=== PATIENT | male | born 1945 | race Caucasian/White ===

== ENCOUNTER 2020-11-06 06:58 | Outpatient (CLI) | payer OTHER, MEDICARE ==
[~2020-11-06] VITALS: Ht 172.7 cm; Wt 75.0 kg
[2020-11-06] MEDS ORDERED: LISI10TA25 PO (15:04)
== END 2020-11-06 15:08 ==
LOC: PREOP 06:58
PROVIDERS: ATTEND Specialist
DX: Z01.818 Encounter for other preprocedural examination (principal)

== ENCOUNTER → 2020-11-07 | Outpatient (CLI) | payer OTHER, MEDICARE ==
[~2020-11-07] MED LIST: BROM5DRO3 OS; CEFD300C3 PO; IBUP-2473 PO; LISI10TA25 PO; OFLO5DRO3 OS; [UNRECOGNIZED DRUG - OTHER] PO
[2020-11-07 12:03] LABS: BASOPHILS # (AUTO) 0.1 10^3/uL (0.0-0.1); BASOPHILS % (AUTO) 1 % (0-10); EOSINOPHILS % (AUTO) 0 % (0-10); HEMATOCRIT 36 % (40-54); HEMOGLOBIN 12.4 g/dL (13.3-17.7); LYMPHOCYTES # (AUTO) 2.9 10^3/uL (1.0-4.0); LYMPHOCYTES % (AUTO) 22 % (12-44); MEAN CORPUSCULAR HEMOGLOBIN 29 pg (25-34); MEAN CORPUSCULAR HGB CONC 34 g/dL (32-36); MEAN CORPUSCULAR VOLUME 83 fL (80-99); MEAN PLATELET VOLUME 9.5 fL (9.0-12.2); MONOCYTES # (AUTO) 1.6 10^3/uL (0.0-1.0); MONOCYTES % (AUTO) 13 % (0-12); NEUTROPHILS # (AUTO) 8.2 10^3/uL (1.8-7.8); NEUTROPHILS % (AUTO) 64 % (42-75); PLATELET COUNT 209 10^3/uL (130-400); WHITE BLOOD COUNT 12.8 10^3/uL (4.3-11.0)
[2020-11-07 12:26] LABS: BILIRUBIN,TOTAL 1.5 MG/DL (0.1-1.0); CALCIUM 8.7 MG/DL (8.5-10.1); CREATININE SERUM 0.77 MG/DL (0.60-1.30); POTASSIUM 3.9 MMOL/L (3.6-5.0); TOTAL PROTEIN 5.9 GM/DL (6.4-8.2)
--- NOTE | 2020-11-07 12:32 | Diagnostic Imaging Report ---
EXAMINATION: Chest 2 views. HISTORY: Cough. COMPARISON: 05/12/2014 FINDINGS: The lungs are clear without edema or pneumonia. No pleural effusion or pneumothorax. Heart size is normal. IMPRESSION: 1. Clear lungs. Dictated by: Dictated on workstation # [id number]
== END ==
LOC: RAD 11:45
PROVIDERS: ATTEND Family Medicine
DX: R05 Cough (principal); R50.9 Fever, unspecified; R42 Dizziness and giddiness
CPT/HCPCS: 36415; 71046; 80053; 85025

== ENCOUNTER 2020-11-08 18:20 | Inpatient (IN) | payer OTHER, MEDICARE ==
[~2020-11-08] VITALS: Ht 175.2 cm; Wt 77.2 kg
[~2020-11-08 18:20] MED LIST changes: -BROM5DRO3 OS; -CEFD300C3 PO; -IBUP-2473 PO; -OFLO5DRO3 OS; -[UNRECOGNIZED DRUG - OTHER] PO
[2020-11-08] MEDS ORDERED: IBUPROFEN 800 MG (MOTRIN) TAB PO ONE (18:30)
[2020-11-08] MEDS ORDERED: ACETAMINOPHEN 500 MG TAB (TYLENOL) PO PRN (18:30)
[2020-11-08] MEDS ORDERED: LACTATED RINGERS 1,000 ML IV ONE ×2 (18:30→20:15)
[2020-11-08 18:41] LABS: BASOPHILS % (AUTO) 0 % (0-10); EOSINOPHILS % (AUTO) 0 % (0-10); HEMATOCRIT 33 % (40-54); LYMPHOCYTES # (AUTO) 1.8 10^3/uL (1.0-4.0); LYMPHOCYTES % (AUTO) 10 % (12-44); MEAN CORPUSCULAR HEMOGLOBIN 28 pg (25-34); MEAN CORPUSCULAR HGB CONC 36 g/dL (32-36); MEAN CORPUSCULAR VOLUME 79 fL (80-99); MEAN PLATELET VOLUME 9.9 fL (9.0-12.2); MONOCYTES # (AUTO) 2.2 10^3/uL (0.0-1.0); MONOCYTES % (AUTO) 12 % (0-12); NEUTROPHILS # (AUTO) 13.7 10^3/uL (1.8-7.8); NEUTROPHILS % (AUTO) 77 % (42-75); PLATELET COUNT 227 10^3/uL (130-400); WHITE BLOOD COUNT 17.9 10^3/uL (4.3-11.0)
--- NOTE | 2020-11-08 18:49 | ED General ---
General Chief Complaint: COVID19 Suspect/Confirmed Stated Complaint: WEAKNESS IN LEGS Source of Information: Patient (LIMITED HISTORIAN), EMS History of Present Illness Date Seen by Provider: Nov 08, 2020 Time Seen by Provider: 18:25 Initial Comments PT ARRIVES VIA EMS FROM HOME--PT LIVES ALONE C/O GENERALIZED WEAKNESS FOR THE LAST 3 DAYS--STATES HE HAS "BEEN TOO WEAK TO STAND" C/O NON-PRODUCTIVE COUGH X 1 WEEK C/O SHORTNESS OF BREATH SINCE FRIDAY PT HAD FEVER OF 102.2 PRIOR TO ARRIVAL BY EMS--PT WAS UNAWARE THAT HE HAD FEVER C/O FEELING LIGHTHEADED X 3 DAYS NO HEADACHE NO VISION CHANGES NO NECK OR BACK PAIN NO NAUSEA/VOMITING/DIARRHEA NO ABDOMINAL PAIN NO URINARY SYMPTOMS NO LOSS OF TASTE OR SMELL NO CHEST PAIN NO LEG PAIN NO PARESTHESIAS OR MOTOR DEFICITS, STATES HIS LEGS ARE JUST "WEAK" BUT IS ABLE TO MOVE THEM WENT TO SEE DR. WINN FRIDAY, FRIDAY AND AGAIN THIS MORNING FOR THIS PROBLEM HAD OUTPATIENT CXR AND LAB--RESULTS UNKNOWN BY PT OUTPATIENT CXR ON 11/07/20 WAS NORMAL LAB FROM 11/07/20: -WBC 12.8 -LFT'S ELEVATED PT WAS SUPPOSED TO HAVE HAD AN ULTRASOUND ( ? ABDOMINAL ? ) THIS AM, BUT PT ATE ( WAS SUPPOSED TO BE NPO) SO IT WAS NOT DONE. RESCHEDULED FOR 0800 IN THE MORNING REPORTEDLY, PT HAD NEGATIVE COVID-19 TEST EARLIER TODAY AT "[facility]" PT HAD COVID-19 VACCINE X 2 IN JUNE PCP: DR. WINN Allergies and Home Medications Allergies Coded Allergies: No Known Drug Allergies (Unverified , 11/06/20) Home Medications Lisinopril 10 Mg Tablet, 10 MG PO DAILY, (Reported) Patient Home Medication List Home Medication List Reviewed: Yes Review of Systems Review of Systems Constitutional: see HPI, fever, malaise, weakness EENTM: no symptoms reported Respiratory: see HPI, cough, short of breath Cardiovascular: no symptoms reported; No chest pain, No edema Gastrointestinal: no symptoms reported; No abdominal pain, No diarrhea, No loss of appetite, No nausea, No vomiting Genitourinary: no symptoms reported Musculoskeletal: no symptoms reported; No back pain, No muscle pain, No neck pain Skin: no symptoms reported Psychiatric/Neurological: Denies Headache, Denies Numbness, Denies Paresthesia, Denies Tingling; Other (GENERALIZED WEAKNESS) Hematologic/Lymphatic: No Symptoms Reported Immunological/Allergic: no symptoms reported Past Sfctwwe-Gxmieu-Pfohdn Hx Patient Social History Tobacco Use?: Yes (1 PPD) Tobacco type used: Cigarettes Smoking Status: Former Smoker Use of E-Cig and/or Vaping dev: No Substance use?: No Alcohol Use?: No Pt feels they are or have been: No Immunizations Up To Date Influenza Vaccine Up-to-Date: No; Not Current Second COVID19 Vaccination Peter: 06/28 COVID19 Vaccine Special Event Assistant: Eladia Past Medical History Surgery/Hospitalization HX: TESTICULAR SURGERY FOR "CYSTS" RIGHT THUMB REPAIR Surgeries: Yes Orthopedic, Testicular Respiratory: No Cardiac: Yes Hypertension Neurological: No Genitourinary: Yes (TESTICULAR "CYSTS" REMOVED) Gastrointestinal: No Musculoskeletal: No Endocrine: No HEENT: No Cancer: No Psychosocial: No Integumentary: No Blood Disorders: No Physical Exam Vital Signs Vital Signs - First Documented 11/08/20 18:24 Temp 38.1 Pulse 93 Resp 24 B/P (MAP) 180/77 (111) Pulse Ox 96 Capillary Refill : Height, Weight, BMI Height: '" Weight: lbs. oz. kg; BMI Method: General Appearance: No Apparent Distress, WD/WN, Other (DOES NOT APPEAR ILL OR TO BE IN ANY DISCOMFORT OR DISTRESS) HEENT: PERRL/EOMI, Normal ENT Inspection, Pharynx Normal; No Scleral Icterus (L), No Scleral Icterus (R) Neck: Full Range of Motion, Normal Inspection, Non Tender, Supple Respiratory: Normal Breath Sounds, No Accessory Muscle Use, No Respiratory Distress Cardiovascular: Regular Rate, Rhythm, No Gallop, No JVD, No Murmur, Normal Peripheral Pulses Gastrointestinal: Normal Bowel Sounds, No Organomegaly, No Pulsatile Mass, Non Tender, Soft Back: Normal Inspection, No CVA Tenderness, No Vertebral Tenderness Extremity: Normal Range of Motion, Non Tender, No Calf Tenderness, Pedal Edema (1+ BILATERALLY), Other (FEET ARE PINK AND WARM, AND ALL DISTAL PULSES +2/4 ) Neurologic/Psychiatric: Alert, Oriented x3, No Motor/Sensory Deficits, Normal 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, 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, Other (ZAVALA EQUALLY; DTR'S INTACT) Skin: Normal Color, Warm/Dry; No Rash; Other (NO WOUNDS OR EVIDENCE OF ANY SKIN INFECTION/BREAKDOWN ANYWHERE) Focused Exam Lactate Level 11/08/20 18:30: Lactic Acid Level 1.44 Lactic Acid Level Laboratory Tests Test 11/08/20 18:30 Lactic Acid Level 1.44 MMOL/L (0.50-2.00) Progress/Results/Core Measures Suspected Sepsis SIRS Temperature: Pulse: Respiratory Rate: Laboratory Tests 11/08/20 18:30: White Blood Count 17.9H Blood Pressure / Mean: 11/08/20 18:30: Lactic Acid Level 1.44 Laboratory Tests 11/08/20 18:30: Creatinine 0.66, INR Comment 1.2, Platelet Count 227, Total Bilirubin 2.7H Results/Orders Lab Results Laboratory Tests Test 11/08/20 18:30 11/08/20 20:47 Range/Units White Blood Count 17.9 H 4.3-11.0 10^3/uL Red Blood Count 4.22 L 4.30-5.52 10^6/uL Hemoglobin 12.0 L 13.3-17.7 g/dL Hematocrit 33 L 40-54 % Mean Corpuscular Volume 79 L 80-99 fL Mean Corpuscular Hemoglobin 28 25-34 pg Mean Corpuscular Hemoglobin Concent 36 32-36 g/dL Red Cell Distribution Width 13.7 10.0-14.5 % Platelet Count 227 130-400 10^3/uL Mean Platelet Volume 9.9 9.0-12.2 fL Immature Granulocyte % (Auto) 1 % Neutrophils (%) (Auto) 77 H 42-75 % Lymphocytes (%) (Auto) 10 L 12-44 % Monocytes (%) (Auto) 12 0-12 % Eosinophils (%) (Auto) 0 0-10 % Basophils (%) (Auto) 0 0-10 % Neutrophils # (Auto) 13.7 H 1.8-7.8 10^3/uL Lymphocytes # (Auto) 1.8 1.0-4.0 10^3/uL Monocytes # (Auto) 2.2 H 0.0-1.0 10^3/uL Eosinophils # (Auto) 0.0 0.0-0.3 10^3/uL Basophils # (Auto) 0.0 0.0-0.1 10^3/uL Immature Granulocyte # (Auto) 0.2 H 0.0-0.1 10^3/uL Neutrophils % (Manual) 88 % Lymphocytes % (Manual) 8 % Monocytes % (Manual) 4 % Blood Morphology Comment NORMAL Erythrocyte Sedimentation Rate 8 0-30 MM/HR Prothrombin Time 15.7 H 12.2-14.7 SEC INR Comment 1.2 0.8-1.4 Activated Partial Thromboplast Time 41 H 24-35 SEC D-Dimer 3.13 H 0.00-0.49 UG/ML Sodium Level 128 L 135-145 MMOL/L Potassium Level 4.4 3.6-5.0 MMOL/L Chloride Level 97 L 98-107 MMOL/L Carbon Dioxide Level 21 21-32 MMOL/L Anion Gap 5-14 MMOL/L Blood Urea Nitrogen 16 7-18 MG/DL Creatinine 0.66 0.60-1.30 MG/DL Estimat Glomerular Filtration Rate 117 BUN/Creatinine Ratio 24 Glucose Level 99 70-105 MG/DL Lactic Acid Level 1.44 0.50-2.00 MMOL/L Calcium Level 8.7 8.5-10.1 MG/DL Corrected Calcium 9.6 8.5-10.1 MG/DL Magnesium Level 1.8 1.6-2.4 MG/DL Total Bilirubin 2.7 H 0.1-1.0 MG/DL Direct Bilirubin 1.8 H 0.0-0.3 MG/DL Indirect Bilirubin 0.9 MG/DL Aspartate Amino Transf (AST/SGOT) 55 H 5-34 U/L Alanine Aminotransferase (ALT/SGPT) 74 H 0-55 U/L Alkaline Phosphatase 364 H 40-136 U/L Lactate Dehydrogenase 302 H 125-220 U/L Troponin I < 0.028 <0.028 NG/ML C-Reactive Protein High Sensitivity 12.54 H 0.00-0.50 MG/DL B-Type Natriuretic Peptide 404.5 H <100.0 PG/ML Total Protein 5.9 L 6.4-8.2 GM/DL Albumin 2.9 L 3.2-4.5 GM/DL Amylase Level 25 25-125 U/L Lipase 12 8-78 U/L Procalcitonin 0.85 H <0.10 NG/ML SARS-CoV-2 RNA (RT-PCR) Not Detected Not Detecte Urine Color YELLOW Urine Clarity CLEAR Urine pH 6.0 5-9 Urine Specific Burt 1.010 L 1.016-1.022 Urine Protein 1+ H NEGATIVE Urine Glucose (UA) NEGATIVE NEGATIVE Urine Ketones NEGATIVE NEGATIVE Urine Nitrite NEGATIVE NEGATIVE Urine Bilirubin 1+ H NEGATIVE Urine Urobilinogen 2.0 < = 1.0 MG/DL Urine Leukocyte Esterase NEGATIVE NEGATIVE Urine RBC (Auto) 2+ H NEGATIVE Urine RBC 2-5 H /HPF Urine WBC 0-2 /HPF Urine Crystals PRESENT H /LPF Urine Amorphous Sediment RARE JEANETTE URATES H /LPF Urine Bacteria TRACE /HPF Urine Casts NONE /LPF Urine Mucus SMALL H /LPF Urine Culture Indicated NO My Orders Orders - PROSPER HUTCHISON DO Cbc With Automated Diff (11/08/20 18:) Comprehensive Metabolic Panel (11/08/20:) Fibrin Degradation Products (11/08/20:) Procalcitonin (Pct) (11/08/20 18:) Hs C Reactive Protein (11/08/20 18:) Erythrocyte Sedimentation Rate (11/08/20 18:) LDH (11/08/20 18:) Blood Culture (11/08/20:) Ekg Tracing (11/08/20:) Liver Panel (11/08/20 18:) Chest 1 View, Ap/Pa Only (11/08/20 18:26) Covid 19 Inhouse Test (11/08/20:) Sputum Culture (11/08/20 18:26) Urinalysis (11/08/20 18:) Urine Culture (11/08/20 18:) Protime With Inr (11/08/20:) Partial Thromboplastin Time (11/08/20:) Acetaminophen Tablet (Tylenol Tablet) (11/08/20 18:30) Ed Iv/Invasive Line Start (11/08/20 18:26) Ed Iv/Invasive Line Start (11/08/20 18:26) Vital Signs Adult Sepsis Patie Q15M (11/08/20 18:) O2 (11/08/20 18:26) Remove Rings In Anticipation O (11/08/20 18:26) Lactic Acid Analyzer (11/08/20 18:) Ed Iv/Invasive Line Start (11/08/20 18:26) Isolation Central Supply Req (11/08/20 18:26) Ed Iv/Invasive Line Start (11/08/20 18:26) Lactated Ringers (Lr 1000 Ml Iv Solution (11/08/20 18:30) Ibuprofen Tablet (Motrin Tablet) (11/08/20 18:30) Manual Differential (11/08/20 18:30) Amylase (11/08/20 19:38) BNP (11/08/20 19:38) Lipase (11/08/20 19:38) Magnesium (11/08/20 19:38) Troponin I (11/08/20 19:38) Ed Iv/Invasive Line Start (11/08/20 20:04) Lactated Ringers (Lr 1000 Ml Iv Solution (11/08/20 20:15) Ct Kate Chest/Noang Abd-Pelv W (11/08/20 20:04) Iohexol Injection (Omnipaque 350 Mg/Ml 1 (11/08/20 20:15) Received Contrast (Hold Metformin- Contr (11/08/20 20:15) Ns (Ivpb) (Sodium Chloride 0.9% Ivpb Bag (11/08/20 20:15) Hepatitis Panel Acute (11/08/20 21:17) Medications Given in ED Current Medications Medications Dose Ordered Sig/Asim Route Start Time Stop Time Status Last Admin Dose Admin Acetaminophen 1,000 mg ONCE PRN PO 11/08/20 18:30 11/08/20 18:38 DC 11/08/20 18:38 1,000 MG Ibuprofen 800 mg ONCE ONCE PO 11/08/20 18:30 11/08/20 18:31 DC 11/08/20 18:38 800 MG Iohexol 100 ml ONCE ONCE IV 11/08/20 20:15 11/08/20 20:16 DC 11/08/20 20:34 100 ML Lactated Ringer's 1,000 ml @ 0 mls/hr Q0M ONCE IV 11/08/20 18:30 11/08/20 18:31 DC 11/08/20 18:37 1,000 MLS/HR Lactated Ringer's 1,000 ml @ 0 mls/hr Q0M ONCE IV 11/08/20 20:15 11/08/20 20:16 DC 11/08/20 20:16 1,000 MLS/HR Sodium Chloride 100 ml ONCE ONCE IV 11/08/20 20:15 9/1/21 20:16 DC 11/08/20 20:34 80 ML Vital Signs/I&O 11/08/20 11/08/20 11/08/20 18:24 18:38 18:38 Temp 38.1 38.2 38.2 Pulse 93 Resp 24 B/P (MAP) 180/77 (111) Pulse Ox 96 Capillary Refill : Progress Note : Progress Note PLACED IN ISOLATION ROOM PPE WORN AT ALL TIMES COVID-19 TESTING PERFORMED GIVEN IV FLUIDS AND TYLENOL FOR FEVER TEMP DOWN VITALS STABLE NO DETERIORATION IN PT'S CONDITION DURING ER STAY PT HAD NO COMPLAINTS DURING ENTIRE ER STAY PT STATES HE WISHES TO BE A FULL CODE ECG Initial ECG Impression Date: Nov 08, 2020 Initial ECG Impression Time: 18:52 Initial ECG Rate: 82 Initial ECG Rhythm: Normal Sinus Diagnostic Imaging Comments CXR--PER RADIOLOGIST REPORT AT 1949 FINDINGS: The heart is unremarkable. There is pulmonary vascular congestion. Lungs appear clear. No effusions or pneumothorax. IMPRESSION: 1. Pulmonary vascular congestion. Reviewed: Reviewed by Me Departure Communication (Admissions) 2121--SPOKE WITH DR. HARRIS, HOSPITALIST, ACCEPTS PT FOR ADMIT. ORDERS NOTED. ADVISES TO CONSULT DR. JAIME, SURGEON 2126--SPOKE WITH DR. JAIME, SURGEON, AGREES WITH ULTRASOUND IN AM, NO ADDITIONAL RECOMMENDATIONS AT THIS TIME. ADVISES TO HOLD LOVENOX Impression Primary Impression: Sepsis Additional Impressions: Elevated liver enzymes CHF (congestive heart failure) Peripheral arterial disease Hyponatremia Disposition: ADMITTED INPATIENT Condition: Stable Admissions Decision to Admit Reason: Admit from ER (General) Decision to Admit/Date: Nov 08, 2020 Time/Decision to Admit Time: 21:25 Departure-Patient Inst. Referrals: MJ WINN DO (PCP/Family) Primary Care Physician PROSPER HUTCHISON DO Nov 08, 2020 18:49
[2020-11-08 19:12] LABS: ERYTHROCYTE SEDIMENTATION RATE 8 MM/HR (0-30)
[2020-11-08 19:14] LABS: LYMPHOCYTES % (MANUAL) 8 %; MONOCYTES % (MANUAL) 4 %; NEUTROPHILS % (MANUAL) 88 %; RBC MORPH NORMAL
[2020-11-08 19:17] LABS: FIBRIN DEGRADATION PRODUCTS 3.13 UG/ML (0.00-0.49); INR 1.2 (0.8-1.4); PROTHROMBIN TIME PATIENT 15.7 SEC (12.2-14.7)
--- NOTE | 2020-11-08 19:46 | Diagnostic Imaging Report ---
INDICATION: Fever, leg weakness, shortness of air and dizziness. EXAMINATION: Chest 11/08/2020 COMPARISON: 11/07/2020 FINDINGS: The heart is unremarkable. There is pulmonary vascular congestion. Lungs appear clear. No effusions or pneumothorax. IMPRESSION: 1. Pulmonary vascular congestion. Dictated by: Dictated on workstation # [id number]
[2020-11-08 19:51] LABS: CHLORIDE 97 MMOL/L (98-107); POTASSIUM 4.4 MMOL/L (3.6-5.0); SODIUM 128 MMOL/L (135-145)
[2020-11-08 19:52] LABS: CARBON DIOXIDE 21 MMOL/L (21-32); CREATININE SERUM 0.66 MG/DL (0.60-1.30); GFR ESTIMATED 117
[2020-11-08 19:53] LABS: ALANINE AMINOTRANSFERASE 74 U/L (0-55); ALBUMIN 2.9 GM/DL (3.2-4.5); ALKALINE PHOSPHATASE 364 U/L (40-136); BILIRUBIN,DIRECT 1.8 MG/DL (0.0-0.3); BILIRUBIN,INDIRECT 0.9 MG/DL; BILIRUBIN,TOTAL 2.7 MG/DL (0.1-1.0); CALCIUM 8.7 MG/DL (8.5-10.1); GLUCOSE 99 MG/DL (70-105); TOTAL PROTEIN 5.9 GM/DL (6.4-8.2)
[2020-11-08 19:56] LABS: BUN/CREATININE RATIO 24
[2020-11-08] MEDS ORDERED: HOLD METFORMIN - RECEIVED CONTRAST 20 ML VIAL IV SCH (20:15)
[2020-11-08] MEDS ORDERED: IOHEXOL 350 MG/ML 100 ML (OMNIPAQUE 350) VIAL IV ONE (20:15)
[2020-11-08] MEDS ORDERED: NS 100 ML (IVPB) BAG IV ONE (20:15)
[2020-11-08 20:26] LABS: AMYLASE 25 U/L (25-125); LIPASE 12 U/L (8-78); MAGNESIUM 1.8 MG/DL (1.6-2.4)
[2020-11-08 20:55] LABS: CLARITY,URINE CLEAR; COLOR,URINE YELLOW; GLUCOSE, URINE (UA) NEGATIVE (NEGATIVE); KETONES,URINE NEGATIVE (NEGATIVE); LEUKOCYTE ESTERASE ,URINE NEGATIVE (NEGATIVE); NITRITE,URINE NEGATIVE (NEGATIVE); PROTEIN,URINE 1+ (NEGATIVE)
--- NOTE | 2020-11-08 21:01 | Diagnostic Imaging Report ---
Exam: CTA chest, abdomen and pelvis Thin axial sections through the chest, abdomen and pelvis are obtained following intravenous contrast bolus. Multiplanar MIP images were reconstructed and reviewed. All CT scans use one or more of the following dose optimizing techniques: automated exposure control, MA and/or KvP adjustment based on patient size and exam type or iterative reconstruction. Date: November 08, 2020. Indication: 75-year-old male, fever, elevated liver function tests. Shortness of breath. Comparison: Chest radiograph November 08, 2020. CT abdomen October 24, 2014. Findings: There is no identified pulmonary nodule. There is no lung mass. There is a small right pleural effusion with mild adjacent compressive atelectasis in the right lower lobe. There is no sizable left pleural effusion. There is no pneumothorax. The central airways are patent. There is no identified pulmonary embolus. The heart is not enlarged. There is no pericardial effusion. There are atherosclerotic calcifications and coronary artery calcifications. There is no identified abnormally enlarged mediastinal, hilar, or axillary lymph node which meets CT size criteria for adenopathy. The liver is unremarkable in size and contour. There is no identified liver lesion. The main, right, and left portal veins are patent. The gallbladder is unremarkable. There is no biliary ductal dilation. The main pancreatic duct is not abnormally dilated. There is a cystic lesion in the pancreatic body on axial image 52 measuring 1.6 cm in size. This is present in 2015 and previously measured approximately 1.3 cm in size. This most likely relates to a side branch, IPMN, or serous or mucinous pancreatic neoplasm. The spleen is normal in size. The adrenal glands are unremarkable. There is a low-attenuation exophytic left renal lesion on axial image 100 which measures 2.4 cm in size with internal attenuation diagnostic for a benign cyst. There is an additional benign right renal cyst on axial image 68 which measures 4.8 cm in size. The urinary collecting systems are not distended. There is no identified renal or ureteral stone. Urinary bladder is unremarkable. The intestinal tract is not distended. There is no evidence to suggest acute appendicitis. There is no free intraperitoneal air. There is no drainable fluid collection. There is no free pelvic fluid. There is occlusion of the left common iliac artery on axial image 113 adjacent sequential images. There is also occlusion of the proximal aspect of the left external iliac artery and a left internal iliac artery. There is reconstitution of flow at the level of the left common femoral artery. There is a left retroperitoneal lymph node on axial image 70 measuring 8 mm in short axis. There are multilevel degenerative changes of the spine. There is no identified acute bony abnormality. IMPRESSION: 1. 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 There is reconstitution of blood flow at the level of the left common femoral artery. 2. Small right pleural effusion. 3. No alveolar consolidation or findings to specifically suggest COVID 19 pneumonia or other alveolar consolidative process. 4. No identified pulmonary embolus. 5. No additional identified acute abnormality in the abdomen or pelvis. Dictated by: Dictated on workstation # [id number]
[2020-11-08 21:16] LABS: BACTERIA,URINE TRACE /HPF; WBC,URINE 0-2 /HPF
[2020-11-08 21:17] LABS: AMORPHOUS SEDIMENT,UR RARE AMOR URATES /LPF
[2020-11-08 21:20] LABS: BILIRUBIN,URINE 1+ (NEGATIVE)
[2020-11-08] MEDS ORDERED: metroNIDAZOLE 500MG/100ML IVPB 100 ML IV ONE (21:45)
[2020-11-08] MEDS ORDERED: PIPERACILLIN SODIUM/TAZOBACTAM 4.5 GM in NS (IVPB) 100 ML IV ONE (21:45)
[2020-11-09] VITALS (12 sets, daily range): BP systolic 158–207; BP diastolic 69–183
[2020-11-09] MEDS ORDERED: IBUPROFEN 800 MG (MOTRIN) TAB PO PRN (01:15)
[2020-11-09] MEDS ORDERED: ONDANSETRON 4 MG/2 ML (SDV) Z0FRAN IV PRN (01:15)
[2020-11-09] MEDS: NS IV 1000 ML 1,000 ML IV SCH ×2 (01:40→08:20)
[2020-11-09] MEDS: PIPERACILLIN/TAZO 4.5 GM/NS 100 ML IV SCH ×6 (04:03→19:52)
[2020-11-09 04:55] LABS: BASOPHILS # (AUTO) 0.1 10^3/uL (0.0-0.1); BASOPHILS % (AUTO) 1 % (0-10); EOSINOPHILS % (AUTO) 0 % (0-10); HEMATOCRIT 33 % (40-54); HEMOGLOBIN 11.5 g/dL (13.3-17.7); LYMPHOCYTES # (AUTO) 1.9 10^3/uL (1.0-4.0); LYMPHOCYTES % (AUTO) 14 % (12-44); MEAN CORPUSCULAR HEMOGLOBIN 29 pg (25-34); MEAN CORPUSCULAR HGB CONC 35 g/dL (32-36); MEAN CORPUSCULAR VOLUME 81 fL (80-99); MEAN PLATELET VOLUME 9.8 fL (9.0-12.2); MONOCYTES # (AUTO) 1.6 10^3/uL (0.0-1.0); MONOCYTES % (AUTO) 12 % (0-12); NEUTROPHILS # (AUTO) 9.7 10^3/uL (1.8-7.8); NEUTROPHILS % (AUTO) 73 % (42-75); PLATELET COUNT 192 10^3/uL (130-400); WHITE BLOOD COUNT 13.3 10^3/uL (4.3-11.0)
[2020-11-09 05:25] LABS: ALBUMIN 2.5 GM/DL (3.2-4.5); BILIRUBIN,TOTAL 2.8 MG/DL (0.1-1.0); CALCIUM 8.6 MG/DL (8.5-10.1); CREATININE SERUM 0.72 MG/DL (0.60-1.30); POTASSIUM 4.2 MMOL/L (3.6-5.0); TOTAL PROTEIN 5.1 GM/DL (6.4-8.2)
--- NOTE | 2020-11-09 06:32 | Consultation - Surgery ---
MARICRUZ LUJAN MED STUDENT 11/09/20 0632: History of Present Illness History of Present Illness Patient Consulted On(nam/time) 11/09/20 06:29 Date Seen by Provider: Nov 09, 2020 Time Seen by Provider: 07:10 History of Present Illness HPI: Patient presented to the ED yesterday complaining of weakness while walking and dizziness. Patient also complains of fevers and chills and SOB for a week. Patient states he's been seeing his primary all week and had labs and CXR. Patient was sent to [facility] for an U/S d/t elevated LFTs but had eaten so they couldn't preform the U/S. Patient states he collapsed yesterday at home due to weakness from hips and below. Patient states his legs "just quit." Patient denies losing consciousness. Patient states his weakness in his legs has been progressively worse since Friday. He denies periods of improvement. Patient is on antibiotics since friday (yesterday) but doesn't know what they're for. He denies anything making it better or worse. Today, he states he feels much better and has no weakness but feels dizzy ie decreased proprioception. He's had 3 negative covid tests recently. He denies recent travel or injuries. Allergies and Home Medications Allergies Coded Allergies: No Known Drug Allergies (Unverified , 11/06/20) Home Medications Lisinopril 10 Mg Tablet, 10 MG PO DAILY, (Reported) Past Ldrtoxd-Ojzzje-Ntkxsj Hx Patient Social History Smoking Status: Current Everyday Smoker Cigarettes Per Day: 20 Type Used: Cigarettes Alcohol Use?: No Have you traveled recently?: No Surgeries History of Surgeries: Yes Surgeries: Orthopedic, Testicular Respiratory History of Respiratory Disorde: No Cardiovascular History of Cardiac Disorders: Yes Cardiac Disorders: Hypertension Neurological History of Neurological Disord: No Genitourinary History of Genitourinary Disor: Yes (TESTICULAR "CYSTS" REMOVED) Gastrointestinal History of Gastrointestinal Di: No Musculoskeletal History of Musculoskeletal Dis: No Endocrine History of Endocrine Disorders: No HEENT History of HEENT Disorders: No Cancer History of Cancer: No Psychosocial History of Psychiatric Problem: No Integumentary History of Skin or Integumenta: No Blood Transfusions History of Blood Disorders: No Family Medical History Significant Family History: Heart Disease (dad), Psychiatric Problems (alzheimer's - mom), Stroke (Dad) Review of Systems-General Constitutional: chills, dizziness, fever, weakness (LE) EENTM: hearing loss (hearing aids); No vision loss Respiratory: cough (dry), short of breath Cardiovascular: No chest pain, No palpitations Gastrointestinal: No abdominal pain, No constipation, No diarrhea Genitourinary: No dysuria, No frequency Musculoskeletal: muscle weakness Psychiatric/Neurological: Headache, Weakness (all over) Physical Exam-General Problems Physical Exam Vital Signs Vital Signs - First Documented 11/08/20 11/09/20 18:24 00:35 Temp 38.1 Pulse 93 Resp 24 B/P (MAP) 180/77 (111) Pulse Ox 96 O2 Delivery Room Air Capillary Refill : Less Than 3 Seconds General Appearance: WD/WN, no apparent distress HEENT: PERRL/EOMI Neck: supple, tender lateral Respiratory: chest non-tender, no respiratory distress Cardiovascular: regular rate, rhythm, no murmur Gastrointestinal: normal bowel sounds, non tender, soft Extremities: normal range of motion, non-tender, normal inspection, no pedal edema, no calf tenderness Neurologic/Psychiatric: script reader II-XII nml as tested, no motor/sensory deficits, alert Skin: normal color, warm/dry Data Review Labs Laboratory Tests 11/08/20 18:30: White Blood Count 17.9H, Red Blood Count 4.22L, Hemoglobin 12.0L, Hematocrit 33L , Mean Corpuscular Volume 79L, Mean Corpuscular Hemoglobin 28, Mean Corpuscular Hemoglobin Concent 36, Red Cell Distribution Width 13.7, Platelet Count 227, Mean Platelet Volume 9.9, Immature Granulocyte % (Auto) 1, Neutrophils (%) (Auto) 77H, Lymphocytes (%) (Auto) 10L, Monocytes (%) (Auto) 12, Eosinophils (%) (Auto) 0, Basophils (%) (Auto) 0, Neutrophils # (Auto) 13.7H, Lymphocytes # (Auto) 1.8, Monocytes # (Auto) 2.2H, Eosinophils # (Auto) 0.0, Basophils # (A uto) 0.0, Immature Granulocyte # (Auto) 0.2H, Neutrophils % (Manual) 88, Lymphocytes % (Manual) 8, Monocytes % (Manual) 4, Blood Morphology Comment NORMAL, Erythrocyte Sedimentation Rate 8, Prothrombin Time 15.7H, INR Comment 1.2, Activated Partial Thromboplast Time 41H, D-Dimer 3.13H, Sodium Level 128L, Potassium Level 4.4, Chloride Level 97L, Carbon Dioxide Level 21, Anion Gap , Bl ood Urea Nitrogen 16, Creatinine 0.66, Estimat Glomerular Filtration Rate 117, BUN/Creatinine Ratio 24, Glucose Level 99, Lactic Acid Level 1.44, Calcium Level 8.7, Corrected Calcium 9.6, Magnesium Level 1.8, Total Bilirubin 2.7H, Direct Bilirubin 1.8H, Indirect Bilirubin 0.9, Aspartate Amino Transf (AST/SGOT) 55H, Alanine Aminotransferase (ALT/SGPT) 74H, Alkaline Phosphatase 364H, Lactate Deh ydrogenase 302H, Troponin I < 0.028, C-Reactive Protein High Sensitivity 12.54H, B-Type Natriuretic Peptide 404.5H, Total Protein 5.9L, Albumin 2.9L, Amylase Level 25, Lipase 12, Procalcitonin 0.85H, SARS-CoV-2 RNA (RT-PCR) Not Detected 11/08/20 20:47: Urine Color YELLOW, Urine Clarity CLEAR, Urine pH 6.0, Urine Specific Kingsley 1.010L, Urine Protein 1+H, Urine Glucose (UA) NEGATIVE, Urine Ketones NEGATIVE, Urine Nitrite NEGATIVE, Urine Bilirubin 1+H, Urine Urobilinogen 2.0, Urine Leukocyte Esterase NEGATIVE, Urine RBC (Auto) 2+H, Urine RBC 2-5H, Urine WBC 0- 2, Urine Crystals PRESENTH, Urine Amorphous Sediment RARE JEANETTE URATESH, Urine Bacteria TRACE, Urine Casts NONE, Urine Mucus SMALLH, Urine Culture Indicated NO 11/09/20 04:10: Sodium Level 131L, Potassium Level 4.2, Chloride Level 101, Carbon Dioxide Level 22, Anion Gap 8, Blood Urea Nitrogen 19H, Creatinine 0.72, Estimat Glomerular Filtration Rate 106, BUN/Creatinine Ratio 26, Glucose Level 94, Calcium Level 8.6, Corrected Calcium 9.8, Total Bilirubin 2.8H, Aspartate Amino Transf (AST/SGOT) 43H, Alanine Aminotransferase (ALT/SGPT) 61H, Alkaline Phosphatase 283H, Total Protein 5.1L, Albumin 2.5L, Amylase Level 20L, Lipase 13 11/09/20 04:40: White Blood Count 13.3H, Red Blood Count 4.04L, Hemoglobin 11.5L, Hematocrit 33L , Mean Corpuscular Volume 81, Mean Corpuscular Hemoglobin 29, Mean Corpuscular Hemoglobin Concent 35, Red Cell Distribution Width 14.0, Platelet Count 192, Mean Platelet Volume 9.8, Immature Granulocyte % (Auto) 1, Neutrophils (%) (Auto) 73, Lymphocytes (%) (Auto) 14, Monocytes (%) (Auto) 12, Eosinophils (%) (Auto) 0, Basophils (%) (Auto) 1, Neutrophils # (Auto) 9.7H, Lymphocytes # (Auto) 1.9, Monocytes # (Auto) 1.6H, Eosinophils # (Auto) 0.0, Basophils # (Auto) 0.1, Immature Granulocyte # (Auto) 0.1 Radiology NAME: ROGELIO BURRELL MED REC#: [id number] PT STATUS: REG ER : 1945 PHYSICIAN: PROSPER HUTCHISON DO ADMIT DATE: 11/08/20/ER Signed Date of Exam:11/08/20 CHEST 1 VIEW, AP/PA ONLY INDICATION: Fever, leg weakness, shortness of air and dizziness. EXAMINATION: Chest 11/08/2020 COMPARISON: 11/07/2020 FINDINGS: The heart is unremarkable. There is pulmonary vascular congestion. Lungs appear clear. No effusions or pneumothorax. IMPRESSION: 1. Pulmonary vascular congestion. Dictated by: Dictated on workstation # [id number] Dict: 11/08/201935 Trans: 11/08/201950 [facility] [id number] Interpreted by: CLEMENCIA PATRICK MD Electronically signed by: CLEMENCIA PATRICK MD 11/08/201950 NAME: ROGELIO BURRELL [facility] REC#: [id number] PT STATUS: REG ER : 1945 PHYSICIAN: PROSPER HUTCHISON DO ADMIT DATE: 11/08/20/ER Signed Date of Exam:11/08/20 CT JOHN CHEST/NOANG ABD-PELV W Exam: CTA chest, abdomen and pelvis Thin axial sections through the chest, abdomen and pelvis are obtained following intravenous contrast bolus. Multiplanar MIP images were reconstructed and reviewed. All CT scans use one or more of the following dose optimizing techniques: automated exposure control, MA and/or KvP adjustment based on patient size and exam type or iterative reconstruction. Date: November 08, 2020. Indication: 75-year-old male, fever, elevated liver function tests. Shortness of breath. Comparison: Chest radiograph November 08, 2020. CT abdomen October 24, 2014. Findings: There is no identified pulmonary nodule. There is no lung mass. There is a small right pleural effusion with mild adjacent compressive atelectasis in the right lower lobe. There is no sizable left pleural effusion. There is no pneumothorax. The central airways are patent. There is no identified pulmonary embolus. The heart is not enlarged. There is no pericardial effusion. There are atherosclerotic calcifications and coronary artery calcifications. There is no identified abnormally enlarged mediastinal, hilar, or axillary lymph node which meets CT size criteria for adenopathy. The liver is unremarkable in size and contour. There is no identified liver lesion. The main, right, and left portal veins are patent. The gallbladder is unremarkable. There is no biliary ductal dilation. The main pancreatic duct is not abnormally dilated. There is a cystic lesion in the pancreatic body on axial image 52 measuring 1.6 cm in size. This is present in 2015 and previously measured approximately 1.3 cm in size. This most likely relates to a side branch, IPMN, or serous or mucinous pancreatic neoplasm. The spleen is normal in size. The adrenal glands are unremarkable. There is a low-attenuation exophytic left renal lesion on axial image 100 which measures 2.4 cm in size with internal attenuation diagnostic for a benign cyst. There is an additional benign right renal cyst on axial image 68 which measures 4.8 cm in size. The urinary collecting systems are not distended. There is no identified renal or ureteral stone. Urinary bladder is unremarkable. The intestinal tract is not distended. There is no evidence to suggest acute appendicitis. There is no free intraperitoneal air. There is no drainable fluid collection. There is no free pelvic fluid. There is occlusion of the left common iliac artery on axial image 113 adjacent sequential images. There is also occlusion of the proximal aspect of the left external iliac artery and a left internal iliac artery. There is reconstitution of flow at the level of the left common femoral artery. There is a left retroperitoneal lymph node on axial image 70 measuring 8 mm in short axis. There are multilevel degenerative changes of the spine. There is no identified acute bony abnormality. IMPRESSION: 1. 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 There is reconstitution of blood flow at the level of the left common femoral artery. 2. Small right pleural effusion. 3. No alveolar consolidation or findings to specifically suggest COVID 19 pneumonia or other alveolar consolidative process. 4. No identified pulmonary embolus. 5. No additional identified acute abnormality in the abdomen or pelvis. Dictated by: Dictated on workstation # [id number] Dict: 11/08/202035 Trans: 11/08/202233 [facility] [id number] Interpreted by: ORALIA ANGLIN MD Electronically signed by: ORALIA ANGLIN MD 11/08/202233 Assessment/Plan Assessment/Plan Assessment/Plan Elevated LFTs fever, leukocytosis w/ L shift CHF Peripheral artery disease Hyponatremia Mild anemia Plan is to do 8AM abdominal US today that was rescheduled from yesterday because pt was not NPO. Hep panel pending. Total bili 2.8, direct 1.8, AST 43, ALT 283 mildly improving. BNP 404. WBC improving 17.9 to 13.3 today. Hgb 11.5. Na improving from 128 to 131 today. CITLALY JAIME DO 11/09/20 1052: History of Present Illness History of Present Illness Time Seen by Provider: 10:14 History of Present Illness Surgery asked to consult regarding weakness and possible GB problems. Pt states he has been having weakness in his legs and yesterday couldn't even stand; called 911. Pt denies abdominal pain. In the ER he had elevated WBC, elevated LFT's and a fever of 102. He denies any liver problems and has not really had cholecystitis symptoms. Today he states he feels much better than yesterday, "stronger". Allergies and Home Medications Allergies Coded Allergies: No Known Drug Allergies (Unverified , 11/06/20) Home Medications Lisinopril 10 Mg Tablet, 10 MG PO DAILY, (Reported) Patient Home Medication List Home Medication List Reviewed: Yes Past Ehtwitq-Vxrrpj-Hygzqo Hx Patient Social History Smoking Status: Current Everyday Smoker Type Used: Cigarettes Alcohol Use?: No Surgeries History of Surgeries: Yes Surgeries: Orthopedic, Testicular Respiratory History of Respiratory Disorde: No Cardiovascular History of Cardiac Disorders: Yes Cardiac Disorders: Hypertension Neurological History of Neurological Disord: No Genitourinary History of Genitourinary Disor: Yes (testicular cysts, renal cysts) Gastrointestinal History of Gastrointestinal Di: Yes Gastrointestinal Disorders: Pancreatitis (pancreatic cyst) Musculoskeletal History of Musculoskeletal Dis: No Endocrine History of Endocrine Disorders: No HEENT History of HEENT Disorders: No Loss of Vision: Denies Hearing Impairment: Hard of Hearing, Hearing Aide Right, Hearing Aide Left Cancer History of Cancer: No Psychosocial History of Psychiatric Problem: No Family Medical History Significant Family History: Heart Disease (dad), Psychiatric Problems (alzheimer's - mom), Stroke (Dad) Review of Systems-General Constitutional: chills, dizziness, fever, weakness (LE) EENTM: hearing loss (hearing aids); No vision loss Respiratory: cough (dry), short of breath Cardiovascular: No chest pain, No palpitations; other (PAD) Gastrointestinal: No abdominal pain, No constipation, No diarrhea Genitourinary: No dysuria, No frequency Musculoskeletal: No joint pain; muscle weakness Skin: No change in color, No change in hair/nails Psychiatric/Neurological: Denies Anxiety, Denies Depressed; Headache; Denies Seizure; Weakness (all over) Physical Exam-General Problems Physical Exam General Appearance: WD/WN, no apparent distress Eyes: Bilateral Eye PERRL, Bilateral Eye EOMI HEENT: pharynx normal; No scleral icterus (R), No scleral icterus (L) Neck: supple, tender lateral Respiratory: chest non-tender, normal breath sounds, no respiratory distress, no accessory muscle use Cardiovascular: regular rate, rhythm, no murmur Gastrointestinal: normal bowel sounds, non tender, soft, no organomegaly Extremities: non-tender, no pedal edema, no calf tenderness, normal capillary refill Neurologic/Psychiatric: script reader II-XII nml as tested, no motor/sensory deficits, alert Skin: normal color, warm/dry Lymphatic: no adenopathy (neck, axilla or groin) Assessment/Plan Assessment/Plan Assessment/Plan Elevated LFT's Meets Septic Criteria - WBC, fever PAD Hyponatremia Hypoalbuminemia Pt had US, not read by Radiologist yet; I looked and did not see any acute signs of cholecystitis. He may have sludge in GB; will wait for final radiology reading. His liver enzymes are trending down and he has no abdominal pain. I doubt he has gallbladder problems, probably more likely to be a viral problem causing increase LFTs, weakness, and most likely dehydrated. He also has probably not been eating and that is why his albumin is low. Once we get finally reading can start eating and would increase protein intake. Supervisory-Addendum Brief Verification & Attestation Participated in pt care: history, MDM, physical Personally performed: exam, history, MDM, supervision of care Care discussed with: Medical Student Procedures: n/a Verification and Attestation of Medical Student E/M Service A medical student performed and documented this service. I then reviewed and ve rified all information documented by the medical student and made modifications to such information, when appropriate. I personally performed a physical exam, medical decision making and then discussed any differences between the notes and made revisions as necessary to create one note. Citlaly Jaime , 11/09/20 , 11:00 MARICRUZ LUJAN MED STUDENT Nov 09, 2020 06:32 CITLALY JAIME DO Nov 09, 2020 10:52
[2020-11-09] MEDS ORDERED: metroNIDAZOLE 500 MG/100 ML IVPB (PRE-MIX) IV SCH (09:00)
--- NOTE | 2020-11-09 10:52 | Diagnostic Imaging Report ---
INDICATION: PROCEDURE: Ultrasound abdomen complete. TECHNIQUE: Multiple real-time grayscale images were obtained of the abdomen in various projections. INDICATION: Elevated liver function studies. Correlation with abdominal pelvic CT 10/24/2014. Liver parenchyma sonographically appeared unremarkable. There is no abnormal distention of the intra or extrahepatic bile ducts. The gallbladder was normal with no intraluminal sludge, stone or wall thickening. No perihepatic or para cholecystic fluid. The pancreas grossly unremarkable where visualized. Portions of its head and tail are obscured. The aorta and IVC unremarkable. The right kidney is unobstructed measuring 10.6 cm has an upper pole cystic lesion measuring 5 cm. This does have some puckering of its wall with a few thin nonvascularized septations. It previously measured 4.[address] where it showed no appreciable complexity at that modality. No vascularized or soft tissue renal lesion is found. The left kidney unobstructed and normal at 11.5 cm. There is no ascites. Portal vein is patent and showed a normal hepatopetal directional flow. The nonfocal spleen is within normal limits. 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 While risk of malignancy is felt low follow-up ultrasound or renal protocol CT in 6 months time is recommended. Abdominal CT otherwise unremarkable and showed no acute appearing abnormality. Dictated by: Dictated on workstation # [id number]
[2020-11-09] MEDS ORDERED: OFLO5DRO3 OS (11:29)
[2020-11-09] MEDS ORDERED: BROM5DRO3 OS (11:29)
[2020-11-09] MEDS ORDERED: CEFD300C3 PO (11:29)
[2020-11-09] MEDS ORDERED: IBUP-2473 PO (11:29)
[2020-11-09] MEDS ORDERED: lisINopril 40 MG (PRINIVIL) TABLET PO ONE (11:30)
[2020-11-09] MEDS ORDERED: [UNRECOGNIZED DRUG - OTHER] PO (13:03)
[2020-11-09] MEDS: hydrALAZINE (APESOLINE) 20 MG/ML VIAL IV PRN (19:52)
[2020-11-09] MEDS ORDERED: RT-ALBUTEROL SULF 2.5 MG/3 ML PRE-MIX VIAL ONE (20:13)
[2020-11-09] MEDS: RT-ALBUTEROL/IPRATROPIUM 3 ML (DUONEB) VIAL INH SCH (20:17)
[2020-11-09] MEDS ORDERED: FUROSEMIDE 40 MG/4 ML INJ (LASIX) IVP ONE (21:00)
[2020-11-09] MEDS ORDERED: cloNIDine 0.1 MG (CATAPRES) TAB PO PRN (21:00)
[2020-11-09] MEDS: RT-ALBUTEROL/IPRATROPIUM 3 ML (DUONEB) VIAL INH PRN (21:27)
[2020-11-09] MEDS: OFLOXACIN 0.3% OPHTH SOLN 5 ML OS SCH (21:36)
[2020-11-09 22:08] LABS: HEPATITIS C ANTIBODY C Non-Reactive (Non-Reactive)
--- NOTE | 2020-11-09 23:19 | Tele-ICU Progress Note ---
Progress Note 75M with HTN, presents with 3 days general weakness, too weak to stand. Nonproductive cough x1 wk, SOB since Friday. Was febrile to 102.2, was unaware of current or prior fevers. Had been evaluated as outpatient with work up including chest xray, labs, negative covid. Was scheduled for ABD US but held because he wasn't NPO. Was started on antibiotics the day prior to admission for unclear reasons. Found to have occlusion of the left common iliac and left internal and external iliacs with reconstitution at the level of the left common femoral. Surgery following. Tonight transferred to ICU for increased work of breathing, also febrile to 38.6. Otherwise hemodynamically stable. Given lasix prior to transfer. - sepsis: broad spectrum abx ongoing, cultures pending. Source unclear. - transaminitis: mild, ALT>AST. Likely related to acute infection, cholecystitis work up negative. Down trending. Monitor without specific intervention. OK to use tylenol if needed for fever, but will make 2nd line with max 2g/day. Use ibuprofen for 1st line. - increased work of breathing: likely due to fever. Noted to have pulm vascular congestion on initial imaging. Lasix given just prior to my evaluation. Will monitor. - vascular: occlusions appear chronic by description. Will defer to surgery. Focused Exam Lactate Level 11/08/20 18:30: Lactic Acid Level 1.44 Height, Weight, BMI Height: '" Weight: lbs. oz. kg; 25.31 BMI Method: SHAMEKA MOORE MD Nov 09, 2020 23:19
[2020-11-09] MEDS: IBUPROFEN 600 MG (MOTRIN) TAB PO PRN (23:33)
[2020-11-10] VITALS (23 sets, daily range): BP systolic 135–219; BP diastolic 48–93
[2020-11-10] MEDS: PIPERACILLIN/TAZO 4.5 GM/NS 100 ML IV SCH ×6 (05:31→20:45)
[2020-11-10 06:04] LABS: BASOPHILS % (AUTO) 0 % (0-10); EOSINOPHILS % (AUTO) 0 % (0-10); HEMATOCRIT 33 % (40-54); HEMOGLOBIN 11.6 g/dL (13.3-17.7); LYMPHOCYTES % (AUTO) 19 % (12-44); MEAN CORPUSCULAR HEMOGLOBIN 28 pg (25-34); MEAN CORPUSCULAR HGB CONC 35 g/dL (32-36); MEAN CORPUSCULAR VOLUME 80 fL (80-99); MEAN PLATELET VOLUME 10.4 fL (9.0-12.2); MONOCYTES # (AUTO) 1.3 10^3/uL (0.0-1.0); MONOCYTES % (AUTO) 13 % (0-12); NEUTROPHILS # (AUTO) 7.1 10^3/uL (1.8-7.8); NEUTROPHILS % (AUTO) 68 % (42-75); PLATELET COUNT 211 10^3/uL (130-400); WHITE BLOOD COUNT 10.5 10^3/uL (4.3-11.0)
[2020-11-10 06:17] LABS: ALBUMIN 2.5 GM/DL (3.2-4.5)
[2020-11-10 06:18] LABS: POTASSIUM 3.8 MMOL/L (3.6-5.0)
[2020-11-10 06:19] LABS: CALCIUM 8.5 MG/DL (8.5-10.1)
[2020-11-10 06:20] LABS: TOTAL PROTEIN 5.3 GM/DL (6.4-8.2)
[2020-11-10 06:22] LABS: BILIRUBIN,TOTAL 2.3 MG/DL (0.1-1.0)
[2020-11-10 06:23] LABS: PHOSPHORUS 5.1 MG/DL (2.3-4.7)
[2020-11-10 06:24] LABS: CREATININE SERUM 0.81 MG/DL (0.60-1.30)
[2020-11-10 06:26] LABS: MAGNESIUM 1.8 MG/DL (1.6-2.4)
--- NOTE | 2020-11-10 07:00 | History & Physical-Hospitalist ---
History of Present Illness HPI/Chief Complaint Stu Ramirez is a 75 year old male with PMH HTN, tobacco abuse, who presented with weakness. He reports that he has been having issues with dizziness as well. He denies syncope. He had a fall yesterday. He has also had shortness of breath. He denies cough. He denies fevers and chills. He denies weight loss. He denies dysuria. He denies headaches. He denies chest pain and palpitations. He denies abdominal pain, nausea, vomiting, and diarrhea. He has had lower back pain. He denies sciatica. He does get pain in his bilateral legs when he walks. Source: patient, family Exam Limitations: no limitations Date Seen 11/09/20 Time Seen by a Provider: 10:00 Attending Physician Eusebia Diego DO PCP Rishabh Johns DO Referring Physician Date of Admission Nov 08, 2020 at 21:25 Home Medications & Allergies Home Medications Reviewed patient Home Medication Reconciliation performed by pharmacy medication reconciliations b[employer] service technician and/or nursing. Patients Allergies have been reviewed. Allergies Allergies Coded Allergies No Known Drug Allergies (Unverified11/06/20) Past Mnbtqii-Rvyhld-Ogmwpf Hx Patient Social History Tobacco Use?: Yes Tobacco type used: Cigarettes Smoking Status: Current Everyday Smoker Use of E-Cig and/or Vaping dev: No Substance use?: No Alcohol Use?: No Pt feels they are or have been: No Immunizations Up To Date First/Initial COVID19 Vaccinat: 06/28 Second COVID19 Vaccination Peter: 06/28 Tetanus Booster (TDap): Less Than 5 Years Current Status Advance Directives: No Communicates: Verbally Primary Language: Bangladeshi Preferred Spoken Language: Bangladeshi Is interpretation needed?: No Implanted or Applied Medical D: None Past Medical History Surgeries: Orthopedic, Testicular Hypertension Pancreatitis (pancreatic cyst) Loss of Vision: Denies Hearing Impairment: Hard of Hearing, Hearing Aide Right, Hearing Aide Left Blood Disorders: No Family Medical History Heart Disease (dad), Psychiatric Problems (alzheimer's - mom), Stroke (Dad) Review of Systems Constitutional: weakness EENTM: no symptoms reported Respiratory: short of breath Cardiovascular: no symptoms reported Gastrointestinal: no symptoms reported Genitourinary: no symptoms reported Musculoskeletal: back pain Skin: no symptoms reported Psychiatric/Neurological: No Symptoms Reported Physical Exam Physical Exam Vital Signs Vital Signs - First Documented 11/08/20 11/09/20 11/09/20 11/09/20 18:24 00:35 21:02 21:50 Temp 38.1 Pulse 93 Resp 24 B/P (MAP) 180/77 (111) Pulse Ox 96 O2 Delivery Room Air O2 Flow Rate 2.00 FiO2 21 Capillary Refill : Less Than 3 Seconds Height, Weight, BMI Height: '" Weight: lbs. oz. kg; 25.31 BMI Method: General Appearance: No Apparent Distress, WD/WN HEENT: PERRL/EOMI, Pharynx Normal Neck: Normal Inspection, Supple Respiratory: Lungs Clear, Normal Breath Sounds, No Respiratory Distress Cardiovascular: Regular Rate, Rhythm, No Edema, No Murmur Gastrointestinal: Normal Bowel Sounds, Non Tender, Soft Extremity: Normal Inspection, Non Tender, No Pedal Edema Neurologic/Psychiatric: Alert, Oriented x3, Normal Mood/Affect, Motor Weakness Skin: Normal Color, Warm/Dry Lymphatic: No Adenopathy Results Results/Procedures Labs Laboratory Tests 11/08/20 18:30 11/09/20 04:10 11/09/20 04:40 11/10/20 05:15 Patient resulted labs reviewed. Imaging: Reviewed Imaging Report Assessment/Plan Admission Diagnosis Sepsis Admission Status: Inpatient Order (span 2 midnights) Reason for Inpatient Admission: IV antibiotics Assessment and Plan Sepsis SIRS+ with fever, leukocytosis, tachycardia, and tachypnea CXR without infiltrate UA without evidence of UTI Blood cultures pending CT Chest/Abdomen/Pelvis without infectious source, no PE, showed occlusion of left iliac artery Started on Zosyn, continue Elevated LFTs No evidence of biliary pathology on CT Trending down, monitor Hepatitis panel pending PAD CT showed occlusion of left iliac artery Arterial ultrasound ordered Weakness Debility PT/OT Monitor HTN Increase Lisinopril Hydralazine as needed Tobacco abuse Nicotine patch DVT prophylaxis: Lovenox Diagnosis/Problems Diagnosis/Problems (1) Sepsis Status: Acute (2) Elevated liver enzymes Status: Acute (3) Peripheral arterial disease Status: Acute BING LOPEZ MD Nov 10, 2020 07:00
[2020-11-10] MEDS: RT-ALBUTEROL/IPRATROPIUM 3 ML (DUONEB) VIAL INH SCH ×2 (08:32→15:51)
--- NOTE | 2020-11-10 08:44 | Diagnostic Imaging Report ---
INDICATION: Dyspnea Frontal chest obtained at 8:33 a.m. and compared with 11/08/2020. Heart is borderline in size. There is no change in perihilar infiltrates. There is no pneumothorax or pleural fluid. IMPRESSION: Stable perihilar infiltrates with no new abnormality in the chest. Dictated by: Dictated on workstation # [id number]
[2020-11-10] MEDS ORDERED: lisINopril 10 MG (PRINIVIL) TABLET PO SCH (09:00)
[2020-11-10] MEDS ORDERED: BROMFENAC SODIUM OS SCH (09:00)
--- NOTE | 2020-11-10 09:01 | Progress Note - Surgery ---
MARICRUZ LUJAN MED STUDENT 11/10/20 0901: Subjective Date Seen by a Provider: Nov 10, 2020 Time Seen by a Provider: 09:00 Subjective/Events-last exam Hospital Course: Patient came to ED with SOB, weakness, fever and elevated LFTs. Transferred to ICU for SOB. Today: Patient is resting comfortably in bed with his daughter at bedside. Patient stated he was ambulating yesterday without issues. He became SOB around 10PM and was transferred to the ICU with oxygen. He was taken off fluids and started on laxis with 25mL off. Patient has some SOB but denies any other symptoms. He denied abdominal pain or weakness in his extremities. He's having good urine output in his catheter. He had 3 soft BM yesterday. He denies ambulating today and is on a sodium diet. Review of Systems HEENT: No Head Aches, No Visual Changes, No Ear Pain Pulmonary: Dyspnea; No Cough Cardiovascular: No: Chest Pain, Palpitations Gastrointestinal: No: Nausea, Vomiting, Abdominal Pain, Diarrhea, Constipation Genitourinary: No Dysuria, No Frequency Musculoskeletal: neck pain Neurological: No: Weakness, Numbness Focused Exam Lactate Level 11/08/20 18:30: Lactic Acid Level 1.44 Objective Exam Vital Signs Date Time Temp Pulse Resp B/P (MAP) Pulse Ox O2 Delivery O2 Flow Rate FiO2 11/10/20 08:32 98 Nasal Cannula 2.00 11/10/20 08:00 59 20 174/69 (104) 99 Nasal Cannula 2.00 11/10/20 07:00 64 19 176/66 (102) 97 Nasal Cannula 2.00 11/10/20 07:00 57 11/10/20 06:00 57 19 180/65 (103) 98 Nasal Cannula 2.00 11/10/20 05:00 59 19 159/69 (99) 97 Nasal Cannula 2.00 11/10/20 04:00 61 19 163/61 (95) 99 Nasal Cannula 2.00 11/10/20 03:00 69 19 153/68 (96) 98 Nasal Cannula 2.00 11/10/20 02:00 70 19 161/70 (100) 97 Nasal Cannula 2.00 11/10/20 01:30 36.8 11/10/20 01:00 66 22 135/53 (80) 98 Nasal Cannula 2.00 11/10/20 01:00 66 11/10/20 00:00 78 33 166/65 (98) 96 Nasal Cannula 2.00 11/09/20 23:33 38.6 11/09/20 23:30 103 28 158/85 (109) 94 Nasal Cannula 2.00 11/09/20 23:15 103 26 173/71 (105) 95 Nasal Cannula 2.00 11/09/20 23:00 105 33 170/69 (102) 95 Nasal Cannula 2.00 11/09/20 22:45 105 24 170/71 (104) 96 Nasal Cannula 2.00 11/09/20 22:41 38.6 109 30 207/183 (191) 96 Nasal Cannula 2.00 11/09/20 21:50 39.0 94 30 185/71 (109) 97 Nasal Cannula 2.00 11/09/20 21:27 95 Room Air 11/09/20 21:02 37.8 72 95 21 11/09/20 19:55 Room Air 11/09/20 19:38 37.8 75 22 191/79 (116) 95 Room Air 11/09/20 19:00 72 11/09/20 16:18 37.2 73 20 191/79 (116) 97 Room Air 11/09/20 12:32 74 11/09/20 11:43 36.6 74 20 189/74 (112) 100 Room Air I & O 11/10/20 06:59 Intake Total 2837 ml Output Total 3200 ml Balance -363 ml Capillary Refill : Less Than 3 Seconds General Appearance: No Apparent Distress, WD/WN HEENT: PERRL/EOMI Neck: Supple, Tender Lateral Respiratory: Lungs Clear, Normal Breath Sounds, No Respiratory Distress Cardiovascular: Regular Rate, Rhythm, No Edema, No Murmur Gastrointestinal: normal bowel sounds, non tender, soft, no organomegaly Extremity: Normal Inspection, Non Tender, No Pedal Edema Neurologic/Psychiatric: Alert, Oriented x3, Normal Mood/Affect Skin: Normal Color, Warm/Dry Lymphatic: Other (tender cervical and submandibular lymph nodes) Results Lab Laboratory Tests 11/10/20 05:15: White Blood Count 10.5, Red Blood Count 4.16L, Hemoglobin 11.6L, Hematocrit 33L, Mean Corpuscular Volume 80, Mean Corpuscular Hemoglobin 28, Mean Corpuscular Hemoglobin Concent 35, Red Cell Distribution Width 13.8, Platelet Count 211, Mean Platelet Volume 10.4, Immature Granulocyte % (Auto) 1, Neutrophils (%) (Auto) 68, Lymphocytes (%) (Auto) 19, Monocytes (%) (Auto) 13H, Eosinophils (%) (Auto) 0, Basophils (%) (Auto) 0, Neutrophils # (Auto) 7.1, Lymphocytes # (Auto) 2.0, Monocytes # (Auto) 1.3H, Eosinophils # (Auto) 0.0, Basophils # (Auto) 0.0, Immature Granulocyte # (Auto) 0.1, Sodium Level 133L, Potassium Level 3.8, Chloride Level 97L, Carbon Dioxide Level 24, Anion Gap 12, Blood Urea Nitrogen 18, Creatinine 0.81, Estimat Glomerular Filtration Rate 93, BUN/Creatinine Ratio 22, Glucose Level 96, Calcium Level 8.5, Corrected Calcium 9.7, Phosphorus Level 5.1H, Magnesium Level 1.8, Total Bilirubin 2.3H, Aspartate Amino Transf (AST/SGOT) 41H, Alanine Aminotransferase (ALT/SGPT) 53, Alkaline Phosphatase 279H, Total Protein 5.3L, Albumin 2.5L, Procalcitonin 0.81H Microbiology 11/08/20 Blood Culture - Preliminary, Resulted No growth 11/08/20 Urine Culture - Final, Complete NO GROWTH Assessment/Plan Assessment/Plan Assessment/Plan Elevated LFT's Meets Septic Criteria - elevated WBC, fever, tachypnea, bradycardia, low temper ature debility/weakness L iliac artery occlusion mild anemia Hyponatremia Hypoalbuminemia hx of HTN and smoking There is no plan for surgery at this time. Plan is to monitor patient in ICU for SOB and sepsis. Give O2 as needed. Pt is negative for COVID. Blood and urine cultures yield no growth. Patient unsure why he was given 2 antibiotics on friday; obtain consent and call Dr. Johns to ask. WBC and LFTs trending down; pt continues to deny abdominal pain. Hgb stable. Hep panel negative. Abdominal U/S showed cysts on kidney with no biliary pathology. CT chest showed small pleural effusion on R. CXR showed perihilar infiltrates. CTA abdomen and pelvis on 11/08 showed L common iliac artery occlusion. Images negative for PNA or PE. Continue abx for sepsis with unknown source. Cardiology ordered U/S on extremities which were nonconcerning and can be addressed as outpatient. HTN and smoking monitored by Dr. Wei. PT/OT for weakness/debility in extremities. Patient on sodium diet. LUKE JAIME DO 11/10/20 1230: Subjective Time Seen by a Provider: 12:05 Subjective/Events-last exam Pt seen and examined, he denies any abdominal pain and states he is doing much better than last night. Nurse states pt had 325ml of urine between 6-10am, and appx 2.5L last night after Lasix. Review of Systems HEENT: No Head Aches, No Visual Changes Pulmonary: No Dyspnea (had some last night), No Cough Cardiovascular: No: Chest Pain, Palpitations Gastrointestinal: No: Nausea, Vomiting, Abdominal Pain, Diarrhea, Constipation Objective Exam General Appearance: No Apparent Distress, WD/WN Respiratory: Lungs Clear, Normal Breath Sounds, No Accessory Muscle Use, No Respiratory Distress Cardiovascular: Regular Rate, Rhythm, No Murmur Gastrointestinal: non tender, soft, no organomegaly Neurologic/Psychiatric: Alert, Oriented x3 Skin: Normal Color, Warm/Dry Assessment/Plan Assessment/Plan Assessment/Plan Elevated LFT's Meets Septic Criteria - elevated WBC, fever, tachypnea, bradycardia, low temperature debility/weakness L iliac artery occlusion mild anemia Hyponatremia Hypoalbuminemia hx of HTN and smoking There is no plan for surgery at this time. Will sign off and allow medicine to finish care. Can reconsult if needed. Supervisory-Addendum Brief Verification & Attestation Participated in pt care: history, MDM, physical Personally performed: exam, history, MDM, supervision of care Care discussed with: Medical Student Procedures: n/a Verification and Attestation of Medical Student E/M Service A medical student performed and documented this service. I then reviewed and verified all information documented by the medical student and made modifications to such information, when appropriate. I personally performed a physical exam, medical decision making and then discussed any differences between the notes and made revisions as necessary to create one note. Luke Jaime , 11/10/20 , 12:30 MARICRUZ LUJAN MED STUDENT Nov 10, 2020 09:01 LUKE JAIME DO Nov 10, 2020 12:30
[2020-11-10] MEDS: lisINopril 40 MG (PRINIVIL) TABLET PO SCH (09:02)
[2020-11-10] MEDS: ENOXAPARIN 40 MG/0.4 ML (LOVENOX) SYR SC SCH (09:02)
[2020-11-10] MEDS: NICOTINE 14 MG (NICODERM) PATCH TD SCH ×2 (09:02→09:13)
[2020-11-10] MEDS: NICOTINE PATCH REMOVAL TP SCH (09:05)
--- NOTE | 2020-11-10 14:49 | Progress Note - Hospitalist ---
Subjective HPI/CC On Admission Date Seen by Provider: Nov 10, 2020 Time Seen by Provider: 09:10 Stu Ramirez is a 75 year old male with PMH HTN, tobacco abuse, who presented with weakness. He reports that he has been having issues with dizziness as well. He denies syncope. He had a fall yesterday. He has also had shortness of breath. He denies cough. He denies fevers and chills. He denies weight loss. He denies dysuria. He denies headaches. He denies chest pain and palpitations. He denies abdominal pain, nausea, vomiting, and diarrhea. He has had lower back pain. He denies sciatica. He does get pain in his bilateral legs when he walks. Subjective/Events-last exam He is feeling better today. He was short of breath overnight. He denies shortness of breath at this time. He denies cough. He denies fevers. He has no other complaints or concerns. Focused Exam Lactate Level 11/08/20 18:30: Lactic Acid Level 1.44 Objective Exam Vital Signs Vital Signs Date Time Temp Pulse Resp B/P (MAP) Pulse Ox O2 Delivery O2 Flow Rate FiO2 11/10/20 14:00 71 171/68 (102) 97 Room Air 11/10/20 13:00 28 11/10/20 09:09 35.2 11/10/20 09:00 2.00 11/09/20 21:02 21 Capillary Refill : Less Than 3 Seconds General Appearance: No Apparent Distress, WD/WN Respiratory: Lungs Clear, Normal Breath Sounds, No Respiratory Distress Cardiovascular: Regular Rate, Rhythm, No Edema, No Murmur Gastrointestinal: Normal Bowel Sounds, Non Tender, Soft Extremity: Normal Inspection, Non Tender, No Pedal Edema Neurologic/Psychiatric: Alert, Oriented x3, Normal Mood/Affect Skin: Normal Color, Warm/Dry Results/Procedures Lab Laboratory Tests 11/10/20 05:15 Patient resulted labs reviewed. Imaging: Reviewed Imaging Report Assessment/Plan Assessment and Plan Assess & Plan/Chief Complaint Sepsis Repeat CXR without infiltrate UA without evidence of UTI Blood cultures with no growth CT Chest/Abdomen/Pelvis without infectious source, no PE, showed occlusion of left iliac artery Continue Zosyn Check tick panel Acute repsiratory failure with hypoxia Fluids stopped Responded well to Lasix overnight Continue Lasix Echo ordered Elevated LFTs No evidence of biliary pathology on CT Trending down, monitor Hepatitis panel negative Abdominal ultrasound unrevealing PAD CT showed occlusion of left iliac artery Arterial ultrasound pending Cardiology consulted, appreciate assistance Weakness Debility PT/OT Monitor HTN Continue Lisinopril Hydralazine as needed Tobacco abuse Nicotine patch DVT prophylaxis: Lovenox Diagnosis/Problems Diagnosis/Problems (1) Sepsis Status: Acute (2) Elevated liver enzymes Status: Acute (3) Peripheral arterial disease Status: Acute BING LOPEZ MD Nov 10, 2020 14:49
[2020-11-10] MEDS ORDERED: FUROSEMIDE 40 MG/4 ML INJ (LASIX) IVP ONE (15:00)
--- NOTE | 2020-11-10 16:44 | Consultation-Cardiology ---
HPI-Cardiology Cardiology Consultation: Date of Consultation 11/10/20 Time Seen by a Provider: 09:15 Date of Admission Attending Physician Eusebia Diego DO Admitting Physician Rishabh Johns DO Consulting Physician GYPSY CORONA MD, MA, FACP, FACC, FSCAI, CCDS Physician requesting consult: Dr Wei HPI: Chief Complaint: Reason for Cardiology consult: PAD HPI 75 yo man admitted to Dr Wei on 11/08/20 with gen weakness that has been more marked in both legs for several days prior to admission. Has had fever in the hospital. Was more short of breath last night and was transferred to ICU for observation. IVFs were stopped and was treated with furosemide. Symptoms of shortness of breath have resolved. Note pain in the L buttock and the back of the L thigh upon walking relatively short distances, resolved within 5 minutes of rest, present for at least 6 months. No discoloration or ulceration of the lower limbs. Chronic, slowly progressive, exertional shortness of breath. Denies palp or cp or syncope or swelling Review of Systems-Cardiology Review of Systems Constitutional: malaise; No weight loss, No weight gain Eyes: No vision change Ears/Nose/Throat: No ear discharge, No nasal drainage, No recent hearing loss Respiratory: As described under HPI Cardiovascular: As described under HPI Gastrointestinal: No diarrhea, No nausea, No vomiting Genitourinary: No dysuria, No hematuria, No urine frequency changes Musculoskeletal: As describe under HPI Skin: No rash, No ulcerations Psychiatric/Neurological: No seizure, No focal weakness, No syncope Hematologic: No bleeding abnormalities [id number] Hx Patient Social History Smoking Status: Current Everyday Smoker Cigaretts per day: 20 Have you traveled recently?: No Alcohol Use?: No Pt feels they are or have been: No Tobacco type used: Cigarettes Past Medical History PMH As described under Assessment. Family Medical History Family Medical History: Reports h/o heart disease in his father at age greater than 70 Allergies and Home Medications Allergies Coded Allergies: No Known Drug Allergies (Unverified , 11/06/20) Patient Home Medication List Home Medication List Reviewed: Yes Bromfenac Sodium (Bromsite) 5 Ml Drops, 1 DROP OS DAILY, (Reported) Entered as Reported by: DELORES HAQUE on 11/09/20 1129 Last Action: Converted Cefdinir (Cefdinir) 300 Mg Capsule, 300 MG PO BID, (Reported) Entered as Reported by: DELORES HAQUE on 11/09/201128 Last Action: Held Ibuprofen (Ibuprofen) 200 Mg Tablet, 600 MG PO Q8H PRN for PAIN-MILD (1-4), (Reported) Entered as Reported by: DELORES HAQUE on 11/09/201128 Last Action: Held Lisinopril (Lisinopril) 10 Mg Tablet, 10 MG PO DAILY, (Reported) Entered as Reported by: LYLA FIGUEROA on 11/06/20 1504 Last Action: Continued Ofloxacin (Ofloxacin) 5 Ml Drops, 1 DROPS OS QID, (Reported) Entered as Reported by: DELORES HAQUE on 11/09/201128 Last Action: Continued [Betamax] , 1 EA PO BID, (Reported) Entered as Reported by: DELORES HAQUE on 11/09/20 1303 Last Action: Held Physical Exam-Cardiology Physical Exam Vital Signs/I&O 11/10/20 11/10/20 11/10/20 11/10/20 05:00 06:00 07:00 07:00 Pulse 59 57 57 64 Resp 19 19 19 B/P (MAP) 159/69 (99) 180/65 (103) 176/66 (102) Pulse Ox 97 98 97 O2 Delivery Nasal Cannula Nasal Cannula Nasal Cannula O2 Flow Rate 2.00 2.00 2.00 11/10/20 11/10/20 11/10/20 11/10/20 08:00 08:00 08:32 09:00 Pulse 59 62 Resp 20 34 B/P (MAP) 174/69 (104) 167/65 (99) Pulse Ox 99 98 97 O2 Delivery Nasal Cannula Room Air Nasal Cannula Nasal Cannula O2 Flow Rate 2.00 2.00 2.00 11/10/20 11/10/20 11/10/20 11/10/20 09:09 09:27 10:00 11:00 Temp 35.2 Pulse 61 70 Resp 27 31 B/P (MAP) 148/69 (95) 164/70 (101) Pulse Ox 96 96 O2 Delivery Room Air Room Air Room Air 11/10/20 11/10/20 11/10/20 11/10/20 12:00 12:37 13:00 14:00 Pulse 64 69 68 71 Resp 21 28 B/P (MAP) 163/65 (97) 162/62 (95) 171/68 (102) Pulse Ox 96 97 97 O2 Delivery Room Air Room Air Room Air 11/10/20 11/10/20 11/10/20 15:00 15:53 16:00 Pulse 70 66 Resp 23 B/P (MAP) 179/87 (117) Pulse Ox 96 96 98 O2 Delivery Room Air Room Air Room Air 11/10/20 00:00 Intake Total 1267 ml Output Total 800 ml Balance 467 ml Capillary Refill : Less Than 3 Seconds Constitutional: AAO x 3, well-developed, well-nourished HEENT: EOMI, hearing is well preserved; No xanthelasmas are seen Neck: carotid pulses are 2 + bilaterally, with good upstrokes Respiratory: No accessory muscle use; other (fair air entry, prolonged exp, somewhat diminished breath sounds at both bases) Cardiovascular: regular rate-rhythm, S1 and S2, systolic murmur (soft TRICE at card base) Gastrointestinal: No tender; soft; No guarding, No rebound; audible bowel sounds Extremities: No clubbing, No cyanosis, No significant edema Neurologic/Psychiatric: oriented x 3, other (moves all limbs equally) Skin: warm/dry; No cyanosis, No rash on exposed areas, No ulcerations on exposed areas Data Review Labs Laboratory Tests 11/10/20 05:15: White Blood Count 10.5, Red Blood Count 4.16L, Hemoglobin 11.6L, Hematocrit 33L, Mean Corpuscular Volume 80, Mean Corpuscular Hemoglobin 28, Mean Corpuscular Hemoglobin Concent 35, Red Cell Distribution Width 13.8, Platelet Count 211, Mean Platelet Volume 10.4, Immature Granulocyte % (Auto) 1, Neutrophils (%) (Auto) 68, Lymphocytes (%) (Auto) 19, Monocytes (%) (Auto) 13H, Eosinophils (%) (Auto) 0, Basophils (%) (Auto) 0, Neutrophils # (Auto) 7.1, Lymphocytes # (Auto) 2.0, Monocytes # (Auto) 1.3H, Eosinophils # (Auto) 0.0, Basophils # (Auto) 0.0, Immature Granulocyte # (Auto) 0.1, Sodium Level 133L, Potassium Level 3.8, Chloride Level 97L, Carbon Dioxide Level 24, Anion Gap 12, Blood Urea Nitrogen 18, Creatinine 0.81, Estimat Glomerular Filtration Rate 93, BUN/Creatinine Ratio 22, Glucose Level 96, Calcium Level 8.5, Corrected Calcium 9.7, Phosphorus Level 5.1H, Magnesium Level 1.8, Total Bilirubin 2.3H, Aspartate Amino Transf (AST/SGOT) 41H, Alanine Aminotransferase (ALT/SGPT) 53, Alkaline Phosphatase 279H, Total Protein 5.3L, Albumin 2.5L, Procalcitonin 0.81H Microbiology 11/08/20 Blood Culture - Preliminary, Resulted No growth 11/08/20 Urine Culture - Final, Complete NO GROWTH Laboratory Tests 11/08/20 18:30 11/09/20 04:10 11/09/20 04:40 11/10/20 05:15 A/P-Cardiology Assessment/Admission Diagnosis Sepsis of undetermined etiology, managed by the Hospitalist river PAD consisting or ostial occlusion of L common iliac and reconstitution of the arterial supply at the level of L common femoral (on CT angio of 11/09/20) Chronic smoker of cigarettes Hypertension Episode of volume overload / diastolic CHF on 11/09/20 - Echo on 11/10/20: LVEF 50-55%, small R pleural eff No evidence of acute coronary syndrome Discussion and Recomendations * Treat with aspirin and beta-humphrey * Advised to quit smoking immediately and completely * He has a 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 This appears to be a chronic lesion and the best treatment appears to be aorto- femoral bypass surgery for which he can be referred on an outpatient basis * I discussed his case with GYPSY Story MD FACP [facility] Nov 10, 2020 16:44
[2020-11-10] MEDS: OFLOXACIN 0.3% OPHTH SOLN 5 ML OS SCH ×4 (16:57→21:39)
[2020-11-10] MEDS ORDERED: meTOproloL SUCCINATE 50 MG (TOPROL XL) TAB PO SCH (17:00)
[2020-11-10] MEDS ORDERED: ASPIRIN 81 MG CHEW (CHILDREN'S ASA) PO ONE (17:00)
[2020-11-10] MEDS ORDERED: FUROSEMIDE 40 MG/4 ML INJ (LASIX) ONE (18:15)
[2020-11-10] MEDS: hydrALAZINE (APESOLINE) 20 MG/ML VIAL IV PRN (18:19)
[2020-11-10] MEDS ORDERED: ASPIRIN 81 MG CHEW (CHILDREN'S ASA) ONE (18:28)
[2020-11-10] MEDS: IBUPROFEN 600 MG (MOTRIN) TAB PO PRN (18:29)
[2020-11-11] VITALS (12 sets, daily range): BP systolic 169–191; BP diastolic 65–79
[2020-11-11] MEDS: IBUPROFEN 600 MG (MOTRIN) TAB PO PRN ×2 (00:38→08:58)
[2020-11-11] MEDS: hydrALAZINE (APESOLINE) 20 MG/ML VIAL IV PRN ×2 (02:08→20:55)
[2020-11-11] MEDS: PIPERACILLIN/TAZO 4.5 GM/NS 100 ML IV SCH ×6 (04:43→19:56)
[2020-11-11] MEDS: ACETAMINOPHEN 500 MG TAB (TYLENOL) PO PRN (04:50)
[2020-11-11 05:45] LABS: BASOPHILS % (AUTO) 0 % (0-10); EOSINOPHILS % (AUTO) 0 % (0-10); HEMATOCRIT 36 % (40-54); HEMOGLOBIN 12.7 g/dL (13.3-17.7); LYMPHOCYTES # (AUTO) 1.7 10^3/uL (1.0-4.0); LYMPHOCYTES % (AUTO) 14 % (12-44); MEAN CORPUSCULAR HEMOGLOBIN 28 pg (25-34); MEAN CORPUSCULAR HGB CONC 35 g/dL (32-36); MEAN CORPUSCULAR VOLUME 79 fL (80-99); MEAN PLATELET VOLUME 10.2 fL (9.0-12.2); MONOCYTES # (AUTO) 1.4 10^3/uL (0.0-1.0); MONOCYTES % (AUTO) 12 % (0-12); NEUTROPHILS # (AUTO) 8.6 10^3/uL (1.8-7.8); NEUTROPHILS % (AUTO) 73 % (42-75); PLATELET COUNT 252 10^3/uL (130-400); WHITE BLOOD COUNT 11.8 10^3/uL (4.3-11.0)
[2020-11-11] MEDS: fentaNYL INJ 100 MCG/2 ML AMP IV PRN ×7 (05:45→23:30)
[2020-11-11 06:08] LABS: ALBUMIN 2.7 GM/DL (3.2-4.5); POTASSIUM 3.6 MMOL/L (3.6-5.0)
[2020-11-11 06:09] LABS: CALCIUM 8.6 MG/DL (8.5-10.1)
[2020-11-11 06:10] LABS: TOTAL PROTEIN 5.9 GM/DL (6.4-8.2)
[2020-11-11 06:12] LABS: BILIRUBIN,TOTAL 2.2 MG/DL (0.1-1.0)
[2020-11-11 06:13] LABS: PHOSPHORUS 3.5 MG/DL (2.3-4.7)
[2020-11-11 06:14] LABS: CREATININE SERUM 0.72 MG/DL (0.60-1.30)
[2020-11-11 06:16] LABS: MAGNESIUM 1.9 MG/DL (1.6-2.4)
[2020-11-11] MEDS ORDERED: DOXYCYCLINE 100 MG (VIBRAMYCIN) TABLET PO ONE (08:30)
[2020-11-11] MEDS: ASPIRIN 81 MG CHEW (CHILDREN'S ASA) PO SCH (08:47)
[2020-11-11] MEDS: lisINopril 40 MG (PRINIVIL) TABLET PO SCH (08:47)
[2020-11-11] MEDS: NICOTINE PATCH REMOVAL TP SCH (08:48)
[2020-11-11] MEDS: NICOTINE 14 MG (NICODERM) PATCH TD SCH ×2 (08:48→23:28)
[2020-11-11] MEDS: ENOXAPARIN 40 MG/0.4 ML (LOVENOX) SYR SC SCH (08:48)
[2020-11-11] MEDS: OFLOXACIN 0.3% OPHTH SOLN 5 ML OS SCH ×4 (08:50→20:58)
[2020-11-11] MEDS ORDERED: meTOproloL SUCCINATE 50 MG (TOPROL XL) TAB PO SCH (09:00)
[2020-11-11] MEDS ORDERED: meTOproloL SUCCINATE 50 MG (TOPROL XL) TAB PO ONE (13:00)
--- NOTE | 2020-11-11 13:10 | Progress Note - Hospitalist ---
Subjective HPI/CC On Admission Date Seen by Provider: Nov 11, 2020 Time Seen by Provider: 11:10 Stu Ramirez is a 75 year old male with PMH HTN, tobacco abuse, who presented with weakness. He reports that he has been having issues with dizziness as well. He denies syncope. He had a fall yesterday. He has also had shortness of breath. He denies cough. He denies fevers and chills. He denies weight loss. He denies dysuria. He denies headaches. He denies chest pain and palpitations. He denies abdominal pain, nausea, vomiting, and diarrhea. He has had lower back pain. He denies sciatica. He does get pain in his bilateral legs when he walks. Subjective/Events-last exam He had some back pain earlier. He has not had any fevers. He has not been up out of bed yet. Focused Exam Lactate Level 11/08/20 18:30: Lactic Acid Level 1.44 Objective Exam Vital Signs Vital Signs Date Time Temp Pulse Resp B/P (MAP) Pulse Ox O2 Delivery O2 Flow Rate FiO2 11/11/20 12:43 35.7 76 22 184/74 (110) 99 Room Air 11/10/20 09:00 2.00 11/09/20 21:02 21 Capillary Refill : Less Than 3 Seconds General Appearance: No Apparent Distress, WD/WN Respiratory: Lungs Clear, Normal Breath Sounds, No Respiratory Distress Cardiovascular: Regular Rate, Rhythm, No Edema, No Murmur Gastrointestinal: Normal Bowel Sounds, Non Tender, Soft Back: Normal Inspection, No CVA Tenderness Extremity: Normal Inspection, Non Tender, No Pedal Edema Neurologic/Psychiatric: Alert, Oriented x3, No Motor/Sensory Deficits, Normal Mood/Affect Skin: Normal Color, Warm/Dry Results/Procedures Lab Laboratory Tests 11/11/20 04:58 Patient resulted labs reviewed. Imaging: Reviewed Imaging Report Assessment/Plan Assessment and Plan Assess & Plan/Chief Complaint Sepsis Possible tick bite Repeat CXR without infiltrate UA without evidence of UTI Blood cultures with no growth CT Chest/Abdomen/Pelvis without infectious source, no PE, showed occlusion of left iliac artery Tick panel pending Continue Doxycycline and Zosyn Elevated LFTs No evidence of biliary pathology on CT Hepatitis panel negative Abdominal ultrasound unrevealing PAD CT showed occlusion of left iliac artery Arterial ultrasound performed, no report yet Cardiology consulted, appreciate assistance Weakness Debility PT/OT Monitor HTN Continue Lisinopril Hydralazine as needed Tobacco abuse Nicotine patch DVT prophylaxis: Lovenox Acute repsiratory failure with hypoxia, resolved Diagnosis/Problems Diagnosis/Problems (1) Sepsis Status: Acute (2) Elevated liver enzymes Status: Acute (3) Peripheral arterial disease Status: Acute BING LOPEZ MD Nov 11, 2020 13:10
--- NOTE | 2020-11-11 14:00 | Progress Note - Cardiology ---
Cardiology SOAP Progress Note Subjective: Gen malaise and weakness Breathing has returned to normal No cp or palp or syncope Objective: I&O/Vital Signs 11/11/20 11/11/20 11/11/20 11/11/20 02:00 03:00 04:00 05:00 Pulse 64 67 70 74 Resp 15 22 20 20 B/P (MAP) 176/68 (104) 177/65 (102) 180/69 (106) 189/74 (112) Pulse Ox 97 97 95 95 O2 Delivery Room Air Room Air Room Air Room Air 11/11/20 11/11/20 11/11/20 11/11/20 06:00 08:00 08:01 12:43 Temp 35.6 35.7 Pulse 75 75 76 Resp 20 20 22 B/P (MAP) 184/77 (112) 190/69 (109) 184/74 (110) Pulse Ox 94 75 99 O2 Delivery Room Air Room Air Room Air Room Air 11/11/20 00:00 Intake Total 440 ml Output Total 2200 ml Balance -1760 ml Constitutional: AAO x 3, well-developed, well-nourished Respiratory: No accessory muscle use; other (fair air entry, prolonged exp, somewhat diminished breath sounds at both bases) Cardiovascular: regular rate-rhythm, S1 and S2, systolic murmur (soft TRICE at card base) Gastrointestional: No tender; soft; No guarding, No rebound; audible bowel sounds Extremities: No clubbing, No cyanosis, No significant edema Neurologic/Psychiatric: oriented x 3, other (moves all limbs equally) Skin: warm/dry; No cyanosis, No rash on exposed areas, No ulcerations on exposed areas Results/Procedures: Labs Laboratory Tests 11/11/20 04:58: White Blood Count 11.8H, Red Blood Count 4.58, Hemoglobin 12.7L, Hematocrit 36L, Mean Corpuscular Volume 79L, Mean Corpuscular Hemoglobin 28, Mean Corpuscular Hemoglobin Concent 35, Red Cell Distribution Width 13.6, Platelet Count 252, Mean Platelet Volume 10.2, Immature Granulocyte % (Auto) 1, Neutrophils (%) (Auto) 73, Lymphocytes (%) (Auto) 14, Monocytes (%) (Auto) 12, Eosinophils (%) (Auto) 0, Basophils (%) (Auto) 0, Neutrophils # (Auto) 8.6H, Lymphocytes # (Auto) 1.7, Monocytes # (Auto) 1.4H, Eosinophils # (Auto) 0.0, Basophils # (Auto) 0.0, Immature Granulocyte # (Auto) 0.1, Sodium Level 133L, Potassium Level 3.6, Chloride Level 97L, Carbon Dioxide Level 24, Anion Gap 12, Blood Urea Nitrogen 18, Creatinine 0.72, Estimat Glomerular Filtration Rate 106, BU N/Creatinine Ratio 25, Glucose Level 107H, Calcium Level 8.6, Corrected Calcium 9.6, Phosphorus Level 3.5, Magnesium Level 1.9, Total Bilirubin 2.2H, Aspartate Amino Transf (AST/SGOT) 58H, Alanine Aminotransferase (ALT/SGPT) 60H, Alkaline Phosphatase 274H, Total Protein 5.9L, Albumin 2.7L Microbiology 11/09/20 MRSA Screen - Final, Complete MRSA not isolated 11/08/20 Blood Culture - Preliminary, Resulted No growth 11/08/20 Urine Culture - Final, Complete NO GROWTH Laboratory Tests 11/10/20 05:15 11/11/20 04:58 A/P: Assessment: Sepsis of undetermined etiology, managed by the [facility] PAD consisting or ostial occlusion of L common iliac and reconstitution of the arterial supply at the level of L common femoral (on CT angio of 11/09/20) Chronic smoker of cigarettes Hypertension, uncontrolled Episode of volume overload / diastolic CHF on 11/09/20 - Echo on 11/10/20: LVEF 50-55%, small R pleural eff No evidence of acute coronary syndrome Plan: * Increase bb and add amlodipine for better bp control * Advised to quit smoking immediately and completely * He has a long occlusion of the L iliac arterial system that appears to recon stitute via collaterals at the level of the L common femoral. This appears to be a chronic lesion and the best treatment appears to be aorto-femoral bypass surgery for which he can be referred on an outpatient basis * Monitor labs GYPSY CORONA MD [facility] Nov 11, 2020 14:00
[2020-11-11] MEDS ORDERED: amLODIPine 5 MG (NORVASC) TAB ONE (14:24)
[2020-11-11] MEDS ORDERED: amLODIPine 5 MG (NORVASC) TAB PO ONE (14:30)
[2020-11-11] MEDS ORDERED: FLEET ENEMA ADULT 1 EA BTL PR ONE (17:00)
[2020-11-11] MEDS: DOXYCYCLINE 100 MG (VIBRAMYCIN) TABLET PO SCH (17:23)
[2020-11-11] MEDS: SIMETHICONE 80 MG (MYLICON) CHEW PO PRN (21:10)
[2020-11-12] VITALS (7 sets, daily range): BP systolic 168–204; BP diastolic 67–80
[2020-11-12] MEDS: SIMETHICONE 80 MG (MYLICON) CHEW PO PRN (01:17)
[2020-11-12] MEDS: fentaNYL INJ 100 MCG/2 ML AMP IV PRN ×5 (03:01→23:02)
[2020-11-12] MEDS: hydrALAZINE (APESOLINE) 20 MG/ML VIAL IV PRN (03:23)
[2020-11-12] MEDS: RT-ALBUTEROL/IPRATROPIUM 3 ML (DUONEB) VIAL INH PRN (04:38)
[2020-11-12] MEDS: PIPERACILLIN/TAZO 4.5 GM/NS 100 ML IV SCH ×6 (04:57→20:21)
[2020-11-12 06:21] LABS: BASOPHILS # (AUTO) 0.1 10^3/uL (0.0-0.1); BASOPHILS % (AUTO) 0 % (0-10); EOSINOPHILS % (AUTO) 0 % (0-10); HEMATOCRIT 38 % (40-54); LYMPHOCYTES # (AUTO) 1.5 10^3/uL (1.0-4.0); LYMPHOCYTES % (AUTO) 12 % (12-44); MEAN CORPUSCULAR HEMOGLOBIN 28 pg (25-34); MEAN CORPUSCULAR HGB CONC 35 g/dL (32-36); MEAN CORPUSCULAR VOLUME 81 fL (80-99); MEAN PLATELET VOLUME 9.6 fL (9.0-12.2); MONOCYTES % (AUTO) 8 % (0-12); NEUTROPHILS # (AUTO) 9.7 10^3/uL (1.8-7.8); NEUTROPHILS % (AUTO) 79 % (42-75); PLATELET COUNT 269 10^3/uL (130-400); WHITE BLOOD COUNT 12.4 10^3/uL (4.3-11.0)
[2020-11-12] MEDS: DOXYCYCLINE 100 MG (VIBRAMYCIN) TABLET PO SCH ×2 (06:27→16:57)
[2020-11-12] MEDS: ENOXAPARIN 40 MG/0.4 ML (LOVENOX) SYR SC SCH (06:30)
[2020-11-12 06:32] LABS: ALBUMIN 2.9 GM/DL (3.2-4.5); POTASSIUM 4.3 MMOL/L (3.6-5.0)
[2020-11-12 06:33] LABS: CALCIUM 8.6 MG/DL (8.5-10.1)
[2020-11-12 06:35] LABS: TOTAL PROTEIN 6.3 GM/DL (6.4-8.2)
[2020-11-12 06:37] LABS: BILIRUBIN,TOTAL 2.2 MG/DL (0.1-1.0)
[2020-11-12 06:38] LABS: CREATININE SERUM 0.65 MG/DL (0.60-1.30); PHOSPHORUS 2.8 MG/DL (2.3-4.7)
[2020-11-12 06:42] LABS: MAGNESIUM 1.8 MG/DL (1.6-2.4)
[2020-11-12] MEDS: ASPIRIN 81 MG CHEW (CHILDREN'S ASA) PO SCH (08:27)
[2020-11-12] MEDS: meTOprolol SUCCINATE 100 MG (TOPROL XL) TAB PO SCH (08:27)
[2020-11-12] MEDS: lisINopril 40 MG (PRINIVIL) TABLET PO SCH (08:27)
[2020-11-12] MEDS: OFLOXACIN 0.3% OPHTH SOLN 5 ML OS SCH ×4 (08:28→20:22)
[2020-11-12] MEDS: amLODIPine 10 MG (NORVASC) TAB PO SCH (08:28)
[2020-11-12] MEDS: NICOTINE PATCH REMOVAL TP SCH (08:28)
[2020-11-12] MEDS: NICOTINE 14 MG (NICODERM) PATCH TD SCH (08:29)
[2020-11-12] MEDS ORDERED: amLODIPine 5 MG (NORVASC) TAB PO SCH ×2 (09:00)
[2020-11-12] MEDS: RT-ALBUTEROL/IPRATROPIUM 3 ML (DUONEB) VIAL INH SCH ×3 (09:09→21:23)
--- NOTE | 2020-11-12 13:39 | Diagnostic Imaging Report ---
PROCEDURE: CT cervical spine without contrast. TECHNIQUE: Multiple contiguous axial images were obtained through the cervical spine without the use of intravenous contrast. Sagittal and coronal reformations were then performed. Auto Exposure Controls were utilized during the CT exam to meet ALARA standards for radiation dose reduction. Date: November 12, 2020. Indication: 75-year-old male, numbness, neck pain. Comparison: None. Findings: There is ankylosis across the C5-C6 disc space and bilateral C5-C6 facet articulations. There is lack of normal AP length of the C5 and C6 vertebral bodies. This is compatible with a congenital or long-standing fusion. There is no identified facet joint subluxation or dislocation. There are facet degenerative changes of the cervical spine. There is grade 1 anterolisthesis of C3 on C4 measuring 2 mm. There is moderate disc height loss at C3-C4. There are severe disc height loss at C4-C5. There is moderate to severe disc height loss at C6-C7 and advanced disc height loss at C7-T1. There are multilevel endplate degenerative changes. There is arthritis at the C1-C2 articulation. There is no identified acute fracture of the cervical spine. The visualized portions of the lung apices are clear. Impression: 1. No identified acute fracture of the cervical spine. 2. Multilevel disc and facet degenerative changes of the cervical spine. CT is limited for assessment of disc pathology as well as additional nonbony causes of foraminal and spinal stenosis. 3. 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 Dictated by: Dictated on workstation # [id number]
--- NOTE | 2020-11-12 15:16 | Progress Note - Cardiology ---
Cardiology SOAP Progress Note Subjective: Shortness of breath better Malaise persistent No cp or palp or syncope No leg discomfort at rest Objective: I&O/Vital Signs 11/12/20 11/12/20 11/12/20 11/12/20 03:18 04:38 08:00 08:00 Temp 36.8 36.1 Pulse 73 76 Resp 20 20 B/P (MAP) 185/69 (107) 184/80 (114) Pulse Ox 97 95 95 O2 Delivery Room Air Room Air Room Air Room Air 11/12/20 11/12/20 09:09 12:00 Temp 35.8 Pulse 68 Resp 18 B/P (MAP) 168/67 (100) Pulse Ox 95 97 O2 Delivery Room Air Room Air 11/12/20 00:00 Intake Total 1937 ml Output Total 1850 ml Balance 87 ml Constitutional: AAO x 3, well-developed, well-nourished Respiratory: No accessory muscle use; other (fair air entry, prolonged exp, somewhat diminished breath sounds at both bases) Cardiovascular: regular rate-rhythm, S1 and S2, systolic murmur (soft TRICE at card base) Gastrointestional: No tender; soft; No guarding, No rebound; audible bowel sounds Extremities: No clubbing, No cyanosis, No significant edema Neurologic/Psychiatric: oriented x 3, other (moves all limbs equally) Skin: warm/dry; No cyanosis, No rash on exposed areas, No ulcerations on exposed areas Results/Procedures: Labs Laboratory Tests 11/12/20 05:24: White Blood Count 12.4H, Red Blood Count 4.66, Hemoglobin 13.0L, Hematocrit 38L, Mean Corpuscular Volume 81, Mean Corpuscular Hemoglobin 28, Mean Corpuscular Hemoglobin Concent 35, Red Cell Distribution Width 14.0, Platelet Count 269, Mean Platelet Volume 9.6, Immature Granulocyte % (Auto) 1, Neutrophils (%) (Auto) 79H, Lymphocytes (%) (Auto) 12, Monocytes (%) (Auto) 8, Eosinophils (%) (Auto) 0, Basophils (%) (Auto) 0, Neutrophils # (Auto) 9.7H, Lymphocytes # (Auto) 1.5, Monocytes # (Auto) 1.0, Eosinophils # (Auto) 0.0, Basophils # (Auto) 0.1, Immature Granulocyte # (Auto) 0.1, Sodium Level 127L, Potassium Level 4.3, Chloride Level 94L, Carbon Dioxide Level 21, Anion Gap 12, Blood Urea Nitrogen 16, Creatinine 0.65, Estimat Glomerular Filtration Rate 119, BUN/Creatinine Ratio 25, Glucose Level 134H, Calcium Level 8.6, Corrected Calcium 9.5, Phosphorus Level 2.8, Magnesium Level 1.8, Total Bilirubin 2.2H, Aspartate Amino Transf (AST/SGOT) 53H, Alanine Aminotransferase (ALT/SGPT) 64H, Alkaline Phosphatase 278H, Total Protein 6.3L, Albumin 2.9L Microbiology 11/09/20 MRSA Screen - Final, Complete MRSA not isolated 11/08/20 Blood Culture - Preliminary, Resulted No growth 11/08/20 Urine Culture - Final, Complete NO GROWTH Laboratory Tests 11/11/20 04:58 11/12/20 05:24 A/P: Assessment: Sepsis of undetermined etiology, managed by the [facility] Hyponatremia of undetermined etiology, managed by the [facility] PAD consisting of ostial occlusion of L common iliac and reconstitution of the arterial supply at the level of L common femoral (on CT angio of 11/09/20) Chronic smoker of cigarettes Hypertension, uncontrolled Episode of volume overload / diastolic CHF on 11/09/20 - Echo on 11/10/20: LVEF 50-55%, small R pleural eff No evidence of acute coronary syndrome Plan: * We have increased bb and added amlodipine for better bp control * Advised to quit smoking immediately and completely * He has a 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 This appears to be a chronic lesion and the best treatment appears to be aorto- femoral bypass surgery for which he can be referred on an outpatient basis * Monitor labs GYPSY CORONA MD [facility] Nov 12, 2020 15:16
--- NOTE | 2020-11-12 17:14 | Diagnostic Imaging Report ---
PROCEDURE: CT thoracic and lumbar spine without contrast. TECHNIQUE: Multiple contiguous axial images were obtained through the thoracic and lumbar spine without the use of intravenous contrast. Sagittal and coronal reformations were then performed. All CT scans use one or more of the following dose optimizing techniques: automated exposure control, MA and/or KvP adjustment based on patient size and exam type or iterative reconstruction. DATE: November 12, 2020. INDICATION: 75-year-old male, numbness, back pain, foot pain. COMPARISON: Lumbar spine radiographs done July 30, 2014. CT chest November 08, 2020. FINDINGS: There are multilevel mild to moderate disc degenerative changes of the thoracic spine. There are posterior disc osteophyte complexes. CT is limited for assessment of disc pathology as well as additional non-bony causes of pathology in the spinal canal. The alignment of the thoracic spine is unremarkable. There is a benign L1 vertebral body hemangioma. There is no identified and acute fracture of the thoracic spine. There is a small right pleural effusion. The alignment of the lumbar spine is unremarkable. There is moderate to severe disc height loss at L5-S1. There are additional disc degenerative changes of the lumbar spine. There are facet degenerative changes at L2-L3, L3-L4, L4-L5 and L5-S1. CT is limited for assessment of disc pathology as well as additional nonbony causes of pathology in the spinal canal. There is no identified acute fracture of the lumbar spine. IMPRESSION: 1. No identified acute fracture of the thoracic or lumbar spine. 2. Multilevel degenerative changes of the thoracic and lumbar spine. CT is limited for assessment of disc pathology as well as for evaluation of nonbony causes of foraminal and spinal stenosis. This would be more optimally evaluated on MRI. 3. Small right pleural effusion. Dictated by: Dictated on workstation # [id number]
--- NOTE | 2020-11-12 19:01 | Progress Note - Hospitalist ---
Subjective HPI/CC On Admission Date Seen by Provider: Nov 12, 2020 Time Seen by Provider: 10:40 Stu Ramirez is a 75 year old male with PMH HTN, tobacco abuse, who presented with weakness. He reports that he has been having issues with dizziness as well. He denies syncope. He had a fall yesterday. He has also had shortness of breath. He denies cough. He denies fevers and chills. He denies weight loss. He denies dysuria. He denies headaches. He denies chest pain and palpitations. He denies abdominal pain, nausea, vomiting, and diarrhea. He has had lower back pain. He denies sciatica. He does get pain in his bilateral legs when he walks. Subjective/Events-last exam He says he is not feeling very well today. He reports bilateral sciatica and toe pain. He reports numbness and tingling in his fingers. He is not having fevers. He had some abdominal discomfort last night. He says he didn't feel like his food was moving through. He has been able to eat and drink this morning without issue. Objective Exam Vital Signs Vital Signs Date Time Temp Pulse Resp B/P (MAP) Pulse Ox O2 Delivery O2 Flow Rate FiO2 11/12/20 15:47 36.8 74 96 21 11/12/20 15:44 Room Air 11/12/20 15:38 18 179/68 (105) 11/10/20 09:00 2.00 Capillary Refill : Less Than 3 Seconds General Appearance: No Apparent Distress, Chronically ill Respiratory: Lungs Clear, Normal Breath Sounds, No Respiratory Distress Cardiovascular: Regular Rate, Rhythm, No Edema, No Murmur Gastrointestinal: Normal Bowel Sounds, Non Tender Back: Normal Inspection, No CVA Tenderness, No Vertebral Tenderness Extremity: Normal Inspection, Non Tender, No Pedal Edema Neurologic/Psychiatric: Alert, Oriented x3, Normal Mood/Affect, Sensory Deficit Skin: Normal Color, Warm/Dry Results/Procedures Lab Laboratory Tests 11/12/20 05:24 Patient resulted labs reviewed. Imaging: Reviewed Imaging Report Assessment/Plan Assessment and Plan Assess & Plan/Chief Complaint Sepsis Possible tick bite Repeat CXR without infiltrate UA without evidence of UTI Blood cultures with no growth CT Chest/Abdomen/Pelvis without infectious source, no PE, showed occlusion of left iliac artery Tick panel pending Continue Doxycycline and Zosyn Back pain Sciatica Neuropathy Obtain CT spine Elevated LFTs No evidence of biliary pathology on CT Hepatitis panel negative Abdominal ultrasound unrevealing PAD CT showed occlusion of left iliac artery Arterial ultrasound performed, no report yet Cardiology consulted, appreciate assistance Needs outpatient vascular surgery evaluation for possible bypass surgery Weakness Debility PT/OT Monitor HTN Continue Lisinopril Increase Amlodipine Hydralazine as needed Tobacco abuse Nicotine patch DVT prophylaxis: Lovenox Acute repsiratory failure with hypoxia, resolved Diagnosis/Problems Diagnosis/Problems (1) Sepsis Status: Acute (2) Elevated liver enzymes Status: Acute (3) Peripheral arterial disease Status: Acute BING LOPEZ MD Nov 12, 2020 19:01
[2020-11-13] MEDS: hydrALAZINE (APESOLINE) 20 MG/ML VIAL IV PRN ×2 (00:08→11:42)
[2020-11-13] MEDS: IBUPROFEN 600 MG (MOTRIN) TAB PO PRN ×3 (00:56→20:38)
[2020-11-13] MEDS: fentaNYL INJ 100 MCG/2 ML AMP IV PRN ×3 (00:58→23:38)
[2020-11-13] MEDS: RT-ALBUTEROL/IPRATROPIUM 3 ML (DUONEB) VIAL INH SCH ×4 (02:40→20:10)
[2020-11-13] MEDS: PIPERACILLIN/TAZO 4.5 GM/NS 100 ML IV SCH ×2 (03:58)
[2020-11-13 04:26] VITALS: BP 176/73
[2020-11-13 04:52] LABS: BASOPHILS % (AUTO) 0 % (0-10); EOSINOPHILS % (AUTO) 0 % (0-10); HEMATOCRIT 34 % (40-54); HEMOGLOBIN 12.2 g/dL (13.3-17.7); LYMPHOCYTES # (AUTO) 1.8 10^3/uL (1.0-4.0); LYMPHOCYTES % (AUTO) 14 % (12-44); MEAN CORPUSCULAR HEMOGLOBIN 28 pg (25-34); MEAN CORPUSCULAR HGB CONC 36 g/dL (32-36); MEAN CORPUSCULAR VOLUME 79 fL (80-99); MEAN PLATELET VOLUME 9.4 fL (9.0-12.2); MONOCYTES # (AUTO) 1.2 10^3/uL (0.0-1.0); MONOCYTES % (AUTO) 10 % (0-12); NEUTROPHILS # (AUTO) 9.7 10^3/uL (1.8-7.8); NEUTROPHILS % (AUTO) 76 % (42-75); PLATELET COUNT 273 10^3/uL (130-400); WHITE BLOOD COUNT 12.9 10^3/uL (4.3-11.0)
[2020-11-13 05:04] LABS: ALBUMIN 2.8 GM/DL (3.2-4.5); POTASSIUM 4.5 MMOL/L (3.6-5.0)
[2020-11-13 05:05] LABS: CALCIUM 8.5 MG/DL (8.5-10.1)
[2020-11-13 05:06] LABS: TOTAL PROTEIN 6.2 GM/DL (6.4-8.2)
[2020-11-13 05:08] LABS: BILIRUBIN,TOTAL 2.4 MG/DL (0.1-1.0)
[2020-11-13 05:10] LABS: CREATININE SERUM 0.64 MG/DL (0.60-1.30); PHOSPHORUS 2.9 MG/DL (2.3-4.7)
[2020-11-13 05:13] LABS: MAGNESIUM 1.8 MG/DL (1.6-2.4)
[2020-11-13] MEDS: DOXYCYCLINE 100 MG (VIBRAMYCIN) TABLET PO SCH ×2 (06:36→17:52)
[2020-11-13] MEDS: OFLOXACIN 0.3% OPHTH SOLN 5 ML OS SCH (07:58)
[2020-11-13 08:16] VITALS: BP 188/70
[2020-11-13] MEDS: NICOTINE 14 MG (NICODERM) PATCH TD SCH (09:18)
[2020-11-13] MEDS: amLODIPine 10 MG (NORVASC) TAB PO SCH (09:18)
[2020-11-13] MEDS: ENOXAPARIN 40 MG/0.4 ML (LOVENOX) SYR SC SCH (09:18)
[2020-11-13] MEDS: meTOprolol SUCCINATE 100 MG (TOPROL XL) TAB PO SCH (09:18)
[2020-11-13] MEDS: ASPIRIN 81 MG CHEW (CHILDREN'S ASA) PO SCH (09:18)
[2020-11-13] MEDS: NICOTINE PATCH REMOVAL TP SCH (09:18)
[2020-11-13] MEDS: lisINopril 40 MG (PRINIVIL) TABLET PO SCH (09:18)
[2020-11-13] MEDS ORDERED: NS IV 1000 ML 1,000 ML ONE (10:50)
[2020-11-13] MEDS: NS IV 1000 ML 1,000 ML IV SCH ×2 (10:53→20:06)
--- NOTE | 2020-11-13 11:25 | Progress Note - Hospitalist ---
Subjective HPI/CC On Admission Date Seen by Provider: Nov 13, 2020 Time Seen by Provider: 11:21 Stu Ramirez is a 75 year old male with PMH HTN, tobacco abuse, who presented with weakness. He reports that he has been having issues with dizziness as well. He denies syncope. He had a fall yesterday. He has also had shortness of breath. He denies cough. He denies fevers and chills. He denies weight loss. He denies dysuria. He denies headaches. He denies chest pain and palpitations. He denies abdominal pain, nausea, vomiting, and diarrhea. He has had lower back pain. He denies sciatica. He does get pain in his bilateral legs when he walks. Subjective/Events-last exam He reports feeling better today but is very weak. Apparently he has family who work on inpatient rehab and he has already talked to them about this. He would like to entertain going there if he is not able to regain his strength. He does ask me about all of his imaging and labs that have been done over the weekend. I reviewed all of these with him. He is still concerned about why he has neck pain. He reports this been going on for years but has not really followed up with his primary care doctor about this. I recommended seeing Dr. Johns for this since there are no acute findings on imaging. Objective Exam Vital Signs Vital Signs Date Time Temp Pulse Resp B/P (MAP) Pulse Ox O2 Delivery O2 Flow Rate FiO2 11/13/20 08:16 36.9 76 24 188/70 (109) 98 Room Air 11/12/20 15:47 21 11/10/20 09:00 2.00 Capillary Refill : Less Than 3 Seconds General Appearance: No Apparent Distress, Chronically ill, Thin Respiratory: Lungs Clear, No Respiratory Distress Cardiovascular: Regular Rate, Rhythm, No Murmur Neurologic/Psychiatric: Alert, Oriented x3 Results/Procedures Lab Laboratory Tests 11/13/20 04:45 Patient resulted labs reviewed. Imaging: Reviewed Imaging Report Assessment/Plan Assessment and Plan Assess & Plan/Chief Complaint Sepsis Possible tick bite Repeat CXR without infiltrate UA without evidence of UTI Blood cultures with no growth CT Chest/Abdomen/Pelvis without infectious source, no PE, showed occlusion of left iliac artery Tick panel pending (tularemia negative and lyme negative) Continue Doxycycline, will DC Zosyn Hyponatremia Appears to be chronic as he came in with Na of 127 Down to 121 reports a lot of water intake Fluid restriction Will start NS as well Check BMP this afternoon Back pain Sciatica Neuropathy CT with degenerative changes but no acute findings Recommended outpatient follow up PT/OT IRF eval Elevated LFTs No evidence of biliary pathology on CT Hepatitis panel negative Abdominal ultrasound unrevealing PAD CT showed occlusion of left iliac artery Arterial ultrasound performed, no report yet Cardiology consulted, appreciate assistance Needs outpatient vascular surgery evaluation for possible bypass surgery Weakness Debility PT/OT Monitor HTN Continue Lisinopril Increase Amlodipine Hydralazine as needed Tobacco abuse Nicotine patch DVT prophylaxis: Lovenox Acute repsiratory failure with hypoxia, resolved DOLLY HERRERA MD Nov 13, 2020 11:25
[2020-11-13 11:34] VITALS: BP 198/84
--- NOTE | 2020-11-13 11:39 | Occupational Therapy Eval ---
OT Evaluation-General/PLF Medical Diagnosis Admission Date Nov 08, 2020 at 21:25 Medical Diagnosis: sepsis, elevated liver enzymes, CHF Onset Date: Nov 08, 2020 Therapy Diagnosis Therapy Diagnosis: decreased ADL status, weakness Precautions Precautions/Isolations: Standard Precautions Referral Physician: Carmelo Referral Reason: Evaluation/Treatment Medical History Additional Medical History HTN, tobacco abuse, weakness, pancreatitis Current History D due to SOB and fall Social History Current Living Status: Alone ADL-Prior Level of Function SCALE: Activities may be completed with or without assistive devices. 3-Sjnycrcakz-dbsztgk completes the activity by him/herself with no assistance from a helper. 5-Set-up or Clean-up Assistance-helper sets up or cleans up; patient completes activity. [place] assists only prior to or following the activity. 4-Supervision or Touching Assistance-helper provides verbal cues and/or touching/steadying and/or contact guard assistance as patient completes activity. Assistance may be provided throughout the activity or intermittently. 3-Partial/Moderate Assistance-helper does LESS THAN HALF the effort. [place] lifts, holds or supports trunk or limbs, but provides less than half the effort. 2-Substantial/Maximal Assistance-helper does MORE THAN HALF the effort. [place] lifts or holds trunk or limbs and provides more than half the effort. 8-Yolvyudxv-rpxdjg does ALL the effort. Patient does none of the effort to complete the activity. Or, the assistance of 2 or more helpers is required for the patient to complete the activity. If activity was not attempted, code reason: 7-Patient Refused. 9-Not Applicable-not attempted and the patient did not perform the activity before the current illness, exacerbation or injury. 10-Not Attempted due to Environmental Limitations-(lack of equipment, weather restraints, etc.). 88-Not Attempted due to Medical Conditions or Safety Concerns. ADL PLOF Comments Pt indicates IND with ADLs and functional mobility at PLOF, no AD/AE Self Care: Independent Functional Cognition: Independent OT Current Status Subjective Pt up to toilet upon OT arrival, agreeable to OT tx. Aide present. Mental Status/Objective Patient Orientation: Person, Place, Situation Attachments: IV Current Hand Dominance: Right Upper Extremity ROM WFL Upper Extremity Sensation WFL Upper Extremity Strength grossly 3+/5 BUEs ADL-Treatment Upper Body Dressing (QC): 5 Toileting Hygiene (QC): 1 Other Treatments Pt on toilet, nursing staff indicate assist x2 from bed to bathroom. Assist x2 required for toilet hygiene and clothing management, max A sit to stand. Pt completed SPT to transport w/c, then SPT from w/c to bed, max A. Pt transferred supine with min A. Pt able to scoot up towards HOB with min A. Post tx, pt l aying in bed, call light in reach and all needs met. 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 2=Patient will verbalize/demonstrate understanding of assistive devices/modifications for ADL. 3=Patient will improve strength/tolerance for activity to enable patient to perform ADL's. OT Education/Plan Problem List/Assessment Assessment: Decreased Activ Tolerance, Decreased UE Strength, Dependent Transfers, Impaired Bed Mobility, Impaired Funct Balance, Impaired I ADL's, Impaired Self-Care Skills Discharge Recommendations Plan/Recommendations: Continue POC Treatment Plan/Plan of Care Patient would benefit from OT for education, treatment and training to promote independence in ADL's, mobility, safety and/or upper extremity function for ADL's. Plan of Care: ADL Retraining, Functional Mobility, UE Funct Exercise/Act Treatment Duration: Nov 24, 2020 Frequency: 5 times per week Estimated Hrs Per Day: .25 hour per day Time/GCodes Start Time: 11:17 Stop Time: 11:32 Total Time Billed (hr/min): 15 Billed Treatment Time 1, HUYEN SCHMIDT OT Nov 13, 2020 11:39
--- NOTE | 2020-11-13 12:42 | Physical Therapy Evaluation ---
PT Evaluation-General Medical Diagnosis Admission Date Nov 08, 2020 at 21:25 Medical Diagnosis: sepsis, elevated liver enzymes, CHF Onset Date: Nov 08, 2020 Therapy Diagnosis Therapy Diagnosis: decreased mobility, weakness Precautions Precautions/Isolations: Standard Precautions Weight Bear Status Right Lower Extremity: Right Full Weight Bearing Left Lower Extremity: Left Full Weight Bearing Referral Physician: Carmelo Reason for Referral: Evaluation/Treatment Medical History Pertinent Medical History: HTN Additional Medical History testicular surgery Current History Pt. reports gradual onset of weakness, fall at home. Social History Home: Single Level Current Living Status: Alone PT Steps Into Home: 3 Prior Prior Level of Function SCALE: Activities may be completed with or without assistive devices. 5-Yrnrphnzjh-mjnzrde completes the activity by him/herself with no assistance from a helper. 5-Set-up or Clean-up Assistance-helper sets up or cleans up; patient completes activity. [place] assists only prior to or following the activity. 4-Supervision or Touching Assistance-helper provides verbal cues and/or touching/steadying and/or contact guard assistance as patient completes a ctivity. Assistance may be provided throughout the activity or intermittently. 3-Partial/Moderate Assistance-helper does LESS THAN HALF the effort. [place] lifts, holds or supports trunk or limbs, but provides less than half the effort. 2-Substantial/Maximal Assistance-helper does MORE THAN HALF the effort. [place] lifts or holds trunk or limbs and provides more than half the effort. 7-Xuravefph-hducqn does ALL the effort. Patient does none of the effort to complete the activity. Or, the assistance of 2 or more helpers is required for the patient to complete the activity. If activity was not attempted, code reason: 7-Patient Refused. 9-Not Applicable-not attempted and the patient did not perform the activity before the current illness, exacerbation or injury. 10-Not Attempted due to Environmental Limitations-(lack of equipment, weather restraints, etc.). 88-Not Attempted due to Medical Conditions or Safety Concerns. Bed Mobility: 6 Transfers (B,C,W/C): 6 Gait: 6 Stairs: 6 Indoor Mobility (Ambulation): Independent Stairs: Independent Prior Devices Use: None PT Evaluation-Current Subjective Pt. in bed with family present, agrees to therapy. States his legs just "give out", doesn't think he can walk. He has no c/o pain at present time, reports numbness in (B) big toe. Pt/Family Goals home Objective Patient Orientation: Person, Place, Time, Situation Attachments: IV ROM/Strength ROM Upper Extremities See OT ROM Lower Extremities WNL (B) LE all planes Strength Upper Extremities See OT Strength Lower Extremities 4/5 (B) hips, 3+/5 quads (B), 4-/5 L HS, 4+/5 R HS, grossly 5/5 (B) ankle Integumentary/Posture Integumentary grossly intact Bowel Incontinence: No Bladder Incontinence: No Neuromuscular (Tone, Coordination, Reflexes) unremarkable Sensory Vision: Wears Glasses Hearing: Impaired Hand Dominance: Right Sensation Right Upper Extremit: Intact Sensation Left Upper Extremity: Intact Sensation Right Lower Extremit: Impaired Sensation Left Lower Extremity: Impaired Transfers Lying to Sitting/Side of Bed(Q: 6 Sit to Stand (QC): 3 Chair/Jnd-si-Lsfik Xfer(QC): 3 Gait Does the Patient Walk?: Yes Mode of Locomotion: Walk Anticipated Mode of Locomotion: Walk Distance: 4 ft Gait Assistive Device: FWW Comments/Gait Description significant UE assist on walker during transfer bed to chair Balance Sitting Static: Good Sitting Dynamic: Good Standing Static: Fair Standing Dynamic: Fair Assessment/Needs Pt. is a 75 y.o. active male with recent onset of weakness and who presents with decreased LE strength, decreased gait and transfer ability. Most weakness noted (B) quads and he has poor control lowering to bed or chair. Pt. would benefit from skilled PT to improve strength and safe mobility for return home (I). Pt. may be a good candidate for ARU. Rehab Potential: Good PT Halfway Goals Wafer Fabricator Goals PT Halfway Goals Time Frame: Nov 23, 2020 Sit to Stand (QC): 6 Chair/Ifj-aw-Vowes Xfer(QC): 6 Toilet Transfer (QC): 6 Does the Patient Walk: Yes Walk 50ft with 2 Turns (QC): 4 PT Plan Problem List Problem List: Activity Tolerance, Functional Strength, Safety, Balance, Gait, Transfer, Bed Mobility, ROM Treatment/Plan Treatment Plan: Continue Plan of Care Treatment Plan: Bed Mobility, Education, Functional Activity Samantha, Functional Strength, Gait, Safety, Therapeutic Exercise, Transfers Treatment Duration: Nov 23, 2020 Frequency: 6 times per week Estimated Hrs Per Day: .25 hour per day Patient and/or Family Agrees t: Yes Time/GCodes Time In: 1215 Time Out: 1233 Total Billed Treatment Time: 18 Total Billed Treatment 1, [facility] 18' BLANCA MCINTYRE PT Nov 13, 2020 12:42
--- NOTE | 2020-11-13 13:38 | Progress Note - Cardiology ---
Cardiology SOAP Progress Note Subjective: Gen malaise and weakness present No shortness of breath at rest No cp or palp or syncope No n/v/d Objective: I&O/Vital Signs 11/13/20 11/13/20 11/13/20 11/13/20 02:40 04:26 07:32 08:16 Temp 36.3 36.9 Pulse 79 76 Resp 20 24 B/P (MAP) 176/73 (107) 188/70 (109) Pulse Ox 95 96 98 98 O2 Delivery Room Air Room Air Room Air Room Air 11/13/20 11:34 Temp 36.1 Pulse 78 Resp 22 B/P (MAP) 198/84 (122) Pulse Ox 98 O2 Delivery Room Air 11/13/20 00:00 Intake Total 1990 ml Output Total 1025 ml Balance 965 ml Constitutional: AAO x 3, well-developed, well-nourished Respiratory: No accessory muscle use; other (fair air entry, prolonged exp, somewhat diminished breath sounds at both bases) Cardiovascular: regular rate-rhythm, S1 and S2, systolic murmur (soft TRICE at card base) Gastrointestional: No tender; soft; No guarding, No rebound; audible bowel sounds Extremities: No clubbing, No cyanosis, No significant edema Neurologic/Psychiatric: oriented x 3, other (moves all limbs equally) Skin: warm/dry; No cyanosis, No rash on exposed areas, No ulcerations on exposed areas Results/Procedures: Labs Laboratory Tests 11/13/20 04:45: White Blood Count 12.9H, Red Blood Count 4.33, Hemoglobin 12.2L, Hematocrit 34L, Mean Corpuscular Volume 79L, Mean Corpuscular Hemoglobin 28, Mean Corpuscular Hemoglobin Concent 36, Red Cell Distribution Width 13.4, Platelet Count 273, Mean Platelet Volume 9.4, Immature Granulocyte % (Auto) 1, Neutrophils (%) (Auto) 76H, Lymphocytes (%) (Auto) 14, Monocytes (%) (Auto) 10, Eosinophils (%) (Auto) 0, Basophils (%) (Auto) 0, Neutrophils # (Auto) 9.7H, Lymphocytes # (Auto) 1.8, Monocytes # (Auto) 1.2H, Eosinophils # (Auto) 0.0, Basophils # (Auto) 0.0, Immature Granulocyte # (Auto) 0.1, Sodium Level 121*L, Potassium Level 4.5, Chloride Level 91L, Carbon Dioxide Level 21, Anion Gap 9, Blood Urea Nitrogen 14, Creatinine 0.64, Estimat Glomerular Filtration Rate 122, BUN/Creatinine Ratio 22, Glucose Level 136H, Calcium Level 8.5, Corrected Calcium 9.5, Phosphorus Level 2.9, Magnesium Level 1.8, Total Bilirubin 2.4H, Aspartate Amino Transf (AST/SGOT) 53H, Alanine Aminotransferase (ALT/SGPT) 59H, Alkaline Phosphatase 234H, Total Protein 6.2L, Albumin 2.8L Microbiology 11/09/20 MRSA Screen - Final, Complete MRSA not isolated 11/08/20 Blood Culture - Preliminary, Resulted No growth 11/08/20 Urine Culture - Final, Complete NO GROWTH Laboratory Tests 11/12/20 05:24 11/13/20 04:45 A/P: Assessment: Worsening hyponatremia of undetermined etiology, managed by the Hospitalist river Sepsis of undetermined etiology, managed by the Hospitalist charlie PAD consisting of ostial occlusion of L common iliac and reconstitution of the arterial supply at the level of L common femoral (on CT angio of 11/09/20) Chronic smoker of cigarettes Hypertension, uncontrolled Episode of volume overload / diastolic CHF on 11/09/20 - Echo on 11/10/20: LVEF 50-55%, small R pleural eff No evidence of acute coronary syndrome Plan: * Hyponatremia continues to worsen: being managed by the [facility] sv[facility] * BP remains uncontrolled. We have increased bb and added amlodipine for better bp control. Add doxazosin to the regimen * Advised to quit smoking immediately and completely * He has a 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 This appears to be a chronic lesion and the best treatment appears to be aorto- femoral bypass surgery for which he can be referred on an outpatient basis GYPSY CORONA MD [facility] Nov 13, 2020 13:38
[2020-11-13 15:46] VITALS: BP 177/75
[2020-11-13 16:24] LABS: POTASSIUM 4.5 MMOL/L (3.6-5.0)
[2020-11-13 16:25] LABS: CALCIUM 8.5 MG/DL (8.5-10.1)
[2020-11-13 16:30] LABS: CREATININE SERUM 0.64 MG/DL (0.60-1.30)
[2020-11-13 19:38] VITALS: BP 172/77
[2020-11-13] MEDS ORDERED: doxAzosin 4 MG (CARDURA) TAB PO SCH (21:00)
[2020-11-13] MEDS ORDERED: MELATONIN 3 MG TABLET ONE (22:01)
[2020-11-13] MEDS: MELATONIN 3 MG TABLET PO PRN (22:02)
[2020-11-14] VITALS (7 sets, daily range): BP systolic 152–173; BP diastolic 62–85
[2020-11-14] MEDS: IBUPROFEN 600 MG (MOTRIN) TAB PO PRN ×2 (02:34→15:37)
[2020-11-14] MEDS: RT-ALBUTEROL/IPRATROPIUM 3 ML (DUONEB) VIAL INH SCH ×4 (02:38→20:14)
[2020-11-14] MEDS: NS IV 1000 ML 1,000 ML IV SCH ×3 (03:41→18:07)
[2020-11-14 05:42] LABS: BASOPHILS % (AUTO) 0 % (0-10); EOSINOPHILS % (AUTO) 0 % (0-10); HEMATOCRIT 32 % (40-54); HEMOGLOBIN 11.3 g/dL (13.3-17.7); LYMPHOCYTES # (AUTO) 1.1 10^3/uL (1.0-4.0); LYMPHOCYTES % (AUTO) 12 % (12-44); MEAN CORPUSCULAR HEMOGLOBIN 28 pg (25-34); MEAN CORPUSCULAR HGB CONC 36 g/dL (32-36); MEAN CORPUSCULAR VOLUME 79 fL (80-99); MEAN PLATELET VOLUME 9.2 fL (9.0-12.2); MONOCYTES # (AUTO) 0.9 10^3/uL (0.0-1.0); MONOCYTES % (AUTO) 10 % (0-12); NEUTROPHILS # (AUTO) 7.1 10^3/uL (1.8-7.8); NEUTROPHILS % (AUTO) 76 % (42-75); PLATELET COUNT 275 10^3/uL (130-400); WHITE BLOOD COUNT 9.3 10^3/uL (4.3-11.0)
[2020-11-14 05:55] LABS: ALBUMIN 2.8 GM/DL (3.2-4.5); POTASSIUM 4.4 MMOL/L (3.6-5.0)
[2020-11-14 05:56] LABS: CALCIUM 8.4 MG/DL (8.5-10.1)
[2020-11-14 05:57] LABS: TOTAL PROTEIN 6.1 GM/DL (6.4-8.2)
[2020-11-14 05:59] LABS: BILIRUBIN,TOTAL 2.2 MG/DL (0.1-1.0)
[2020-11-14 06:01] LABS: CREATININE SERUM 0.65 MG/DL (0.60-1.30); PHOSPHORUS 3.1 MG/DL (2.3-4.7)
[2020-11-14 06:04] LABS: MAGNESIUM 1.8 MG/DL (1.6-2.4)
[2020-11-14] MEDS: ENOXAPARIN 40 MG/0.4 ML (LOVENOX) SYR SC SCH (06:35)
[2020-11-14] MEDS: DOXYCYCLINE 100 MG (VIBRAMYCIN) TABLET PO SCH ×2 (06:35→15:36)
[2020-11-14] MEDS: NICOTINE 14 MG (NICODERM) PATCH TD SCH (08:45)
[2020-11-14] MEDS: amLODIPine 10 MG (NORVASC) TAB PO SCH (08:45)
[2020-11-14] MEDS: ASPIRIN 81 MG CHEW (CHILDREN'S ASA) PO SCH (08:45)
[2020-11-14] MEDS: lisINopril 40 MG (PRINIVIL) TABLET PO SCH (08:45)
[2020-11-14] MEDS: meTOprolol SUCCINATE 100 MG (TOPROL XL) TAB PO SCH (08:45)
[2020-11-14] MEDS: NICOTINE PATCH REMOVAL TP SCH (08:46)
--- NOTE | 2020-11-14 09:25 | Occupational Ther Daily Note ---
OT Current Status-Daily Note Subjective Pt in bed, agreeable to OT tx with focus on UE exercises. He declines OOB activities and ADLs. Mental Status/Objective Patient Orientation: Person, Place, Situation Attachments: IV ADL-Treatment Therapy Code Descriptions/Definitions Functional [place] Measure: 0=Not Assessed/NA 4=Minimal Assistance 1=Total Assistance 5=Supervision or Setup 2=Maximal Assistance 6=Modified [place] 3=Moderate Assistance 7=Complete IndependenceSCALE: Activities may be completed with or without assistive devices. 6-Wwzxkfjhok-gjirgli completes the activity by him/herself with no assistance from a helper. 5-Set-up or Clean-up Assistance-helper sets up or cleans up; patient completes activity. [place] assists only prior to or following the activity. 4-Supervision or Touching Assistance-helper provides verbal cues and/or touching/steadying and/or contact guard assistance as patient completes activity. Assistance may be provided throughout the activity or intermittently. 3-Partial/Moderate Assistance-helper does LESS THAN HALF the effort. [place] lifts, holds or supports trunk or limbs, but provides less than half the effort. 2-Substantial/Maximal Assistance-helper does MORE THAN HALF the effort. [place] lifts or holds trunk or limbs and provides more than half the effort. 5-Wsigyviqf-ryhtiu does ALL the effort. Patient does none of the effort to complete the activity. Or, the assistance of 2 or more helpers is required for the patient to complete the activity. If activity was not attempted, code reason: 7-Patient Refused. 9-Not Applicable-not attempted and the patient did not perform the activity before the current illness, exacerbation or injury. 10-Not Attempted due to Environmental Limitations-(lack of equipment, weather restraints, etc.). 88-Not Attempted due to Medical Conditions or Safety Concerns. Other Treatment Pt laying in bed, declines OOB activities and getting up to chair as he has just returned back to bed after eating breakfast. OT encouraged pt to participate in ADL tx, he declined. Pt indicates he is waiting on PT to arrive today. OT educated pt on purpose and benefit of OT in order to increase UE strength and ADL function, he then agreed to UE exercises. OT provided pt with moderate resistance theraband with printed HEP. Pt completed x5 reps BUE shoulder flexion (LUE with band, RUE without). After x5 reps shoulder flexion, quality of movements decreased significantly. OT informed pt to complete exercises as able with band, and switch to AROM when needed in order to maintain quality of move ment. Pt then completed x10 reps each of the following BUE with moderate resistance band: horizontal abduction, external rotation, elbow flexion and elbow extension. Post tx, pt laying in bed, call light in reach and all needs met. Education OT Patient Education: Correct positioning, Energy conservation, Exercise program, Home exercise program, Modified ADL techniques, Progress toward Goal/Update tx plan, Purpose of tx/functional activities, Rehab process Teaching Recipient: Patient Teaching Methods: Demonstration, Handout, Discussion Response to Teaching: Verbalize Understanding, Return Demonstration OT Intermediate Goals Mannequin Mounter Goals Time Frame: Nov 24, 2020 Eating (QC): 6 Oral Hygiene (QC): 6 Toileting Hygiene (QC): 4 Shower/Bathe Self (QC): 4 Upper Body Dressing (QC): 6 Lower Body Dressing (QC): 4 On/Off Footwear (QC): 4 Additional Goals: 1-Demonstrate ADL Tasks, 2-Verbalize Understanding, 3- ImproveStrength/Samantha 1=Demonstrate adherence to instructed precautions during ADL tasks. 2=Patient will verbalize/demonstrate understanding of assistive devices/modifications for ADL. 3=Patient will improve strength/tolerance for activity to enable patient to perform ADL's. OT Education/Plan Problem List/Assessment Assessment: Decreased Activ Tolerance, Decreased UE Strength, Impaired I ADL's, Impaired Self-Care Skills, Restricted Funct UE ROM Discharge Recommendations Plan/Recommendations: Continue POC Treatment Plan/Plan of Care Patient would benefit from OT for education, treatment and training to promote independence in ADL's, mobility, safety and/or upper extremity function for ADL's. Plan of Care: ADL Retraining, Functional Mobility, UE Funct Exercise/Act Treatment Duration: Nov 24, 2020 Frequency: 5 times per week Estimated Hrs Per Day: .25 hour per day Rehab Potential: Good Time/GCodes Start Time: 08:54 Stop Time: 09:06 Total Time Billed (hr/min): 12 Billed Treatment Time 1, EX HUYEN MONSIVAIS OT Nov 14, 2020 09:25
--- NOTE | 2020-11-14 09:28 | Progress Note - Hospitalist ---
Subjective HPI/CC On Admission Date Seen by Provider: Nov 14, 2020 Time Seen by Provider: 09:30 Stu Ramirez is a 75 year old male with PMH HTN, tobacco abuse, who presented with weakness. He reports that he has been having issues with dizziness as well. He denies syncope. He had a fall yesterday. He has also had shortness of breath. He denies cough. He denies fevers and chills. He denies weight loss. He denies dysuria. He denies headaches. He denies chest pain and palpitations. He denies abdominal pain, nausea, vomiting, and diarrhea. He has had lower back pain. He denies sciatica. He does get pain in his bilateral legs when he walks. Subjective/Events-last exam pt reports doing ok. Still weak. Has arm bands in room and already used them. Objective Exam Vital Signs Vital Signs Date Time Temp Pulse Resp B/P (MAP) Pulse Ox O2 Delivery O2 Flow Rate FiO2 11/14/20 08:00 36.7 77 22 153/71 (98) 98 Room Air 11/12/20 15:47 21 11/10/20 09:00 2.00 Capillary Refill : Less Than 3 Seconds General Appearance: No Apparent Distress, WD/WN Respiratory: Lungs Clear, No Respiratory Distress Cardiovascular: Regular Rate, Rhythm, No Murmur Neurologic/Psychiatric: Alert, Oriented x3 Results/Procedures Lab Laboratory Tests 11/13/20 15:59 11/14/20 05:35 Patient resulted labs reviewed. Imaging: Reviewed Imaging Report Assessment/Plan Assessment and Plan Assess & Plan/Chief Complaint Sepsis Possible tick bite Repeat CXR without infiltrate UA without evidence of UTI Blood cultures with no growth CT Chest/Abdomen/Pelvis without infectious source, no PE, showed occlusion of left iliac artery Tick panel pending (tularemia negative and lyme negative) Continue Doxycycline Hyponatremia Appears to be chronic as he came in with Na of 127 Up to 120 today reports a lot of water intake (over 3L on Friday) Fluid restriction Continue NS as well Check BMP this afternoon again Back pain Sciatica Neuropathy CT with degenerative changes but no acute findings Recommended outpatient follow up PT/OT IRF eval Discussed with with and they will review chart Elevated LFTs No evidence of biliary pathology on CT Hepatitis panel negative Abdominal ultrasound unrevealing PAD CT showed occlusion of left iliac artery Arterial ultrasound performed, no report yet Cardiology consulted, appreciate assistance Needs outpatient vascular surgery evaluation for possible bypass surgery Weakness Debility PT/OT Monitor HTN Continue Lisinopril and Amlodipine Hydralazine as needed Tobacco abuse Nicotine patch DVT prophylaxis: Lovenox Acute repsiratory failure with hypoxia, resolved DOLLY HERRERA MD Nov 14, 2020 09:28
--- NOTE | 2020-11-14 10:33 | Progress Note - Cardiology ---
Cardiology SOAP Progress Note Subjective: Gen weakness present, including both legs No cp or palp or syncope or leg pain or discoloration No n/v/d Objective: I&O/Vital Signs 11/14/20 11/14/20 11/14/20 11/14/20 00:26 02:39 03:40 07:42 Temp 36.6 36.2 Pulse 77 80 Resp 19 18 B/P (MAP) 173/85 (114) 160/65 (96) Pulse Ox 93 94 93 95 O2 Delivery Room Air Room Air Room Air Room Air 11/14/20 11/14/20 08:00 08:00 Temp 36.7 Pulse 77 Resp 22 B/P (MAP) 153/71 (98) Pulse Ox 98 O2 Delivery Room Air Room Air 11/14/20 00:00 Intake Total 1955 ml Output Total 1025 ml Balance 930 ml Constitutional: AAO x 3, well-developed, well-nourished Respiratory: No accessory muscle use; other (fair air entry, prolonged exp, somewhat diminished breath sounds at both bases) Cardiovascular: regular rate-rhythm, S1 and S2, systolic murmur (soft TRICE at card base) Gastrointestional: No tender; soft; No guarding, No rebound; audible bowel sounds Extremities: No clubbing, No cyanosis, No significant edema Neurologic/Psychiatric: oriented x 3, other (moves all limbs equally) Skin: warm/dry; No cyanosis, No rash on exposed areas, No ulcerations on exposed areas Results/Procedures: Labs Laboratory Tests 11/13/20 15:59: Sodium Level 119*L, Potassium Level 4.5, Chloride Level 89L, Carbon Dioxide Level 23, Anion Gap 7, Blood Urea Nitrogen 18, Creatinine 0.64, Estimat Glomerular Filtration Rate 122, BUN/Creatinine Ratio 28, Glucose Level 117H, Calcium Level 8.5 11/14/20 05:35: Sodium Level 120*L, Potassium Level 4.4, Chloride Level 90L, Carbon Dioxide Level 20L, Anion Gap 10, Blood Urea Nitrogen 16, Creatinine 0.65, Estimat Glomerular Filtration Rate 119, BUN/Creatinine Ratio 25, Glucose Level 125H, Calcium Level 8.4L, White Blood Count 9.3, Red Blood Count 3.99L, Hemoglobin 11.3L, Hematocrit 32L, Mean Corpuscular Volume 79L, Mean Corpuscular Hemoglobin 28, Mean Corpuscular Hemoglobin Concent 36, Red Cell Distribution Width 13.3, Platelet Count 275, Mean Platelet Volume 9.2, Immature Granulocyte % (Auto) 2, Neutrophils (%) (Auto) 76H, Lymphocytes (%) (Auto) 12, Monocytes (%) (Auto) 10, Eosinophils (%) (Auto) 0, Basophils (%) (Auto) 0, Neutrophils # (Auto) 7.1, Lymphocytes # (Auto) 1.1, Monocytes # (Auto) 0.9, Eosinophils # (Auto) 0.0, Basophils # (Auto) 0.0, Immature Granulocyte # (Auto) 0.2H, Corrected Calcium 9.4, Phosphorus Level 3.1, Magnesium Level 1.8, Total Bilirubin 2.2H, Aspartate Amino Transf (AST/SGOT) 92H, Alanine Aminotransferase (ALT/SGPT) 92H, Alkaline Phosphatase 231H, Total Protein 6.1L, Albumin 2.8L Microbiology 11/09/20 MRSA Screen - Final, Complete MRSA not isolated 11/08/20 Blood Culture - Preliminary, Resulted No growth 11/08/20 Urine Culture - Final, Complete NO GROWTH Laboratory Tests 11/13/20 04:45 11/13/20 15:59 11/14/20 05:35 A/P: Assessment: Hyponatremia of undetermined etiology, managed by the Hospitalist river Sepsis of undetermined etiology, managed by the Hospitalist river PAD consisting of ostial occlusion of L common iliac and reconstitution of the a rterial supply at the level of L common femoral (on CT angio of 11/09/20) Chronic smoker of cigarettes Hypertension, uncontrolled Episode of volume overload / diastolic CHF on 11/09/20 - Echo on 11/10/20: LVEF 50-55%, small R pleural eff No evidence of acute coronary syndrome Plan: * BP better * PT recommended for gen weakness and bilateral leg weakness * Advised to quit smoking immediately and completely * He has a long occlusion of the L iliac arterial system that appears to re constitute via collaterals at the level of the L common femoral. This appears to be a chronic lesion and the best treatment appears to be aorto-femoral bypass surgery for which he can be referred on an outpatient basis * Med svce managing persistent hyponatremia GYPSY CORONA MD [facility] Nov 14, 2020 10:33
--- NOTE | 2020-11-14 12:05 | Physical Therapy Daily Note ---
PT Daily Note-Current Subjective Pt in bed w/ daughter in room and agrees to tx. Pt states he is "too weak to walk". Pt states his knees buckle, and is worried they will during transfers/amb. Mental Status Patient Orientation: Person, Situation Transfers SCALE: Activities may be completed with or without assistive devices. 5-Ggbotzujtp-cacnigo completes the activity by him/herself with no assistance from a helper. 5-Set-up or Clean-up Assistance-helper sets up or cleans up; patient completes activity. [place] assists only prior to or following the activity. 4-Supervision or Touching Assistance-helper provides verbal cues and/or touching/steadying and/or contact guard assistance as patient completes activity. Assistance may be provided throughout the activity or intermittently. 3-Partial/Moderate Assistance-helper does LESS THAN HALF the effort. [place] lifts, holds or supports trunk or limbs, but provides less than half the effort. 2-Substantial/Maximal Assistance-helper does MORE THAN HALF the effort. [place] lifts or holds trunk or limbs and provides more than half the effort. 3-Muhaaehvl-neosyj does ALL the effort. Patient does none of the effort to complete the activity. Or, the assistance of 2 or more helpers is required for the patient to complete the activity. If activity was not attempted, code reason: 7-Patient Refused. 9-Not Applicable-not attempted and the patient did not perform the activity before the current illness, exacerbation or injury. 10-Not Attempted due to Environmental Limitations-(lack of equipment, weather restraints, etc.). 88-Not Attempted due to Medical Conditions or Safety Concerns. Lying to Sitting/Side of Bed(Q: 5 Sit to Stand (QC): 3 Chair/Hhg-qt-Nzmav Xfer(QC): 3 Pt able to sit EOB SBA. Sit to stand and transfer requiring ModA for stabilization and safety. Weight Bearing Right Lower Extremity: Right Full Weight Bearing Left Lower Extremity: Left Full Weight Bearing Gait Training Does the Patient Walk?: Yes Distance: 5' Gait Assistive Device: FWW Pt amb from bed to recliner w/ ModA, pt had shakiness in LE and required VC for sequencing for turning. Exercises Supine Ex: Ankle pumps, Quad Set, Heel Slides, Short Arc Quads, Hip abd/add Supine Reps: 10 Seated Therapy Exercises: Long arc quads Seated Reps: 10 Treatments Pt performs bed mobility followed by transfer to recliner. Pt given HEP handout and instructed on ex. Pt performs seated/supine ex in recliner. Pt left with all needs met, call light in hand. Assessment Current Status: Fair Progress Pt limited by weakness and fatigue. Pt self limiting out of fear. PT Weaving Professor Goals Weaving Professor Goals PT Detention Goals Time Frame: Nov 23, 2020 Sit to Stand (QC): 6 Chair/Qja-fe-Jvelq Xfer(QC): 6 Toilet Transfer (QC): 6 Does the Patient Walk: Yes Walk 50ft with 2 Turns (QC): 4 PT Plan Problem List Problem List: Activity Tolerance, Functional Strength, Safety Treatment/Plan Treatment Plan: Continue Plan of Care Treatment Plan: Bed Mobility, Education, Functional Activity Samantha, Functional Strength, Gait, Safety, Therapeutic Exercise, Transfers Treatment Duration: Nov 23, 2020 Frequency: 6 times per week Estimated Hrs Per Day: .25 hour per day Patient and/or Family Agrees t: Yes Time/GCodes Time In: 1120 Time Out: 1136 Total Billed Treatment Time: 16 Total Billed Treatment 1, EX CARTERELYSSA BULL DRIVER Nov 14, 2020 12:05
[2020-11-14] MEDS: ACETAMINOPHEN 500 MG TAB (TYLENOL) PO PRN (19:51)
[2020-11-14] MEDS: MELATONIN 3 MG TABLET PO PRN (19:52)
[2020-11-14] MEDS ORDERED: doxAzosin 2 MG (CARDURA) TAB PO SCH (21:00)
[2020-11-15] MEDS: IBUPROFEN 600 MG (MOTRIN) TAB PO PRN (00:32)
[2020-11-15] MEDS: RT-ALBUTEROL/IPRATROPIUM 3 ML (DUONEB) VIAL INH SCH ×2 (02:00→08:59)
[2020-11-15] MEDS: NS IV 1000 ML 1,000 ML IV SCH ×2 (02:31→08:38)
[2020-11-15] MEDS: fentaNYL INJ 100 MCG/2 ML AMP IV PRN (02:33)
[2020-11-15 04:00] VITALS: BP 163/68
[2020-11-15 04:46] LABS: BASOPHILS % (AUTO) 0 % (0-10); EOSINOPHILS % (AUTO) 0 % (0-10); HEMATOCRIT 30 % (40-54); HEMOGLOBIN 10.2 g/dL (13.3-17.7); LYMPHOCYTES # (AUTO) 1.1 10^3/uL (1.0-4.0); LYMPHOCYTES % (AUTO) 13 % (12-44); MEAN CORPUSCULAR HEMOGLOBIN 28 pg (25-34); MEAN CORPUSCULAR HGB CONC 34 g/dL (32-36); MEAN CORPUSCULAR VOLUME 81 fL (80-99); MEAN PLATELET VOLUME 9.2 fL (9.0-12.2); MONOCYTES % (AUTO) 12 % (0-12); NEUTROPHILS # (AUTO) 6.3 10^3/uL (1.8-7.8); NEUTROPHILS % (AUTO) 74 % (42-75); PLATELET COUNT 266 10^3/uL (130-400); WHITE BLOOD COUNT 8.5 10^3/uL (4.3-11.0)
[2020-11-15 05:00] LABS: ALBUMIN 2.7 GM/DL (3.2-4.5)
[2020-11-15 05:01] LABS: POTASSIUM 4.4 MMOL/L (3.6-5.0)
[2020-11-15 05:02] LABS: CALCIUM 8.1 MG/DL (8.5-10.1)
[2020-11-15 05:03] LABS: TOTAL PROTEIN 5.6 GM/DL (6.4-8.2)
[2020-11-15 05:05] LABS: BILIRUBIN,TOTAL 2.1 MG/DL (0.1-1.0)
[2020-11-15 05:07] LABS: CREATININE SERUM 0.57 MG/DL (0.60-1.30)
[2020-11-15 05:10] LABS: MAGNESIUM 1.8 MG/DL (1.6-2.4)
[2020-11-15] MEDS: ENOXAPARIN 40 MG/0.4 ML (LOVENOX) SYR SC SCH (06:11)
[2020-11-15] MEDS: DOXYCYCLINE 100 MG (VIBRAMYCIN) TABLET PO SCH (06:11)
[2020-11-15 08:00] VITALS: BP 168/67
--- NOTE | 2020-11-15 08:34 | Progress Note - Cardiology ---
Cardiology SOAP Progress Note Objective: I&O/Vital Signs 11/14/20 11/14/20 11/15/20 11/15/20 20:30 23:38 02:01 04:00 Temp 36.7 36.5 Pulse 77 70 Resp 20 20 B/P (MAP) 164/70 (101) 163/68 (99) Pulse Ox 97 92 93 O2 Delivery Room Air Room Air Room Air Room Air 11/14/20 23:59 Intake Total 1150 ml Output Total 600 ml Balance 550 ml Constitutional: AAO x 3, well-developed, well-nourished Respiratory: No accessory muscle use; other (fair air entry, prolonged exp, somewhat diminished breath sounds at both bases) Cardiovascular: regular rate-rhythm, S1 and S2, systolic murmur (soft TRICE at card base) Gastrointestional: No tender; soft; No guarding, No rebound; audible bowel sounds Extremities: No clubbing, No cyanosis, No significant edema Neurologic/Psychiatric: oriented x 3, other (moves all limbs equally) Skin: warm/dry; No cyanosis, No rash on exposed areas, No ulcerations on exposed areas Results/Procedures: Labs Laboratory Tests 11/15/20 04:35: White Blood Count 8.5, Red Blood Count 3.70L, Hemoglobin 10.2L, Hematocrit 30L, Mean Corpuscular Volume 81, Mean Corpuscular Hemoglobin 28, Mean Corpuscular Hemoglobin Concent 34, Red Cell Distribution Width 13.8, Platelet Count 266, Mean Platelet Volume 9.2, Immature Granulocyte % (Auto) 1, Neutrophils (%) (Auto) 74, Lymphocytes (%) (Auto) 13, Monocytes (%) (Auto) 12, Eosinophils (%) (Auto) 0, Basophils (%) (Auto) 0, Neutrophils # (Auto) 6.3, Lymphocytes # (Auto) 1.1, Monocytes # (Auto) 1.0, Eosinophils # (Auto) 0.0, Basophils # (Auto) 0.0, Immature Granulocyte # (Auto) 0.1, Sodium Level 118*L, Potassium Level 4.4, Chloride Level 93L, Carbon Dioxide Level 19L, Anion Gap 6, Blood Urea Nitrogen 16, Creatinine 0.57L, Estimat Glomerular Filtration Rate 139, BUN/Creatinine Ratio 28, Glucose Level 108H, Calcium Level 8.1L, Corrected Calcium 9.1, Phosphorus Level 3.0, Magnesium Level 1.8, Total Bilirubin 2.1H, Aspartate Amino Transf (AST/SGOT) 126H, Alanine Aminotransferase (ALT/SGPT) 127H, Alkaline Phosphatase 215H, Total Protein 5.6L, Albumin 2.7L Microbiology 11/09/20 MRSA Screen - Final, Complete MRSA not isolated 11/08/20 Blood Culture - Final, Complete No growth 11/08/20 Urine Culture - Final, Complete NO GROWTH Laboratory Tests 11/13/20 15:59 11/14/20 05:35 11/15/20 04:35 A/P: Assessment: Hyponatremia of undetermined etiology, managed by the [facility] Sepsis of undetermined etiology, managed by the [facility] PAD consisting of ostial occlusion of L common iliac and reconstitution of the arterial supply at the level of L common femoral (on CT angio of 11/09/20) Chronic smoker of cigarettes Hypertension, uncontrolled Episode of volume overload / diastolic CHF on 11/09/20 - Echo on 11/10/20: LVEF 50-55%, small R pleural eff No evidence of acute coronary syndrome Plan: * BP better, but not ideal - adjust antihypertensive regimen * Elevated liver enzymes of undetermined etiology - possible hepato-biliary congestion * PT recommended for gen weakness and bilateral leg weakness * Advised to quit smoking immediately and completely * He has a 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 This appears to be a chronic lesion and the best treatment appears to be aorto- femoral bypass surgery for which he can be referred on an outpatient basis * Med svce managing persistent hyponatremia OLIVER MORAES Nov 15, 2020 08:34
[2020-11-15] MEDS: meTOprolol SUCCINATE 100 MG (TOPROL XL) TAB PO SCH (08:36)
[2020-11-15] MEDS: lisINopril 40 MG (PRINIVIL) TABLET PO SCH (08:36)
[2020-11-15] MEDS: NICOTINE 14 MG (NICODERM) PATCH TD SCH (08:36)
[2020-11-15] MEDS: amLODIPine 10 MG (NORVASC) TAB PO SCH (08:36)
[2020-11-15] MEDS: ASPIRIN 81 MG CHEW (CHILDREN'S ASA) PO SCH (08:36)
[2020-11-15] MEDS: NICOTINE PATCH REMOVAL TP SCH (08:37)
--- NOTE | 2020-11-15 08:48 | Discharge Summary ---
Diagnosis/Chief Complaint Date of Admission Nov 08, 2020 at 21:25 Date of Discharge Discharge Date: Nov 14, 2020 Admission Diagnosis Sepsis Primary Care Rishabh Johns DO Discharge Diagnosis (1) Sepsis Status: Acute (2) Elevated liver enzymes Status: Acute (3) Peripheral arterial disease Status: Acute Discharge Summary Discharge Physical Exam Allergies: Coded Allergies: No Known Drug Allergies (Unverified , 11/06/20) Vitals & I&Os Vital Signs Date Time Temp Pulse Resp B/P (MAP) Pulse Ox O2 Delivery O2 Flow Rate FiO2 11/15/20 08:00 35.9 80 20 168/67 (100) 97 Room Air 11/12/20 15:47 21 11/10/20 09:00 2.00 Hospital Course Labs (last 24 hrs) Laboratory Tests 11/15/20 04:35: White Blood Count 8.5, Red Blood Count 3.70L, Hemoglobin 10.2L, Hematocrit 30L, Mean Corpuscular Volume 81, Mean Corpuscular Hemoglobin 28, Mean Corpuscular Hemoglobin Concent 34, Red Cell Distribution Width 13.8, Platelet Count 266, Mean Platelet Volume 9.2, Immature Granulocyte % (Auto) 1, Neutrophils (%) (Auto) 74, Lymphocytes (%) (Auto) 13, Monocytes (%) (Auto) 12, Eosinophils (%) (Auto) 0, Basophils (%) (Auto) 0, Neutrophils # (Auto) 6.3, Lymphocytes # (Auto) 1.1, Monocytes # (Auto) 1.0, Eosinophils # (Auto) 0.0, Basophils # (Auto) 0.0, Immature Granulocyte # (Auto) 0.1, Sodium Level 118*L, Potassium Level 4.4, Chloride Level 93L, Carbon Dioxide Level 19L, Anion Gap 6, Blood Urea Nitrogen 16, Creatinine 0.57L, Estimat Glomerular Filtration Rate 139, BUN/Creatinine Ratio 28, Glucose Level 108H, Calcium Level 8.1L, Corrected Calcium 9.1, Phosphorus Level 3.0, Magnesium Level 1.8, Total Bilirubin 2.1H, Aspartate Amino Transf (AST/SGOT) 126H, Alanine Aminotransferase (ALT/SGPT) 127H, Alkaline Phosphatase 215H, Total Protein 5.6L, Albumin 2.7L Microbiology 11/09/20 MRSA Screen - Final, Complete MRSA not isolated 11/08/20 Blood Culture - Final, Complete No growth 11/08/20 Urine Culture - Final, Complete NO GROWTH Patient resulted labs reviewed. Pending Labs Laboratory Tests 11/15/20 04:35: White Blood Count 8.5, Red Blood Count 3.70, Hemoglobin 10.2, Hematocrit 30, Mean Corpuscular Volume 81, Mean Corpuscular Hemoglobin 28, Mean Corpuscular Hemoglobin Concent 34, Red Cell Distribution Width 13.8, Platelet Count 266, Mean Platelet Volume 9.2, Immature Granulocyte % (Auto) 1, Neutrophils (%) (Auto) 74, Lymphocytes (%) (Auto) 13, Monocytes (%) (Auto) 12, Eosinophils (%) (Auto) 0, Basophils (%) (Auto) 0, Neutrophils # (Auto) 6.3, Lymphocytes # (Auto) 1.1, Monocytes # (Auto) 1.0, Eosinophils # (Auto) 0.0, Basophils # (Auto) 0.0, Immature Granulocyte # (Auto) 0.1, Sodium Level 118, Potassium Level 4.4, Chloride Level 93, Carbon Dioxide Level 19, Anion Gap 6, Blood Urea Nitrogen 16, Creatinine 0.57, Estimat Glomerular Filtration Rate 139, BUN/Creatinine Ratio 28, Glucose Level 108, Calcium Level 8.1, Corrected Calcium 9.1, Phosphorus Level 3.0, Magnesium Level 1.8, Total Bilirubin 2.1, Aspartate Amino Transf (AST/SGOT) 126, Alanine Aminotransferase (ALT/SGPT) 127, Alkaline Phosphatase 215, Total Protein 5.6, Albumin 2.7 Imaging: Reviewed Imaging Report Discharge Home Medications: Active Scripts Active Reported [Betamax] 1 Ea PO BID Bromsite (Bromfenac Sodium) 5 Ml Drops 1 Drop OS DAILY FOR PLANNED LEFT CATARACT SURGERY SCHEDULED 11-10-2020 TAKE 3 DAYS PRIOR TO AND 30 DAYS AFTER SURGERY Ofloxacin 5 Ml Drops 1 Drops OS QID FOR PLANNED LEFT CATARACT SURGERY SCHEDULED 11-10-2020 TAKE 3 DAYS PRIOR TO AND 7 DAYS AFTER SURGERY Ibuprofen 200 Mg Tablet 600 Mg PO Q8H PRN Lisinopril 10 Mg Tablet 10 Mg PO DAILY Instructions to patient/family Please see electronic discharge instructions given to patient. DOLLY HERRERA MD Nov 15, 2020 08:48
--- NOTE | 2020-11-15 14:25 | Diagnostic Imaging Report ---
PROCEDURE: US Bilateral lower extremity arterial. TECHNIQUE: Multiple real-time grayscale images are obtained through both lower extremity arterial systems with color Doppler imaging and color Doppler spectral analysis. INDICATION: Bilateral lower extremity weakness. Legs giving out. COMPARISON: None. FINDINGS: Monophasic waveforms are seen in the left common femoral, profunda femoris, superficial femoral, popliteal, anterior tibial, posterior tibial, and dorsalis pedis arteries. There is scattered atherosclerotic plaque in the left lower extremity arterial system without visual high-grade stenosis. The flow velocities are within normal limits. Normal triphasic waveforms are seen in the right common femoral, profunda femoris, superficial femoral, and popliteal arteries. Biphasic waveforms are seen in the anterior tibial, posterior tibial, and dorsalis pedis arteries. There is atherosclerotic plaque in the right lower extremity arterial system. Elevated flow velocities are seen in the profunda femoris artery measuring 249 cm/s and in the mid aspect of the superficial femoral artery measuring 287 cm/s. Visually these areas of narrowing correspond to 50-69% stenosis. IMPRESSION: 1. Monophasic waveforms throughout the left lower extremity arterial system without visualized focal stenosis or elevated flow velocities. Findings suggest a more proximal stenosis in the left iliac arteries. 2. Triphasic and biphasic waveforms in the right lower extremity arterial system. There is focal stenosis in the right profunda femoris and mid aspect of the right superficial femoral artery of approximately 50-69%. 3. Moderate burden of atherosclerotic plaque in the bilateral lower extremity arterial systems. Dictated by: Dictated on workstation # [id number]
--- NOTE | 2020-11-15 17:42 | Progress Note - Cardiology ---
Cardiology SOAP Progress Note Subjective: Marked gen weakness, including both arms and both legs No cp or palp or syncope Poor stamina. Gets winded and tired out with mild activity Objective: I&O/Vital Signs 11/15/20 11/15/20 11/15/20 08:00 08:00 08:59 Temp 35.9 Pulse 80 Resp 20 B/P (MAP) 168/67 (100) Pulse Ox 97 92 O2 Delivery Room Air Room Air Room Air 11/15/20 00:00 Intake Total 1150 ml Output Total 600 ml Balance 550 ml Constitutional: AAO x 3, well-developed, well-nourished Respiratory: No accessory muscle use; other (fair air entry, prolonged exp, somewhat diminished breath sounds at both bases) Cardiovascular: regular rate-rhythm, S1 and S2, systolic murmur (soft TRICE at card base) Gastrointestional: No tender; soft; No guarding, No rebound; audible bowel sounds Extremities: No clubbing, No cyanosis, No significant edema Neurologic/Psychiatric: oriented x 3, other (moves all limbs equally) Skin: warm/dry; No cyanosis, No rash on exposed areas, No ulcerations on exposed areas Results/Procedures: Labs Laboratory Tests 11/15/20 04:35: White Blood Count 8.5, Red Blood Count 3.70L, Hemoglobin 10.2L, Hematocrit 30L, Mean Corpuscular Volume 81, Mean Corpuscular Hemoglobin 28, Mean Corpuscular Hemoglobin Concent 34, Red Cell Distribution Width 13.8, Platelet Count 266, Mean Platelet Volume 9.2, Immature Granulocyte % (Auto) 1, Neutrophils (%) (Auto) 74, Lymphocytes (%) (Auto) 13, Monocytes (%) (Auto) 12, Eosinophils (%) (Auto) 0, Basophils (%) (Auto) 0, Neutrophils # (Auto) 6.3, Lymphocytes # (Auto) 1.1, Monocytes # (Auto) 1.0, Eosinophils # (Auto) 0.0, Basophils # (Auto) 0.0, Immature Granulocyte # (Auto) 0.1, Sodium Level 118*L, Potassium Level 4.4, Chloride Level 93L, Carbon Dioxide Level 19L, Anion Gap 6, Blood Urea Nitrogen 16, Creatinine 0.57L, Estimat Glomerular Filtration Rate 139, BUN/Creatinine Ratio 28, Glucose Level 108H, Calcium Level 8.1L, Corrected Calcium 9.1, Phosphorus Level 3.0, Magnesium Level 1.8, Total Bilirubin 2.1H, Aspartate Amino Transf (AST/SGOT) 126H, Alanine Aminotransferase (ALT/SGPT) 127H, Alkaline Phosphatase 215H, Total Protein 5.6L, Albumin 2.7L Microbiology 11/09/20 MRSA Screen - Final, Complete MRSA not isolated 11/08/20 Blood Culture - Final, Complete No growth 11/08/20 Urine Culture - Final, Complete NO GROWTH Laboratory Tests 11/14/20 05:35 11/15/20 04:35 A/P: Assessment: Hyponatremia of undetermined etiology, managed by the [facility] Sepsis of undetermined etiology, managed by the [facility] PAD consisting of ostial occlusion of L common iliac and reconstitution of the arterial supply at the level of L common femoral (on CT angio of 11/09/20) Chronic smoker of cigarettes Hypertension, uncontrolled Episode of volume overload / diastolic CHF on 11/09/20 - Echo on 11/10/20: LVEF 50-55%, small R pleural eff No evidence of acute coronary syndrome Plan: * BP better, but not ideal - adjust antihypertensive regimen * Elevated liver enzymes of undetermined etiology - possible hepato-biliary lay estion * PT recommended for gen weakness and bilateral leg weakness * Advised to quit smoking immediately and completely * He has a 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 This appears to be a chronic lesion and the best treatment appears to be aorto- femoral bypass surgery for which he can be referred on an outpatient basis * [facility] managing persistent hyponatremia GYPSY CORONA MD FACP [facility] Nov 15, 2020 17:42
[2020-11-15] MEDS ORDERED: meTOprolol SUCCINATE 100 MG (TOPROL XL) TAB PO SCH (21:00)
== END 2020-11-15 11:55 | DRG 871 ==
LOC: EDUNIT# 18:20 → ER 18:23 → 4TH 21:25 → ICU 11-09 22:32 → 4TH 11-11 06:39
PROVIDERS: ADMIT Internal Medicine; ATTEND Family Medicine
DX: A41.9 Sepsis, unspecified organism (principal); J96.01 Acute respiratory failure with hypoxia; E87.1 Hypo-osmolality and hyponatremia; I50.30 Unspecified diastolic (congestive) heart failure; I74.5 Embolism and thrombosis of iliac artery; I11.0 Hypertensive heart disease with heart failure; R74.8 Abnormal levels of other serum enzymes; D64.9 Anemia, unspecified; F17.210 Nicotine dependence, cigarettes, uncomplicated; E88.09 Other disorders of plasma-protein metabolism, not elsewhere classified; Z97.4 Presence of external hearing-aid; Z20.822 Contact with and (suspected) exposure to COVID-19; M54.30 Sciatica, unspecified side; G62.9 Polyneuropathy, unspecified
CPT/HCPCS: 36415; 71045; 71275; 72125; 72128; 72131; 74177; 76700; 80048; 80053; 80074; 80076; 81000; 82150; 83605; 83615; 83690; 83735; 83880; 84100; 84145; 84484; 85007; 85025; 85027; 85379; 85610; 85652; 85730; 86141; 86618; 86666; 86668; 86757; 87040; 87081; 87088; 87636; 93005; 93306; 93925; 94640; 94664; 94760; 96365; 96366; 96375

== ENCOUNTER 2020-11-15 10:15 | Inpatient (IN) | payer OTHER, MEDICARE ==
[~2020-11-15] VITALS: Ht 175.2 cm; Wt 77.2 kg
[~2020-11-15 10:15] MED LIST changes: +ALPRAZolam 0.25 MG (XANAX) TAB PO PRN; +BISACODYL 10 MG SUPP (DULCOLAX) PR PRN; +BROM5DRO3 OS; +CALCIUM CARBONATE 500 MG (TUMS) TAB.CHEW PO PRN; +CEFD300C3 PO; +DOCUSATE SODIUM 100 MG (COLACE) CAP PO PRN; +ENOXAPARIN 40 MG/0.4 ML (LOVENOX) SYR SC SCH; +FLEET ENEMA ADULT 1 EA BTL PR PRN; +IBUP-2473 PO; +LOPERAMIDE 2 MG (IMODIUM) TABLET PO PRN; +MELATONIN 3 MG TABLET PO PRN; +OFLO5DRO3 OS; +ONDANSETRON 4 MG (ZOFRAN) ORAL DISSOLVE TAB PO PRN; +[UNRECOGNIZED DRUG - OTHER] PO; +diphenhydrAMINE 25 MG TAB (BENADRYL) PO PRN; +guaiFENesin/CODEINE (ROBITUSSIN AC) 10ML UDC PO PRN
--- NOTE | 2020-11-15 11:51 | PM&R Post Admission Assessment ---
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 Tick-born illness evaluation ensued, Pt was placed on Doxycycline, aggressive IV fluid was initiated, hyponatremia was managed with fluid restriction and currently he is having a lot of proximal muscle weakness. We will evaluate further cause of hyponatremia and muscle weakness and will initiate aggressive therapy in order to return to independent living. 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 His ED visit occurred due to progressive muscle weakness only effecting the thighs and knees three weeks ago. He denied numbness or burning sensation in the LE prior to his fall and reports vertigo that has been on going for three weeks. After his fall he has had consta nt numbness in both his feet and hands and denies burning sensations. His fever and symptoms of sepsis have been resolved, but his muscle weakness has continued to decline and he has become bedridden for 10 days. Yesterday he had noticed that his fine motor skills have been declining as he could no longer write properly and states that his muscle weakness has been getting worse with no improvements in his symptoms. Muscle weakness is most notable in the hips and shoulders with reduced PROM of shoulders. Nothing he does seems to make the symptoms better or worse. After two treatments of PT he does not notice any improvement in his muscle and is fatigued after each session. His labs show anemia with the most recent hemoglobin of 10.22. Alkaline phosphatase is elevated at 215 and his liver enzymes are trending upward despite a normal Ultrasound. Also, he has had no improvements in his hyponatremia despite fluid restriction. His BNP is elevated at 262.4 and his CK and TSH levels are normal. ROS: positive for SOB, vertigo, and no bowel movements for three days. Negative for CP, fever, voiding. PSH: Testicular cyts removed many years ago (unknown exact year), Removal of shrapnel from his right leg was removed at the same of his right hand surgery due to trauma that occurred 15 to 20 years ago. PMH: HTN, enlarged prostate, arthritis of neck, occlusion of Left Iliac A. Allergies: NKDA, pollen, and food allergy of pineapple FH: Mom has a heart murmur, father has HTN and type 2 DM, no biological children. Older brother has neck cancer, younger brother has unknown history of multiple cancers. SH: He denies any travel recently. Drinks 25 to 30 ounces of water a day and 8 to 10 cups of coffee a day, once a week he drinks ice tea and rarely drinks diet soda. Started smoking at the age of 19 with 1 to 1.5 packs per day, stopped smoking for 15 years in between but has continued to smoke to his day. Denies drinking alcohol and drug use. 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 His diet is poor that consists of eating cereal with toast both in the morning and after coming back from work early in the morning, skips dinner because of his job hours and lunch consists of mashed potatoes and other unspecified side dishes. He walks 3 to 4 miles a day because of his job. Objective: General: bedbound, no acute distress, able to hold prolonged conversation up to 45minutes. Heart: Murmur Lungs: decreased lung sounds Upper extremity (UE): relfexes intact +2 b/l. Pulses +2 b/l, sensation intact, no edema. Strength is 5/5 of hands b/l and 3/5 of shoulder b/l with reduced PROM. Lower extremity (LE): reflex intact +2 b/l, pulses +2 b/l, sensation intact, no edema. Strength is 5/5 of feet b/l and 3/5 of hips b/l. Neuro: CN 2-12 intact except for difficultly with hearing, cerebellar function intact with finger to nose testing. Negative babinski reflex on left foot, difficulty doing babinski reflex on right foot. Pain sensations are intact LE and UE. Proximal muscle weakness and fine motor skills in decline including writing and needing help opening syrup packets and cutting food. A and P: Hyponatremia Proximal Muscle Weakness HTN PAD Elevated Liver enzymes Anemia Constipation Smoking SOB Fluid restriction to 1000ml a day and stopped saline. Transferred to rehab today. Repeat UA ordered, BNP ordered, check vitamin B12 and A1C. Discontinue te lemetry, smoking cessation recommended and nicotine patch ordered. 3 hours of rehab per day for at least 5 days out of the next 7 days. KIAN DAHL Nov 15, 2020 12:07 Past Cthreob-Ggwzez-Veumws Hx Past Med/Social Hx: Reviewed Nursing Past Med/Soc Hx, Reviewed and Corrections made Patient Social History Marrital Status: single Employed/Student: employed Alcohol Use: Denies Use Smoking Status: Current Everyday Smoker Type Used: Cigarettes Past Medical History Surgeries: Orthopedic, Testicular Cardiac: Hypertension, Peripheral Vascular (Noted on CT scan this admit) Gastrointestinal: Pancreatitis Loss of Vision: Denies Hearing Impairment: Hard of Hearing, Hearing Aide Right, Hearing Aide Left History of Blood Disorders: No Family History Heart Disease, Psychiatric Problems, Stroke PM&R Allergy/Meds/Data Review Allergies Coded Allergies: No Known Drug Allergies (Unverified , 11/06/20) Home Medications Scheduled Bromfenac Sodium (Bromsite), 1 DROP OS DAILY, (Reported) Lisinopril (Lisinopril), 10 MG PO DAILY, (Reported) Ofloxacin (Ofloxacin), 1 DROPS OS QID, (Reported) [Betamax], 1 EA PO BID, (Reported) Scheduled PRN Ibuprofen (Ibuprofen), 600 MG PO Q8H PRN for PAIN-MILD (1-4), (Reported) Discontinued Medications Cefdinir (Cefdinir), 300 MG PO BID, (Reported) Current Medications Current Medications Reviewed Review of Systems Constitutional: see HPI, malaise, weakness EENTM: no symptoms reported Respiratory: dyspnea on exertion Cardiovascular: no symptoms reported Gastrointestinal: no symptoms reported Genitourinary: no symptoms reported Musculoskeletal: no symptoms reported Skin: no symptoms reported Psychiatric/Neurological: Weakness All Other Systems Reviewed Negative Unless Noted: Yes Physical Exam Physical Exam Vital Signs Capillary Refill : Height, Weight, BMI Height: '" Weight: lbs. oz. kg; 25.15 BMI Method: General Appearance: No Apparent Distress, WD/WN, Chronically ill, Thin Eyes: Bilateral Eye Normal Inspection, Bilateral Eye PERRL HEENT: PERRL/EOMI, Normal ENT Inspection, Pharynx Normal Neck: Full Range of Motion, Normal Inspection, Non Tender, Supple, Carotid Bruit Respiratory: Chest Non Tender, Lungs Clear, Normal Breath Sounds, No Accessory Muscle Use, No Respiratory Distress Cardiovascular: Regular Rate, Rhythm, No Edema, No Gallop, No JVD, No Murmur, Normal Peripheral Pulses Gastrointestinal: Normal Bowel Sounds, No Organomegaly, No Pulsatile Mass, Non Tender, Soft Back: Normal Inspection, No CVA Tenderness, No Vertebral Tenderness Extremity: Normal Capillary Refill, Normal Inspection, Normal Range of Motion, Non Tender, No Calf Tenderness, No Pedal Edema Neurologic/Psychiatric: Alert, Oriented x3, Normal Mood/Affect, 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 Norm as Tested, Abnormal Gait, Motor Weakness (Generalized weakness 3/5) Skin: Normal Color, Warm/Dry Lymphatic: No Adenopathy PM&R Medical Assessment & Plan REHAB/MEDICAL ASSESSMENT AND PLAN: REHAB IMPAIRMENT GROUP: Debility due to hyponatremia and proximal muscle weakness ETIOLOGIC DIAGNOSIS: Debility due to hyponatremia and proximal muscle weakness The comorbidities that impact the patients function and/or functional outcome by: Severe hyponatremia of unknown source, current smoker, low reserve, peripheral vascular disease REHAB PLAN: The patient is being admitted to our comprehensive inpatient rehabilitation facility and can tolerate the intensity of service consisting of at least: 180 minutes of therapy a day, 5 out of 7 days a week Rehab treatment will consist of: PT and OT will focus on regaining muscle strength with the use of assistive devices and increasing stamina and help regain independent ADLs The patient/family has a good understanding of our discharge process and will benefit from an interdisciplinary inpatient rehabilitation program. The patient has potential to make improvement and is in need of at least two of the following multidisciplinary therapies including but not limited to physical, occupational, speech, and prosthetics and orthotics. Additionally the patient will need services from respiratory, nutritional services, wound care, psychology, etc. (Customize this to each patient). Given the patients complex condition and risk of further medical complications, rehabilitation services cannot be safely or effectively provided at a lower level of care such as a senior living facility. BARRIERS TO DISCHARGE: Severe weakness from hyponatremia ESTIMATED LOS: 14 days DISPOSITION: Home RELEVANT CHANGES SINCE PREADMISSION SCREENING: I have compared the patients medical and functional status at the time of the preadmission screening and there are: No changes PROGNOSIS: Good REHABILITATION GOALS: 1. PT and OT will focus on regaining muscle strength with the use of assistive devices and increasing stamina and help regain independent ADLs All the above goals were reviewed with the patient and he/she is in agreement. By signing this document, I acknowledge that I have personally performed a full physical examination on this patient within 24 hours of admission to this inpatient rehabilitation facility and have determined the patient to be able to tolerate the above course of treatment at an intensive level for a reasonable period of time. I will be completing a detailed individualized Plan of Care for this patient by day #4 of the patients stay based upon the Preadmission Screen, the Post-Admission Evaluation, and the therapy evaluations. Admission Dx/Comorbidities: (1) Debility ICD Codes: R53.81 - Other malaise (2) Proximal muscle weakness ICD Codes: M62.81 - Muscle weakness (generalized) (3) Smoker ICD Codes: F17.200 - Nicotine dependence, unspecified, uncomplicated (4) Elevated liver enzymes Status: Acute ICD Codes: R74.8 - Abnormal levels of other serum enzymes (5) CHF (congestive heart failure) Status: Acute ICD Codes: I50.9 - Heart failure, unspecified (6) Peripheral arterial disease Status: Acute ICD Codes: I73.9 - Peripheral vascular disease, unspecified (7) Hyponatremia Status: Acute ICD Codes: E87.1 - Hypo-osmolality and hyponatremia Assessment/Plan Assessment and Plan Assess & Plan/Chief Complaint Assessment: Debility with severe proximal muscle weakness Severe hyponatremia of uncertain source Elevated liver enzymes Smoker Peripheral vascular disease asymptomatic Status post sepsis Anemia Plan: Inpatient rehab protocol Monitor sodium Fluid restriction Hep-Lock IV fluid DC telemetry NEFTALI HARRIS DO Nov 15, 2020 11:51
[2020-11-15] MEDS ORDERED: SIMETHICONE 80 MG (MYLICON) CHEW PO PRN (12:00)
[2020-11-15] MEDS ORDERED: ACETAMINOPHEN 500 MG TAB (TYLENOL) PO PRN (12:00)
[2020-11-15] MEDS ORDERED: MELATONIN 3 MG TABLET PO PRN (12:00)
[2020-11-15] MEDS ORDERED: IBUPROFEN 600 MG (MOTRIN) TAB PO PRN (12:00)
[2020-11-15] MEDS ORDERED: ONDANSETRON 4 MG/2 ML (SDV) Z0FRAN IV PRN (12:00)
--- NOTE | 2020-11-15 12:01 | Occupational Therapy Eval ---
OT Evaluation-General/PLF Medical Diagnosis Admission Date Nov 15, 2020 at 10:15 Medical Diagnosis: sepsis, elevated liver enzymes, CHF Onset Date: Nov 08, 2020 Therapy Diagnosis Therapy Diagnosis: Impaired ADLs, IADls, balance, coordinaiton, endurance, UE strength Precautions Precautions/Isolations: Fall Prevention, Standard Precautions, Pressure Ulcer Referral Physician: Brandie Church Reason: Evaluation/Treatment Medical History Pertinent Medical History: HTN Additional Medical History CHF Reviewed History: Yes Social History Home: Single Level Current Living Status: Alone Entry Into Home: Stairs With Railing Steps Into Home: 3 Pt presents to ED following progressive weakness, LE's > UE's. He reports indep with ADLs and IADLs prior to admission. 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 Pt was not using any AD and was still driving. He reports laundry being located in basement in which he has to go down a flight of stairs. ADL-Prior Level of Function SCALE: Activities may be completed with or without assistive devices. 8-Jhxjissucx-uihxtvm completes the activity by him/herself with no assistance from a helper. 5-Set-up or Clean-up Assistance-helper sets up or cleans up; patient completes activity. [place] assists only prior to or following the activity. 4-Supervision or Touching Assistance-helper provides verbal cues and/or touching/steadying and/or contact guard assistance as patient completes activity. Assistance may be provided throughout the activity or intermittently. 3-Partial/Moderate Assistance-helper does LESS THAN HALF the effort. [place] lifts, holds or supports trunk or limbs, but provides less than half the effort. 2-Substantial/Maximal Assistance-helper does MORE THAN HALF the effort. [place] lifts or holds trunk or limbs and provides more than half the effort. 7-Nzekqmxmb-dkfecl does ALL the effort. Patient does none of the effort to complete the activity. Or, the assistance of 2 or more helpers is required for the patient to complete the activity. If activity was not attempted, code reason: 7-Patient Refused. 9-Not Applicable-not attempted and the patient did not perform the activity before the current illness, exacerbation or injury. 10-Not Attempted due to Environmental Limitations-(lack of equipment, weather restraints, etc.). 88-Not Attempted due to Medical Conditions or Safety Concerns. Self Care: Independent Functional Cognition: Independent DME/Equipment: Tub/Shower Pt stood 100% of shower at baseline Drive Self: Yes OT Current Status Subjective "I am very weak." Appearance Pt sitting in chair, all needs within reach at end of session. Mental Status/Objective Patient Orientation: Person, Place, Situation Attachments: IV Current Glasses/Contacts: Yes Hearing Aids: Yes (Bilateral ) Dentures/Partials: No Hand Dominance: Right Upper Extremity ROM Pt able to complete full ROM in all planes with extra time. Poor coordination noted, R worse than L. Upper Extremity Coordination Impaired, R>L. Upper Extremity Sensation Pt reports numbness/tingling in Gregory hands/feet. Upper Extremity Strength 3/5 throughout. ADL-Treatment Eating (QC): 4 Oral Hygiene (QC): 3 Shower/Bathe Self (QC): 1 Upper Body Dressing (QC): 88 Lower Body Dressing (QC): 1 On/Off Footwear (QC): 1 Toileting Hygiene (QC): 1 Sponge bath performed secondary to IV infusing. Due to unpredictable knee buckling, poor standing tolerance, and needing BUE support to maintain balance, task performed in sitting. If assessed at [facility], pt would require Max A for balance. In sitting, pt able to wash upper body, afia area and down to ankles without assist. Min cues for initiation/sequencing. Assist x2 to wash buttocks in standing. Pt with dressings on buttocks, unable to state if he has pressure wounds/sores. Assist needed to thread BLE's into brief/pants due to LE weakness, poor hip flexibility, and incoordination. Attempt at figure 4 position, yet assist needed to maintain. Cues to use UE to lift leg as OT threaded foot into clothing. Assist x2 to maintain balance as pt alternated one hand on walker while other pulled clothing over hips. Pt only able to sustain single UE support for brief moments before returning hand to walker. UB clothing not donned at this time due to IV infusing. New gown donned with set up. Pt sat to brush teeth, impaired coordination noted. At this time, pt would require balance assist if performed in standing. Other Treatments Pt participated in standing activity in parallel bars with both physical and occ upational therapy. PT focusing on static/dynamic standing balance, LE strength and posture. Max A to maintain standing balance. Unpredictable Bilateral knee buckling, thus increasing fall risk. PT blocking knees in standing. OT focused on functional reach, coordination, posture and reducing UE support needed during functional tasks. Pt hitting different colored lloyd bags with designated UE. Several losses of balances, requiring assist from PT to maintain balance. Cues for upright posture and knee extension throughout task. Pt only able to sustain balance with single UE support for ~3-8 seconds before returning hand to parallel bar. Sitting rest breaks needed between standing bouts secondary to fatigue and overall weakness. Pt propelled w/c to/from therapy gym with Min A, mostly around doorways/corners. Cues for attention to IV line and RUE awareness around obstacles. Several cues for brake management pre/post transfers. Education OT Patient Education: Correct positioning, Disease process, Energy conservation, Modified ADL techniques, Progress toward Goal/Update tx plan, Purpose of tx/functional activities, Reviewed precautions, Rehab process, Safety issues, Transfer techniques, W/C management Teaching Recipient: Patient Teaching Methods: Demonstration, Discussion Response to Teaching: Verbalize Understanding, Return Demonstration, Reinforcement Needed OT Short Term Goals Short Term Goals Time Frame: Nov 24, 2020 Eatin Oral hygiene: 4 Toileting hygiene: 3 Shower/bathe self: 3 Upper body dressin Lower body dressin Putting on/taking off footwear: 3 OT Assisted Goals Assisted Goals Eating (QC): 6 Oral Hygiene (QC): 6 Toileting Hygiene (QC): 4 Shower/Bathe Self (QC): 4 Upper Body Dressing (QC): 6 Lower Body Dressing (QC): 4 On/Off Footwear (QC): 5 Pt will complete simple homemaking task with SBA 1=Demonstrate adherence to instructed precautions during ADL tasks. 2=Patient will verbalize/demonstrate understanding of assistive devices/modifications for ADL. 3=Patient will improve strength/tolerance for activity to enable patient to perform ADL's. OT Education/Plan Problem List/Assessment Assessment: Decreased Activ Tolerance, Decreased Safety Aware, Decreased UE Strength, Dependent Transfers, Impaired Bed Mobility, Impaired Cognition, Impaired Coordination, Impaired Funct Balance, Impaired I ADL's, Impaired Self- Care Skills, Restricted Funct UE ROM Discharge Recommendations Plan/Recommendations: Continue POC Therapy Discharge Recommendati: 24 Hour Supervision, Post Acute OT Treatment Plan/Plan of Care Treatment,Training & Education: Yes Patient would benefit from OT for education, treatment and training to promote independence in ADL's, mobility, safety and/or upper extremity function for ADL's. Plan of Care: ADL Retraining, Functional Mobility, Group Exercise/Act as Ind, UE Funct Exercise/Act, UE Neuromus Re-Ed/Coord, W/C Management Training Treatment Duration: Dec 01, 2020 Frequency: At least 5 of 7 days/Wk (IRF) Estimated Hrs Per Day: 1.5 hours per day Agreement: Yes Rehab Potential: Fair Time/GCodes Start Time: 10:25 Stop Time: 11:55 Total Time Billed (hr/min): 90 Billed Treatment Time PT eval, [id number], OT eval [id number], Co-treat [id number] 1, EVH (10 min), ADLx3 (45), FA x2 (35) Eleni Perez OT Nov 15, 2020 12:01
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
--- NOTE | 2020-11-15 12:37 | Physical Therapy Evaluation ---
PT Evaluation-General Medical Diagnosis Admission Date Nov 15, 2020 at 10:15 Medical Diagnosis: sepsis, elevated liver enzymes, CHF Onset Date: Nov 08, 2020 Therapy Diagnosis Therapy Diagnosis: impaired mobility, strength, endurance, balance Precautions Precautions/Isolations: Fall Prevention, Standard Precautions, Pressure Ulcer Referral Physician: Eusebia Diego DO Reason for Referral: Evaluation/Treatment Medical History Pertinent Medical History: HTN Current History patient reports falling at home and progressive weakness Reviewed History: Yes Social History Home: Single Level Current Living Status: Alone Entry Into Home: Stairs With Railing PT Steps Into Home: 3 Prior Prior Level of Function SCALE: Activities may be completed with or without assistive devices. 7-Slignfbtvj-oxkyylp completes the activity by him/herself with no assistance from a helper. 5-Set-up or Clean-up Assistance-helper sets up or cleans up; patient completes activity. [place] assists only prior to or following the activity. 4-Supervision or Touching Assistance-helper provides verbal cues and/or touching/steadying and/or contact guard assistance as patient completes activity. Assistance may be provided throughout the activity or intermittently. 3-Partial/Moderate Assistance-helper does LESS THAN HALF the effort. [place] lifts, holds or supports trunk or limbs, but provides less than half the effort. 2-Substantial/Maximal Assistance-helper does MORE THAN HALF the effort. [place] l ifts or holds trunk or limbs and provides more than half the effort. 3-Aoyizwopv-cjykis does ALL the effort. Patient does none of the effort to complete the activity. Or, the assistance of 2 or more helpers is required for the patient to complete the activity. If activity was not attempted, code reason: 7-Patient Refused. 9-Not Applicable-not attempted and the patient did not perform the activity before the current illness, exacerbation or injury. 10-Not Attempted due to Environmental Limitations-(lack of equipment, weather restraints, etc.). 88-Not Attempted due to Medical Conditions or Safety Concerns. Bed Mobility: 6 Transfers (B,C,W/C): 6 Gait: 6 Stairs: 6 Indoor Mobility (Ambulation): Independent Stairs: Independent PT Evaluation-Current Subjective Patient in bed pre tx, agrees to PT, has no complaints of pain. Will be co- treating with OT for part of tx due to poor patient mobility, strength, endurance, coordinate UE and LE with activity, safety and reduce risk of falls. Pt/Family Goals "to get stronger" Objective Patient Orientation: Person, Place, Situation ROM/Strength ROM Lower Extremities WNL Strength Lower Extremities LLE (hip flexion 3/5, knee flexion 4/5, knee extension 4-/5, dorsiflexion 4/5), RLE (hip flexion 3/5, knee flexion 3/5, knee extension 4-/5, dorsiflexion 4/5) Neuromuscular (Tone, Coordination, Reflexes) Patient has impaired BLE coordination based on quality of ambulation and [place] slide Sensory Vision: Wears Glasses Hearing: Impaired Hand Dominance: Right Sensation Right Lower Extremit: Impaired Sensation Left Lower Extremity: Impaired Sensation Lower Extremities Patient has decreased light touch sensation in both feet. Transfers Roll Left & Right (QC): 6 Sit to Lying (QC): 3 Lying to Sitting/Side of Bed(Q: 3 Sit to Stand (QC): 2 Chair/Hmz-yy-Fmhot Xfer(QC): 2 Toilet Transfer (QC): 2 Car Transfer (QC): 2 Patient performs bed mobility with independence, supine <-> sit mod assist, sit <-> stand and transfers max assist, car transfer max assist. Patient not only needs assist to stand but assist with balance during sit to stand and transfers, his knees can buckle without warning and he needs his knee blocked when sitting or he will just go straight down instead of back into a chair. Gait Does the Patient Walk?: Yes Mode of Locomotion: Both Anticipated Mode of Locomotion: Both Walk 10 feet (QC): 88 Walk 50 ft with 2 Turns(QC): 88 Walk 150 ft (QC): 88 Walking 10ft/uneven surface-QC: 88 Distance: 6' Gait Assistive Device: FWW Comments/Gait Description Patient can ambulate 6' with a rolling walker with assist of 2 and WC follow. Patient has uncoordinated steps and knee buckling. Wheelchair Training Does the Pt Use a Wheelchair?: Yes Distance: 150', 120'x2 Wheel 50 ft with 2 turns (QC): 3 Wheel 150 ft (QC): 3 Type of Wheelchair: Manual Patient propels WC with both arms, needs assist in tight spaces Stairs 1 Step (curb) (QC): 88 4 Steps (QC): 88 12 Steps (QC): 88 Balance Sitting Static: Fair Sitting Dynamic: Poor Standing Static: Poor Standing Dynamic: Poor Picking up an Object (QC): 88 Treatment Dressing, bathing, ADL's, standing activity in parallel bars with reaching Assessment/Needs Patient in recliner post tx with nurse call, phone, tray, all needs met. Patient has impaired mobility, strength, endurance, balance. He is a high fall risk due to BLE weakness and poor balance, and knee buckling. Rehab Potential: Guarded PT Short Term Goals Short Term Goals Time Frame: Nov 22, 2020 Roll Left & Right: 6 Sit to lyin Lying to sitting on side of be: 3 Sit to stand: 3 Chair/vsa-jq-jkcem transfer: 3 Walk 10 feet: 3 PT [employer] Permit Agent Goals Shelter Goals PT [employer] Permit Agent Goals Time Frame: Dec 06, 2020 Roll Left & Right (QC): 6 Sit to Lying (QC): 6 Lying-Sitting on Side/Bed(QC): 6 Sit to Stand (QC): 4 Chair/Ukf-dg-Thtps Xfer(QC): 4 Toilet Transfer (QC): 4 Car Transfer (QC): 4 Does the Patient Walk: Yes Walk 10 feet (QC): 4 Walk 50ft with 2 Turns (QC): 4 Walk 150 ft (QC): 88 Walking 10ft on Uneven Surface: 4 1 Step (curb) (QC): 3 4 Steps (QC): 3 12 Steps (QC): 88 Picking up an Object (QC): 4 Wheel 50 feet with 2 turns (QC: 6 Wheel 150 feet: 6 PT Plan Problem List Problem List: Activity Tolerance, Functional Strength, Safety, Balance, Gait, Transfer, Bed Mobility, ROM Treatment/Plan Treatment Plan: Continue Plan of Care Treatment Plan: Bed Mobility, Education, Functional Activity Samantha, Functional Strength, Group Therapy, Gait, Safety, Therapeutic Exercise, Transfers Treatment Duration: Dec 06, 2020 Frequency: At least 5 of 7 days/Wk (IRF) Estimated Hrs Per Day: 1.5 hours per day Patient and/or Family Agrees t: Yes Safety Risks/Education Patient Education: Gait Training, Transfer Techniques, Correct Positioning, W/C Management, Safety Issues Teaching Recipient: Patient Teaching Methods: Demonstration, Discussion Response to Teaching: Reinforcement Needed Discharge Recommendations Plan Patient will perform bed mobility and transfer training, balance and endurance training, functional strengthening, stair training, gait training, and education, to improve functional mobility and independence at home. Therapy Discharge Recommendati: 24 Hour Supervision Time/GCodes Time In: 1015 Time Out: 1155 Total Billed Treatment Time: 90 Total Billed Treatment 1 visit EVM 10' FA 80' PT performed bed mobility and transfers, ambulation, WC mobility, standing and positioning and safety during parallel bars exercise and dressing and bathing, OT performed dressing, bathing, ADL's, assisted with transfers, UE positioning and safety during activity. PT eval from [id number], OT eval from [id number], co-treat from [id number] JIM MARTIN PT Nov 15, 2020 12:36
[2020-11-15] MEDS: DOCUSATE SODIUM 100 MG (COLACE) CAP PO SCH ×2 (13:00→20:23)
[2020-11-15] MEDS: SENNA W/DOCUSATE (SENOKOT S) TABLET PO SCH ×2 (13:01→20:23)
[2020-11-15] MEDS: polyethylene glycoL POWDER 17 GM (MIRALAX) PACK PO SCH ×2 (13:01→20:37)
[2020-11-15 13:02] VITALS: BP 147/63
[2020-11-15] MEDS: ENOXAPARIN 40 MG/0.4 ML (LOVENOX) SYR SC SCH (13:29)
[2020-11-15] MEDS ORDERED: RT-ALBUTEROL/IPRATROPIUM 3 ML (DUONEB) VIAL INH SCH (15:00)
[2020-11-15 15:33] VITALS: BP 147/63
[2020-11-15] MEDS: DOXYCYCLINE 100 MG (VIBRAMYCIN) TABLET PO SCH (17:47)
[2020-11-15] MEDS: doxAzosin 2 MG (CARDURA) TAB PO SCH (20:23)
[2020-11-15] MEDS: meTOprolol SUCCINATE 100 MG (TOPROL XL) TAB PO SCH (20:23)
[2020-11-15] MEDS: LACTULOSE SYRUP 10GM/15ML (ENULOSE) 30ML UDC PO PRN (20:24)
[2020-11-15 20:37] VITALS: BP 160/67
[2020-11-15] MEDS ORDERED: cloNIDine 0.1 MG (CATAPRES) TAB PO PRN (21:15)
[2020-11-15] MEDS: fentaNYL INJ 100 MCG/2 ML AMP IV PRN (22:57)
[2020-11-16 00:46] LABS: BILIRUBIN,URINE NEGATIVE (NEGATIVE); CLARITY,URINE CLEAR; COLOR,URINE YELLOW; GLUCOSE, URINE (UA) NEGATIVE (NEGATIVE); KETONES,URINE NEGATIVE (NEGATIVE); LEUKOCYTE ESTERASE ,URINE NEGATIVE (NEGATIVE); NITRITE,URINE NEGATIVE (NEGATIVE); PROTEIN,URINE NEGATIVE (NEGATIVE)
[2020-11-16 00:58] LABS: BACTERIA,URINE NEGATIVE /HPF; RBC,URINE 0-2 /HPF; WBC,URINE 0-2 /HPF
[2020-11-16] MEDS: fentaNYL INJ 100 MCG/2 ML AMP IV PRN ×2 (01:11→02:59)
[2020-11-16 05:43] LABS: BASOPHILS % (AUTO) 0 % (0-10); EOSINOPHILS % (AUTO) 0 % (0-10); HEMATOCRIT 31 % (40-54); HEMOGLOBIN 10.9 g/dL (13.3-17.7); LYMPHOCYTES # (AUTO) 1.4 10^3/uL (1.0-4.0); LYMPHOCYTES % (AUTO) 14 % (12-44); MEAN CORPUSCULAR HEMOGLOBIN 29 pg (25-34); MEAN CORPUSCULAR HGB CONC 35 g/dL (32-36); MEAN CORPUSCULAR VOLUME 81 fL (80-99); MEAN PLATELET VOLUME 9.5 fL (9.0-12.2); MONOCYTES # (AUTO) 1.2 10^3/uL (0.0-1.0); MONOCYTES % (AUTO) 12 % (0-12); NEUTROPHILS # (AUTO) 7.4 10^3/uL (1.8-7.8); NEUTROPHILS % (AUTO) 73 % (42-75); PLATELET COUNT 281 10^3/uL (130-400); WHITE BLOOD COUNT 10.1 10^3/uL (4.3-11.0)
[2020-11-16 05:51] LABS: ALBUMIN 2.9 GM/DL (3.2-4.5); POTASSIUM 4.4 MMOL/L (3.6-5.0)
[2020-11-16 05:53] LABS: CALCIUM 8.5 MG/DL (8.5-10.1)
[2020-11-16 05:56] LABS: BILIRUBIN,TOTAL 1.9 MG/DL (0.1-1.0)
[2020-11-16 05:57] LABS: CREATININE SERUM 0.59 MG/DL (0.60-1.30)
[2020-11-16] MEDS: DOXYCYCLINE 100 MG (VIBRAMYCIN) TABLET PO SCH ×2 (06:57→17:55)
[2020-11-16 07:47] VITALS: BP 164/72
[2020-11-16] MEDS: meTOprolol SUCCINATE 100 MG (TOPROL XL) TAB PO SCH ×2 (08:46→20:13)
[2020-11-16] MEDS ORDERED: lisINopril 40 MG (PRINIVIL) TABLET PO SCH (09:00)
[2020-11-16] MEDS: DOCUSATE SODIUM 100 MG (COLACE) CAP PO SCH ×2 (09:00→20:13)
[2020-11-16] MEDS ORDERED: PATCH REMOVAL TP SCH (09:00)
[2020-11-16] MEDS ORDERED: NICOTINE 14 MG (NICODERM) PATCH TD SCH (09:00)
[2020-11-16] MEDS ORDERED: amLODIPine 10 MG (NORVASC) TAB PO SCH (09:00)
[2020-11-16] MEDS: polyethylene glycoL POWDER 17 GM (MIRALAX) PACK PO SCH ×2 (09:00→20:14)
[2020-11-16] MEDS: SENNA W/DOCUSATE (SENOKOT S) TABLET PO SCH ×2 (09:00→20:13)
[2020-11-16] MEDS ORDERED: ASPIRIN 81 MG CHEW (CHILDREN'S ASA) PO SCH (09:00)
--- NOTE | 2020-11-16 10:01 | Progress Note - Cardiology ---
Cardiology SOAP Progress Note Subjective: Marked gen weakness No cp or palp or syncope No n/v/d. Diminished appetite Objective: I&O/Vital Signs 11/16/20 07:47 Temp 36.2 Pulse 65 Resp 16 B/P (MAP) 164/72 (102) Pulse Ox 96 O2 Delivery Room Air Constitutional: AAO x 3, well-developed Respiratory: No accessory muscle use; other (fair to good air entry, diminished at the bases) Cardiovascular: regular rate-rhythm, S1 and S2, systolic murmur (soft TRICE at the card basee) Gastrointestional: No tender; soft; No guarding, No rebound; audible bowel sounds Extremities: No clubbing, No cyanosis, No significant edema Neurologic/Psychiatric: oriented x 3, other (moves all limbs equally) Skin: No rash on exposed areas, No ulcerations on exposed areas Results/Procedures: Labs Laboratory Tests 11/16/20 00:40: Urine Color YELLOW, Urine Clarity CLEAR, Urine pH 6.0, Urine Specific [place] 1.015L, Urine Protein NEGATIVE, Urine Glucose (UA) NEGATIVE, Urine Ketones NEGATIVE, Urine Nitrite NEGATIVE, Urine Bilirubin NEGATIVE, Urine Urobilinogen 4.0, Urine Leukocyte Esterase NEGATIVE, Urine RBC (Auto) 1+H, Urine RBC 0-2, Urine WBC 0-2, Urine Squamous Epithelial Cells 10-25H, Urine Crystals NONE, Urine Bacteria NEGATIVE, Urine Casts NONE, Urine Mucus NEGATIVE, Urine Culture Indicated NO 11/16/20 05:25: White Blood Count 10.1, Red Blood Count 3.83L, Hemoglobin 10.9L, Hematocrit 31L, Mean Corpuscular Volume 81, Mean Corpuscular Hemoglobin 29, Mean Corpuscular Hemoglobin Concent 35, Red Cell Distribution Width 13.8, Platelet Count 281, Mean Platelet Volume 9.5, Immature Granulocyte % (Auto) 1, Neutrophils (%) (Auto) 73, Lymphocytes (%) (Auto) 14, Monocytes (%) (Auto) 12, Eosinophils (%) (Auto) 0, Basophils (%) (Auto) 0, Neutrophils # (Auto) 7.4, Lymphocytes # (Auto) 1.4, Monocytes # (Auto) 1.2H, Eosinophils # (Auto) 0.0, Basophils # (Auto) 0.0, Immature Granulocyte # (Auto) 0.1, Sodium Level 120*L, Potassium Level 4.4, Chloride Level 92L, Carbon Dioxide Level 21, Anion Gap 7, Blood Urea Nitrogen 17, Creatinine 0.59L, Estimat Glomerular Filtration Rate 134, BUN/Creatinine Ratio 29, Glucose Level 98, Calcium Level 8.5, Corrected Calcium 9.4, Total Bilirubin 1.9H, Aspartate Amino Transf (AST/SGOT) 143H, Alanine Aminotransferase (ALT/SGPT) 193H, Alkaline Phosphatase 249H, Total Protein 6.0L, Albumin 2.9L Laboratory Tests 11/16/20 05:25 A/P: Assessment: Profound generalized weakness of undetermined etiology Hyponatremia of undetermined etiology, managed by the [facility] Elevated liver enzymes of undetermined etiology, managed by the [facility] Sepsis of undetermined etiology at time of admission in early Nov 2020, managed by the [facility] PAD consisting of ostial occlusion of L common iliac and reconstitution of the arterial supply at the level of L common femoral (on CT angio of 11/09/20) Chronic smoker of cigarettes Hypertension, not well controlled Episode of volume overload / diastolic CHF on 11/09/20 - Echo on 11/10/20: LVEF 50-55%, small R pleural eff Plan: * Complex management * We advise further w/o for recent wgt loss, profound weakness that is generalized, elevated liver enzymes, and hyponatremia of undetermined etiology ([facility] managing) * BP better, but not ideal - recently adjusted antihypertensive regimen, monitor * Elevated liver enzymes of undetermined etiology - possible hepato-biliary congestion * PT recommended for gen weakness and bilateral leg weakness * Advised to quit smoking immediately and completely * He has a 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 This appears to be a chronic lesion and the best treatment appears to be aorto- femoral bypass surgery for which he can be referred on an outpatient basis * [facility] managing persistent hyponatremia GYPSY CORONA MD FAC [facility] Nov 16, 2020 10:01
--- NOTE | 2020-11-16 10:43 | Physical Therapy Daily Note ---
PT Daily Note-Current Subjective Patient in bed pre tx, agrees to PT reluctantly, is very tired. Will be co- treating with OT due to poor patient mobility, strength, endurance, knee buckling with activity, coordinate UE and LE during activity, safety and reduce risk of falls. Appearance Patient in bed post tx with nurse call, phone, tray, all needs met. Mental Status Patient Orientation: Person, Place, Situation Transfers SCALE: Activities may be completed with or without assistive devices. 7-Uqfuhftxhn-tulrwwq completes the activity by him/herself with no assistance from a helper. 5-Set-up or Clean-up Assistance-helper sets up or cleans up; patient completes activity. [place] assists only prior to or following the activity. 4-Supervision or Touching Assistance-helper provides verbal cues and/or touching/steadying and/or contact guard assistance as patient completes activity. Assistance may be provided throughout the activity or intermittently. 3-Partial/Moderate Assistance-helper does LESS THAN HALF the effort. [place] lifts, holds or supports trunk or limbs, but provides less than half the effort. 2-Substantial/Maximal Assistance-helper does MORE THAN HALF the effort. [place] lifts or holds trunk or limbs and provides more than half the effort. 0-Wiwmiywzb-vkfgnh does ALL the effort. Patient does none of the effort to complete the activity. Or, the assistance of 2 or more helpers is required for the patient to complete the activity. If activity was not attempted, code reason: 7-Patient Refused. 9-Not Applicable-not attempted and the patient did not perform the activity before the current illness, exacerbation or injury. 10-Not Attempted due to Environmental Limitations-(lack of equipment, weather restraints, etc.). 88-Not Attempted due to Medical Conditions or Safety Concerns. Roll Left & Right (QC): 6 Sit to Lying (QC): 4 Lying to Sitting/Side of Bed(Q: 3 Sit to Stand (QC): 3 Chair/Fur-tl-Ilbrg Xfer(QC): 3 Patient needs min assist for supine to sit but SBA for sit to supine, mod assist for sit to stand and cues for hand placement and positioning, min assist for transfers. Patient needs cues for safety and foot placement during transfers, he can have knee buckling easily. Gait Training Does the Patient Walk?: Yes Distance: 10'x3 Walk 10 feet (QC): 3 Gait Assistive Device: FWW WC follow, min assist to help guide walker and for assist with balance. Patient has to make a conscious effort to lock knees to keep them from buckling. Wheelchair Training Does the Pt Use a Wheelchair?: Yes Wheel 50 ft with 2 turns (QC): 4 Wheel 150 ft (QC): 4 Type of Wheelchair: Manual 300', SBA, several rest breaks Exercises attempted quadruped but patient was not strong enough to come up on his hands, he was able to perform a pre-pushup activity while supine and then performed sitting limits of stability and trunk strengthening. Treatments PT performed bed mobility and transfers, ambulation, WC mobility, trunk strengthening, positioning and safefty with ADL's after getting back to the room, OT performed ADL's assisted with transfers and ambulation, UE positioning and safety during activity. Assessment Current Status: Fair Progress Patient was very tired, needed many rest breaks to recover from fatigue PT Short Term Goals Short Term Goals Time Frame: Nov 22, 2020 Roll Left & Right: 6 Sit to lyin Lying to sitting on side of be: 3 Sit to stand: 3 Chair/gng-wb-scjss transfer: 3 Walk 10 feet: 3 PT Mcc Goals Strainer Cleaner Goals PT Mcc Goals Time Frame: Dec 06, 2020 Roll Left & Right (QC): 6 Sit to Lying (QC): 6 Lying-Sitting on Side/Bed(QC): 6 Sit to Stand (QC): 4 Chair/Xjs-ku-Gqaay Xfer(QC): 4 Toilet Transfer (QC): 4 Car Transfer (QC): 4 Does the Patient Walk: Yes Walk 10 feet (QC): 4 Walk 50ft with 2 Turns (QC): 4 Walk 150 ft (QC): 88 Walking 10ft on Uneven Surface: 4 1 Step (curb) (QC): 3 4 Steps (QC): 3 12 Steps (QC): 88 Picking up an Object (QC): 4 Wheel 50 feet with 2 turns (QC: 6 Wheel 150 feet: 6 PT Plan Problem List Problem List: Activity Tolerance, Functional Strength, Safety, Balance, Gait, Transfer, Bed Mobility, ROM Treatment/Plan Treatment Plan: Continue Plan of Care Treatment Plan: Bed Mobility, Education, Functional Activity Samantha, Functional Strength, Group Therapy, Gait, Safety, Therapeutic Exercise, Transfers Treatment Duration: Dec 06, 2020 Frequency: At least 5 of 7 days/Wk (IRF) Estimated Hrs Per Day: 1.5 hours per day Patient and/or Family Agrees t: Yes Safety Risks/Education Patient Education: Gait Training, Transfer Techniques, Correct Positioning, W/C Management, Safety Issues Teaching Recipient: Patient Teaching Methods: Demonstration, Discussion Response to Teaching: Reinforcement Needed Time/GCodes Time In: 929 Time Out: 1045 Total Billed Treatment Time: 75 Total Billed Treatment 1 visit EX 30' FA 45' JIM MARTIN PT Nov 16, 2020 10:43
[2020-11-16] MEDS: SODIUM CHLORIDE 1 GM TABLET PO SCH ×2 (10:48→20:13)
--- NOTE | 2020-11-16 10:54 | Occupational Ther Daily Note ---
OT Current Status-Daily Note Subjective Pt reports poor sleep and increased weakness/fatigue. Appearance Pt returned to supine, all needs within reach at end of session. Mental Status/Objective Patient Orientation: Person, Place, Situation Attachments: IV ADL-Treatment Pt brushed teeth at w/c level. Difficulty noted with coordination/dexterity and shoulder strength. Cues to stabilize elbow on sink to compensate for limited shoulder ROM/strength. Min A under elbow needed when reaching to turn water on/o ff secondary for BUE weakness. He was able to bring toothbrush to mouth, but with uncoordinated movements. He sat to wash face, needed HOHA to squeeze excess water out of washcloth secondary to weakness/poor tobacco feeder catcher strength. Pt reports similar difficulty with feeding including reaching/grasping and bringing silverware to mouth. Education on compensatory strategies provided. OT to di scuss with staff on proper set up/positioning and decreasing weighted items such as water jug due to limited UE strength. Therapy Code Descriptions/Definitions Functional [place] Measure: 0=Not Assessed/NA 4=Minimal Assistance 1=Total Assistance 5=Supervision or Setup 2=Maximal Assistance 6=Modified [place] 3=Moderate Assistance 7=Complete IndependenceSCALE: Activities may be completed with or without assistive devices. 2-Lnosgadjng-nukgwle completes the activity by him/herself with no assistance from a helper. 5-Set-up or Clean-up Assistance-helper sets up or cleans up; patient completes activity. [place] assists only prior to or following the activity. 4-Supervision or Touching Assistance-helper provides verbal cues and/or touching/steadying and/or contact guard assistance as patient completes activity. Assistance may be provided throughout the activity or intermittently. 3-Partial/Moderate Assistance-helper does LESS THAN HALF the effort. [place] lifts, holds or supports trunk or limbs, but provides less than half the effort. 2-Substantial/Maximal Assistance-helper does MORE THAN HALF the effort. [place] lifts or holds trunk or limbs and provides more than half the effort. 0-Avhnuiqyn-bwnrjg does ALL the effort. Patient does none of the effort to complete the activity. Or, the assistance of 2 or more helpers is required for the patient to complete the activity. If activity was not attempted, code reason: 7-Patient Refused. 9-Not Applicable-not attempted and the patient did not perform the activity before the current illness, exacerbation or injury. 10-Not Attempted due to Environmental Limitations-(lack of equipment, weather restraints, etc.). 88-Not Attempted due to Medical Conditions or Safety Concerns. Toilet Transfer (QC): 1 Other Treatment Co-treat with physical therapy due to poor endurance, high fall risk, unpredictable knee instability/buckling, and fatigue. OT focused on ADLs, posture, UE strength/ROM, core strength, energy conservation, compensatory strategies and coordination. PT focused on balance, core strength, ambulation/gait, LE strengthening, and w/c mobility. Pt propelled w/c through unit. Education/cues on using long strokes during propulsion in effort to reduce energy expenditure and improve efficiency of propulsion. Pt continues to need cues for brake management and slow eccentric control with all stand>sit transfers. Attempt at quadraped/tall kneeling, yet pt unable to achieve position. Activity modified to prone with goal to strengthen low back, core and shoulder strength. Pt only able to tolerate 5 reps of prone push ups, intermittent assist to maintain correct position of UE's. Seated core exercises performed seated EOM. 1x10. See PT note regarding ambulation and assist level. Several rest breaks needed throughout due to fatigue and poor activity tolerance. Education OT Patient Education: Correct positioning, Energy conservation, Modified ADL techniques, Progress toward Goal/Update tx plan, Purpose of tx/functional activities, Reviewed precautions, Rehab process, Safety issues, Transfer techniques, W/C management Teaching Recipient: Patient Teaching Methods: Demonstration, Discussion Response to Teaching: Verbalize Understanding, Reinforcement Needed OT Short Term Goals Short Term Goals Time Frame: Nov 24, 2020 Eatin Oral hygiene: 4 Toileting hygiene: 3 Shower/bathe self: 3 Upper body dressin Lower body dressin Putting on/taking off footwear: 3 OT Bolt Labeler Goals Bolt Labeler Goals Eating (QC): 6 Oral Hygiene (QC): 6 Toileting Hygiene (QC): 4 Shower/Bathe Self (QC): 4 Upper Body Dressing (QC): 6 Lower Body Dressing (QC): 4 On/Off Footwear (QC): 5 Pt will complete simple homemaking task with SBA 1=Demonstrate adherence to instructed precautions during ADL tasks. 2=Patient will verbalize/demonstrate understanding of assistive devices/modifications for ADL. 3=Patient will improve strength/tolerance for activity to enable patient to perform ADL's. OT Education/Plan Problem List/Assessment Assessment: Decreased Activ Tolerance, Decreased Safety Aware, Decreased UE Strength, Impaired Bed Mobility, Impaired Cognition, Impaired Coordination, Impaired Funct Balance, Impaired I ADL's, Impaired Self-Care Skills, Restricted Funct UE ROM Pt with worsening UE AROM and strength noted this date. Only able to perform 1/4 active Shoulder flex. Discharge Recommendations Plan/Recommendations: Continue POC Therapy Discharge Recommendati: Post Acute OT Treatment Plan/Plan of Care Treatment,Training & Education: Yes Patient would benefit from OT for education, treatment and training to promote independence in ADL's, mobility, safety and/or upper extremity function for ADL's. Plan of Care: ADL Retraining, Functional Mobility, Group Exercise/Act as Ind, UE Funct Exercise/Act, UE Neuromus Re-Ed/Coord, W/C Management Training Treatment Duration: Dec 01, 2020 Frequency: At least 5 of 7 days/Wk (IRF) Estimated Hrs Per Day: 1.5 hours per day Agreement: Yes Rehab Potential: Fair Time/GCodes Start Time: 09:30 Stop Time: 10:45 Total Time Billed (hr/min): 75 Billed Treatment Time 1, ADL, FA x4 Eleni Perez OT Nov 16, 2020 10:54
[2020-11-16] MEDS: ENOXAPARIN 40 MG/0.4 ML (LOVENOX) SYR SC SCH (12:00)
--- NOTE | 2020-11-16 12:46 | Individualized Plan of Care ---
Individualized Plan of Care Rehab Nursing IPOC Order Admission Date Nov 15, 2020 at 10:15 Current Orders Orders Admission Order(Inpt,Obs,Sdc) (11/15/20 06:38) Vital Signs: Per Unit Policy ( 00 (11/15/20 06:38) Kristopher Paris (11/15/20 06:38) Sequential Compression Device .admit (11/15/20 06:38) Sponge Maker-Inpt Rehab Con (11/15/20 06:38) Rehab Nursing Orders-Ipoc (11/15/20 06:38) Physical Therapy Rehab Orders (11/15/20 06:38) Occupational Therapy Rehab Ord (11/15/20 06:38) Speech Therapy Rehab Orders (11/15/20 06:38) Cbc With Automated Diff (11/16/20 06:00) Comprehensive Metabolic Panel (11/16/20 06:00) Precautions (Aru) (11/15/20 06:38) Rehab-Intensity Of Therapy (11/15/20 06:38) Initiate Admission Nursing Pro .admission (11/15/20 06:38) Alprazolam Tablet (Xanax Tablet) (11/15/20 06:45) Calcium Carbonate Chew Tablet (Antacid C (11/15/20 06:45) Diphenhydramine Tablet (Benadryl Tablet) (11/15/20 06:45) Docusate Sodium Capsule (Colace Capsule) (11/15/20 09:00) Docusate Sodium Capsule (Colace Capsule) (11/15/20 06:45) Bisacodyl Suppository (Dulcolax Supposit (11/15/20 06:45) Lactulose Oral Solution (Enulose Oral So (11/15/20 06:45) Na Phos/Na Biphos Enema (Fleet Enema Julio (11/15/20 06:45) Guaifenesin/Codeine Syrup (Robitussin Ac (11/15/20 06:45) Loperamide Tablet (Imodium Tablet) (11/15/20 06:45) Polyethylene Glycol Powder Pkt (Miralax (11/15/20 09:00) Ondansetron Oral Dissolve Tab (Zofran (11/15/20 06:45) Senna S Tablet (Senokot S Tablet) (11/15/20 09:00) Initiate Admission Nursing Pro .admission (11/15/20 06:38) Admission Arrival Bed Request (11/15/20 10:41) Creatine Kinase (11/15/20 11:47) Urinalysis (11/16/20 00:40) Fluid Restriction (11/15/20 11:47) BNP (11/15/20 11:47) Thyroid Stimulating Hormone (11/15/20 11:47) Code/Resuscitation (11/15/20 11:56) Incentive Spirometry (Nursing) Q2H (11/15/20 11:56) Acetaminophen Tablet (Tylenol Tablet) (11/15/20 12:00) Albuterol/Ipra Inhalation Soln (Duoneb I (11/15/20 15:00) Aspirin Chewable Tablet (Baby Aspirin Ch (11/16/20 09:00) Doxycycline Hyclate Tablet (Vibramycin T (11/15/20 17:00) Enoxaparin Injection (Lovenox Injection) (11/15/20 12:00) Ibuprofen Tablet (Motrin Tablet) (11/15/20 12:00) Melatonin Tablet (Melatonin Tablet) (11/15/20 12:00) Nicotine Patch (Nicoderm Patch) (11/16/20 09:00) Ondansetron Injection (Zofran Injectio (11/15/20 12:00) Patch Removal (Patch Removal) (11/16/20 09:00) Simethicone Tablet (Mylicon Chewable Tab (11/15/20 12:00) Amlodipine Tablet (Norvasc Tablet) (11/16/20 09:00) Doxazosin Tablet (Cardura Tablet) (11/15/20 21:00) Fentanyl Inj (Sublimaze Injection) (11/15/20 12:00) Lisinopril Tablet (Zestril Tablet) (11/16/20 09:00) Metoprolol Succinate (Xl) Tab (Toprol Xl (11/15/20 21:00) Incentive Spirometry Initial (11/15/20 11:56) Svn Small Volume Nebulizer (11/15/20 11:56) Incentive Spirometry (Nursing) Q2H (11/15/20 11:56) Hemoglobin A1c (11/15/20 11:56) Vitamin B 12 (11/15/20 11:56) Iv Convert To Heplock (Order) (11/15/20 11:56) Patient Visit (11/15/20 ) Pt Eval Moderate Complexity (11/15/20 ) Functional Activities, Ea 15 (11/15/20 ) Mat Initiate Protocol (11/15/20 15:33) General/Regular (11/15/20 Dinner) Clonidine Tablet (Catapres Tablet) (11/15/20 21:15) Oxycodone Immediate Rel Tablet (Oxyir Ta (11/16/20 10:30) Sodium Chloride Tablet (Sodium Chloride (11/16/20 10:30) Patient Visit (11/16/20 ) Gait Training, Ea 15 Min (11/16/20 ) Functional Activities, Ea 15 (11/16/20 ) Patient Visit (11/16/20 ) Cognitive Test Per Hour (11/16/20 ) Sodium Urine Random (11/16/20 21:14) Osmolality Urine (11/16/20 21:14) Albuterol/Ipra Inhalation Soln (Duoneb I (11/16/20 23:15) Arterial Blood Gas (11/17/20 03:22) Arterial Blood Draw (11/17/20 03:22) Rehab Nursing Orders: Ongoing Assess. of Cognitive Status, Ongoing Assess. of Function Status, Bladder Management, Bladder Scan, Bladder Training, Bowel Management, Bowel Training, Disease Management & Educaiton, DVT Prophylaxis, Fall Prevention, Fluid/Electrolyte/Nutrition Mgmt, Infection Prevention, Medication Management & Education, Management of Risks & Complications, Nutrition Management, Pain Management, Patient/Family Support, Safety Management Intensity of Therapy to be met Patient to be seen: Min.3h per day/5 of 7d PT IPOC Problem List: Activity Tolerance, Functional Strength, Safety, Balance, Gait, Transfer, Bed Mobility, ROM Treatment Plan: Continue Plan of Care Bed Mobility, Education, Functional Activity Samantha, Functional Strength, Group Therapy, Gait, Safety, Therapeutic Exercise, Transfers Treatment Duration: Dec 06, 2020 Frequency: At least 5 of 7 days/Wk (IRF) Estimated Hrs Per Day: 1.5 hours per day OT IPOC Problems: Decreased Activ Tolerance, Decreased Safety Aware, Decreased UE Strength, Impaired Bed Mobility, Impaired Cognition, Impaired Coordination, Impaired Funct Balance, Impaired I ADL's, Impaired Self-Care Skills, Restricted Funct UE ROM OT Treatment, Training and Edu: Yes OT Problems Pt with worsening UE AROM and strength noted this date. Only able to perform 1/4 active Shoulder flex. Plan of Care: ADL Retraining, Functional Mobility, Group Exercise/Act as Ind, UE Funct Exercise/Act, UE Neuromus Re-Ed/Coord, W/C Management Training Treatment Duration: Dec 01, 2020 Frequency: At least 5 of 7 days/Wk (IRF) Estimated Hrs Per Day: 1.[address] IPOC Speech Therapy Treatment Plan: Discontinue ST Treatment Duration: Nov 16, 2020 Frequency: Modified Program (IRF) Estimated Hrs Per Day: Other Sponge Maker/Case Mgmt Sponge Maker/Case Managemen: Discharge Planning Dietitian/Final Finisher Dietitian/Final Finisher to monitor nutritional status and make changes and/or recommendations as needed and work with speech pathology on dietary upgrades as the occur. Physician IPOC Medical Issues being managed closely and that require the 24 hour availability of a physician: Recent critical illness with severe hyponatremia with severe proximal weakness places patient at risk for decompensation Medical Issues: Bowel/Bladder Function, DVT Prophylaxis, Falls Precautions, Fluid/Electrolyte/Nutrition Balance, Infection Protection, Pain Management Brief Synthesis of Preadmission Screen, Post-Admission Evaluation, and Therapy Evaluations: PT and OT will focus on regaining function with ambulatory skills with the use of assistive devices and regain independent ADLs. Medical Prognosis: Guarded Anticipated Length of Stay: 7 days NEFTALI HARRIS DO Nov 16, 2020 12:46
--- NOTE | 2020-11-16 12:46 | PM&R Progress Note ---
Subjective HPI/CC On Admission Date Seen by Provider: Nov 16, 2020 Time Seen by Provider: 12:30 Subjective/Events-last exam 11/16/2020: Sodium level remains low at 120 We will initiate sodium chloride tabs Fluid restriction maintained Patient appears to have some sort of neoplastic process I suspect Review of Systems General: Fatigue, Malaise Objective Exam Vital Signs Vital Signs Date Time Temp Pulse Resp B/P (MAP) Pulse Ox O2 Delivery O2 Flow Rate FiO2 11/17/20 03:08 94 Nasal Cannula 5.00 11/16/20 19:37 36.8 61 20 154/63 (93) 11/15/20 15:33 21 Capillary Refill : General Appearance: No Apparent Distress, WD/WN, Chronically ill, Thin HEENT: PERRL/EOMI, Normal ENT Inspection, Pharynx Normal Neck: Full Range of Motion, Normal Inspection, Non Tender, Supple, Carotid Bruit Respiratory: Chest Non Tender, Lungs Clear, Normal Breath Sounds, No Accessory Muscle Use, No Respiratory Distress Cardiovascular: Regular Rate, Rhythm, No Edema, No Gallop, No JVD, No Murmur, Normal Peripheral Pulses Gastrointestinal: Normal Bowel Sounds, No Organomegaly, No Pulsatile Mass, Non Tender, Soft Back: Normal Inspection, No CVA Tenderness, No Vertebral Tenderness Extremity: Normal Capillary Refill, Normal Inspection, Normal Range of Motion, Non Tender, No Calf Tenderness, No Pedal Edema Neurologic/Psychiatric: Alert, Oriented x3, Normal Mood/Affect, lease operator II-XII Norm as Tested, Abnormal Gait, Motor Weakness (Generalized weakness 3/5) Skin: Normal Color, Warm/Dry Lymphatic: No Adenopathy Results/Procedures Lab Laboratory Tests 11/16/20 05:25 Patient resulted labs reviewed. FIM Transfers Therapy Code Descriptions/Definitions Functional [place] Measure: 0=Not Assessed/NA 4=Minimal Assistance 1=Total Assistance 5=Supervision or Setup 2=Maximal Assistance 6=Modified [place] 3=Moderate Assistance 7=Complete IndependenceSCALE: Activities may be completed with or without assistive devices. 5-Eouznceuar-mtfvgyp completes the activity by him/herself with no assistance from a helper. 5-Set-up or Clean-up Assistance-helper sets up or cleans up; patient completes activity. [place] assists only prior to or following the activity. 4-Supervision or Touching Assistance-helper provides verbal cues and/or touching/steadying and/or contact guard assistance as patient completes activity. Assistance may be provided throughout the activity or intermittently. 3-Partial/Moderate Assistance-helper does LESS THAN HALF the effort. [place] lifts, holds or supports trunk or limbs, but provides less than half the effort. 2-Substantial/Maximal Assistance-helper does MORE THAN HALF the effort. [place] lifts or holds trunk or limbs and provides more than half the effort. 0-Khtavhhbo-ftxxjz does ALL the effort. Patient does none of the effort to complete the activity. Or, the assistance of 2 or more helpers is required for the patient to complete the activity. If activity was not attempted, code reason: 7-Patient Refused. 9-Not Applicable-not attempted and the patient did not perform the activity before the current illness, exacerbation or injury. 10-Not Attempted due to Environmental Limitations-(lack of equipment, weather restraints, etc.). 88-Not Attempted due to Medical Conditions or Safety Concerns. Roll Left to Right (QC): 6 Sit to Lying (QC): 4 Sit to Stand (QC): 3 Chair/Iai-fe-Qanla Xfer(QC): 3 Car Transfer (QC): 2 Gait Training Does the Patient Walk?: Yes Distance: 10'x3 Walk 10 feet (QC): 3 Walk 50 ft with 2 Turns(QC): 88 Walk 150 ft (QC): 88 Walking 10ft/uneven surface-QC: 88 Gait Assistive Device: FWW Wheelchair Training Does the Pt Use a Wheelchair?: Yes Distance: 150', 120'x2 Wheel 50 ft with 2 turns (QC): 4 Wheel 150 ft (QC): 4 Type of Wheelchair: Manual Stair Training 1 Step (curb) (QC): 88 4 Steps (QC): 88 12 Steps (QC): 88 Balance Picking up an Object (QC): 88 ADL-Treatment Eating (QC): 4 Oral Hygiene (QC): 3 Shower/Bathe Self (QC): 1 Upper Body Dressing (QC): 88 Lower Body Dressing (QC): 1 On/Off Footwear (QC): 1 Toileting Hygiene (QC): 1 Toilet Transfer (QC): 1 Assessment/Plan Assessment and Plan Assess & Plan/Chief Complaint Assessment: Debility with severe proximal muscle weakness Severe hyponatremia of uncertain source Elevated liver enzymes Smoker Peripheral vascular disease asymptomatic Status post sepsis Anemia Plan: Inpatient rehab protocol Monitor sodium Fluid restriction Hep-Lock IV fluid DC telemetry 11/16/2020: Add sodium chloride tablets Fluid restriction Monitor closely I suspect neoplastic process (1) Debility (2) Proximal muscle weakness (3) Smoker (4) Elevated liver enzymes Status: Acute (5) CHF (congestive heart failure) Status: Acute (6) Peripheral arterial disease Status: Acute (7) Hyponatremia Status: Acute NEFTALI HARRIS DO Nov 16, 2020 12:46
--- NOTE | 2020-11-16 13:05 | ST Cognitive Linguistic Eval ---
Speech Evaluation-General Medical Diagnosis sepsis, elevated liver enzymes, CHF Onset Date: Nov 08, 2020 Medical History Pertinent Medical History: HTN Reviewed History: Yes Social History Current Living Status: Alone Speech PLF-Current Status Subjective The pt was sleeping upon NURSE STAFF arrival. Agreeable and cooperative for speech ther apy evaluation. Language Eval: Auditory Comprehends Simple Yes/No Ques: Functional Indent/Objects Multiple Bell: Functional Ident/Pics in Multiple Bell: Functional Follows 1-Step Commands: Functional Follows Complex Directions: Functional Follows General Conversations: Functional Language Eval: Verbal Language Completes Spontaneous Greeting: Functional Produces Auto, Serial Info: Functional Imitates Simple Words/Phrases: Functional Word Finding: Functional Requests Basic Needs: Functional Objective Formal/Standardized Tests [facility] ([facility] Status) Exam was completed. Pt reports no changes with thinking or memory since hospitalization. Results Pt scored 27/30 indicating within normal limits for cognitive functioning. No speech therapy warranted at this time. Speech Patient Assess Expression of Ideas/Wants: Expression (4) Understanding Verbal Content: Understands (4) Brief Interview-Mental Status: Yes (*Continue to Repetition of) Repetition of Three Words: Three (3) Temporal Orientation: Year: Correct (3) Temporal Orientation: Month: Accurate within 5 days(2) Temporal Orientation: Day: Correct (1) Recall : Wear to say "Sock": Yes, no cue required (2) Recall : Color: Yes, no cue required (2) Recall : Bed: Yes,after cueing (1) Memory/Recall Ability: Current season, That he or she is in a hsp/hsp unit Speech Short Term Goals Short Term Goals Short Term Goals 1. no speech therapy goals at this time Speech-Plan Treatment Plan Speech Therapy Treatment Plan: Discontinue ST Frequency: Modified Program (IRF) Estimated Hrs Per Day: Other Rehab Potential: Fair Time Speech Therapy Time In: 10:45 Speech Therapy Time Out: 11:15 Billed Treatment Time 1, COGN TEST 30 MINS NOE PAGAN Nov 16, 2020 13:05
[2020-11-16 19:37] VITALS: BP 154/63
[2020-11-16] MEDS: doxAzosin 2 MG (CARDURA) TAB PO SCH (20:12)
[2020-11-16] MEDS: LACTULOSE SYRUP 10GM/15ML (ENULOSE) 30ML UDC PO PRN (20:12)
[2020-11-16] MEDS ORDERED: RT-ALBUTEROL/IPRATROPIUM 3 ML (DUONEB) VIAL ONE (23:15)
[2020-11-17 03:35] LABS: ABG BASE EXCESS 0.7 MMOL/L (-2.5-2.5); ABG OXYGEN SATURATION 81 % (94-100); ABG PCO2 38 MMHG (35-45); ABG PH 7.43 (7.37-7.43); ABG PO2 44 MMHG (79-93); ABG TCO2 25.8 MMOL/L (21.0-31.0); ALLENS TEST YES-POS
[2020-11-17 03:36] LABS: INSPIRED O2 5L; PATIENT TEMP 36.6; VENTILATOR NO
--- NOTE | 2020-11-17 03:59 | Discharge Summary ---
Diagnosis/Chief Complaint Date of Admission Nov 15, 2020 at 10:15 Date of Discharge Nov 17, 2020 at 03:29 Discharge Diagnosis Assessment: AMS Hypoxemia requiring ICU transfer at 0320 11/17/20 Debility with severe proximal muscle weakness Severe hyponatremia of uncertain source Elevated liver enzymes Smoker Peripheral vascular disease asymptomatic Status post sepsis Anemia Discharge Summary Discharge Physical Examination Allergies: Coded Allergies: No Known Drug Allergies (Unverified , 11/06/20) Vitals & I&Os Vital Signs Date Time Temp Pulse Resp B/P (MAP) Pulse Ox O2 Delivery O2 Flow Rate FiO2 11/17/20 03:08 94 Nasal Cannula 5.00 11/16/20 19:37 36.8 61 20 154/63 (93) 11/15/20 15:33 21 General Appearance: Alert, Cooperative Respiratory: Other Psych/Mental Status: Other (Confused) Hospital Course Was the Problem List Reviewed?: Yes Hospital course: Patient a brief hospital course he was admitted to inpatient rehab but rapidly declined with increased confusion hypoxia and shortness of b reath he was transferred to the ICU at 0320 hrs. Labs (last 24 hrs) Laboratory Tests 11/15/20 04:35: Mean Blood Glucose 120, Hemoglobin A1c 5.8H, Total Creatine Kinase 161, B-Type Natriuretic Peptide 262.4H, Vitamin B12 Level 510, Thyroid Stimulating Hormone (TSH) 1.44 11/16/20 00:40: Urine Color YELLOW, Urine Clarity CLEAR, Urine pH 6.0, Urine Specific [place] 1.015L, Urine Protein NEGATIVE, Urine Glucose (UA) NEGATIVE, Urine Ketones NEGATIVE, Urine Nitrite NEGATIVE, Urine Bilirubin NEGATIVE, Urine Urobilinogen 4.0, Urine Leukocyte Esterase NEGATIVE, Urine RBC (Auto) 1+H, Urine RBC 0-2, Urine WBC 0-2, Urine Squamous Epithelial Cells 10-25H, Urine Crystals NONE, Urine Bacteria NEGATIVE, Urine Casts NONE, Urine Mucus NEGATIVE, Urine Culture I ndicated NO 11/16/20 05:25: White Blood Count 10.1, Red Blood Count 3.83L, Hemoglobin 10.9L, Hematocrit 31L, Mean Corpuscular Volume 81, Mean Corpuscular Hemoglobin 29, Mean Corpuscular Hemoglobin Concent 35, Red Cell Distribution Width 13.8, Platelet Count 281, Mean Platelet Volume 9.5, Immature Granulocyte % (Auto) 1, Neutrophils (%) (Auto) 73, Lymphocytes (%) (Auto) 14, Monocytes (%) (Auto) 12, Eosinophils (%) (Auto) 0, Basophils (%) (Auto) 0, Neutrophils # (Auto) 7.4, Lymphocytes # (Auto) 1.4, Monocytes # (Auto) 1.2H, Eosinophils # (Auto) 0.0, Basophils # (Auto) 0.0, Immature Granulocyte # (Auto) 0.1, Sodium Level 120*L, Potassium Level 4.4, Chloride Level 92L, Carbon Dioxide Level 21, Anion Gap 7, Blood Urea Nitrogen 17, Creatinine 0.59L, Estimat Glomerular Filtration Rate 134, BUN/Creatinine Ratio 29, Glucose Level 98, Calcium Level 8.5, Corrected Calcium 9.4, Total Bilirubin 1.9H, Aspartate Amino Transf (AST/SGOT) 143H, Alanine Aminotransferase (ALT/SGPT) 193H, Alkaline Phosphatase 249H, Total Protein 6.0L, Albumin 2.9L 11/17/20 03:30: Blood Gas Puncture Site LT RADIAL, Blood Gas Patient Temperature 36.6, Arterial Blood pH 7.43, Arterial Blood Partial Pressure CO2 38, Arterial Blood Partial Pressure O2 44L, Arterial Blood HCO3 25, Arterial Blood Total CO2 25.8, Arterial Blood Oxygen Saturation 81L, Arterial Blood Base Excess 0.7, Brannon Test YES-POS, Blood Gas Ventilator Setting NO, Blood Gas Inspired Oxygen 5L Pending Labs Laboratory Tests 11/15/20 04:35: Mean Blood Glucose 120, Hemoglobin A1c 5.8, Total Creatine Kinase 161, B-Type Natriuretic Peptide 262.4, Vitamin B12 Level 510, Thyroid Stimulating Hormone (TSH) 1.44 11/16/20 00:40: Urine Color YELLOW, Urine Clarity CLEAR, Urine pH 6.0, Urine Specific [place] 1.015, Urine Protein NEGATIVE, Urine Glucose (UA) NEGATIVE, Urine Ketones NEGATIVE, Urine Nitrite NEGATIVE, Urine Bilirubin NEGATIVE, Urine Urobilinogen 4.0, Urine Leukocyte Esterase NEGATIVE, Urine RBC (Auto) 1+, Urine RBC 0-2, Urine WBC 0-2, Urine Squamous Epithelial Cells 10-25, Urine Crystals NONE, Urine Bacteria NEGATIVE, Urine Casts NONE, Urine Mucus NEGATIVE, Urine Culture Indicated NO 11/16/20 05:25: White Blood Count 10.1, Red Blood Count 3.83, Hemoglobin 10.9, Hematocrit 31, Mean Corpuscular Volume 81, Mean Corpuscular Hemoglobin 29, Mean Corpuscular Hemoglobin Concent 35, Red Cell Distribution Width 13.8, Platelet Count 281, Mean Platelet Volume 9.5, Immature Granulocyte % (Auto) 1, Neutrophils (%) (Auto) 73, Lymphocytes (%) (Auto) 14, Monocytes (%) (Auto) 12, Eosinophils (%) (Auto) 0, Basophils (%) (Auto) 0, Neutrophils # (Auto) 7.4, Lymphocytes # (Auto) 1.4, Monocytes # (Auto) 1.2, Eosinophils # (Auto) 0.0, Basophils # (Auto) 0.0, Immature Granulocyte # (Auto) 0.1, Sodium Level 120, Potassium Level 4.4, Chl oride Level 92, Carbon Dioxide Level 21, Anion Gap 7, Blood Urea Nitrogen 17, Creatinine 0.59, Estimat Glomerular Filtration Rate 134, BUN/Creatinine Ratio 29, Glucose Level 98, Calcium Level 8.5, Corrected Calcium 9.4, Total Bilirubin 1.9, Aspartate Amino Transf (AST/SGOT) 143, Alanine Aminotransferase (ALT/SGPT) 193, Alkaline Phosphatase 249, Total Protein 6.0, Albumin 2.9 11/17/20 03:30: Blood Gas Puncture Site LT RADIAL, Blood Gas Patient Temperature 36.6, Arterial Blood pH 7.43, Arterial Blood Partial Pressure CO2 38, Arterial Blood Partial Pressure O2 44, Arterial Blood HCO3 25, Arterial Blood Total CO2 25.8, Arterial Blood Oxygen Saturation 81, Arterial Blood Base Excess 0.7, Brannon Test YES-POS, Blood Gas Ventilator Setting NO, Blood Gas Inspired Oxygen 5L Discharge Home Medications: Active Scripts Active Reported [Betamax] 1 Ea PO BID Bromsite (Bromfenac Sodium) 5 Ml Drops 1 Drop OS DAILY FOR PLANNED LEFT CATARACT SURGERY SCHEDULED 11-10-2020 TAKE 3 DAYS PRIOR TO AND 30 DAYS AFTER SURGERY Ofloxacin 5 Ml Drops 1 Drops OS QID FOR PLANNED LEFT CATARACT SURGERY SCHEDULED 11-10-2020 TAKE 3 DAYS PRIOR TO AND 7 DAYS AFTER SURGERY Ibuprofen 200 Mg Tablet 600 Mg PO Q8H PRN Lisinopril 10 Mg Tablet 10 Mg PO DAILY Instructions to patient/family Please see electronic discharge instructions given to patient. Diagnosis/Problems Diagnosis/Problems (1) Debility (2) Proximal muscle weakness (3) Smoker (4) Elevated liver enzymes Status: Acute (5) CHF (congestive heart failure) Status: Acute (6) Peripheral arterial disease Status: Acute (7) Hyponatremia Status: Acute NEFTALI HARRIS DO Nov 17, 2020 03:59
--- NOTE | 2020-11-17 15:04 | Therapy Team Discharge Summary ---
Therapy Discharge Summary Discharge Recommendations Date of Discharge Nov 17, 2020 at 03:29 Physical Therapy Patient came to rehab with sepsis, elevated liver enzymes, CHF. Upon evaluation patient performed bed mobility with independence, supine <-> sit mod assist, sit <-> stand and transfers max assist, car transfer max assist, ambulated 6' with a rolling walker with assist of 2 and WC follow, and propelled a manual WC 150' with min assist. Patient was only on rehab for two days before having medical issues and was transferred to ICU. Patient has not met any of his group home goals. Patient will be discharged from PT at this time. Occupational Therapy Decreased Activ Tolerance, Decreased Safety Aware, Decreased UE Strength, Impaired Bed Mobility, Impaired Cognition, Impaired Coordination, Impaired Funct Balance, Impaired I ADL's, Impaired Self-Care Skills, Restricted Funct UE ROM PT Box Toe Flanger [employer] Goals Box Toe Flanger [employer]s Goals PT Box Toe Flanger [employer] Goals Time Frame: Dec 06, 2020 Roll Left to Right (QC): 6 Sit to Lying (QC): 6 Lying-Sitting on Side/Bed(QC): 6 Sit to Stand (QC): 4 Chair/Lia-fd-Loilc Xfer(QC): 4 Car Transfer (QC): 4 Does the Patient Walk: Yes Walk 10 feet (QC): 4 Walk 10ft-Uneven Surface(QC): 4 Walk 50ft with 2 Turns (QC): 4 Walk 150 ft (QC): 88 Wheel 50 feet with 2 turns (QC: 6 1 Step (curb) (QC): 3 4 Steps (QC): 3 12 Steps (QC): 88 Picking up an Object (QC): 4 OT Box Toe Flanger [employer] Goals [facility] Goals Eating (QC): 6 Oral Hygiene (QC): 6 Shower/Bathe Self (QC): 4 Upper Body Dressing (QC): 6 Lower Body Dressing (QC): 4 On/Off Footwear (QC): 5 Toileting Hygiene (QC): 4 Toilet/Commode Transfer (QC): 4 Pt will complete simple homemaking task with SBA 1=Demonstrate adherence to instructed precautions during ADL tasks. 2=Patient will verbalize/demonstrate understanding of assistive devices/modifications for ADL. 3=Patient will improve strength/tolerance for activity to enable patient to perform ADL's. JIM MARTIN PT Nov 17, 2020 15:04
--- NOTE | 2020-11-20 12:46 | Therapy Team Discharge Summary ---
Therapy Discharge Summary Discharge Recommendations Date of Discharge Nov 17, 2020 at 03:29 Occupational Therapy Patient came to rehab with sepsis, elevated liver enzymes, CHF. Upon evaluation patient was dependent for bathing, LB dressing, and toileting due to needing a second person. He was SBA for eating and MIn-mod a for oral care. Patient was only on rehab for two days before having medical issues and was transferred to ICU. Patient did not met any of his car worker helper goals due to decline in function. Patient will be discharged from OT at this time. Decreased Activ Tolerance, Decreased Safety Aware, Decreased UE Strength, Impaired Bed Mobility, Impaired Cognition, Impaired Coordination, Impaired Funct Balance, Impaired I ADL's, Impaired Self-Care Skills, Restricted Funct UE ROM PT Electricians Top Helper Goals Electricians Top Helper Goals PT Mcfp Goals Time Frame: Dec 06, 2020 Roll Left to Right (QC): 6 Sit to Lying (QC): 6 Lying-Sitting on Side/Bed(QC): 6 Sit to Stand (QC): 4 Chair/Fso-mu-Rmpdd Xfer(QC): 4 Car Transfer (QC): 4 Does the Patient Walk: Yes Walk 10 feet (QC): 4 Walk 10ft-Uneven Surface(QC): 4 Walk 50ft with 2 Turns (QC): 4 Walk 150 ft (QC): 88 Wheel 50 feet with 2 turns (QC: 6 1 Step (curb) (QC): 3 4 Steps (QC): 3 12 Steps (QC): 88 Picking up an Object (QC): 4 OT Mcfp Goals Electricians Top Helper Goals Eating (QC): 6 (not met) Oral Hygiene (QC): 6 (not met) Shower/Bathe Self (QC): 4 (not met) Upper Body Dressing (QC): 6 (not met) Lower Body Dressing (QC): 4 (not met) On/Off Footwear (QC): 5 (not met) Toileting Hygiene (QC): 4 (not met) Toilet/Commode Transfer (QC): 4 (not met) Pt will complete simple homemaking task with SBA 1=Demonstrate adherence to instructed precautions during ADL tasks. 2=Patient will verbalize/demonstrate understanding of assistive devices/modifications for ADL. 3=Patient will improve strength/tolerance for activity to enable patient to perform ADL's. Eleni Perez OT Nov 20, 2020 12:46
== END 2020-11-17 03:29 | disposition short-term general hospital (02) | DRG 556 ==
PROVIDERS: ADMIT Internal Medicine; ATTEND Internal Medicine
DX: M62.81 Muscle weakness (generalized) (principal); E87.1 Hypo-osmolality and hyponatremia; I74.5 Embolism and thrombosis of iliac artery; I50.30 Unspecified diastolic (congestive) heart failure; F17.210 Nicotine dependence, cigarettes, uncomplicated; R74.8 Abnormal levels of other serum enzymes; D64.9 Anemia, unspecified; K59.00 Constipation, unspecified; R09.02 Hypoxemia; R41.0 Disorientation, unspecified
CPT/HCPCS: 36415; 80053; 81000; 82550; 82607; 82805; 83036; 83880; 84443; 85025; 94640; 94760

== ENCOUNTER 2020-11-17 03:30 | Inpatient (IN) | payer OTHER, MEDICARE ==
[~2020-11-17] VITALS: Ht 175.3 cm; Wt 85.1 kg
[~2020-11-17 03:30] MED LIST changes: -ALPRAZolam 0.25 MG (XANAX) TAB PO PRN; -BISACODYL 10 MG SUPP (DULCOLAX) PR PRN; -CALCIUM CARBONATE 500 MG (TUMS) TAB.CHEW PO PRN; -DOCUSATE SODIUM 100 MG (COLACE) CAP PO PRN; -ENOXAPARIN 40 MG/0.4 ML (LOVENOX) SYR SC SCH; -FLEET ENEMA ADULT 1 EA BTL PR PRN; -LOPERAMIDE 2 MG (IMODIUM) TABLET PO PRN; -MELATONIN 3 MG TABLET PO PRN; -ONDANSETRON 4 MG (ZOFRAN) ORAL DISSOLVE TAB PO PRN; -diphenhydrAMINE 25 MG TAB (BENADRYL) PO PRN; -guaiFENesin/CODEINE (ROBITUSSIN AC) 10ML UDC PO PRN
[2020-11-17] MEDS ORDERED: cloNIDine 0.1 MG (CATAPRES) TAB PO PRN (03:45)
[2020-11-17] MEDS ORDERED: DOCUSATE SODIUM 100 MG (COLACE) CAP PO PRN (03:45)
[2020-11-17] MEDS ORDERED: SIMETHICONE 80 MG (MYLICON) CHEW PO PRN (03:45)
[2020-11-17] MEDS ORDERED: ALPRAZolam 0.25 MG (XANAX) TAB PO PRN (03:45)
[2020-11-17] MEDS ORDERED: LACTULOSE SYRUP 10GM/15ML (ENULOSE) 30ML UDC PO PRN (03:45)
[2020-11-17] MEDS ORDERED: diphenhydrAMINE 25 MG TAB (BENADRYL) PO PRN (03:45)
[2020-11-17] MEDS ORDERED: ONDANSETRON 4 MG (ZOFRAN) ORAL DISSOLVE TAB PO PRN (03:45)
[2020-11-17] MEDS ORDERED: MELATONIN 3 MG TABLET PO PRN (03:45)
[2020-11-17] MEDS ORDERED: VANCOMYCIN INJECTION 0.1 MG in NS (IVPB) 250 ML IV SCH (03:45)
[2020-11-17] MEDS ORDERED: LOPERAMIDE 2 MG (IMODIUM) TABLET PO PRN (03:45)
[2020-11-17] MEDS ORDERED: CALCIUM CARBONATE 500 MG (TUMS) TAB.CHEW PO PRN (03:45)
[2020-11-17] MEDS ORDERED: ACETAMINOPHEN 500 MG TAB (TYLENOL) PO PRN (03:45)
[2020-11-17] MEDS ORDERED: ONDANSETRON 4 MG/2 ML (SDV) Z0FRAN IV PRN (03:45)
[2020-11-17] MEDS ORDERED: FLEET ENEMA ADULT 1 EA BTL PR PRN (03:45)
[2020-11-17] MEDS ORDERED: IBUPROFEN 600 MG (MOTRIN) TAB PO PRN (03:45)
[2020-11-17] MEDS ORDERED: NS IV 1000 ML 1,000 ML IV SCH (03:45)
[2020-11-17] MEDS ORDERED: BISACODYL 10 MG SUPP (DULCOLAX) PR PRN (03:45)
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
--- NOTE | 2020-11-17 04:10 | Tele-ICU Consult ---
History of Present Illness History of Present Illness Date Seen by Provider: Nov 17, 2020 Time Seen by Provider: 03:45 Date of Admission This virtual visit which was conducted using real time audio/video. Thank you for asking us to see this patient for respiratory insufficiency and di stress, AMS, sepsis, abnormal CXR and hyponatremia. HPC: Recent events: admitted from rehab facility PMH: CHF PAD HTN. SH: smoking history : Y FH: Non-contributory ROS: limited by patient's clinical condition. PE: Appears undistressed on camera. VSS HR 65 NSR BP 160/60 RR 19 O2 sat 94% on 5 LPM NC. HEENT: No obvious masses, adenopathy or JVD. Chest: BS diminished. CV: RRR S1 S2 No murmur or added sounds. Abd: Non-tender. Bowel sounds Y. : Unremarkable. Lina[place] N. 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 Extremities: No edema. Capillary refill < 3 seconds. Skin: unremarkable. CXR : R infilt., effusion and atelectasis. A/P: Respiratory insufficiency/distress: Cont duonebs, O2. Available chart/ vitals / labs /images reviewed. Video assessment done using teleICU camera, rest of exam as per RN. Monitor for increasing oxygenation needs and/or need for intubation. Critical Care: critically ill patient. Cont Vanco., Meropenem. Will need CT chest and probably bronchoscopy. Low Na: restrict free H2O. 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 Discussed with RN Jignesh. Asked RN to reach out to eICU if any questions or concerns later. Time spent with patient/coordination of care with other health professionals (mins): Allergies and Home Medications Allergies Coded Allergies: No Known Drug Allergies (Unverified , 11/06/20) Home Medications Bromfenac Sodium 5 Ml Drops, 1 DROP OS DAILY, (Reported) FOR PLANNED LEFT CATARACT SURGERY SCHEDULED 11-10-2020 TAKE 3 DAYS PRIOR TO AND 30 DAYS AFTER SURGERY Ibuprofen 200 Mg Tablet, 600 MG PO Q8H PRN for PAIN-MILD (1-4), (Reported) Lisinopril 10 Mg Tablet, 10 MG PO DAILY, (Reported) Ofloxacin 5 Ml Drops, 1 DROPS OS QID, (Reported) FOR PLANNED LEFT CATARACT SURGERY SCHEDULED 11-10-2020 TAKE 3 DAYS PRIOR TO AND 7 DAYS AFTER SURGERY [Betamax] , 1 EA PO BID, (Reported) Past Medical/Social/Family Hx Patient Social History Marrital Status: single Employed/Student: employed Smoking Status: Current Everyday Smoker Immunizations Up To Date First/Initial COVID19 Vaccinat: 06/28 Second COVID19 Vaccination Peter: 06/28 Tetanus Booster (TDap): Less Than 5 Years TB Skin Test: None Current Status Primary Language: Cymro Review of Systems Constitutional: see HPI EENTM: see HPI Respiratory: see HPI Cardiovascular: see HPI Genitourinary: see HPI Musculoskeletal: see HPI Skin: see HPI Psychiatric/Neurological: See HPI (see free text) All Other Systems Reviewed Negative Unless Noted: Yes Sepsis Event Evaluation Height, Weight, BMI Height: '" Weight: lbs. oz. kg; 25.15 BMI Method: Exam Exam Patient acknowledged, consented, and participated in this virtual visit which was conducted using real time audio/video Height & Weight Height: '" Weight: lbs. oz. kg; 25.15 BMI Method: General Appearance: Chronically ill Peripheral Pulses: 1+ Dorsalis Pedis (R), 1+ Left Dors-Pedis (L) (see free text) Assessment/Plan Assessment/Plan See free text Critical Care: Critically Ill Patient Time spent on discussion(mins): 0 EL SPARKS MD Nov 17, 2020 04:10
[2020-11-17 04:18] LABS: BASOPHILS % (AUTO) 0 % (0-10); EOSINOPHILS % (AUTO) 0 % (0-10); HEMATOCRIT 31 % (40-54); HEMOGLOBIN 10.7 g/dL (13.3-17.7); LYMPHOCYTES % (AUTO) 9 % (12-44); MEAN CORPUSCULAR HEMOGLOBIN 28 pg (25-34); MEAN CORPUSCULAR HGB CONC 34 g/dL (32-36); MEAN CORPUSCULAR VOLUME 83 fL (80-99); MEAN PLATELET VOLUME 9.6 fL (9.0-12.2); MONOCYTES # (AUTO) 1.1 10^3/uL (0.0-1.0); MONOCYTES % (AUTO) 9 % (0-12); NEUTROPHILS # (AUTO) 9.4 10^3/uL (1.8-7.8); NEUTROPHILS % (AUTO) 81 % (42-75); PLATELET COUNT 307 10^3/uL (130-400); WHITE BLOOD COUNT 11.6 10^3/uL (4.3-11.0)
[2020-11-17] MEDS: MEROPENEM 500 MG in WATER (STERILE) FOR INJECTION 10 ML IV SCH ×4 (04:58→22:54)
[2020-11-17 04:59] LABS: ALBUMIN 2.9 GM/DL (3.2-4.5); CHLORIDE 91 MMOL/L (98-107); POTASSIUM 4.1 MMOL/L (3.6-5.0)
[2020-11-17] MEDS ORDERED: VANCOMYCIN 1500 MG/NS 500 ML IVPB IV NR ×2 (05:00)
[2020-11-17 05:01] LABS: CALCIUM 8.5 MG/DL (8.5-10.1)
[2020-11-17 05:02] LABS: GLUCOSE 98 MG/DL (70-105); TOTAL PROTEIN 5.8 GM/DL (6.4-8.2)
[2020-11-17 05:03] LABS: CARBON DIOXIDE 21 MMOL/L (21-32)
[2020-11-17 05:04] LABS: BILIRUBIN,TOTAL 1.6 MG/DL (0.1-1.0)
[2020-11-17 05:05] LABS: ALKALINE PHOSPHATASE 208 U/L (40-136); CREATININE SERUM 0.59 MG/DL (0.60-1.30); GFR ESTIMATED 134
[2020-11-17 05:07] LABS: BUN/CREATININE RATIO 36
[2020-11-17] MEDS ORDERED: NS IV 500 ML 500 ML ONE (05:07)
[2020-11-17 05:08] LABS: ALANINE AMINOTRANSFERASE 188 U/L (0-55)
[2020-11-17 05:09] LABS: SODIUM 121 MMOL/L (135-145)
[2020-11-17 05:41] LABS: AMYLASE 29 U/L (25-125)
[2020-11-17 05:50] LABS: LIPASE 11 U/L (8-78)
[2020-11-17 05:54] LABS: PROTHROMBIN TIME PATIENT 13.5 SEC (12.2-14.7)
[2020-11-17] MEDS: NS IV 1000 ML 1,000 ML IV SCH ×3 (05:58→15:56)
[2020-11-17 06:00] LABS: BILIRUBIN,URINE NEGATIVE (NEGATIVE); CLARITY,URINE CLEAR; COLOR,URINE YELLOW; GLUCOSE, URINE (UA) NEGATIVE (NEGATIVE); KETONES,URINE NEGATIVE (NEGATIVE); LEUKOCYTE ESTERASE ,URINE NEGATIVE (NEGATIVE); NITRITE,URINE NEGATIVE (NEGATIVE); PROTEIN,URINE NEGATIVE (NEGATIVE)
[2020-11-17 06:07] LABS: BACTERIA,URINE TRACE /HPF; RBC,URINE 0-2 /HPF
[2020-11-17] MEDS: DOXYCYCLINE 100 MG (VIBRAMYCIN) TABLET PO SCH ×2 (06:46→16:01)
[2020-11-17] MEDS: guaiFENesin/CODEINE (ROBITUSSIN AC) 10ML UDC PO PRN (06:47)
--- NOTE | 2020-11-17 06:57 | Diagnostic Imaging Report ---
INDICATION: Hypoxia Portable AP view of the chest is obtained. Since 11/10/2020 there has been significant increase in airspace disease throughout the right lung most pronounced in the basilar region. Left lung remains clear. There is no evidence of pneumothorax. IMPRESSION: Atelectasis and likely developing pneumonia in the right lung. Progress PA and lateral views would be useful. Dictated by: Dictated on workstation # [id number]
[2020-11-17] MEDS: SENNA W/DOCUSATE (SENOKOT S) TABLET PO SCH ×2 (08:01→20:57)
[2020-11-17] MEDS: meTOprolol SUCCINATE 100 MG (TOPROL XL) TAB PO SCH ×2 (08:01→20:57)
[2020-11-17] MEDS: ASPIRIN 81 MG CHEW (CHILDREN'S ASA) PO SCH (08:02)
[2020-11-17] MEDS: amLODIPine 10 MG (NORVASC) TAB PO SCH (08:02)
[2020-11-17] MEDS: NICOTINE 14 MG (NICODERM) PATCH TD SCH (08:02)
[2020-11-17] MEDS: ENOXAPARIN 40 MG/0.4 ML (LOVENOX) SYR SC SCH (08:02)
[2020-11-17] MEDS: PATCH REMOVAL TP SCH (08:02)
[2020-11-17] MEDS: SODIUM CHLORIDE 1 GM TABLET PO SCH ×2 (08:02→20:57)
[2020-11-17] MEDS: polyethylene glycoL POWDER 17 GM (MIRALAX) PACK PO SCH ×2 (08:02→20:57)
[2020-11-17] MEDS: lisINopril 40 MG (PRINIVIL) TABLET PO SCH (08:02)
--- NOTE | 2020-11-17 09:03 | Tele-ICU Progress Note ---
Subjective Date Seen by a Provider: Nov 17, 2020 Time Seen by a Provider: 09:03 Subjective/Events-last exam This patient earlier transferred from rehab unit to the ICU because of hypoxia requiring increasing oxygen needs. Chest x-ray showed moderate to large right pleural effusion. Subsequently a CT of the abdomen pelvis and chest with contrast is done which is shoulder large right pleural effusion with atelectasis of the right upper lobe middle lobe and lower lobe and a questionable mucous plugging in the bronchi. Given his extensive smoking history and hyponatremia it is highly suspicious that patient probably has an underlying malignancy particularly the long even though there is a pancreatic hypodense lesion which I am not sure whether it is malignant or benign. A Gen. surgical consultation is requested for bronchoscopy by the attending physician and I have also requested a thoracentesis for diagnostic and therapeutic purposes. Currently patient resting comfortably with a high flow nasal cannula oxygen. Sepsis Event Evaluation Height, Weight, BMI Height: '" Weight: lbs. oz. kg; 24.82 BMI Method: Focused Exam Lactate Level 11/17/20 04:05: Lactic Acid Level 0.59 Exam Exam Patient acknowledged, consented, and participated in this virtual visit which was conducted using real time audio/video Vital Signs Date Time Temp Pulse Resp B/P (MAP) Pulse Ox O2 Delivery O2 Flow Rate FiO2 11/17/20 08:56 High Flow N/C 8.00 11/17/20 08:28 Nasal Cannula 5.00 11/17/20 08:00 36.7 11/17/20 07:15 64 11/17/20 06:00 65 21 142/62 94 Nasal Cannula 5.00 11/17/20 05:00 57 17 155/62 95 Nasal Cannula 5.00 11/17/20 04:45 64 18 152/63 94 Nasal Cannula 5.00 11/17/20 04:30 66 16 161/63 95 Nasal Cannula 5.00 11/17/20 04:15 61 18 154/62 95 Nasal Cannula 5.00 11/17/20 04:00 36.6 65 15 151/64 92 Nasal Cannula 5.00 11/17/20 04:00 94 Nasal Cannula 5.00 11/17/20 03:51 64 I & O 11/17/20 07:00 Intake Total 1050 ml Output Total 325 ml Balance 725 ml Height & Weight Height: '" Weight: lbs. oz. kg; 24.82 BMI Method: General Appearance: Chronically ill Peripheral Pulses: 1+ Dorsalis Pedis (R), 1+ Left Dors-Pedis (L) (see free text) Other comments PER PER ATTENDING PHYSICIAN Results Lab Laboratory Tests 11/17/20 04:05 Assessment/Plan Assessment/Plan 1. Acute hypoxic respiratory failure secondary to pleural effusion 2. Right large pleural effusion in this patient who is a heavy smoker and has a significant hyponatremia concerning for underlying pulmonary malignancy. Other malignancy is not ruled out. 3. Partial right upper lobe middle lobe and lower lobe atelectasis could be due to compression atelectasis however endobronchial lesion needs to be ruled out which could be malignancy. 4. 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 Recommendations 1. Agree with diagnostic bronchoscopy 2. Suggest right thoracentesis for diagnostic and therapeutic purposes to rule out a malignancy 3. Check urine lites and osmolality 4. Agree with fluid restriction. 5. Reviewed with RN. Critical Care: Critically Ill Patient Time spent with patient (mins): 40 VAHID FARMER MD Nov 17, 2020 09:03
[2020-11-17] MEDS ORDERED: NS 100 ML (IVPB) BAG IV ONE (09:45)
[2020-11-17] MEDS ORDERED: CATHETER FLUSH 10 ML SYR IV PRN (09:45)
[2020-11-17] MEDS ORDERED: IOHEXOL 350 MG/ML 100 ML (OMNIPAQUE 350) VIAL IV ONE (09:45)
[2020-11-17] MEDS ORDERED: HOLD METFORMIN - RECEIVED CONTRAST 20 ML VIAL IV SCH (09:45)
--- NOTE | 2020-11-17 11:30 | Diagnostic Imaging Report ---
PROCEDURE: CT chest, abdomen, and pelvis with contrast. TECHNIQUE: Multiple contiguous axial images were obtained through the chest, abdomen, and pelvis after the administration of intravenous contrast. Auto Exposure Controls were utilized during the CT exam to meet ALARA standards for radiation dose reduction. INDICATION: Pancreatic mass. Correlation is made with prior CT study performed 11/08/2020. CT CHEST: Since prior study the patient's right-sided pleural effusion has significantly increased in size. There is also apparent mucous plugging involving right upper, right middle and right lower lobe bronchi with partial collapse of the right upper lobe as well as right middle lobe and right lower lobe. There is trace left pleural effusion. No pericardial effusion is identified. Patchy groundglass infiltrate in the left upper lobe is noted. The left lung is otherwise clear. Areas of atelectasis on the right side are again noted. CT ABDOMEN AND PELVIS: The gallbladder and liver are unremarkable. No focal liver mass is detected. There is no biliary ductal dilatation. The pancreatic head is unremarkable. The circumscribed low-attenuation lesion in the pancreatic body appears stable at approximately 2 cm. No pancreatic ductal dilatation is identified. The spleen is unremarkable. No adrenal mass is detected. A right renal cyst is unchanged. There is no hydronephrosis. Aorta is moderately calcified but is non-aneurysmal. There is occlusion of the left common iliac artery. The small and large bowel loops are normal caliber. There is no obstruction. No free fluid or fluid collection is identified. There is moderate stool throughout the colon. The bony structures are nonacute. The bladder and prostate are unremarkable. IMPRESSION: 1. Increasing right-sided pleural effusion. In addition, there is development of occlusion of the right mainstem bronchus with areas of collapse involving the right upper, right middle and right lower lobes. This is likely owing to mucous plugging. There is also a small left pleural effusion. 2. No acute feature in the abdomen or pelvis is identified. The pancreatic body cystic lesion remains stable. No abdominal or pelvic lymphadenopathy is identified. Dictated by: Dictated on workstation # [id number]
--- NOTE | 2020-11-17 12:19 | Consultation - Surgery ---
MARICRUZ LUJAN MED STUDENT 11/17/20 1219: History of Present Illness History of Present Illness Patient Consulted On(nam/time) 11/17/20 12:11 Date Seen by Provider: Nov 17, 2020 Time Seen by Provider: 10:15 History of Present Illness Surgery consult for possible thoracentesis for fluid in lungs The patient presented to the ED last week for weakness in his legs and elevated LFTs. Imaging showed no liver or gallbladder pathologies and no surgery was needed at that time. Patient developed shortness of breath and was admitted to the ICU last week, recovered, then taken to rehab. Patient developed another acute episode of SOB last night and O2 sat at 85%. He was administered albuterol, placed on 8L high flow O2, and taken to ICU where he improved to 91%. He states his SOB is worse with sitting up and nothing makes it better. CXR yesterday showed possible atelectesis and pneumonia. CT taken today showed mucus plugging in R lung and worsening pleural effusion on R, small on L. He continues to complain of weakness in his extremities that has been constant. He complains of tingling/numbness in his fingertips and toes. He is on fluid restriction and liquid diet. He is urinating well in a urinal without complaints. He denies ambulation and hasn't had a BM for 5d but administered an enema on Friday. Allergies and Home Medications Allergies Coded Allergies: No Known Drug Allergies (Unverified , 11/06/20) Patient Home Medication List Bromfenac Sodium (Bromsite) 5 Ml Drops, 1 DROP OS DAILY, (Reported) Entered as Reported by: DELORES HAQUE on 11/09/20 1129 Ibuprofen (Ibuprofen) 200 Mg Tablet, 600 MG PO Q8H PRN for PAIN-MILD (1-4), (Reported) Entered as Reported by: DELORES HAQUE on 11/09/20 1129 Lisinopril (Lisinopril) 10 Mg Tablet, 10 MG PO DAILY, (Reported) Entered as Reported by: LYLA FIGUEROA on 11/06/20 1504 Ofloxacin (Ofloxacin) 5 Ml Drops, 1 DROPS OS QID, (Reported) Entered as Reported by: DELORES HAQUE on 11/09/20 1129 [Betamax] , 1 EA PO BID, (Reported) Entered as Reported by: DELORES HAQUE on 11/09/20 1303 Discontinued Medications Cefdinir (Cefdinir) 300 Mg Capsule, 300 MG PO BID, (Reported) Entered as Reported by: DELORES HAQUE on 11/09/20 1129 Past Quviczo-Kbwhuy-Dpmiua Hx Patient Social History Smoking Status: Current Everyday Smoker Type Used: Cigarettes (20 cigarettes/d) Alcohol Use?: No Have you traveled recently?: No Surgeries History of Surgeries: Yes Surgeries: Orthopedic, Testicular Respiratory History of Respiratory Disorde: No Cardiovascular History of Cardiac Disorders: Yes Cardiac Disorders: Hypertension, Peripheral Vascular Neurological History of Neurological Disord: No Genitourinary History of Genitourinary Disor: Yes Gastrointestinal History of Gastrointestinal Di: Yes Gastrointestinal Disorders: Pancreatitis Musculoskeletal History of Musculoskeletal Dis: No Endocrine History of Endocrine Disorders: No HEENT History of HEENT Disorders: No Loss of Vision: Denies Hearing Impairment: Hard of Hearing, Bilateral Hearing Aide Cancer History of Cancer: No Psychosocial History of Psychiatric Problem: No Integumentary History of Skin or Integumenta: No Blood Transfusions History of Blood Disorders: No Family Medical History Significant Family History: Heart Disease, Psychiatric Problems, Stroke Review of Systems-General Constitutional: No chills, No diaphoresis, No dizziness, No fever; malaise, weakness EENTM: hearing loss (chronic); No blurred vision, No double vision Respiratory: short of breath Cardiovascular: No chest pain Gastrointestinal: No abdominal pain; constipation Genitourinary: No decreased output, No dysuria, No frequency Musculoskeletal: back pain Skin: No lesions Psychiatric/Neurological: Denies Headache; Numbness, Paresthesia Physical Exam-General Problems Physical Exam Vital Signs Vital Signs - First Documented 11/17/20 11/17/20 03:51 04:00 Temp 36.6 Pulse 64 Resp 15 B/P (MAP) 151/64 Pulse Ox 94 O2 Delivery Nasal Cannula O2 Flow Rate 5.00 Capillary Refill : General Appearance: WD/WN, no apparent distress Eyes: Bilateral Eye PERRL, Bilateral Eye EOMI Neck: non-tender, full range of motion, supple Respiratory: chest non-tender, no respiratory distress, no accessory muscle use, decreased breath sounds, crackles Cardiovascular: regular rate, rhythm, no murmur Gastrointestinal: non tender, soft, no organomegaly, other (decreased bowel sounds) Extremities: non-tender, no pedal edema, no calf tenderness Neurologic/Psychiatric: no motor/sensory deficits, alert, normal mood/affect, oriented x 3 Skin: normal color, warm/dry Data Review Labs Laboratory Tests 11/17/20 04:05: White Blood Count 11.6H, Red Blood Count 3.77L, Hemoglobin 10.7L, Hematocrit 31L , Mean Corpuscular Volume 83, Mean Corpuscular Hemoglobin 28, Mean Corpuscular Hemoglobin Concent 34, Red Cell Distribution Width 14.1, Platelet Count 307, Mean Platelet Volume 9.6, Immature Granulocyte % (Auto) 1, Neutrophils (%) (Auto) 81H, Lymphocytes (%) (Auto) 9L, Monocytes (%) (Auto) 9, Eosinophils (%) (Auto) 0, Basophils (%) (Auto) 0, Neutrophils # (Auto) 9.4H, Lymphocytes # (Auto) 1.0, Monocytes # (Auto) 1.1H, Eosinophils # (Auto) 0.0, Basophils # (Auto ) 0.0, Immature Granulocyte # (Auto) 0.1, Prothrombin Time 13.5, INR Comment 1.0, D-Dimer 1.35H, Sodium Level 121*L, Potassium Level 4.1, Chloride Level 91L, Carbon Dioxide Level 21, Anion Gap 9, Blood Urea Nitrogen 21H, Creatinine 0.59L , Estimat Glomerular Filtration Rate 134, BUN/Creatinine Ratio 36, Glucose Level 98, Lactic Acid Level 0.59, Calcium Level 8.5, Corrected Calcium 9.4, Total Bi lirubin 1.6H, Aspartate Amino Transf (AST/SGOT) 113H, Alanine Aminotransferase (ALT/SGPT) 188H, Alkaline Phosphatase 208H, Troponin I < 0.028, B-Type Natriuretic Peptide 279.0H, Total Protein 5.8L, Albumin 2.9L, Amylase Level 29, Lipase 11, Procalcitonin 0.06 11/17/20 05:47: Urine Color YELLOW, Urine Clarity CLEAR, Urine pH 6.0, Urine Specific [place] 1 .020, Urine Protein NEGATIVE, Urine Glucose (UA) NEGATIVE, Urine Ketones NEGATIVE, Urine Nitrite NEGATIVE, Urine Bilirubin NEGATIVE, Urine Urobilinogen 4.0, Urine Leukocyte Esterase NEGATIVE, Urine RBC (Auto) TRACE-I, Urine RBC 0-2, Urine WBC 2-5, Urine Crystals NONE, Urine Bacteria TRACE, Urine Casts NONE, Urine Mucus NEGATIVE, Urine Culture Indicated NO Radiology NAME: ROGELIO BURRELL MED REC#: [id number] PT STATUS: ADM IN : 1945 PHYSICIAN: NEFTALI HARRIS DO ADMIT DATE: 11/17/20/ICU Signed Date of Exam:11/17/20 CHEST 1 VIEW, AP/PA ONLY INDICATION: Hypoxia Portable AP view of the chest is obtained. Since 11/10/2020 there has been significant increase in airspace disease throughout the right lung most pronounced in the basilar region. Left lung remains clear. There is no evidence of pneumothorax. IMPRESSION: Atelectasis and likely developing pneumonia in the right lung. Progress PA and lateral views would be useful. Dictated by: Dictated on workstation # [id number] Dict: 11/17/20 0649 Trans: 11/17/20 0732 [facility] [id number] Interpreted by: KIET RAM MD Electronically signed by: KIET RAM MD 11/17/20 0732 NAME: ROGELIO BURRELL MED REC#: [id number] PT STATUS: ADM IN : 1945 PHYSICIAN: NEFTALI HARRIS DO ADMIT DATE: 11/17/20/ICU Draft Date of Exam:11/17/20 CT CHEST/ABDOMEN/PELVIS W PROCEDURE: CT chest, abdomen, and pelvis with contrast. TECHNIQUE: Multiple contiguous axial images were obtained through the chest, abdomen, and pelvis after the administration of intravenous contrast. Auto Exposure Controls were utilized during the CT exam to meet ALARA standards for radiation dose reduction. INDICATION: Pancreatic mass. Correlation is made with prior CT study performed 11/08/2020. CT CHEST: Since prior study the patient's right-sided pleural effusion has significantly increased in size. There is also apparent mucous plugging involving right upper, right middle and right lower lobe bronchi with partial collapse of the right upper lobe as well as right middle lobe and right lower lobe. There is trace left pleural effusion. No pericardial effusion is identified. Patchy groundglass infiltrate in the left upper lobe is noted. The left lung is otherwise clear. Areas of atelectasis on the right side are again noted. CT ABDOMEN AND PELVIS: The gallbladder and liver are unremarkable. No focal liver mass is detected. There is no biliary ductal dilatation. The pancreatic head is unremarkable. The circumscribed low-attenuation lesion in the pancreatic body appears stable at approximately 2 cm. No pancreatic ductal dilatation is identified. The spleen is unremarkable. No adrenal mass is detected. A right renal cyst is unchanged. There is no hydronephrosis. Aorta is moderately calcified but is non-aneurysmal. There is occlusion of the left common iliac artery. The small and large bowel loops are normal caliber. There is no obstruction. No free fluid or fluid collection is identified. There is moderate stool throughout the colon. The bony structures are nonacute. The bladder and prostate are unremarkable. IMPRESSION: 1. Increasing right-sided pleural effusion. In addition, there is development of occlusion of the right mainstem bronchus with areas of collapse involving the right upper, right middle and right lower lobes. This is likely owing to mucous plugging. There is also a small left pleural effusion. 2. No acute feature in the abdomen or pelvis is identified. The pancreatic body cystic lesion remains stable. No abdominal or pelvic lymphadenopathy is identified. Dictated on workstation # [id number] Dict: 11/17/20 1104 Trans: 11/17/20 1130 [facility] [id number] Interpreted by: MALCOM HANNA MD Electronically signed by: Assessment/Plan Assessment/Plan Assessment/Plan pleural effusion (large R, small L) mucus plugging (R) atelectesis significant smoking history >30 pack year hx debility/weakness in extremities peripheral vascular disease elevated LFTs severe hyponatremia anemia elevated WBCs Plan is to perform bronchoscopy to evaluate mucus plugging. Preform thoracentesis for large R sided pleural effusion. Both seen on CT chest. Will monitor after. CITLALY JAIME DO 11/17/20 1432: History of Present Illness History of Present Illness Time Seen by Provider: 14:16 History of Present Illness Surgery asked to consult regarding mucous plug and pleural fluid. HPI per IM: History of present illness: This is a very complicated 75-year-old white male who is being moved from rehab urgently after only 2 days in the unit due to altered mental status and hypoxia. My suspicion is he has some sort of neoplastic process because he does have temporal wasting and just appears to be very complicated similar to a neoplastic process that has yet to be diagnosed. He is also experiencing severe hyponatremia of unknown source. He began requiring oxygen last night about 1030 and progressively and slowly declined requiring 5 L of oxygen and new confusion. He has had to be in the ICU before 1 week ago shortly after admission. Patient will have chest x-ray and nolen cultured to evaluate the source of the new confusion and hypoxia. Nebulizer treatments were ordered. He is a long-term smoker and has smoked for 56 years and the degree of hyponatremia would raise my suspicion for some sort of lung cancer but all images do not show any evidence of that but could be some other type of cancer. He remains a full code and will need assistance from eICU due to the complex nature of his acute illnesses. When I saw pt he was comfortable in his ICU bed, did complain of SOB; but better than it had been. Allergies and Home Medications Allergies Coded Allergies: No Known Drug Allergies (Unverified , 11/06/20) Patient Home Medication List Home Medication List Reviewed: Yes Bromfenac Sodium (Bromsite) 5 Ml Drops, 1 DROP OS DAILY, (Reported) Entered as Reported by: DELORES HAQUE on 11/09/20 1129 Ibuprofen (Ibuprofen) 200 Mg Tablet, 600 MG PO Q8H PRN for PAIN-MILD (1-4), (Reported) Entered as Reported by: DELORES HAQUE on 11/09/20 1129 Lisinopril (Lisinopril) 10 Mg Tablet, 10 MG PO DAILY, (Reported) Entered as Reported by: LYLA FIGUEROA on 11/06/20 1504 Ofloxacin (Ofloxacin) 5 Ml Drops, 1 DROPS OS QID, (Reported) Entered as Reported by: DELORES HAQUE on 11/09/20 1129 [Betamax] , 1 EA PO BID, (Reported) Entered as Reported by: DELORES HAQUE on 11/09/20 1303 Discontinued Medications Cefdinir (Cefdinir) 300 Mg Capsule, 300 MG PO BID, (Reported) Entered as Reported by: DELORES HAQUE on 11/09/20 1129 Past Pgqpalm-Lxngob-Febkgh Hx Patient Social History Smoking Status: Current Everyday Smoker Type Used: Cigarettes (20 cigarettes/d) Surgeries History of Surgeries: Yes Surgeries: Orthopedic Respiratory History of Respiratory Disorde: Yes Respiratory Disorders: Pneumonia Cardiovascular History of Cardiac Disorders: Yes Cardiac Disorders: Hypertension Neurological History of Neurological Disord: No Genitourinary History of Genitourinary Disor: Yes Genitourinary Disorders: Prostate Problems Gastrointestinal History of Gastrointestinal Di: Yes Gastrointestinal Disorders: Liver Disease/Jaundice Musculoskeletal History of Musculoskeletal Dis: Yes Musculoskeletal Disorders: Back Injury, Chronic Back Pain Endocrine History of Endocrine Disorders: No HEENT History of HEENT Disorders: No Hearing Impairment: Hard of Hearing, Bilateral Hearing Aide Cancer History of Cancer: No Psychosocial History of Psychiatric Problem: No Family Medical History Significant Family History: Heart Disease, Psychiatric Problems, Stroke Review of Systems-General Constitutional: No chills, No diaphoresis, No dizziness, No fever; malaise, weakness EENTM: hearing loss (chronic); No blurred vision, No double vision Respiratory: No cough; dyspnea on exertion, short of breath Cardiovascular: No chest pain, No palpitations Gastrointestinal: No abdominal pain; constipation; No nausea, No vomiting Genitourinary: No decreased output, No dysuria, No frequency Musculoskeletal: back pain, joint pain, muscle pain Skin: No change in color, No change in hair/nails, No lesions Psychiatric/Neurological: Denies Anxiety, Denies Depressed, Denies Headache; Numbness, Paresthesia Physical Exam-General Problems Physical Exam General Appearance: WD/WN, no apparent distress Eyes: Bilateral Eye PERRL, Bilateral Eye EOMI HEENT: pharynx normal; No scleral icterus (R), No scleral icterus (L) Neck: non-tender, full range of motion, supple Respiratory: chest non-tender, no respiratory distress, no accessory muscle use, decreased breath sounds (right with dullness to percussion), crackles Cardiovascular: regular rate, rhythm, no murmur Gastrointestinal: non tender, soft, no organomegaly, other (decreased bowel sounds) Extremities: non-tender, no pedal edema, no calf tenderness Neurologic/Psychiatric: no motor/sensory deficits, alert, normal mood/affect, oriented x 3 Skin: normal color, warm/dry Lymphatic: no adenopathy (neck, axilla or groin) Assessment/Plan Assessment/Plan Assessment/Plan pleural effusion (large R, small L) mucus plugging (R) atelectesis significant smoking history >30 pack year hx debility/weakness in extremities peripheral vascular disease elevated LFTs severe hyponatremia anemia elevated WBCs Plan is to perform bronchoscopy to evaluate mucus plugging. Perform thoracentesis for large R sided pleural effusion. Both seen on CT chest; which I reviewed myself and discussed his case with Dr. Harris. Will monitor after. O2 as needed. [facility]. Supervisory-Addendum Brief Verification & Attestation Participated in pt care: history, MDM, physical Personally performed: exam, history, MDM, supervision of care Care discussed with: Medical Student Procedures: n/a Verification and Attestation of Medical Student E/M Service A medical student performed and documented this service. I then reviewed and verified all information documented by the medical student and made modifications to such information, when appropriate. I personally performed a physical exam, medical decision making and then discussed any differences between the notes and made revisions as necessary to create one note. Citlaly Jaime , 11/17/20 , 14:32 MARICRUZ LUJAN MED STUDENT Nov 17, 2020 12:19 CITLALY JAIME DO Nov 17, 2020 14:32
--- NOTE | 2020-11-17 13:42 | Progress Note ---
FLOR JONES MED STUDENT 11/17/20 1342: Subjective Date Seen by a Provider: Nov 17, 2020 Time Seen by a Provider: 07:20 Subjective/Events-last exam Patient is a poor historian this am and is confused. Alert and oriented to self and place. Disoriented to time and situation. Denies fevers, chills, chest pain, vomiting, diarrhea. Complains of SOB at rest and "pain all over." O2 via NC at 5L/min. VSS per bedside monitor. Review of Systems General: No Chills, No Night Sweats; Fatigue, Malaise HEENT: No Head Aches, No Visual Changes Pulmonary: Dyspnea; No Cough, No Pleuritic Chest Pain Cardiovascular: No: Chest Pain, Palpitations, Edema Gastrointestinal: No: Nausea, Vomiting, Abdominal Pain Genitourinary: No Dysuria, No Frequency Musculoskeletal: No: neck pain, back pain Neurological: Confusion; No: Weakness, Numbness Focused Exam Lactate Level 11/17/20 04:05: Lactic Acid Level 0.59 Objective Exam Last Set of Vital Signs Vital Signs Date Time Temp Pulse Resp B/P (MAP) Pulse Ox O2 Delivery O2 Flow Rate FiO2 11/17/20 12:00 65 14 149/66 91 High Flow N/C 8.00 11/17/20 12:00 36.6 Capillary Refill : General: Alert, Cooperative, No Acute Distress, Other (Elderly appearing gentlmen appearing slighly older than stated age in no acute distress. ) HEENT: Atraumatic, PERRLA, EOMI, Other (dry mucous membranes) Neck: Supple, No LAD Lungs: Other (Breath sounds significantly diminished in all right lobes. No retractions or accessory muscle use noted. ) Heart: Regular Rate, Other (Radial pulses +2/4 bilat. Cap refill <2 seconds bilaterally. No edmea BLE. ) Abdomen: Normal Bowel Sounds, Soft, No Tenderness Extremities: No Clubbing, No Cyanosis, No Edema, Normal Pulses Skin: No Rashes, No Significant Lesion Neuro: Normal Speech, Sensation Intact, Cranial Nerves 3-12 NL, Other (Proximal muscle weakness noted of bilat hip flexors and shoulder girdle muscles. ) Psych/Mental Status: Mood NL, Other (Confused. ) Results Lab Laboratory Tests 11/17/20 04:05: White Blood Count 11.6H, Red Blood Count 3.77L, Hemoglobin 10.7L, Hematocrit 31L , Mean Corpuscular Volume 83, Mean Corpuscular Hemoglobin 28, Mean Corpuscular Hemoglobin Concent 34, Red Cell Distribution Width 14.1, Platelet Count 307, Mean Platelet Volume 9.6, Immature Granulocyte % (Auto) 1, Neutrophils (%) (Auto) 81H, Lymphocytes (%) (Auto) 9L, Monocytes (%) (Auto) 9, Eosinophils (%) (Auto) 0, Basophils (%) (Auto) 0, Neutrophils # (Auto) 9.4H, Lymphocytes # (Auto) 1.0, Monocytes # (Auto) 1.1H, Eosinophils # (Auto) 0.0, Basophils # (Auto) 0.0, Immature Granulocyte # (Auto) 0.1, Prothrombin Time 13.5, INR Comment 1.0, D-Dimer 1.35H, Sodium Level 121*L, Potassium Level 4.1, Chloride Level 91L, Carbon Dioxide Level 21, Anion Gap 9, Blood Urea Nitrogen 21H, Creatinine 0.59L, Estimat Glomerular Filtration Rate 134, BUN/Creatinine Ratio 36, Glucose Level 98, Lactic Acid Level 0.59, Calcium Level 8.5, Corrected Calcium 9.4, Total Bilirubin 1.6H, Aspartate Amino Transf (AST/SGOT) 113H, Alanine Aminotransferase (ALT/SGPT) 188H, Alkaline Phosphatase 208H, Troponin I < 0.028, B-Type Natriuretic Peptide 279.0H, Total Protein 5.8L, Albumin 2.9L, Amylase Level 29, Lipase 11, Procalcitonin 0.06 11/17/20 05:47: Urine Color YELLOW, Urine Clarity CLEAR, Urine pH 6.0, Urine Specific [place] 1.020, Urine Protein NEGATIVE, Urine Glucose (UA) NEGATIVE, Urine Ketones NEGATIVE, Urine Nitrite NEGATIVE, Urine Bilirubin NEGATIVE, Urine Urobilinogen 4.0, Urine Leukocyte Esterase NEGATIVE, Urine RBC (Auto) TRACE-I, Urine RBC 0-2, Urine WBC 2-5, Urine Crystals NONE, Urine Bacteria TRACE, Urine Casts NONE, Urine Mucus NEGATIVE, Urine Culture Indicated NO Assessment/Plan Assessment/Plan Assess & Plan/Chief Complaint Encephalopathy -uncertain etiology -continue to monitor -nolen culture Hypoxia -vanco and meropenem ordered in addition to doxy -tolerating O2 via NC, currently 5-6L -titrate to keep sat's >90% -IS Q2hr WA -cough and deep breathing encouraged Hyponatremia -possibly SIADH associated with possible malignancy given smoking history -bronch planned with possible endobronchial biopsy R main stem -Na 121 this am -continue NS at 125/hr -continue to monitor Bilateral pleural effusions R>L -CT chest/abd/pelvis demonstrated increasing pleural effusion right, left small pleural effusion -consult general surgery -plan for thoracentesis today Mucous plugging -CT chest/abd/pelvis demonstrated mucous plugging involving R main stem bronchus, with some degree of collapse of all right sided lobes -consult general surgery for management, will need bronchoscopy Transaminitis -continue to monitor Anemia -hgb 10.7 today -stable, continue to monitor Debility/Weakness -consult PT and OT Tobacco use ->30 pack year history PVD EUSEBIA HARRIS DO 11/18/20 0555: Assessment/Plan Assessment/Plan Assess & Plan/Chief Complaint Mr. Ramirez is a 75yo male with a PMH significant for tobacco use, COPD, PAD, BPH, HTN, HFpEF who is currently being managed in the ICU for acute weakness, mucus plug of right lung and hyponatremia. Problems being managed include the following: Acute hypoxic respiratory failure Hyponatremia: Malignancy vs SIIADH vs renal Pleural effusion Mucous plug of right mainstem bronchus Debility Constipation PAD 50 pack year smoking history HFpEF Plan -Thoracentesis today 11/17 -Will plan bronchoscopy for mucous plug of right bronchus -Pending results of CT -Continue supplemental oxygen -Continue vanc, meropenem, doxy -Continue bowel regimen -Continue metoprolol succinate Critical Care: Critically Ill Patient Supervisory-Addendum Brief Verification & Attestation Participated in pt care: history, MDM, physical Personally performed: exam, history, MDM, supervision of care Care discussed with: Medical Student Procedures: n/a Results interpretation: Verified all documentation Verification and Attestation of Medical Student E/M Service A medical student performed and documented this service in my presence. I reviewed and verified all information documented by the medical student and made modifications to such information, when appropriate. I personally performed the physical exam and medical decision making. Eusebia Harris, Nov 18, 2020,05:54 FLOR JONES MED STUDENT Nov 17, 2020 13:42 EUSEBIA HARRIS DO Nov 18, 2020 05:55
--- NOTE | 2020-11-17 14:17 | Progress Note - Hospitalist ---
MARIA EUGENIA PAREDES 11/17/20 1417: Subjective HPI/CC On Admission Date Seen by Provider: Nov 17, 2020 Time Seen by Provider: 10:30 CC: AMS with hypoxia Subjective/Events-last exam Pt was transferred from inpatient rehab to ICU yesterday for worsening debillity, hypoxia, and cough. Today Mr. Ramirez reports worsening weakness and shortness of breath. Since admission to ICU he has required supplementary oxygen: currently 5L NC. Continues to experience confusion. Reports subjective progressive decline. Reports "sciatica" pain consistent with PAD. Reports persistent cough. Denies fevers, chills, nausea, vomiting. Does not recall previous BM. Review of Systems General: No Chills, No Night Sweats; Fatigue, Malaise; No Appetite HEENT: Head Aches, Ear Pain Pulmonary: Dyspnea, Cough; No Pleuritic Chest Pain Cardiovascular: No: Chest Pain, Palpitations Gastrointestinal: Constipation; No: Nausea, Vomiting, Abdominal Pain, Diarrhea Genitourinary: No Dysuria, No Incontinence Focused Exam Lactate Level 11/17/20 04:05: Lactic Acid Level 0.59 Objective Exam Vital Signs Vital Signs Date Time Temp Pulse Resp B/P (MAP) Pulse Ox O2 Delivery O2 Flow Rate FiO2 11/17/20 12:00 65 14 149/66 91 High Flow N/C 8.00 11/17/20 12:00 36.6 Capillary Refill : General Appearance: Chronically ill, Cachetic, Mild Distress, Thin Respiratory: Chest Non Tender, Crackles, Decreased Breath Sounds (notably in right lung) Cardiovascular: Regular Rate, Rhythm, No Edema, No Murmur, Normal Peripheral Pulses Gastrointestinal: Normal Bowel Sounds Extremity: Non Tender, No Pedal Edema Neurologic/Psychiatric: Alert Skin: Normal Color Results/Procedures Lab Laboratory Tests 11/17/20 04:05 Patient resulted labs reviewed. Assessment/Plan Assessment and Plan Assess & Plan/Chief Complaint Mr. Ramirez is a 75yo male with a PMH significant for tobacco use, COPD, PAD, BPH, HTN, HFpEF who is currently being managed in the ICU for acute weakness, mucus plug of right lung and hyponatremia. Problems being managed include the following: Acute hypoxic respiratory failure Hyponatremia: Malignancy vs SIIADH vs renal Pleural effusion Mucous plug of right mainstem bronchus Debility Constipation PAD 50 pack year smoking history HFpEF Plan -Thoracentesis today 11/17 -Will plan bronchoscopy for mucous plug of right bronchus -Pending results of CT -Continue supplemental oxygen -Continue vanc, meropenem, doxy -Continue bowel regimen -Continue metoprolol succinate Critical Care: Critically Ill Patient NEFTALI HARRIS DO 11/18/20 0554: MARIA EUGENIA PAREDES Nov 17, 2020 14:17 NEFTALI HARRIS DO Nov 18, 2020 05:54
[2020-11-17] MEDS ORDERED: MIDAZOLAM 5 MG/5 ML (VERSED) VIAL ONE (14:21)
--- NOTE | 2020-11-17 15:18 | Anesthesia-General Post-Op ---
MAC Patient Condition Mental Status/LOC: Same as Preop Cardiovascular: Satisfactory Nausea/Vomiting: Absent Respiratory: Satisfactory Pain: Controlled Complications: Absent Post Op Complications Complications None Follow Up Care/Instructions Patient Instructions None needed. Anesthesiology Discharge Order Discharge Order Patient is doing well, no complaints, stable vital signs, no apparent adverse anesthesia problems. No complications reported per nursing. ANGELITO SANCHEZ CRNA Nov 17, 2020 15:18
[2020-11-17] MEDS ORDERED: proPOfol 200 MG/20 ML (DIPRIVAN) VIAL IV ONE (15:20)
--- NOTE | 2020-11-17 15:43 | Progress Note-Post Operative ---
Post-Operative Progess Note Surgeon (s)/Biological Chemist (s) Surgeon CITLALY JAIME DO Biological Chemist: none Pre-Operative Diagnosis right lung mucous plugging, hypoxia Post-Operative Diagnosis same Procedure & Operative Findings Date of Procedure 11/17/20 Procedure Performed/Findings Bronchoscopy with suctioning of mucous plugs and washings After appropriate sedation was achieved, the bronchoscope was introduced via the left nares and advanced to the upper larynx. Plain lidocaine 2% was used to anesthetize the laryngeal structures. After adequate anesthesia was achieved, close inspection of the laryngeal structures could be performed. Both vocal cords moved appropriately. Under direct visualization, the bronchoscope was advanced past the vocal cords and into the distal trachea. Additional 2% plain lidocaine was used in the trachea and the main stem bronchi for anesthesia. After adequate anesthesia was achieved, close inspection of the airways could be undertaken. The left tracheobronchial tree was inspected closely to the level of the subsegmental bronchi. All bronchi are patent with no endobronchial lesions and no mucosal lesions noted; there was a moderate amount of fluid seen. The right tracheobronchial tree was completely plugged and had to be suctioned out. Flushed with some saline to attempt to break up the mucous plug; able to suction up some mucous, but then had to pull the bronchoscope completely out to flush out the thick mucus. Did this about 5 times until all of the mucus plugs were removed. There was some extra fluid in the bronchi, but was able to suction most of it out and noted some mild edema of the mucosa. The bronchoscope was then introduced to the right upper lobe specifically to the posterior segment and washings were taken from that area. He had minimal coughing during the diagnostic procedure. There was minimal bleeding from his left nares. The procedure was completed and all samples were submitted for appropriate studies. He tolerated the procedure well. Anesthesia Type IV sedation by SUBWAY TRAIN OPERATOR Estimated Blood Loss Estimated blood loss (mL): scant Specimens/Packing Specimens Removed mucous plug and bronchial washing; mostly from right but some from left CITLALY JAIME DO Nov 17, 2020 15:43
--- NOTE | 2020-11-17 16:05 | Diagnostic Imaging Report ---
INDICATION: Post bronchoscopy. EXAMINATION: Chest 11/17/2020. COMPARISON: 11/17/2020 FINDINGS: There is persistent airspace opacity throughout the right mid and lower lung improved from previous imaging. The right hemidiaphragm is elevated. There is atelectasis in the left infrahilar region. The remaining left lung is clear. The heart is stable. Pulmonary vasculature is congested. No pneumothorax. IMPRESSION: 1. Diffuse infiltrates throughout the right mid and lower lung improved from previous imaging with remaining chest stable. No pneumothorax identified. Dictated by: Dictated on workstation # [id number]
[2020-11-17] MEDS: VANCOMYCIN 1 GM/NS 250 ML IVPB IV SCH ×2 (16:18)
[2020-11-17] MEDS ORDERED: LIDOCAINE PF 1% 2 ML VIAL IJ ONE (19:27)
[2020-11-17] MEDS ORDERED: LIDOCAINE JELLY 2% 6 ML SYRINGE MM ONE (19:27)
[2020-11-17] MEDS: doxAzosin 2 MG (CARDURA) TAB PO SCH (20:57)
--- NOTE | 2020-11-17 23:54 | CONSULTATION REPORT ---
DATE OF SERVICE: 11/17/2020 The patient is admitted to ICU bed 8. PHYSICAL REQUESTING CONSULTATION: Eusebia Diego DO PRIMARY PHYSICIAN: Rishabh Johns DO HISTORY: A 75-year-old male initially admitted to the hospital on 11/08/2020 with fever, shortness of breath and probable pneumonia/sepsis. He was on broad spectrum antibiotics and ICU and eventually moved to rehabilitation unit. He was noted to have elevated liver function studies and a workup for tick-borne illnesses was done and empirically treated with doxycycline. He was moved back to intensive care unit because of altered mental status and hypoxemia. Hematology/oncology consultation was requested for concurrent care. PAST MEDICAL HISTORY: Significant for hypertension for several years, BPH, peripheral arterial disease with occlusion of left iliac artery with collaterals and history of osteoarthritis. PAST SURGICAL HISTORY: Testicular cyst removed several years ago. The patient had shrapnel from his right leg removed and required a right-hand surgery due to trauma. SOCIAL HISTORY: The patient lives alone and does not have any children. He has extensive tobacco use, starting at age 19, averaging 1 to 1.5 packs per day. He quit smoking intermittently for short periods but resumed it and has been smoking at the time of admission. Denied any significant alcohol or recreational drug use. 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 He is unsure about exposure to Agent [place]. 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 He used to walk 3 to 4 miles a day because of his job, but more recently, he has not been able to walk because of lower extremity weakness and pain. FAMILY HISTORY: Significant for his father with hypertension and diabetes mellitus. His older brother had malignancy in his neck. His younger brother had multiple malignancies, but the patient does not know any details. PHYSICAL EXAMINATION: GENERAL: Showed elderly male, weak appearing, awake and answering questions fairly and in moderate distress due to shortness of breath. VITAL SIGNS: He was afebrile, pulse rate of 64, respirations 18, blood pressure 150/67 with oxygen saturation of 93% on high flow oxygen by nasal cannula at 10 liters per minute. HEENT: Normocephalic, extraocular muscles intact, conjunctivae pink, oral mucosa moist. NECK: Supple, with no JVD. No cervical, supraclavicular or axillary lymphadenopathy palpable. CHEST: Symmetrical. LUNGS: With diminished breath sounds in the right lower lung field. Left with scattered rhonchi, but no wheezes heard. CARDIOVASCULAR: Regular in rate and rhythm. No murmurs or gallops heard. ABDOMEN: Soft, nontender with no hepatosplenomegaly or other masses palpable. EXTREMITIES: Showed both lower extremities to be warm to touch. No edema noted. NEUROLOGIC: Showed no focal motor deficits. The patient is able to move all four extremities. LABORATORY DATA: CBC done today showed WBC 11.6, hemoglobin 10.7, platelet count 307,000 with neutrophil count 9.4, lymphocyte count 1.0 and monocyte count 1.1. Chemistry panel showed sodium level of 121. Rest of the electrolytes relatively normal. BUN was 21 and creatinine 0.59 with GFR 134 mL per minute. Total bilirubin was elevated at 1.6, AST 113, ALT 188 with alkaline phosphatase 208. Albumin was 2.9. CT scan of the chest, abdomen and pelvis done today showed increased right sided pleural effusion. Occlusion of right main stem bronchus with areas of collapse involving the right upper, middle and lower lobes, likely due to mucous plugging. Small left pleural effusion noted. Pancreatic body cystic lesion measuring 2 cm is relatively stable and has been noted since 2013. Right renal cyst was also unchanged. No other lymphadenopathy or abnormal masses noted. IMPRESSION/RECOMMENDATIONS: 1. 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 2. Mucous plugging of right mainstem bronchus with collapse of right upper, middle and lower lobe. The patient underwent bronchoscopy with washings and significant amount of mucous was suctioned out. 3. Large right pleural effusion. Agree with diagnostic and therapeutic thoracentesis. 4. Significant tobacco use with COPD. Continue oxygen supplementation and bronchodilators. 6. If the hyponatremia does not improve, the patient may need either a CT or MRI of the brain to rule out an intracranial pathology causing this. 7. We will follow the patient with you. Thank you for allowing me to participate in this patient's care. I will follow the patient with you and make appropriate recommendations. Job ID: [id number] DocumentID: [id number] Dictated Date: 11/17/2020 17:25:14 Geosciences Faculty Member Date: 11/17/2020 23:54:11 Dictated By: BELGICA THOMPSON MD MTDD
[2020-11-17 23:55] VITALS: BP 138/58
[2020-11-18] MEDS ORDERED: RT-ALBUTEROL/IPRATROPIUM 3 ML (DUONEB) VIAL INH PRN
--- NOTE | 2020-11-18 00:32 | Tele-ICU Progress Note ---
Subjective Date Seen by a Provider: Nov 18, 2020 Time Seen by a Provider: 00:29 Subjective/Events-last exam his patient earlier transferred from rehab unit to the ICU because of hypoxia requiring increasing oxygen needs. Chest x-ray showed moderate to large right pleural effusion. Subsequently a CT of the abdomen pelvis and chest with contrast is done which is shoulder large right pleural effusion with atelectasis of the right upper lobe middle lobe and lower lobe and a questionable mucous plugging in the bronchi. Given his extensive smoking history and hyponatremia it is highly suspicious that patient probably has an underlying malignancy particularly the lung even though there is a pancreatic hypodense lesion which I am not sure whether it is malignant or benign. Pt had a bronch and he is scheduled for thora in am. Developed sob and was transferred to icu on . Sepsis Event Evaluation Height, Weight, BMI Height: '" Weight: lbs. oz. kg; 24.82 BMI Method: Focused Exam Lactate Level 11/17/20 04:05: Lactic Acid Level 0.59 Exam Exam Patient acknowledged, consented, and participated in this virtual visit which was conducted using real time audio/video Vital Signs Date Time Temp Pulse Resp B/P (MAP) Pulse Ox O2 Delivery O2 Flow Rate FiO2 11/17/20 23:55 66 24 97 60.00 11/17/20 23:45 36.6 11/17/20 20:00 70 18 156/60 95 High Flow N/C 10.00 11/17/20 19:24 36.6 11/17/20 19:00 67 11/17/20 16:00 64 18 150/67 93 High Flow N/C 10.00 11/17/20 15:59 High Flow N/C 10.00 11/17/20 15:54 36.8 11/17/20 15:49 OxyMask 10.00 11/17/20 15:11 OxyMask 10.00 11/17/20 14:39 24 11/17/20 12:32 66 11/17/20 12:00 65 14 149/66 91 High Flow N/C 8.00 11/17/20 12:00 36.6 11/17/20 11:08 High Flow N/C 8.00 11/17/20 09:00 64 13 91 High Flow N/C 8.00 11/17/20 08:56 High Flow N/C 8.00 11/17/20 08:28 Nasal Cannula 5.00 11/17/20 08:00 36.7 11/17/20 08:00 66 12 168/67 93 Nasal Cannula 5.00 11/17/20 07:15 64 11/17/20 07:00 65 15 161/60 94 Nasal Cannula 5.00 11/17/20 06:00 65 21 142/62 94 Nasal Cannula 5.00 11/17/20 05:00 57 17 155/62 95 Nasal Cannula 5.00 11/17/20 04:45 64 18 152/63 94 Nasal Cannula 5.00 11/17/20 04:30 66 16 161/63 95 Nasal Cannula 5.00 11/17/20 04:15 61 18 154/62 95 Nasal Cannula 5.00 11/17/20 04:00 36.6 65 15 151/64 92 Nasal Cannula 5.00 11/17/20 04:00 94 Nasal Cannula 5.00 11/17/20 03:51 64 I & O 11/18/20 07:00 Intake Total 3065 ml Output Total 4300 ml Balance -1235 ml Height & Weight Height: '" Weight: lbs. oz. kg; 24.82 BMI Method: General Appearance: Chronically ill, Cachetic, Mild Distress, Thin Respiratory: Chest Non Tender, Crackles, Decreased Breath Sounds (notably in right lung) Cardiovascular: Regular Rate, Rhythm, No Edema, No Murmur, Normal Peripheral Pulses Peripheral Pulses: 1+ Dorsalis Pedis (R), 1+ Left Dors-Pedis (L) (see free text) Gastrointestinal: non tender, soft, no organomegaly, other (decreased bowel sounds) Extremity: Non Tender, No Pedal Edema Neurologic/Psychiatric: Alert Skin: Normal Color Results Lab Laboratory Tests 11/17/20 04:05 Assessment/Plan Assessment/Plan Acute hypoxemic resp failure -ro fluid overload/ increased pleural effusion -cxray/ abg - bipap 23/10 -basil labs ordered we will follow pt was visualized/ labs dg reviewed; dw bed side ZACKARY Emanuel MD Nov 18, 2020 00:32
[2020-11-18 00:56] LABS: BASOPHILS % (AUTO) 0 % (0-10); EOSINOPHILS % (AUTO) 0 % (0-10); HEMATOCRIT 30 % (40-54); HEMOGLOBIN 10.2 g/dL (13.3-17.7); LYMPHOCYTES # (AUTO) 0.5 10^3/uL (1.0-4.0); LYMPHOCYTES % (AUTO) 2 % (12-44); MEAN CORPUSCULAR HEMOGLOBIN 29 pg (25-34); MEAN CORPUSCULAR HGB CONC 35 g/dL (32-36); MEAN CORPUSCULAR VOLUME 83 fL (80-99); MEAN PLATELET VOLUME 9.4 fL (9.0-12.2); MONOCYTES # (AUTO) 0.9 10^3/uL (0.0-1.0); MONOCYTES % (AUTO) 4 % (0-12); NEUTROPHILS # (AUTO) 19.7 10^3/uL (1.8-7.8); NEUTROPHILS % (AUTO) 92 % (42-75); PLATELET COUNT 281 10^3/uL (130-400); WHITE BLOOD COUNT 21.4 10^3/uL (4.3-11.0)
[2020-11-18 01:15] LABS: ALBUMIN 2.7 GM/DL (3.2-4.5)
[2020-11-18 01:17] LABS: CALCIUM 8.2 MG/DL (8.5-10.1)
[2020-11-18 01:18] LABS: TOTAL PROTEIN 5.3 GM/DL (6.4-8.2)
[2020-11-18 01:19] LABS: ABG OXYGEN SATURATION 99 % (94-100); ABG PCO2 35 MMHG (35-45); ABG PH 7.44 (7.37-7.43); ABG PO2 141 MMHG (79-93); ABG TCO2 24.9 MMOL/L (21.0-31.0)
[2020-11-18 01:21] LABS: CREATININE SERUM 0.54 MG/DL (0.60-1.30)
[2020-11-18 01:25] LABS: ALLENS TEST YES-POS; INSPIRED O2 60% BIPAP; VENTILATOR NO
[2020-11-18 01:26] LABS: PATIENT TEMP 36.6
[2020-11-18 02:25] VITALS: BP 123/102
[2020-11-18 02:26] LABS: BAND NEUTROPHILS 11 %; HYPOCHROMASIA SLIGHT; LYMPHOCYTES % (MANUAL) 3 %; MICROCYTOSIS MODERATE; MONOCYTES % (MANUAL) 2 %; NEUTROPHILS % (MANUAL) 84 %; TARGET CELLS SLIGHT
[2020-11-18 03:31] LABS: PHOSPHORUS 3.7 MG/DL (2.3-4.7)
[2020-11-18 03:33] LABS: MAGNESIUM 1.6 MG/DL (1.6-2.4)
[2020-11-18] MEDS: VANCOMYCIN 1 GM/NS 250 ML IVPB IV SCH ×6 (05:33→23:33)
[2020-11-18] MEDS: MEROPENEM 500 MG in WATER (STERILE) FOR INJECTION 10 ML IV SCH ×4 (05:34→23:32)
--- NOTE | 2020-11-18 07:29 | Diagnostic Imaging Report ---
INDICATION: Pneumonia. Comparison made with prior examination of 11/17/2020. FINDINGS: Heart size is unchanged. There are bilateral perihilar infiltrates as well as a right base infiltrate. There is some elevation of the right hemidiaphragm. No pneumothorax. Mediastinum is unremarkable IMPRESSION: Bilateral perihilar infiltrates. A left perihilar infiltrate is increased since prior examination. There is also minimal right basilar infiltrate. This is suspect for underlying pneumonia. Recommend clinical correlation. Unchanged elevation of right hemidiaphragm. Dictated by: Dictated on workstation # [id number]
--- NOTE | 2020-11-18 08:27 | Progress Note ---
Subjective Date Seen by a Provider: Nov 18, 2020 Time Seen by a Provider: 11:30 Subjective/Events-last exam Patient less confused today Changed to ICU status again for eICU coverage due to BiPAP dependence Thoracentesis today Discontinue doxycycline Eraxis ordered due to yeast on cultures Coarseness in the lungs noted Dr. 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 from comorbidities Review of Systems General: Fatigue Pulmonary: Dyspnea Neurological: Confusion Focused Exam Lactate Level 11/17/20 04:05: Lactic Acid Level 0.59 Objective Exam Last Set of Vital Signs Vital Signs Date Time Temp Pulse Resp B/P (MAP) Pulse Ox O2 Delivery O2 Flow Rate FiO2 11/18/20 08:00 64 23 123/49 94 NIV Bilevel 35.00 11/18/20 04:00 40 11/18/20 00:15 36.6 Capillary Refill : I&O Intake and Output 11/18/20 00:00 Intake Total 4115 ml Output Total 4625 ml Balance -510 ml Intake Oral 1320 ml IV Total 2795 ml Output Urine Total 4625 ml Daily Weight Change Unsure General: Alert, Cooperative, No Acute Distress Lungs: Other (Coarse breath sounds throughout) Heart: Regular Rate Psych/Mental Status: Other (Subtle confusion with poor recall) Results Lab Laboratory Tests 11/18/20 00:45: White Blood Count 21.4H, Red Blood Count 3.58L, Hemoglobin 10.2L, Hematocrit 30L , Mean Corpuscular Volume 83, Mean Corpuscular Hemoglobin 29, Mean Corpuscular Hemoglobin Concent 35, Red Cell Distribution Width 14.0, Platelet Count 281, Mean Platelet Volume 9.4, Immature Granulocyte % (Auto) 1, Neutrophils (%) (Auto) 92H, Lymphocytes (%) (Auto) 2L, Monocytes (%) (Auto) 4, Eosinophils (%) (Auto) 0, Basophils (%) (Auto) 0, Neutrophils # (Auto) 19.7H, Lymphocytes # (Auto) 0.5L, Monocytes # (Auto) 0.9, Eosinophils # (Auto) 0.0, Basophils # (Auto) 0.0, Immature Granulocyte # (Auto) 0.2H, Neutrophils % (Manual) 84, Lymphocytes % (Manual) 3, Monocytes % (Manual) 2, Band Neutrophils 11, Hypochromasia SLIGHT, Microcytosis MODERATE, Target Cells SLIGHT, Sodium Level 125*L, Potassium Level 4.0, Chloride Level 94L, Carbon Dioxide Level 21, Anion Gap 10, Blood Urea Nitrogen 19H, Creatinine 0.54L, Estimat Glomerular Filtration Rate 148, BUN/Creatinine Ratio 35, Glucose Level 84, Calcium Level 8.2L, Corrected Calcium 9.2, Phosphorus Level 3.7, Magnesium Level 1.6, Total Bilirubin 2.0H, Aspartate Amino Transf (AST/SGOT) 99H, Alanine Aminotransferase (ALT/SGPT) 180H, Alkaline Phosphatase 165H, Total Protein 5.3L, Albumin 2.7L 11/18/20 01:09: Blood Gas Puncture Site LEFT RADIAL, Blood Gas Patient Temperature 36.6, Arterial Blood pH 7.44H, Arterial Blood Partial Pressure CO2 35, Arterial Blood Partial Pressure O2 141H, Arterial Blood HCO3 24, Arterial Blood Total CO2 24.9, Arterial Blood Oxygen Saturation 99, Arterial Blood Base Excess 0.0, Brannon Test YES-POS, Blood Gas Ventilator Setting NO, Blood Gas Inspired Oxygen 60% BIPAP Microbiology 11/17/20 Gram Stain, Resulted Pending 11/17/20 Bronchial Culture - Preliminary, Resulted YEAST 11/17/20 Fungal Culture 1, Resulted Pending Assessment/Plan Assessment/Plan Assess & Plan/Chief Complaint Mr. Ramirez is a 75yo male with a PMH significant for tobacco use, COPD, PAD, BPH, HTN, HFpEF who is currently being managed in the ICU for acute weakness, mucus plug of right lung and hyponatremia. Problems being managed include the following: Acute hypoxic respiratory failure Hyponatremia: Malignancy vs SIIADH vs renal Pleural effusion set for thoracentesis today Mucous plug of right mainstem bronchus status post bronchoscopy Friday Debility Constipation PAD 50 pack year smoking history HFpEF Plan: Thoracentesis Monitor closely BiPAP when needed Plan -Thoracentesis today 11/17 -Will plan bronchoscopy for mucous plug of right bronchus -Pending results of CT -Continue supplemental oxygen -Continue vanc, meropenem, doxy -Continue bowel regimen -Continue metoprolol succinate Critical Care: Critically Ill Patient NEFTALI HARRIS DO Nov 18, 2020 08:27
[2020-11-18] MEDS: amLODIPine 10 MG (NORVASC) TAB PO SCH (09:01)
[2020-11-18] MEDS: NICOTINE 14 MG (NICODERM) PATCH TD SCH (09:01)
[2020-11-18] MEDS: lisINopril 40 MG (PRINIVIL) TABLET PO SCH (09:01)
[2020-11-18] MEDS: meTOprolol SUCCINATE 100 MG (TOPROL XL) TAB PO SCH ×2 (09:01→20:44)
[2020-11-18] MEDS: ENOXAPARIN 40 MG/0.4 ML (LOVENOX) SYR SC SCH (09:01)
[2020-11-18] MEDS: ASPIRIN 81 MG CHEW (CHILDREN'S ASA) PO SCH (09:01)
[2020-11-18] MEDS: polyethylene glycoL POWDER 17 GM (MIRALAX) PACK PO SCH ×2 (09:02→22:25)
[2020-11-18] MEDS: SENNA W/DOCUSATE (SENOKOT S) TABLET PO SCH ×2 (09:02→22:25)
[2020-11-18] MEDS: DOXYCYCLINE 100 MG (VIBRAMYCIN) TABLET PO SCH (09:07)
[2020-11-18] MEDS: SODIUM CHLORIDE 1 GM TABLET PO SCH ×2 (09:07→21:00)
--- NOTE | 2020-11-18 10:23 | Tele-ICU Progress Note ---
Subjective Date Seen by a Provider: Nov 18, 2020 Time Seen by a Provider: 10:00 Subjective/Events-last exam This virtual visit was conducted using real time audio/video. Thank you for asking us to see this patient for respiratory insufficiency and distress. HPC: Recent events: S/P bronch w extensive mucus plugging. PE: VSS O2 sat 99% on BiPAP 40% HEENT: No obvious masses, adenopathy or JVD. Chest: Coarse sounds on auscultation. Mucus +++. CV: RRR S1 S2 No murmur or added sounds. Abd: Non-tender. Bowel sounds Y. : Unremarkable. [place] Y. 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 No obvious focal findings. Extremities: 1+ edema. Capillary refill < 3 seconds. Skin: unremarkable. Results: Decreased Alb 2.7, Hb 10.2 . Increased WCC 21.4, BUN 19. Na improved to 125. CTC w increased effusion, [place] infilt. A/P: Respiratory insufficiency/distress: Cont BiPAP. For thoracentesis later per RN. Send fluid for cytology r/o CA. Available chart/ vitals / labs /images reviewed. Video assessment done using teleICU camera, rest of exam as per RN. Monitor for increasing oxygenation needs and/or need for intubation. Critical Care: critically ill patient. Cont abx. Start Mucomyst for plugging. Discussed with CHERRIE Schmidt. Asked RN to reach out to eICU if any questions or concerns later. Time spent with patient/coordination of care with other health professionals (mins): 15 Sepsis Event Evaluation Height, Weight, BMI Height: '" Weight: lbs. oz. kg; 24.82 BMI Method: Focused Exam Lactate Level 11/17/20 04:05: Lactic Acid Level 0.59 Exam Exam Patient acknowledged, consented, and participated in this virtual visit which was conducted using real time audio/video Vital Signs Date Time Temp Pulse Resp B/P (MAP) Pulse Ox O2 Delivery O2 Flow Rate FiO2 11/18/20 08:27 36.5 11/18/20 08:00 64 23 123/49 94 NIV Bilevel 35.00 11/18/20 07:54 NIV Bilevel 35.00 11/18/20 07:36 68 21 95 40.00 11/18/20 07:33 High Flow N/C 11/18/20 07:00 63 18 98 NIV Bilevel 40.00 11/18/20 07:00 67 11/18/20 06:00 64 25 130/56 97 NIV Bilevel 40.00 11/18/20 05:00 62 19 124/56 97 NIV Bilevel 40.00 11/18/20 04:00 NIV Bilevel 40 11/18/20 04:00 65 18 125/63 97 NIV Bilevel 40.00 11/18/20 03:30 NIV Bilevel 40.00 11/18/20 03:00 63 20 126/54 98 NIV Bilevel 60.00 11/18/20 02:25 62 21 99 40.00 11/18/20 02:00 68 25 123/102 99 NIV Bilevel 60.00 11/18/20 01:00 67 22 134/62 100 NIV Bilevel 60.00 11/18/20 01:00 70 11/18/20 00:15 36.6 NIV Bilevel 60.00 11/17/20 23:55 66 24 97 60.00 11/17/20 23:55 97 NIV Bilevel 60.00 11/17/20 23:51 92 Non Rebreather 15.00 11/17/20 23:51 Non Rebreather 15.00 11/17/20 23:50 83 High Flow N/C 10.00 11/17/20 23:45 36.6 11/17/20 23:00 71 18 138/58 92 High Flow N/C 10.00 11/17/20 20:55 OxyMask 10.00 11/17/20 20:00 70 18 156/60 95 High Flow N/C 10.00 11/17/20 19:24 36.6 11/17/20 19:00 67 11/17/20 16:00 64 18 150/67 93 High Flow N/C 10.00 11/17/20 15:59 High Flow N/C 10.00 11/17/20 15:54 36.8 11/17/20 15:49 OxyMask 10.00 11/17/20 15:11 OxyMask 10.00 11/17/20 14:39 24 11/17/20 12:32 66 11/17/20 12:00 65 14 149/66 91 High Flow N/C 8.00 11/17/20 12:00 36.6 11/17/20 11:08 High Flow N/C 8.00 I & O 11/18/20 06:59 Intake Total 3215 ml Output Total 4850 ml Balance -1635 ml Height & Weight Height: '" Weight: lbs. oz. kg; 24.82 BMI Method: General Appearance: WD/WN, Anxious, Chronically ill, Thin HEENT: PERRL/EOMI, Normal ENT Inspection, Pharynx Normal Neck: Full Range of Motion, Normal Inspection, Non Tender, Supple, Carotid Bruit Respiratory: Chest Non Tender, Normal Breath Sounds, No Accessory Muscle Use, No Respiratory Distress, Decreased Breath Sounds Cardiovascular: Regular Rate, Rhythm, No Edema, No Gallop, No JVD, No Murmur, Normal Peripheral Pulses Peripheral Pulses: 1+ Dorsalis Pedis (R), 1+ Left Dors-Pedis (L) (see free text) Gastrointestinal: non tender, soft, no organomegaly, other (decreased bowel sounds) Extremity: Normal Capillary Refill, Normal Inspection, Normal Range of Motion, Non Tender, No Calf Tenderness, No Pedal Edema Neurologic/Psychiatric: Alert, No Motor/Sensory Deficits, Normal Mood/Affect, Disoriented Skin: Normal Color, Warm/Dry Lymphatic: No Adenopathy Results Lab Laboratory Tests 11/17/20 04:05 11/18/20 00:45 Assessment/Plan Assessment/Plan See free text. Critical Care: Critically Ill Patient EL SPARKS MD Nov 18, 2020 10:23
--- NOTE | 2020-11-18 10:53 | Progress Note ---
Standard Progress Note Progress Notes/Assess & Plan Date Seen by a Provider: Nov 18, 2020 Time Seen by a Provider: 10:49 Progress/Assessment & Plan 75-year-old male with worsening shortness of breath and weakness and noted to have hyponatremia. CT scans with mucous plugging of right lung with atelectasis and large right effusion, status post thoracentesis with the removal of significant amount of mucous plugs. Patient is breathing better today and has better lung sounds on the right side compared to yesterday. Scheduled for right diagnostic and therapeutic thoracentesis later today. CT scans with no evidence of malignancy. Hyponatremia and SIADH most likely due to lung pathology. Gram stain studies of right BAL showing yeast. Tickborne panel negative. May consider discontinuinging doxycycline and adding antifungal agent. Will await cytology report from thoracentesis to rule out lung malignancy. Will follow patient with you. Focused Exam Lactate Level 11/17/20 04:05: Lactic Acid Level 0.59 BELGICA THOMPSON Nov 18, 2020 10:53
[2020-11-18] MEDS: PATCH REMOVAL TP SCH (11:04)
[2020-11-18] MEDS ORDERED: ANIDULAFUNGIN INJECTION 200 MG in NS (IVPB) 250 ML IV ONE (12:30)
--- NOTE | 2020-11-18 12:37 | Progress Note - Surgery ---
MARICRUZ LUJAN MED STUDENT 11/18/20 1237: Subjective Date Seen by a Provider: Nov 18, 2020 Time Seen by a Provider: 07:10 Subjective/Events-last exam surgery consult for: SOB/hypoxia Patient is resting comfortably in bed. He was moved to a different ICU room due to a hypoxic episode overnight. His saturations dropped significantly and patient was put on a bipap. He has a history of CHF and is on a fluid restriction diet of 1,000. While in the room, the bipap was taken off for a couple of minutes and the O2 sats dropped immediately from 95% to 90%. Today, he continues to cough up phegm and become SOB. He doesn't have any complaints with BM or urination. Review of Systems General: No Chills; Fatigue HEENT: No Head Aches, No Visual Changes, No Eye Pain Pulmonary: Dyspnea, Cough Cardiovascular: No: Chest Pain, Palpitations Gastrointestinal: No: Nausea, Vomiting, Abdominal Pain, Diarrhea, Constipation Genitourinary: No Dysuria, No Frequency Neurological: No: Weakness, Numbness Focused Exam Lactate Level 11/17/20 04:05: Lactic Acid Level 0.59 Objective Exam Vital Signs Date Time Temp Pulse Resp B/P (MAP) Pulse Ox O2 Delivery O2 Flow Rate FiO2 11/18/20 12:05 36.1 11/18/20 12:00 73 15 119/48 100 NIV Bilevel 35.00 11/18/20 11:00 75 25 101/56 95 NIV Bilevel 35.00 11/18/20 10:35 High Flow N/C 10.00 11/18/20 10:00 70 17 128/58 94 NIV Bilevel 35.00 11/18/20 09:00 64 25 119/99 94 NIV Bilevel 35.00 11/18/20 08:27 36.5 11/18/20 08:00 64 23 123/49 94 NIV Bilevel 35.00 11/18/20 08:00 95 NIV Bilevel 40 11/18/20 07:54 NIV Bilevel 35.00 11/18/20 07:36 68 21 95 40.00 11/18/20 07:00 63 18 98 NIV Bilevel 40.00 11/18/20 07:00 67 11/18/20 06:00 64 25 130/56 97 NIV Bilevel 40.00 11/18/20 05:00 62 19 124/56 97 NIV Bilevel 40.00 11/18/20 04:00 NIV Bilevel 40 11/18/20 04:00 65 18 125/63 97 NIV Bilevel 40.00 11/18/20 03:30 NIV Bilevel 40.00 11/18/20 03:00 63 20 126/54 98 NIV Bilevel 60.00 11/18/20 02:25 62 21 99 40.00 11/18/20 02:00 68 25 123/102 99 NIV Bilevel 60.00 11/18/20 01:00 67 22 134/62 100 NIV Bilevel 60.00 11/18/20 01:00 70 11/18/20 00:15 36.6 NIV Bilevel 60.00 11/17/20 23:55 66 24 97 60.00 11/17/20 23:55 97 NIV Bilevel 60.00 11/17/20 23:51 92 Non Rebreather 15.00 11/17/20 23:51 Non Rebreather 15.00 11/17/20 23:50 83 High Flow N/C 10.00 11/17/20 23:45 36.6 11/17/20 23:00 71 18 138/58 92 High Flow N/C 10.00 11/17/20 20:55 OxyMask 10.00 11/17/20 20:00 70 18 156/60 95 High Flow N/C 10.00 11/17/20 19:24 36.6 11/17/20 19:00 67 11/17/20 16:00 64 18 150/67 93 High Flow N/C 10.00 11/17/20 15:59 High Flow N/C 10.00 11/17/20 15:54 36.8 11/17/20 15:49 OxyMask 10.00 11/17/20 15:11 OxyMask 10.00 11/17/20 14:39 24 11/17/20 12:32 66 I & O 11/18/20 07:00 Intake Total 3215 ml Output Total 4850 ml Balance -1635 ml Capillary Refill : General Appearance: WD/WN, Anxious, Chronically ill, Thin HEENT: PERRL/EOMI, Normal ENT Inspection, Pharynx Normal Neck: Full Range of Motion, Normal Inspection, Non Tender, Supple Respiratory: Chest Non Tender, No Accessory Muscle Use, No Respiratory Distress, Decreased Breath Sounds Cardiovascular: Regular Rate, Rhythm, No Edema, No Murmur, Normal Peripheral Pulses Peripheral Pulses: 1+ Dorsalis Pedis (R), 1+ Left Dors-Pedis (L) (see free text) Gastrointestinal: non tender, soft, no organomegaly, other (decreased bowel sounds) Extremity: Normal Capillary Refill, Normal Inspection, Normal Range of Motion, Non Tender, No Calf Tenderness, No Pedal Edema Neurologic/Psychiatric: Alert, No Motor/Sensory Deficits, Normal Mood/Affect Skin: Normal Color, Warm/Dry Lymphatic: No Adenopathy Results Lab Laboratory Tests 11/18/20 00:45: White Blood Count 21.4H, Red Blood Count 3.58L, Hemoglobin 10.2L, Hematocrit 30L , Mean Corpuscular Volume 83, Mean Corpuscular Hemoglobin 29, Mean Corpuscular Hemoglobin Concent 35, Red Cell Distribution Width 14.0, Platelet Count 281, Mean Platelet Volume 9.4, Immature Granulocyte % (Auto) 1, Neutrophils (%) (Auto) 92H, Lymphocytes (%) (Auto) 2L, Monocytes (%) (Auto) 4, Eosinophils (%) (Auto) 0, Basophils (%) (Auto) 0, Neutrophils # (Auto) 19.7H, Lymphocytes # (Auto) 0.5L, Monocytes # (Auto) 0.9, Eosinophils # (Auto) 0.0, Basophils # (Auto) 0.0, Immature Granulocyte # (Auto) 0.2H, Neutrophils % (Manual) 84, Lymphocytes % (Manual) 3, Monocytes % (Manual) 2, Band Neutrophils 11, Hypochromasia SLIGHT, Microcytosis MODERATE, Target Cells SLIGHT, Sodium Level 125*L, Potassium Level 4.0, Chloride Level 94L, Carbon Dioxide Level 21, Anion Gap 10, Blood Urea Nitrogen 19H, Creatinine 0.54L, Estimat Glomerular Filtration Rate 148, BUN/Creatinine Ratio 35, Glucose Level 84, Calcium Level 8.2L, Corrected Calcium 9.2, Phosphorus Level 3.7, Magnesium Level 1.6, Total Bilirubin 2.0H, Aspartate Amino Transf (AST/SGOT) 99H, Alanine Aminotransferase (ALT/SGPT) 180H, Alkaline Phosphatase 165H, Total Protein 5.3L, Albumin 2.7L 11/18/20 01:09: Blood Gas Puncture Site LEFT RADIAL, Blood Gas Patient Temperature 36.6, Arterial Blood pH 7.44H, Arterial Blood Partial Pressure CO2 35, Arterial Blood Partial Pressure O2 141H, Arterial Blood HCO3 24, Arterial Blood Total CO2 24.9, Arterial Blood Oxygen Saturation 99, Arterial Blood Base Excess 0.0, Brannon Test YES-POS, Blood Gas Ventilator Setting NO, Blood Gas Inspired Oxygen 60% BIPAP Microbiology 11/17/20 Gram Stain, Resulted Pending 11/17/20 Bronchial Culture - Preliminary, Resulted YEAST 11/17/20 Fungal Culture 1, Resulted Pending Assessment/Plan Assessment/Plan Assessment/Plan acute hypoxic respiratory failure pleural effusion mucus plugs hyponatremia debility hx of PAD and significant smoking hx Plan is thoracentesis today around noon. Repeat CXR order today to see how much fluid was drained. send fluid for cytology. Bronchoscopy was performed yesterday and removed many mucus plugs. Continue supplemental O2 as needed. LUKE VIEYRA DO 11/18/20 1531: Subjective Time Seen by a Provider: 10:49 Subjective/Events-last exam Pt seen and examined, he was only on vapotherm when I saw him (not BiPap). Appeared to be breathing comfortably; O2 sats at 94%. Review of Systems General: No Chills; Fatigue Pulmonary: Dyspnea, Cough Cardiovascular: No: Chest Pain, Palpitations Gastrointestinal: No: Nausea, Vomiting, Abdominal Pain Genitourinary: No Dysuria, No Frequency Objective Exam General Appearance: Anxious, Chronically ill, Thin Respiratory: Chest Non Tender, No Accessory Muscle Use, No Respiratory Distres s, Decreased Breath Sounds Cardiovascular: Regular Rate, Rhythm, No Murmur Gastrointestinal: non tender, soft, no organomegaly Assessment/Plan Assessment/Plan Assessment/Plan Chronic hypoxic respiratory failure Pleural effusion Mucus plugs s/p removal by bronchoscopy and lung looks much clearer on CXR Hyponatremia Hx of PAD and significant smoking hx Plan is thoracentesis today around noon. Repeat CXR order today to see how much fluid was drained. send fluid for cytology and culture. Continue supplemental O2 as needed. Supervisory-Addendum Brief Verification & Attestation Participated in pt care: history, MDM, physical Personally performed: exam, history, MDM, supervision of care Care discussed with: Medical Student Procedures: n/a Verification and Attestation of Medical Student E/M Service A medical student performed and documented this service. I then reviewed and verified all information documented by the medical student and made modifications to such information, when appropriate. I personally performed a physical exam, medical decision making and then discussed any differences between the notes and made revisions as necessary to create one note. Luke Vieyra , 11/18/20 , 15:31 MARICRUZ LUJAN MED STUDENT Nov 18, 2020 12:37 LUKE VIEYRA DO Nov 18, 2020 15:31
--- NOTE | 2020-11-18 13:17 | Diagnostic Imaging Report ---
INDICATION: Pleural effusion. FINDINGS: The heart size is normal. Lung bases are clear. No pleural effusion or pneumothorax. Mediastinum is unremarkable. IMPRESSION: No acute cardiopulmonary abnormality. Dictated by: Dictated on workstation # [id number]
[2020-11-18] MEDS ORDERED: TROUGH ORDER-PHARMACY XX NR ×2 (14:00→16:00)
[2020-11-18 14:50] VITALS: BP 119/48
[2020-11-18] MEDS ORDERED: NS (IVPB) 250 ML ONE (15:04)
--- NOTE | 2020-11-18 15:34 | Progress Note-Post Operative ---
Post-Operative Progess Note Surgeon (s)/Life Skills Coordinator Volunteer (s) Surgeon CITLALY JAIME DO Life Skills Coordinator Volunteer: none Pre-Operative Diagnosis Right pleural Effusion Post-Operative Diagnosis Same Procedure & Operative Findings Date of Procedure 11/18/20 Procedure Performed/Findings Right Sided Thoracentesis The patient was in his bed in the ICU. Ultrasound was used to isolate the largest pocket for placement of [id number] needle and catheter. The area was then prepped and draped and timeout was performed. Local anesthetic was infiltrated and #11 blade scalpel was used to make a small skin incision. [id number]-N-[id number] needle and catheter were then advanced until straw-colored fluid was withdrawn. The catheter was advanced and the needle was removed. A total of 500 ml of straw-colored fluid was withdrawn. Once done draining, the catheter was removed and sterile bandage was applied. The patient tolerated procedure well without any complications. I viewed the CXR performed after thoracentesis and there is good improvement of pleural effusion (??gone) and no pneumothorax. Anesthesia Type local lidocaine Estimated Blood Loss Estimated blood loss (mL): scant Specimens/Packing Specimens Removed 500ml straw colored fluid CITLALY JAIME DO Nov 18, 2020 15:34
[2020-11-18] MEDS: doxAzosin 2 MG (CARDURA) TAB PO SCH (20:44)
[2020-11-19] MEDS: MEROPENEM 500 MG in WATER (STERILE) FOR INJECTION 10 ML IV SCH ×4 (04:47→22:56)
[2020-11-19 06:24] LABS: BASOPHILS % (AUTO) 0 % (0-10); EOSINOPHILS % (AUTO) 0 % (0-10); HEMATOCRIT 29 % (40-54); HEMOGLOBIN 9.8 g/dL (13.3-17.7); LYMPHOCYTES # (AUTO) 0.9 10^3/uL (1.0-4.0); LYMPHOCYTES % (AUTO) 5 % (12-44); MEAN CORPUSCULAR HEMOGLOBIN 28 pg (25-34); MEAN CORPUSCULAR HGB CONC 34 g/dL (32-36); MEAN CORPUSCULAR VOLUME 83 fL (80-99); MEAN PLATELET VOLUME 10.3 fL (9.0-12.2); MONOCYTES # (AUTO) 1.1 10^3/uL (0.0-1.0); MONOCYTES % (AUTO) 5 % (0-12); NEUTROPHILS # (AUTO) 17.8 10^3/uL (1.8-7.8); NEUTROPHILS % (AUTO) 89 % (42-75); PLATELET COUNT 249 10^3/uL (130-400); WHITE BLOOD COUNT 20.1 10^3/uL (4.3-11.0)
[2020-11-19 07:00] LABS: ALBUMIN 2.5 GM/DL (3.2-4.5); POTASSIUM 4.2 MMOL/L (3.6-5.0)
[2020-11-19 07:02] LABS: CALCIUM 8.5 MG/DL (8.5-10.1)
[2020-11-19 07:03] LABS: TOTAL PROTEIN 5.2 GM/DL (6.4-8.2)
[2020-11-19 07:05] LABS: BILIRUBIN,TOTAL 1.8 MG/DL (0.1-1.0)
[2020-11-19 07:07] LABS: CREATININE SERUM 0.61 MG/DL (0.60-1.30)
[2020-11-19 07:10] LABS: MAGNESIUM 1.8 MG/DL (1.6-2.4)
[2020-11-19 07:22] LABS: BAND NEUTROPHILS 3 %; HYPOCHROMASIA SLIGHT; LYMPHOCYTES % (MANUAL) 6 %; MICROCYTOSIS MODERATE; MONOCYTES % (MANUAL) 4 %; NEUTROPHILS % (MANUAL) 87 %; TARGET CELLS SLIGHT; TOXIC GRANULATION/VACUOLAZATIO 1+
--- NOTE | 2020-11-19 08:03 | Progress Note ---
Subjective Date Seen by a Provider: Nov 19, 2020 Time Seen by a Provider: 11:00 Subjective/Events-last exam Patient doing much better Transferring to fourth floor On 5 L of oxygen Lungs are still very coarse Thoracentesis removed 500 cc of fluid from the right side sent for cytology IV steroids will be started Symbicort with spacer or Advair will be ordered Sodium level 123 Overall much improved Review of Systems General: Fatigue, Malaise Pulmonary: Dyspnea, Cough Neurological: Weakness Focused Exam Lactate Level 11/17/20 04:05: Lactic Acid Level 0.59 Objective Exam Last Set of Vital Signs Vital Signs Date Time Temp Pulse Resp B/P (MAP) Pulse Ox O2 Delivery O2 Flow Rate FiO2 11/19/20 07:58 35.6 11/19/20 07:00 59 16 122/50 97 High Flow N/C 10.00 11/18/20 16:18 40 Capillary Refill : I&O Intake and Output 11/18/20 23:59 Intake Total 1187 ml Output Total 1004 ml Balance 183 ml Intake Oral 1187 ml Output Urine Total 1000 ml Stool Total 4 ml General: Alert, Oriented X3, Cooperative, No Acute Distress Lungs: Other (Coarse breath sounds all mccauley) Heart: Regular Rate Psych/Mental Status: Mental Status NL Results Lab Laboratory Tests 11/18/20 16:04: Vancomycin Level Trough 10.3 11/19/20 04:45: White Blood Count 20.1H, Red Blood Count 3.48L, Hemoglobin 9.8L, Hematocrit 29L, Mean Corpuscular Volume 83, Mean Corpuscular Hemoglobin 28, Mean Corpuscular Hemoglobin Concent 34, Red Cell Distribution Width 14.5, Platelet Count 249, Mean Platelet Volume 10.3, Immature Granulocyte % (Auto) 1, Neutrophils (%) (Auto) 89H, Lymphocytes (%) (Auto) 5L, Monocytes (%) (Auto) 5, Eosinophils (%) (Auto) 0, Basophils (%) (Auto) 0, Neutrophils # (Auto) 17.8H, Lymphocytes # (Auto) 0.9L, Monocytes # (Auto) 1.1H, Eosinophils # (Auto) 0.0, Basophils # (Auto) 0.0, Immature Granulocyte # (Auto) 0.3H, Neutrophils % (Manual) 87, Lymphocytes % (Manual) 6, Monocytes % (Manual) 4, Band Neutrophils 3, Toxic Granulation 1+, Hypochromasia SLIGHT, Microcytosis MODERATE, Target Cells SLIGHT, Sodium Level 123*L, Potassium Level 4.2, Chloride Level 94L, Carbon Dioxide Level 22, Anion Gap 7, Blood Urea Nitrogen 27H, Creatinine 0.61, Estimat Glomerular Filtration Rate 129, BUN/Creatinine Ratio 44, Glucose Level 87, Calci um Level 8.5, Corrected Calcium 9.7, Phosphorus Level 3.0, Magnesium Level 1.8, Total Bilirubin 1.8H, Aspartate Amino Transf (AST/SGOT) 58H, Alanine Aminotransferase (ALT/SGPT) 133H, Alkaline Phosphatase 226H, Total Protein 5.2L, Albumin 2.5L Microbiology 11/17/20 Mycobacterial Culture - Preliminary, Resulted 11/17/20 Blood Culture - Preliminary, Resulted No growth Assessment/Plan Assessment/Plan Assess & Plan/Chief Complaint Mr. Ramirez is a 75yo male with a PMH significant for tobacco use, COPD, PAD, BPH, HTN, HFpEF who is currently being managed in the ICU for acute weakness, mucus plug of right lung and hyponatremia. Problems being managed include the following: Acute hypoxic respiratory failure Hyponatremia: Malignancy vs SIIADH vs renal Pleural effusion status post thoracentesis removing 500 cc Mucous plug of right mainstem bronchus status post bronchoscopy Friday Debility Constipation PAD 50 pack year smoking history HFpEF Plan: Thoracentesis Monitor closely BiPAP when needed 11/19/2020: Transfer to fourth floor Inhaled corticosteroid IV steroids Plan -Thoracentesis completed cytology pending -Status post bronchoscopy for mucous plug of right bronchus -Reviewed CT results -Continue supplemental oxygen -Continue vanc, meropenem, DC doxycycline -Continue bowel regimen -Continue metoprolol succinate Critical Care: Critically Ill Patient NEFTALI HARRIS DO Nov 19, 2020 08:03
[2020-11-19] MEDS: SENNA W/DOCUSATE (SENOKOT S) TABLET PO SCH ×2 (08:05→21:59)
[2020-11-19] MEDS: polyethylene glycoL POWDER 17 GM (MIRALAX) PACK PO SCH ×2 (08:05→22:02)
[2020-11-19] MEDS: amLODIPine 10 MG (NORVASC) TAB PO SCH (08:05)
[2020-11-19] MEDS: ASPIRIN 81 MG CHEW (CHILDREN'S ASA) PO SCH (08:05)
[2020-11-19] MEDS: ENOXAPARIN 40 MG/0.4 ML (LOVENOX) SYR SC SCH (08:05)
[2020-11-19] MEDS: meTOprolol SUCCINATE 100 MG (TOPROL XL) TAB PO SCH ×2 (08:05→21:59)
[2020-11-19] MEDS: lisINopril 40 MG (PRINIVIL) TABLET PO SCH (08:05)
[2020-11-19] MEDS: NICOTINE 14 MG (NICODERM) PATCH TD SCH (08:06)
[2020-11-19] MEDS: PATCH REMOVAL TP SCH (08:07)
[2020-11-19] MEDS: VANCOMYCIN 1 GM/NS 250 ML IVPB IV SCH ×4 (09:05→17:47)
--- NOTE | 2020-11-19 09:21 | Progress Note - Surgery ---
MARICRUZ LUJAN MED STUDENT 11/19/20 0921: Subjective Date Seen by a Provider: Nov 19, 2020 Time Seen by a Provider: 07:25 Subjective/Events-last exam surgery consult for: pleural effusion, mucus plugs Patient is resting comfortably in bed. He complains of numbness and tingling in his finger tips and toes and continues to cough up mucus. He states he slept well last night and his SOB has improved. He had no acute events overnight. He continues to be on supplemental oxygen. He is not ambulating and on a restrictive liquid diet. He is having BM and has an urinary catheter. Review of Systems General: No Chills, No Night Sweats, No Fatigue HEENT: No Head Aches, No Visual Changes, No Eye Pain Pulmonary: Dyspnea, Cough Cardiovascular: No: Chest Pain, Palpitations Gastrointestinal: No: Nausea, Vomiting, Abdominal Pain Genitourinary: No Dysuria, No Frequency Neurological: Weakness, Numbness Focused Exam Lactate Level 11/17/20 04:05: Lactic Acid Level 0.59 Objective Exam Vital Signs Date Time Temp Pulse Resp B/P (MAP) Pulse Ox O2 Delivery O2 Flow Rate FiO2 11/19/20 09:00 94 Nasal Cannula 6.00 11/19/20 08:13 94 High Flow N/C 6.00 11/19/20 08:00 61 16 128/54 97 High Flow N/C 10.00 11/19/20 07:58 35.6 11/19/20 07:00 59 16 122/50 97 High Flow N/C 10.00 11/19/20 07:00 61 11/19/20 06:00 61 16 131/53 97 High Flow N/C 10.00 11/19/20 05:00 60 16 116/55 98 High Flow N/C 10.00 11/19/20 04:00 98 High Flow N/C 10.00 11/19/20 04:00 60 16 116/51 98 High Flow N/C 10.00 11/19/20 04:00 36.6 11/19/20 03:00 59 17 117/53 97 High Flow N/C 10.00 11/19/20 02:00 62 17 121/48 98 High Flow N/C 10.00 11/19/20 01:00 60 20 114/48 97 High Flow N/C 10.00 11/19/20 01:00 64 11/19/20 00:00 62 22 112/50 97 High Flow N/C 10.00 11/18/20 23:59 98 High Flow N/C 10.00 11/18/20 23:00 60 19 117/49 98 High Flow N/C 10.00 11/18/20 22:00 61 19 118/49 98 High Flow N/C 10.00 11/18/20 21:00 62 17 121/53 98 High Flow N/C 10.00 11/18/20 20:00 98 High Flow N/C 10.00 11/18/20 20:00 64 18 121/48 98 High Flow N/C 10.00 11/18/20 19:20 36.4 11/18/20 19:00 63 22 94/56 95 High Flow N/C 10.00 11/18/20 19:00 80 11/18/20 18:33 95 High Flow N/C 10.00 11/18/20 18:00 68 25 127/66 95 NIV Bilevel 35.00 11/18/20 17:00 61 19 124/51 97 NIV Bilevel 35.00 11/18/20 16:18 95 NIV Bilevel 40 11/18/20 16:00 58 16 114/46 98 NIV Bilevel 35.00 11/18/20 15:45 36.1 11/18/20 15:00 57 18 114/49 98 NIV Bilevel 35.00 11/18/20 14:50 58 18 97 35.00 11/18/20 14:00 60 14 119/48 98 NIV Bilevel 35.00 11/18/20 13:00 60 16 130/53 96 NIV Bilevel 35.00 11/18/20 12:49 72 11/18/20 12:05 36.1 11/18/20 12:00 73 15 119/48 100 NIV Bilevel 35.00 11/18/20 12:00 95 NIV Bilevel 40 11/18/20 11:00 75 25 101/56 95 NIV Bilevel 35.00 11/18/20 10:35 High Flow N/C 10.00 11/18/20 10:00 70 17 128/58 94 NIV Bilevel 35.00 I & O 11/19/20 07:00 Intake Total 1037 ml Output Total 629 ml Balance 408 ml Capillary Refill : General Appearance: No Apparent Distress, Chronically ill, Thin HEENT: PERRL/EOMI Neck: Normal Inspection, Non Tender, Supple Respiratory: Chest Non Tender, No Accessory Muscle Use, No Respiratory Distress Cardiovascular: Regular Rate, Rhythm, No Murmur Peripheral Pulses: 1+ Dorsalis Pedis (R), 1+ Left Dors-Pedis (L) (see free text) Gastrointestinal: non tender, soft, no organomegaly Extremity: Normal Capillary Refill, Non Tender, No Calf Tenderness, No Pedal Edema Neurologic/Psychiatric: Alert, Oriented x3, No Motor/Sensory Deficits, Normal Mood/Affect, supervisor finish end II-XII Norm as Tested Skin: Normal Color, Warm/Dry Lymphatic: No Adenopathy Results Lab Laboratory Tests 11/18/20 16:04: Vancomycin Level Trough 10.3 11/19/20 04:45: White Blood Count 20.1H, Red Blood Count 3.48L, Hemoglobin 9.8L, Hematocrit 29L, Mean Corpuscular Volume 83, Mean Corpuscular Hemoglobin 28, Mean Corpuscular Hemoglobin Concent 34, Red Cell Distribution Width 14.5, Platelet Count 249, Mean Platelet Volume 10.3, Immature Granulocyte % (Auto) 1, Neutrophils (%) (Aut o) 89H, Lymphocytes (%) (Auto) 5L, Monocytes (%) (Auto) 5, Eosinophils (%) (Auto) 0, Basophils (%) (Auto) 0, Neutrophils # (Auto) 17.8H, Lymphocytes # (Auto) 0.9L, Monocytes # (Auto) 1.1H, Eosinophils # (Auto) 0.0, Basophils # (Auto) 0.0, Immature Granulocyte # (Auto) 0.3H, Neutrophils % (Manual) 87, Lymphocytes % (Manual) 6, Monocytes % (Manual) 4, Band Neutrophils 3, Toxic Granulation 1+, Hypochromasia SLIGHT, Microcytosis MODERATE, Target Cells SLIGHT, Sodium Level 123*L, Potassium Level 4.2, Chloride Level 94L, Carbon Dioxide Level 22, Anion Gap 7, Blood Urea Nitrogen 27H, Creatinine 0.61, Estimat Glomerular Filtration Rate 129, BUN/Creatinine Ratio 44, Glucose Level 87, Calcium Level 8.5, Corrected Calcium 9.7, Phosphorus Level 3.0, Magnesium Level 1.8, Total Bilirubin 1.8H, Aspartate Amino Transf (AST/SGOT) 58H, Alanine Aminotransferase (ALT/SGPT) 133H, Alkaline Phosphatase 226H, Total Protein 5.2L, Albumin 2.5L Microbiology 11/17/20 Mycobacterial Culture - Preliminary, Resulted 11/17/20 Blood Culture - Preliminary, Resulted No growth Assessment/Plan Assessment/Plan Assessment/Plan Chronic hypoxic respiratory failure Pleural effusion - resolved s/p thoracentesis Mucus plugs s/p removal by bronchoscopy and lung looks much clearer on CXR significant hyponatremia anemia Hx of PAD and significant smoking hx Plan is wait on cytology and culture. Thoracentesis yesterday removed 500 mL fluid. Repeat CXR today was markedly improved with no signs of pleural effusion, mucous plugs, or pneumothorax. Continue supplemental O2 as needed. Supplement Na. Advance diet as tolerated. Consult PT to help pt become ambulatory. LUKE VIEYRA DO 11/19/20 1658: Subjective Time Seen by a Provider: 14:48 Subjective/Events-last exam Pt seen and examined, no new complaints. Minimal SOB Review of Systems General: No Chills, No Night Sweats Pulmonary: Dyspnea, Cough Cardiovascular: No: Chest Pain, Palpitations Gastrointestinal: No: Nausea, Vomiting, Abdominal Pain Objective Exam General Appearance: No Apparent Distress, Chronically ill, Thin Respiratory: No Accessory Muscle Use, No Respiratory Distress, Crackles (right base), Decreased Breath Sounds (right base) Cardiovascular: Regular Rate, Rhythm, No Murmur Gastrointestinal: non tender, soft, no organomegaly Assessment/Plan Assessment/Plan Assessment/Plan Chronic hypoxic respiratory failure Pleural effusion - resolved s/p thoracentesis Mucus plugs s/p removal by bronchoscopy and lung looks much clearer on CXR significant hyponatremia anemia Hx of PAD and significant smoking hx Plan is wait on cytology and culture. Thoracentesis yesterday removed 500 mL fluid. Repeat CXR; markedly improved with no signs of pleural effusion, mucous plugs, or pneumothorax. Continue supplemental O2 as needed. Supplement Na. Advance diet as tolerated. Consult PT to help pt become ambulatory. Supervisory-Addendum Brief Verification & Attestation Participated in pt care: history, MDM, physical Personally performed: exam, history, MDM, supervision of care Care discussed with: Medical Student Procedures: n/a Verification and Attestation of Medical Student E/M Service A medical student performed and documented this service. I then reviewed and verified all information documented by the medical student and made modifications to such information, when appropriate. I personally performed a physical exam, medical decision making and then discussed any differences between the notes and made revisions as necessary to create one note. Luke Vieyra , 11/19/20 , 16:58 MARICRUZ LUJAN MED STUDENT Nov 19, 2020 09:21 LUKE VIEYRA DO Nov 19, 2020 16:58
--- NOTE | 2020-11-19 10:30 | Tele-ICU Progress Note ---
Subjective Date Seen by a Provider: Nov 19, 2020 Time Seen by a Provider: 10:00 Subjective/Events-last exam This virtual visit was conducted using real time audio/video. Thank you for asking us to see this patient for respiratory insufficiency and distress. HPC: Recent events: Thoracentesis 500 ml 11/18/20. Now on 6 lpm NC. PE: VSS. O2 sat 93-94% on 6 LPM. HEENT: No obvious masses, adenopathy or JVD. Chest: Coarse BS on auscultation. Mucus ++. CV: RRR S1 S2 No murmur or added sounds. Abd: Non-tender. Bowel sounds Y. : Unremarkable. [place] Y. 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 No obvious focal findings. Extremities: 1+ edema. Capillary refill < 3 seconds. Skin: unremarkable. Results: Elevated WCC 20.1, BUN 27 . Decreased Hb 9.8, Alb 2.5. CXR clear, no ptx. A/P: Respiratory insufficiency/distress: Wean O2 as javi. Available chart/ vitals / labs /images reviewed. Video assessment done using teleICU camera, rest of exam as per RN. Discussed with CHERRIE Crockett. Asked RN to reach out to eICU if any questions or concerns later. Time spent with patient/coordination of care with other health professionals (mins): 15 Sepsis Event Evaluation Height, Weight, BMI Height: '" Weight: lbs. oz. kg; 24.82 BMI Method: Focused Exam Lactate Level 11/17/20 04:05: Lactic Acid Level 0.59 Exam Exam Patient acknowledged, consented, and participated in this virtual visit which w as conducted using real time audio/video Vital Signs Date Time Temp Pulse Resp B/P (MAP) Pulse Ox O2 Delivery O2 Flow Rate FiO2 11/19/20 09:00 65 23 111/49 93 High Flow N/C 6.00 11/19/20 09:00 94 Nasal Cannula 6.00 11/19/20 08:13 94 High Flow N/C 6.00 11/19/20 08:00 61 16 128/54 97 High Flow N/C 10.00 11/19/20 07:58 35.6 11/19/20 07:00 59 16 122/50 97 High Flow N/C 10.00 11/19/20 07:00 61 11/19/20 06:00 61 16 131/53 97 High Flow N/C 10.00 11/19/20 05:00 60 16 116/55 98 High Flow N/C 10.00 11/19/20 04:00 98 High Flow N/C 10.00 11/19/20 04:00 60 16 116/51 98 High Flow N/C 10.00 11/19/20 04:00 36.6 11/19/20 03:00 59 17 117/53 97 High Flow N/C 10.00 11/19/20 02:00 62 17 121/48 98 High Flow N/C 10.00 11/19/20 01:00 60 20 114/48 97 High Flow N/C 10.00 11/19/20 01:00 64 11/19/20 00:00 62 22 112/50 97 High Flow N/C 10.00 11/18/20 23:59 98 High Flow N/C 10.00 11/18/20 23:00 60 19 117/49 98 High Flow N/C 10.00 11/18/20 22:00 61 19 118/49 98 High Flow N/C 10.00 11/18/20 21:00 62 17 121/53 98 High Flow N/C 10.00 11/18/20 20:00 98 High Flow N/C 10.00 11/18/20 20:00 64 18 121/48 98 High Flow N/C 10.00 11/18/20 19:20 36.4 11/18/20 19:00 63 22 94/56 95 High Flow N/C 10.00 11/18/20 19:00 80 11/18/20 18:33 95 High Flow N/C 10.00 11/18/20 18:00 68 25 127/66 95 NIV Bilevel 35.00 11/18/20 17:00 61 19 124/51 97 NIV Bilevel 35.00 11/18/20 16:18 95 NIV Bilevel 40 11/18/20 16:00 58 16 114/46 98 NIV Bilevel 35.00 11/18/20 15:45 36.1 11/18/20 15:00 57 18 114/49 98 NIV Bilevel 35.00 11/18/20 14:50 58 18 97 35.00 11/18/20 14:00 60 14 119/48 98 NIV Bilevel 35.00 11/18/20 13:00 60 16 130/53 96 NIV Bilevel 35.00 11/18/20 12:49 72 11/18/20 12:05 36.1 11/18/20 12:00 73 15 119/48 100 NIV Bilevel 35.00 11/18/20 12:00 95 NIV Bilevel 40 11/18/20 11:00 75 25 101/56 95 NIV Bilevel 35.00 11/18/20 10:35 High Flow N/C 10.00 I & O 11/19/20 07:00 Intake Total 1037 ml Output Total 629 ml Balance 408 ml Height & Weight Height: '" Weight: lbs. oz. kg; 24.82 BMI Method: General Appearance: No Apparent Distress, Chronically ill, Thin HEENT: PERRL/EOMI Neck: Normal Inspection, Non Tender, Supple Respiratory: Chest Non Tender, No Accessory Muscle Use, No Respiratory Distress Cardiovascular: Regular Rate, Rhythm, No Murmur Peripheral Pulses: 1+ Dorsalis Pedis (R), 1+ Left Dors-Pedis (L) (see free text) Gastrointestinal: non tender, soft, no organomegaly Extremity: Normal Capillary Refill, Non Tender, No Calf Tenderness, No Pedal Edema Neurologic/Psychiatric: Alert, Oriented x3, No Motor/Sensory Deficits, Normal Mood/Affect, edge bonder II-XII Norm as Tested Skin: Normal Color, Warm/Dry Lymphatic: No Adenopathy Results Lab Laboratory Tests 11/18/20 00:45 11/19/20 04:45 Assessment/Plan Assessment/Plan See free text. Critical Care: Critically Ill Patient EL SPARKS MD Nov 19, 2020 10:30
[2020-11-19] MEDS: SODIUM CHLORIDE 1 GM TABLET PO SCH ×2 (10:42→22:00)
[2020-11-19] MEDS ORDERED: methylPREDNISolone 125 MG (Solu-MEDROL) VIAL IVP ONE (12:15)
[2020-11-19] MEDS: ANIDULAFUNGIN INJECTION 100 MG in NS (IVPB) 100 ML IV SCH (12:19)
[2020-11-19] MEDS: guaiFENesin/CODEINE (ROBITUSSIN AC) 10ML UDC PO PRN (13:56)
[2020-11-19] MEDS ORDERED: TROUGH ORDER-PHARMACY XX NR (16:00)
[2020-11-19] MEDS: methylPREDNISolone 40 MG/ML (Solu-MEDROL) VIAL IV SCH (21:57)
[2020-11-19] MEDS: doxAzosin 2 MG (CARDURA) TAB PO SCH (21:58)
[2020-11-20] MEDS: VANCOMYCIN 1 GM/NS 250 ML IVPB IV SCH ×4 (00:57→09:40)
[2020-11-20] MEDS: guaiFENesin/CODEINE (ROBITUSSIN AC) 10ML UDC PO PRN ×2 (03:04→21:17)
[2020-11-20] MEDS: MEROPENEM 500 MG in WATER (STERILE) FOR INJECTION 10 ML IV SCH ×4 (04:58→22:55)
[2020-11-20 06:41] LABS: BASOPHILS % (AUTO) 0 % (0-10); EOSINOPHILS % (AUTO) 0 % (0-10); HEMATOCRIT 29 % (40-54); HEMOGLOBIN 9.9 g/dL (13.3-17.7); LYMPHOCYTES # (AUTO) 0.5 10^3/uL (1.0-4.0); LYMPHOCYTES % (AUTO) 4 % (12-44); MEAN CORPUSCULAR HEMOGLOBIN 29 pg (25-34); MEAN CORPUSCULAR HGB CONC 34 g/dL (32-36); MEAN CORPUSCULAR VOLUME 84 fL (80-99); MEAN PLATELET VOLUME 10.4 fL (9.0-12.2); MONOCYTES # (AUTO) 0.5 10^3/uL (0.0-1.0); MONOCYTES % (AUTO) 4 % (0-12); NEUTROPHILS # (AUTO) 12.2 10^3/uL (1.8-7.8); NEUTROPHILS % (AUTO) 91 % (42-75); PLATELET COUNT 276 10^3/uL (130-400); WHITE BLOOD COUNT 13.4 10^3/uL (4.3-11.0)
[2020-11-20 06:56] LABS: ALBUMIN 2.5 GM/DL (3.2-4.5); POTASSIUM 4.7 MMOL/L (3.6-5.0)
[2020-11-20 06:58] LABS: CALCIUM 8.7 MG/DL (8.5-10.1)
[2020-11-20 06:59] LABS: TOTAL PROTEIN 5.2 GM/DL (6.4-8.2)
[2020-11-20 07:01] LABS: BILIRUBIN,TOTAL 1.2 MG/DL (0.1-1.0)
[2020-11-20 07:02] LABS: CREATININE SERUM 0.66 MG/DL (0.60-1.30)
[2020-11-20] MEDS: PATCH REMOVAL TP SCH (09:40)
[2020-11-20] MEDS: methylPREDNISolone 40 MG/ML (Solu-MEDROL) VIAL IV SCH ×2 (09:40→20:12)
[2020-11-20] MEDS: meTOprolol SUCCINATE 100 MG (TOPROL XL) TAB PO SCH ×2 (09:40→20:13)
[2020-11-20] MEDS: NICOTINE 14 MG (NICODERM) PATCH TD SCH (09:40)
[2020-11-20] MEDS: polyethylene glycoL POWDER 17 GM (MIRALAX) PACK PO SCH ×2 (09:40→20:17)
[2020-11-20] MEDS: SENNA W/DOCUSATE (SENOKOT S) TABLET PO SCH ×2 (09:40→20:13)
[2020-11-20] MEDS: ASPIRIN 81 MG CHEW (CHILDREN'S ASA) PO SCH (09:40)
[2020-11-20] MEDS: lisINopril 40 MG (PRINIVIL) TABLET PO SCH (09:40)
[2020-11-20] MEDS: amLODIPine 10 MG (NORVASC) TAB PO SCH (09:40)
[2020-11-20] MEDS: ENOXAPARIN 40 MG/0.4 ML (LOVENOX) SYR SC SCH (09:41)
--- NOTE | 2020-11-20 11:02 | Physical Therapy Evaluation ---
PT Evaluation-General Medical Diagnosis Admission Date Nov 17, 2020 at 03:30 Medical Diagnosis: weakness Onset Date: Nov 17, 2020 Therapy Diagnosis Therapy Diagnosis: impaired mobility, strength, endurance Precautions Precautions/Isolations: Fall Prevention, Standard Precautions, Pressure Ulcer Referral Physician: Eusebia Diego DO Reason for Referral: Evaluation/Treatment Medical History Pertinent Medical History: HTN Social History Home: Single Level Current Living Status: Alone Entry Into Home: Stairs With Railing PT Steps Into Home: 3 Prior Prior Level of Function SCALE: Activities may be completed with or without assistive devices. 4-Mhatppzzyy-esjsxjs completes the activity by him/herself with no assistance from a helper. 5-Set-up or Clean-up Assistance-helper sets up or cleans up; patient completes activity. [place] assists only prior to or following the activity. 4-Supervision or Touching Assistance-helper provides verbal cues and/or touching/steadying and/or contact guard assistance as patient completes activity. Assistance may be provided throughout the activity or intermittently. 3-Partial/Moderate Assistance-helper does LESS THAN HALF the effort. [place] lifts, holds or supports trunk or limbs, but provides less than half the effort. 2-Substantial/Maximal Assistance-helper does MORE THAN HALF the effort. [place] lifts or holds trunk or limbs and provides more than half the effort. 9-Tjrruuvdh-nytbdo does ALL the effort. Patient does none of the effort to complete the activity. Or, the assistance of 2 or more helpers is required for the patient to complete the activity. If activity was not attempted, code reason: 7-Patient Refused. 9-Not Applicable-not attempted and the patient did not perform the activity before the current illness, exacerbation or injury. 10-Not Attempted due to Environmental Limitations-(lack of equipment, weather restraints, etc.). 88-Not Attempted due to Medical Conditions or Safety Concerns. Bed Mobility: 6 Transfers (B,C,W/C): 6 Gait: 6 Stairs: 6 Indoor Mobility (Ambulation): Independent Stairs: Independent PT Evaluation-Current Subjective Patient in recliner pre tx, agrees to PT, has no complaints of pain. Pt/Family Goals to be independent at home Objective Patient Orientation: Person, Place, Situation Attachments: Oxygen, [place] Catheter, IV ROM/Strength ROM Lower Extremities WNL Strength Lower Extremities LLE (hip flexion 3+/5, knee flexion 4-/5, knee extension 4-/5, dorsiflexion 4/5), RLE (hip flexion 3+/5, knee flexion 4-/5, knee extension 4-/5, dorsiflexion 4/5) Sensory Vision: Functional Hearing: Impaired Sensation Right Lower Extremit: Impaired Sensation Left Lower Extremity: Impaired Sensation Lower Extremities numbness in feet Transfers Sit to Stand (QC): 3 sit to stand mod assist Gait Does the Patient Walk?: Yes Mode of Locomotion: Walk Anticipated Mode of Locomotion: Walk Walk 10 feet (QC): 3 Distance: 10'x2 Gait Assistive Device: FWW Comments/Gait Description Patient was able to ambulate 10' with a rolling walker with min assist, no knee buckling, more stable than when he was on rehab, still uncoordinated steps though. His O2 remained in the mid 90's with ambulation. Balance Sitting Static: Normal Sitting Dynamic: Normal Standing Static: Fair Standing Dynamic: Poor Treatment BLE seated exercises x20 (AP, LAQ) Assessment/Needs Patient in recliner post tx with nurse call, phone, tray, all needs met. Rehab Potential: Fair PT Skilled Nursing Goals Skilled Nursing Goals PT [place] Operator Goals Time Frame: Nov 27, 2020 Roll Left & Right (QC): 6 Sit to Lying (QC): 5 Lying-Sitting on Side/Bed(QC): 5 Sit to Stand (QC): 4 Chair/Olv-fb-Pllzr Xfer(QC): 4 Walk 10 feet (QC): 4 Walk 50ft with 2 Turns (QC): 4 PT Plan Problem List Problem List: Activity Tolerance, Functional Strength, Safety, Balance, Gait, Transfer, Bed Mobility, ROM Treatment/Plan Treatment Plan: Continue Plan of Care Treatment Plan: Bed Mobility, Education, Functional Activity Samantha, Functional Strength, Gait, Safety, Therapeutic Exercise, Transfers Treatment Duration: Nov 27, 2020 Frequency: 6 times per week Estimated Hrs Per Day: .25 hour per day Patient and/or Family Agrees t: Yes Safety Risks/Education Patient Education: Gait Training, Transfer Techniques, Correct Positioning, Safety Issues Teaching Recipient: Patient Teaching Methods: Demonstration, Discussion Response to Teaching: Reinforcement Needed Discharge Recommendations Plan Patient will perform bed mobility and transfer training, balance and endurance training, functional strengthening, stair training, gait training, and educ ation, to improve functional mobility and independence at home. Therapy Discharge Recommendati: Scheduled Assistance, Home & Family, Post Acute PT Time/GCodes Time In: 1025 Time Out: 1040 Total Billed Treatment Time: 15 Total Billed Treatment 1 visit JIM PALACIO PT Nov 20, 2020 11:02
[2020-11-20] MEDS: SODIUM CHLORIDE 1 GM TABLET PO SCH ×2 (11:12→20:13)
--- NOTE | 2020-11-20 11:23 | Occupational Therapy Eval ---
OT Evaluation-General/PLF Medical Diagnosis Admission Date Nov 17, 2020 at 03:30 Medical Diagnosis: weakness Onset Date: Nov 17, 2020 Therapy Diagnosis Therapy Diagnosis: Impaired ADLs, IADLs, strength, endurance, activity tolerance, coordination Precautions Precautions/Isolations: Fall Prevention, Standard Precautions, Pressure Ulcer Referral Physician: Eusebia Diego DO Referral Reason: Evaluation/Treatment Medical History Pertinent Medical History: HTN Current History Pt presents to ED following progressive weakness, LE's > UE's. He reports indep with ADLs and IADLs prior to admission. 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 Pt was not using any AD and was still driving. He reports laundry being located in basement in which he has to go down a flight of stairs. Pt was admitted to rehab where he stayed only 2 days. He was transferred to ICU after demonstrating AMS and hypoxia. Pt is now back on the medical floor. Reviewed History: Yes Social History Home: Single Level Current Living Status: Alone Entry Into Home: Stairs With Railing Steps Into Home: 3 ADL-Prior Level of Function SCALE: Activities may be completed with or without assistive devices. 3-Rraoxsgpmi-agmxbwv completes the activity by him/herself with no assistance from a helper. 5-Set-up or Clean-up Assistance-helper sets up or cleans up; patient completes activity. [place] assists only prior to or following the activity. 4-Supervision or Touching Assistance-helper provides verbal cues and/or touching/steadying and/or contact guard assistance as patient completes activity. Assistance may be provided throughout the activity or intermittently. 3-Partial/Moderate Assistance-helper does LESS THAN HALF the effort. [place] lifts, holds or supports trunk or limbs, but provides less than half the effort. 2-Substantial/Maximal Assistance-helper does MORE THAN HALF the effort. [place] lifts or holds trunk or limbs and provides more than half the effort. 9-Dzdqzueks-vfoour does ALL the effort. Patient does none of the effort to complete the activity. Or, the assistance of 2 or more helpers is required for the patient to complete the activity. If activity was not attempted, code reason: 7-Patient Refused. 9-Not Applicable-not attempted and the patient did not perform the activity before the current illness, exacerbation or injury. 10-Not Attempted due to Environmental Limitations-(lack of equipment, weather restraints, etc.). 88-Not Attempted due to Medical Conditions or Safety Concerns. Self Care: Independent Functional Cognition: Independent DME/Equipment: Tub/Shower Pt stood for 100% of shower Drive Self: Yes OT Current Status Subjective Pt denies any pain. Reports feelings of leg cramp in LLE. No redness/swelling or temperature change noted. Appearance Pt left sitting in chair, all needs within reach at end of session. Mental Status/Objective Patient Orientation: Person, Place, Time Attachments: [place] Catheter, IV, Oxygen Current Glasses/Contacts: Yes Hearing Aids: Yes Dentures/Partials: Yes Hand Dominance: Right Upper Extremity ROM Pt able to complete full ROM in all planes with extra time. Poor coordination noted, R worse than L. Upper Extremity Strength Improved strength then when on rehab floor. shoulder flex: R-3+/5, L-4/5 Elbow-distally: 4/5 ADL-Treatment Lower Body Dressing (QC): 3 (Mod) On/Off Footwear (QC): 4 (SBA) Pt able to don/doff eber socks by flexing at hip and placing foot on edge of seat. Sit<>stand: Mod A. Pt ambulated ~8 feet with use of walker and Min A. Second person nearby secondary to history of unpredictable knee buckling. No buckling noted this date yet continues to demonstrate uncoordinated movements. Poor eccentric control when lowering to sit and tends to "plop." Cues for safe lowering. Anticipate assist needed with clothing management due to heavy reliance on walker when standing. Pt on 3.5L O2, remains within 90's throughout activity. Poor activity tolerance noted. Education OT Patient Education: Correct positioning, Energy conservation, Modified ADL techniques, Progress toward Goal/Update tx plan, Purpose of tx/functional activities, Rehab process, Safety issues, Transfer techniques Teaching Recipient: Patient Teaching Methods: Demonstration, Discussion Response to Teaching: Verbalize Understanding, Reinforcement Needed OT Cloth Mercerizer Back Tender Goals Cloth Mercerizer Back Tender Goals Oral Hygiene (QC): 4 Toileting Hygiene (QC): 4 Shower/Bathe Self (QC): 4 Upper Body Dressing (QC): 4 Lower Body Dressing (QC): 4 On/Off Footwear (QC): 5 1=Demonstrate adherence to instructed precautions during ADL tasks. 2=Patient will verbalize/demonstrate understanding of assistive devices/modifications for ADL. 3=Patient will improve strength/tolerance for activity to enable patient to perform ADL's. OT Education/Plan Problem List/Assessment Assessment: Decreased Activ Tolerance, Decreased Safety Aware, Decreased UE Strength, Impaired Coordination, Impaired Funct Balance, Impaired I ADL's, Impaired Self-Care Skills Discharge Recommendations Plan/Recommendations: Continue POC Therapy Discharge Recommendati: Post Acute OT Comment continue to assess for DME/AE Target Placement Acute Rehab Treatment Plan/Plan of Care Treatment,Training & Education: Yes Patient would benefit from OT for education, treatment and training to promote independence in ADL's, mobility, safety and/or upper extremity function for ADL's. Plan of Care: ADL Retraining, Functional Mobility, Group Exercise/Act as Ind, UE Funct Exercise/Act, UE Neuromus Re-Ed/Coord, W/C Management Training Treatment Duration: Dec 01, 2020 Frequency: 5 times per week Estimated Hrs Per Day: .25 hour per day Agreement: Yes Rehab Potential: Fair Time/GCodes Start Time: 10:25 Stop Time: 10:39 Total Time Billed (hr/min): 14 Billed Treatment Time 1, Eleni Preston OT Nov 20, 2020 11:23
--- NOTE | 2020-11-20 11:29 | Progress Note ---
KIAN DAHL 11/20/20 1129: Subjective Time Seen by a Provider: 08:30 Subjective/Events-last exam He reports no new changes in his muscles in terms of strength or symptom improvement. Continues to report numbness and tingling in the hands and feet, denies burning. He continues to have trouble with fine motor skills such as cutting his food, writing, and texting that has remained consistent. He is not walking and has a Cather in place. Reports 2 bowel movements on Friday and none since then. He has hyponatremia of 126 and does not report any cognitive impairment as of this morning. He is on nasal Canali on oxygen flow rate of 3 L/min, O2 saturation is 97 and RR is 16. He reports that his SOB has improved a lot since the thoracentesis. Is WBC is elevated at 13.4 and is anemic with a Hemoglobin 9.9. His Neutrophil count has decreased from 17.8 to 12.2, and his liver enzymes have been trending Downard to current levels of AST of 27 and ALT of 94. ROS: Denies CP, SOB, N/V, Fever, pain. Reports coughing. Objective Exam Last Set of Vital Signs Vital Signs Date Time Temp Pulse Resp B/P (MAP) Pulse Ox O2 Delivery O2 Flow Rate FiO2 11/20/20 09:00 High Flow N/C 4.00 11/20/20 07:30 36.3 61 16 144/65 97 11/18/20 16:18 40 Capillary Refill : I&O Intake and Output 11/20/20 00:00 Intake Total 710 ml Output Total 875 ml Balance -165 ml Intake Oral 700 ml IV Total 10 ml Output Urine Total 875 ml General: Alert, Cooperative, No Acute Distress Lungs: Other (no wheezing) Heart: Regular Rate Neuro: Normal Speech, Sensation Intact, Cranial Nerves 3-12 NL, Other (cerebellar function intact with finger to nose testing, UE and LE pulses +2/4, UE and LE sensations intact, proximal muscle weakness and fine motor skills deficit. ) Results Lab Laboratory Tests 11/20/20 06:07: White Blood Count 13.4H, Red Blood Count 3.44L, Hemoglobin 9.9L, Hematocrit 29L, Mean Corpuscular Volume 84, Mean Corpuscular Hemoglobin 29, Mean Corpuscular Hemoglobin Concent 34, Red Cell Distribution Width 14.9H, Platelet Count 276, Mean Platelet Volume 10.4, Immature Granulocyte % (Auto) 1, Neutrophils (%) (Auto) 91H, Lymphocytes (%) (Auto) 4L, Monocytes (%) (Auto) 4, Eosinophils (%) (Auto) 0, Basophils (%) (Auto) 0, Neutrophils # (Auto) 12.2H, Lymphocytes # (Auto) 0.5L, Monocytes # (Auto) 0.5, Eosinophils # (Auto) 0.0, Basophils # (Auto) 0.0, Immature Granulocyte # (Auto) 0.2H, Sodium Level 126L, Potassium Level 4.7, Chloride Level 97L, Carbon Dioxide Level 24, Anion Gap 5, Blood Urea Nitrogen 31H, Creatinine 0.66, Estimat Glomerular Filtration Rate 117, BUN/Creatinine Ratio 47, Glucose Level 160H, Calcium Level 8.7, Corrected Calcium 9.9, Total Bilirubin 1.2H, Aspartate Amino Transf (AST/SGOT) 27, Alanine Aminotransferase (ALT/SGPT) 89H, Alkaline Phosphatase 191H, Total Protein 5.2L, Albumin 2.5L Microbiology 11/18/20 Gram Stain - Final, Resulted 11/18/20 Body Fluid Culture - Preliminary, Resulted No growth 11/17/20 Mycobacterial Culture - Preliminary, Resulted 11/17/20 Blood Culture - Preliminary, Resulted No growth Assessment/Plan Assessment/Plan Assess & Plan/Chief Complaint Assessment Acute hypoxic respiratory failure Hyponatremia: Malignancy vs SIIADH Pleural effusion status post thoracentesis removing 500 cc Mucous plug of right mainstem bronchus status post bronchoscopy Friday Debility Constipation PAD 50 pack year smoking history HFpEF Plan -MRI of the brain with contrast to look for Posterior Pituitary tumor -Thoracentesis completed cytology pending -Status post bronchoscopy for mucous plug of right bronchus -Removal of catheter -Continue supplemental oxygen -Continue vancomycin and meropenem -Continue bowel regimen -Continue metoprolol succinate -Continue fluid restriction EUSEBIA HARRIS DO 11/21/20 0519: Subjective Date Seen by a Provider: Nov 20, 2020 Subjective/Events-last exam Patient doing much better Up in a chair Remains on oxygen Sodium level 126 MRI is indicated Review of Systems General: Fatigue, Malaise Objective Exam General: Alert, Cooperative, No Acute Distress Lungs: Normal Air Movement, Other (no wheezing) Heart: Regular Rate Neuro: Normal Speech Assessment/Plan Assessment/Plan Assess & Plan/Chief Complaint Mr. Ramirez is a 75yo male with a PMH significant for tobacco use, COPD, PAD, BPH, HTN, HFpEF who is currently being managed in the ICU for acute weakness, mucus plug of right lung and hyponatremia. Problems being managed include the following: Acute hypoxic respiratory failure Hyponatremia: Malignancy vs SIIADH vs renal Pleural effusion status post thoracentesis removing 500 cc Mucous plug of right mainstem bronchus status post bronchoscopy Friday Debility Constipation PAD 50 pack year smoking history HFpEF Plan: Thoracentesis Monitor closely BiPAP when needed 11/19/2020: Transfer to fourth floor Inhaled corticosteroid IV steroids 11/20/2020: DC catheter PT and OT MRI IV steroids Supervisory-Addendum Brief Verification & Attestation Participated in pt care: history, MDM, physical Personally performed: exam, history, MDM, supervision of care Care discussed with: Medical Student Procedures: n/a Results interpretation: Verified all documentation Verification and Attestation of Medical Student E/M Service A medical student performed and documented this service in my presence. I reviewed and verified all information documented by the medical student and made modifications to such information, when appropriate. I personally performed the physical exam and medical decision making. Eusebia Harris, Nov 21, 2020,05:17 KIAN DAHL Nov 20, 2020 11:29 EUSEBIA HARRIS DO Nov 21, 2020 05:19
[2020-11-20] MEDS ORDERED: GADOBUTROL 10 MMOL/10 ML (GADAVIST) VIAL IV ONE (12:30)
[2020-11-20] MEDS: ANIDULAFUNGIN INJECTION 100 MG in NS (IVPB) 100 ML IV SCH (13:26)
--- NOTE | 2020-11-20 13:30 | Diagnostic Imaging Report ---
PROCEDURE: MR imaging of the brain with and without contrast. TECHNIQUE: Multiplanar, multisequence MR imaging of the brain was performed with and without contrast. INDICATION: Bilateral leg weakness. COMPARISON: None. FINDINGS: Moderate generalized parenchymal volume loss. Moderate nonspecific T2 hyperintensities in the supratentorial and pontine white matter. No restricted water diffusion. No hemosiderin deposition or evidence of intracranial hemorrhage. Normal morphology including the major midline structures, sella, posterior fossa and cerebellar pontine angle. Normal intracranial flow voids. No hydrocephalus or extra-axial fluid collections. The orbits are negative. Paranasal sinuses and mastoids are unremarkable. Normal bone marrow signal. IMPRESSION: Age-appropriate MRI of the brain. No acute findings. No evidence of acute infarction or hemorrhage. Dictated by: Dictated on workstation # [id number]
[2020-11-20] MEDS: doxAzosin 2 MG (CARDURA) TAB PO SCH (20:13)
[2020-11-21] MEDS: MEROPENEM 500 MG in WATER (STERILE) FOR INJECTION 10 ML IV SCH ×4 (05:22→23:28)
[2020-11-21 06:05] LABS: BASOPHILS % (AUTO) 0 % (0-10); EOSINOPHILS % (AUTO) 0 % (0-10); HEMATOCRIT 28 % (40-54); HEMOGLOBIN 9.8 g/dL (13.3-17.7); LYMPHOCYTES # (AUTO) 0.7 10^3/uL (1.0-4.0); LYMPHOCYTES % (AUTO) 4 % (12-44); MEAN CORPUSCULAR HEMOGLOBIN 29 pg (25-34); MEAN CORPUSCULAR HGB CONC 35 g/dL (32-36); MEAN CORPUSCULAR VOLUME 83 fL (80-99); MEAN PLATELET VOLUME 9.9 fL (9.0-12.2); MONOCYTES # (AUTO) 0.9 10^3/uL (0.0-1.0); MONOCYTES % (AUTO) 5 % (0-12); NEUTROPHILS # (AUTO) 14.4 10^3/uL (1.8-7.8); NEUTROPHILS % (AUTO) 88 % (42-75); PLATELET COUNT 325 10^3/uL (130-400); WHITE BLOOD COUNT 16.3 10^3/uL (4.3-11.0)
[2020-11-21 06:14] LABS: ALBUMIN 2.4 GM/DL (3.2-4.5); POTASSIUM 4.9 MMOL/L (3.6-5.0)
[2020-11-21 06:15] LABS: CALCIUM 8.9 MG/DL (8.5-10.1)
[2020-11-21 06:17] LABS: TOTAL PROTEIN 5.2 GM/DL (6.4-8.2)
[2020-11-21 06:18] LABS: BILIRUBIN,TOTAL 1.3 MG/DL (0.1-1.0)
[2020-11-21 06:20] LABS: CREATININE SERUM 0.71 MG/DL (0.60-1.30)
[2020-11-21] MEDS: SENNA W/DOCUSATE (SENOKOT S) TABLET PO SCH ×2 (09:00→20:59)
[2020-11-21] MEDS: polyethylene glycoL POWDER 17 GM (MIRALAX) PACK PO SCH ×3 (09:00→20:58)
[2020-11-21] MEDS: meTOprolol SUCCINATE 100 MG (TOPROL XL) TAB PO SCH ×2 (09:18→20:59)
[2020-11-21] MEDS: ASPIRIN 81 MG CHEW (CHILDREN'S ASA) PO SCH (09:18)
[2020-11-21] MEDS: amLODIPine 10 MG (NORVASC) TAB PO SCH (09:18)
[2020-11-21] MEDS: lisINopril 40 MG (PRINIVIL) TABLET PO SCH (09:18)
[2020-11-21] MEDS: NICOTINE 14 MG (NICODERM) PATCH TD SCH (09:19)
[2020-11-21] MEDS: methylPREDNISolone 40 MG/ML (Solu-MEDROL) VIAL IV SCH ×2 (09:19→20:59)
[2020-11-21] MEDS: SODIUM CHLORIDE 1 GM TABLET PO SCH ×2 (09:19→20:59)
[2020-11-21] MEDS: PATCH REMOVAL TP SCH (09:20)
[2020-11-21] MEDS: ENOXAPARIN 40 MG/0.4 ML (LOVENOX) SYR SC SCH (09:20)
--- NOTE | 2020-11-21 10:28 | Progress Note ---
KIAN DAHL 11/21/20 1028: Subjective Time Seen by a Provider: 08:15 Subjective/Events-last exam He reports no new changes in his muscles in terms of strength or symptom improvement. Continues to report numbness and tingling in the hands and feet, denies burning. He continues to have trouble with fine motor skills such as cutting his food, writing, and texting that has remained consistent. Reports 2 bowel movements on Friday and two bowel movements Friday night. He has hyponatremia of 131. His MRI with contrast from yesterday was normal. He is on nasal Canali on oxygen flow rate of 3 L/min, O2 saturation is 95. His WBC is elevated at 16.3 and is anemic with a Hemoglobin 9.8. His AST levels increased to 44 from 27 yesterday and his ALT stayed elevated at 87 from 89 yesterday. ROS: Denies CP, N/V, Fever, pain. Has been coughing. Review of Systems General: Fatigue Pulmonary: Cough Cardiovascular: No: Chest Pain Gastrointestinal: No: Nausea, Vomiting, Constipation Objective Exam Last Set of Vital Signs Vital Signs Date Time Temp Pulse Resp B/P (MAP) Pulse Ox O2 Delivery O2 Flow Rate FiO2 11/21/20 08:00 36.2 65 20 150/69 95 High Flow N/C 3.00 11/18/20 16:18 40 Capillary Refill : I&O Intake and Output 11/21/20 00:00 Intake Total 1510 ml Output Total 1275 ml Balance 235 ml Intake Oral 980 ml IV Total 530 ml Output Urine Total 1275 ml General: Alert, Cooperative, No Acute Distress Lungs: Clear to Auscultation Heart: Regular Rate Results Lab Laboratory Tests 11/21/20 05:55: White Blood Count 16.3H, Red Blood Count 3.42L, Hemoglobin 9.8L, Hematocrit 28L, Mean Corpuscular Volume 83, Mean Corpuscular Hemoglobin 29, Mean Corpuscular Hemoglobin Concent 35, Red Cell Distribution Width 14.8H, Platelet Count 325, Mean Platelet Volume 9.9, Immature Granulocyte % (Auto) 2, Neutrophils (%) (Auto) 88H, Lymphocytes (%) (Auto) 4L, Monocytes (%) (Auto) 5, Eosinophils (%) (Auto) 0, Basophils (%) (Auto) 0, Neutrophils # (Auto) 14.4H, Lymphocytes # (Auto) 0.7L, Monocytes # (Auto) 0.9, Eosinophils # (Auto) 0.0, Basophils # (Auto) 0.0, Immature Granulocyte # (Auto) 0.3H, Sodium Level 131L, Potassium Level 4.9, Chloride Level 101, Carbon Dioxide Level 24, Anion Gap 6, Blood Urea Nitrogen 35H, Creatinine 0.71, Estimat Glomerular Filtration Rate 108, BUN/Creatinine Ratio 49, Glucose Level 155H, Calcium Level 8.9, Corrected Calcium 10.2H, Total Bilirubin 1.3H, Aspartate Amino Transf (AST/SGOT) 44H, Alanine Aminotransferase (ALT/SGPT) 87H, Alkaline Phosphatase 198H, Total Protein 5.2L, Albumin 2.4L Microbiology 11/18/20 Gram Stain - Final, Resulted 11/18/20 Body Fluid Culture - Preliminary, Resulted No growth 11/17/20 Mycobacterial Culture - Preliminary, Resulted 11/17/20 Blood Culture - Preliminary, Resulted No growth Assessment/Plan Assessment/Plan Assess & Plan/Chief Complaint Assessment Acute hypoxic respiratory failure Hyponatremia: Malignancy vs SIADH vs renal Pleural effusion status post thoracentesis removing 500 cc Mucous plug of right mainstem bronchus status post bronchoscopy Friday Debility Constipation PAD COPD exacerbation from 50 pack year smoking history HFpEF Plan -Thoracentesis completed cytology pending -Status post bronchoscopy for mucous plug of right bronchus -Inpatient Rehab -Continue supplemental oxygen -Continue bowel regimen -Continue metoprolol succinate -Continue fluid restriction EUSEBIA HARRIS DO 11/22/20 0539: Subjective Date Seen by a Provider: Nov 21, 2020 Subjective/Events-last exam Patient seems to be much improved today Fluid restriction maintained at thousand Sodium level responded to the fluid restriction Inpatient rehab candidate now Review of Systems General: Fatigue, Malaise Objective Exam General: Alert, Oriented X3, Cooperative, No Acute Distress Lungs: Clear to Auscultation Heart: Regular Rate Assessment/Plan Assessment/Plan Assess & Plan/Chief Complaint Inpatient rehab Titrate down off IV steroids Fluid restriction Supervisory-Addendum Brief Verification & Attestation Participated in pt care: history, MDM, physical Personally performed: exam, history, MDM, supervision of care Care discussed with: Medical Student Procedures: n/a Results interpretation: Verified all documentation Verification and Attestation of Medical Student E/M Service A medical student performed and documented this service in my presence. I reviewed and verified all information documented by the medical student and made modifications to such information, when appropriate. I personally performed the physical exam and medical decision making. Eusebia Harris, Nov 22, 2020,05:38 KIAN DAHL Nov 21, 2020 10:28 EUSEBIA HARRIS DO Nov 22, 2020 05:39
--- NOTE | 2020-11-21 11:09 | Occupational Ther Daily Note ---
OT Current Status-Daily Note Subjective Pt reports difficulty reaching, grasping and maintaining feather shaper on items such as coffee cup. Mental Status/Objective Patient Orientation: Person, Place, Situation Attachments: [place] Catheter, IV, Oxygen ADL-Treatment Therapy Code Descriptions/Definitions Functional [place] Measure: 0=Not Assessed/NA 4=Minimal Assistance 1=Total Assistance 5=Supervision or Setup 2=Maximal Assistance 6=Modified [place] 3=Moderate Assistance 7=Complete IndependenceSCALE: Activities may be completed with or without assistive devices. 5-Haauirxugy-qquuhgb completes the activity by him/herself with no assistance from a helper. 5-Set-up or Clean-up Assistance-helper sets up or cleans up; patient completes activity. [place] assists only prior to or following the activity. 4-Supervision or Touching Assistance-helper provides verbal cues and/or touching/steadying and/or contact guard assistance as patient completes activity. Assistance may be provided throughout the activity or intermittently. 3-Partial/Moderate Assistance-helper does LESS THAN HALF the effort. [place] lifts, holds or supports trunk or limbs, but provides less than half the effort. 2-Substantial/Maximal Assistance-helper does MORE THAN HALF the effort. [place] lifts or holds trunk or limbs and provides more than half the effort. 9-Iixzwtzhj-npkjys does ALL the effort. Patient does none of the effort to complete the activity. Or, the assistance of 2 or more helpers is required for the patient to complete the activity. If activity was not attempted, code reason: 7-Patient Refused. 9-Not Applicable-not attempted and the patient did not perform the activity before the current illness, exacerbation or injury. 10-Not Attempted due to Environmental Limitations-(lack of equipment, weather restraints, etc.). 88-Not Attempted due to Medical Conditions or Safety Concerns. Other Treatment Pt reports difficulty reaching, grasping and maintaining feather shaper on items such as coffee cup. With cues, he was able to demonstrate full UE range in all planes without difficulty. He reached, grasped, and released small red foam block with BUE's and was able to maintain feather shaper throughout activity. He demonstrated ability to grasp a mug with and without a handle. Pt's daughter reports that Pt appears to be doing much better with manipulating/grasping items this date. Fair-good feather shaper strength. OT provided pt with AROM exercise program to complete outside of therapy time. 10 reps x1 set each. He was able to perform exercises back to therapist without difficulty. Education OT Patient Education: Correct positioning, Exercise program, Modified ADL techniques, Progress toward Goal/Update tx plan, Purpose of tx/functional activities Teaching Recipient: Patient Teaching Methods: Demonstration, Discussion Response to Teaching: Verbalize Understanding, Return Demonstration OT Broadcast Systems Engineer Goals Broadcast Systems Engineer Goals Oral Hygiene (QC): 4 Toileting Hygiene (QC): 4 Shower/Bathe Self (QC): 4 Upper Body Dressing (QC): 4 Lower Body Dressing (QC): 4 On/Off Footwear (QC): 5 1=Demonstrate adherence to instructed precautions during ADL tasks. 2=Patient will verbalize/demonstrate understanding of assistive devices/modifications for ADL. 3=Patient will improve strength/tolerance for activity to enable patient to perform ADL's. OT Education/Plan Problem List/Assessment Assessment: Decreased Activ Tolerance, Decreased UE Strength, Impaired Control Systems Drafting Officer rdination, Impaired Funct Balance, Impaired I ADL's, Impaired Self-Care Skills, Restricted Funct UE ROM Discharge Recommendations Plan/Recommendations: Continue POC Treatment Plan/Plan of Care Treatment,Training & Education: Yes Patient would benefit from OT for education, treatment and training to promote independence in ADL's, mobility, safety and/or upper extremity function for ADL's. Plan of Care: ADL Retraining, Functional Mobility, Group Exercise/Act as Ind, UE Funct Exercise/Act, UE Neuromus Re-Ed/Coord, W/C Management Training Treatment Duration: Dec 01, 2020 Frequency: 5 times per week Estimated Hrs Per Day: .25 hour per day Agreement: Yes Rehab Potential: Fair Time/GCodes Start Time: 10:38 Stop Time: 10:54 Total Time Billed (hr/min): 16 Billed Treatment Time 1, EX Eleni Perez OT Nov 21, 2020 11:09
[2020-11-21] MEDS: ANIDULAFUNGIN INJECTION 100 MG in NS (IVPB) 100 ML IV SCH (11:41)
--- NOTE | 2020-11-21 12:02 | Physical Therapy Daily Note ---
PT Daily Note-Current Subjective Patient is very agreeable to participate with PT. Mental Status Patient Orientation: Normal For Age Attachments: Oxygen Transfers SCALE: Activities may be completed with or without assistive devices. 1-Psmutgktrl-ixfoeep completes the activity by him/herself with no assistance from a helper. 5-Set-up or Clean-up Assistance-helper sets up or cleans up; patient completes activity. [place] assists only prior to or following the activity. 4-Supervision or Touching Assistance-helper provides verbal cues and/or touching/steadying and/or contact guard assistance as patient completes activity. Assistance may be provided throughout the activity or intermittently. 3-Partial/Moderate Assistance-helper does LESS THAN HALF the effort. [place] lifts, holds or supports trunk or limbs, but provides less than half the effort. 2-Substantial/Maximal Assistance-helper does MORE THAN HALF the effort. [place] lifts or holds trunk or limbs and provides more than half the effort. 5-Wbzqckopx-wdfqrk does ALL the effort. Patient does none of the effort to complete the activity. Or, the assistance of 2 or more helpers is required for the patient to complete the activity. If activity was not attempted, code reason: 7-Patient Refused. 9-Not Applicable-not attempted and the patient did not perform the activity before the current illness, exacerbation or injury. 10-Not Attempted due to Environmental Limitations-(lack of equipment, weather restraints, etc.). 88-Not Attempted due to Medical Conditions or Safety Concerns. Sit to Stand (QC): 3 Gait Training Does the Patient Walk?: Yes Distance: 175' Walk 10 feet (QC): 3 Walk 50 ft with 2 Turns(QC): 3 Walk 150 ft (QC): 3 Gait Assistive Device: FWW slow, steady gait sequence with noted bilateral knee hyperextension Exercises Seated Therapy Exercises: Ankle pumps, Long arc quads, Hip flexion Seated Reps: 15 Assessment Patient remains up in recliner with needs met. Increase activity as tolerated by patient. PT Tip Cutter Goals Tip Cutter Goals PT Usp Goals Time Frame: Nov 27, 2020 Roll Left & Right (QC): 6 Sit to Lying (QC): 5 Lying-Sitting on Side/Bed(QC): 5 Sit to Stand (QC): 4 Chair/Ktk-gz-Zqpum Xfer(QC): 4 Walk 10 feet (QC): 4 Walk 50ft with 2 Turns (QC): 4 PT Plan Treatment/Plan Treatment Plan: Continue Plan of Care Treatment Plan: Bed Mobility, Education, Functional Activity Samantha, Functional Strength, Gait, Safety, Therapeutic Exercise, Transfers Treatment Duration: Nov 27, 2020 Frequency: 6 times per week Estimated Hrs Per Day: .25 hour per day Patient and/or Family Agrees t: Yes Time/GCodes Time In: 1117 Time Out: 1130 Total Billed Treatment Time: 13 Total Billed Treatment 1 visit GT 13 min JAMIE JENSEN PT Nov 21, 2020 12:02
[2020-11-21] MEDS: doxAzosin 2 MG (CARDURA) TAB PO SCH (20:59)
[2020-11-22] MEDS: MEROPENEM 500 MG in WATER (STERILE) FOR INJECTION 10 ML IV SCH ×2 (05:35→11:12)
[2020-11-22 05:49] LABS: BASOPHILS % (AUTO) 0 % (0-10); EOSINOPHILS % (AUTO) 0 % (0-10); HEMATOCRIT 29 % (40-54); HEMOGLOBIN 9.8 g/dL (13.3-17.7); LYMPHOCYTES # (AUTO) 0.7 10^3/uL (1.0-4.0); LYMPHOCYTES % (AUTO) 6 % (12-44); MEAN CORPUSCULAR HEMOGLOBIN 29 pg (25-34); MEAN CORPUSCULAR HGB CONC 34 g/dL (32-36); MEAN CORPUSCULAR VOLUME 84 fL (80-99); MONOCYTES # (AUTO) 0.7 10^3/uL (0.0-1.0); MONOCYTES % (AUTO) 6 % (0-12); NEUTROPHILS # (AUTO) 10.7 10^3/uL (1.8-7.8); NEUTROPHILS % (AUTO) 87 % (42-75); PLATELET COUNT 323 10^3/uL (130-400); WHITE BLOOD COUNT 12.3 10^3/uL (4.3-11.0)
[2020-11-22 05:59] LABS: ALBUMIN 2.4 GM/DL (3.2-4.5); POTASSIUM 4.8 MMOL/L (3.6-5.0)
[2020-11-22 06:00] LABS: CALCIUM 8.6 MG/DL (8.5-10.1)
[2020-11-22 06:01] LABS: TOTAL PROTEIN 5.1 GM/DL (6.4-8.2)
[2020-11-22 06:03] LABS: BILIRUBIN,TOTAL 1.1 MG/DL (0.1-1.0)
[2020-11-22 06:05] LABS: CREATININE SERUM 0.63 MG/DL (0.60-1.30)
--- NOTE | 2020-11-22 09:13 | Physical Therapy Daily Note ---
PT Daily Note-Current Subjective Pt in recliner w/ nursing in room upon arrival and agrees to tx. Pt states no pain, but that his bottom is sore. Mental Status Patient Orientation: Person, Place, Time, Situation Attachments: Oxygen Transfers SCALE: Activities may be completed with or without assistive devices. 0-Lpzfsddycb-qmclcgf completes the activity by him/herself with no assistance from a helper. 5-Set-up or Clean-up Assistance-helper sets up or cleans up; patient completes activity. [place] assists only prior to or following the activity. 4-Supervision or Touching Assistance-helper provides verbal cues and/or touching/steadying and/or contact guard assistance as patient completes activity. Assistance may be provided throughout the activity or intermittently. 3-Partial/Moderate Assistance-helper does LESS THAN HALF the effort. [place] lifts, holds or supports trunk or limbs, but provides less than half the effort. 2-Substantial/Maximal Assistance-helper does MORE THAN HALF the effort. [place] lifts or holds trunk or limbs and provides more than half the effort. 1-Hartqjmqu-begumm does ALL the effort. Patient does none of the effort to complete the activity. Or, the assistance of 2 or more helpers is required for the patient to complete the activity. If activity was not attempted, code reason: 7-Patient Refused. 9-Not Applicable-not attempted and the patient did not perform the activity before the current illness, exacerbation or injury. 10-Not Attempted due to Environmental Limitations-(lack of equipment, weather restraints, etc.). 88-Not Attempted due to Medical Conditions or Safety Concerns. Sit to Stand (QC): 4 Gait Training Does the Patient Walk?: Yes Distance: 200' Walk 10 feet (QC): 4 Walk 50 ft with 2 Turns(QC): 4 Walk 150 ft (QC): 4 Gait Persons Needed: 1 Gait Assistive Device: FWW Pt exhibits slow, shuffling gait w/ kyphotic posture. Pt tends to veer side to side w/ amb. During amb, pt instructed to walk on line in floors of hallway, pt able to complete for last 100' of amb. Treatments Pt sit to stand from recliner w/ CGA as nursing places chair cushion under pt. Pt has seated RB, followed by sit to stand. Pt amb in hallways w/ FWW and DEVELOPER SUPPORT ENGINEER follows w/ O2. Pt returns to recliner post amb and is left with all needs met, call light in hand. Assessment Current Status: Good Progress Pt amb farther distance w/ no LOB. Pt increasing endurance, strength, and mobility. PT Mcc Goals Graphic Editor Goals PT Graphic Editor Goals Time Frame: Nov 27, 2020 Roll Left & Right (QC): 6 Sit to Lying (QC): 5 Lying-Sitting on Side/Bed(QC): 5 Sit to Stand (QC): 4 Chair/Ghu-oz-Zkzuv Xfer(QC): 4 Walk 10 feet (QC): 4 Walk 50ft with 2 Turns (QC): 4 PT Plan Treatment/Plan Treatment Plan: Continue Plan of Care Treatment Plan: Bed Mobility, Education, Functional Activity Samantha, Functional Strength, Gait, Safety, Therapeutic Exercise, Transfers Treatment Duration: Nov 27, 2020 Frequency: 6 times per week Estimated Hrs Per Day: .25 hour per day Patient and/or Family Agrees t: Yes Time/GCodes Time In: 844 Time Out: 854 Total Billed Treatment Time: 10 Total Billed Treatment 1, GT ELYSSA CARTER DEVELOPER SUPPORT ENGINEER Nov 22, 2020 09:13
[2020-11-22] MEDS: SODIUM CHLORIDE 1 GM TABLET PO SCH (09:28)
[2020-11-22] MEDS: meTOprolol SUCCINATE 100 MG (TOPROL XL) TAB PO SCH (09:34)
[2020-11-22] MEDS: ENOXAPARIN 40 MG/0.4 ML (LOVENOX) SYR SC SCH (09:34)
[2020-11-22] MEDS: ASPIRIN 81 MG CHEW (CHILDREN'S ASA) PO SCH (09:34)
[2020-11-22] MEDS: SENNA W/DOCUSATE (SENOKOT S) TABLET PO SCH (09:34)
[2020-11-22] MEDS: lisINopril 40 MG (PRINIVIL) TABLET PO SCH (09:34)
[2020-11-22] MEDS: amLODIPine 10 MG (NORVASC) TAB PO SCH (09:34)
[2020-11-22] MEDS: NICOTINE 14 MG (NICODERM) PATCH TD SCH (09:35)
[2020-11-22] MEDS: polyethylene glycoL POWDER 17 GM (MIRALAX) PACK PO SCH (09:35)
[2020-11-22] MEDS: methylPREDNISolone 40 MG/ML (Solu-MEDROL) VIAL IV SCH (09:39)
[2020-11-22] MEDS: PATCH REMOVAL TP SCH (09:44)
--- NOTE | 2020-11-22 11:08 | Progress Note ---
Subjective Date Seen by a Provider: Nov 22, 2020 Time Seen by a Provider: 10:45 Subjective/Events-last exam Patient doing well Sodium level 132 Discharge is planned to rehab if insurance approves Review of Systems General: Fatigue, Malaise Pulmonary: Dyspnea Objective Exam Last Set of Vital Signs Vital Signs Date Time Temp Pulse Resp B/P (MAP) Pulse Ox O2 Delivery O2 Flow Rate FiO2 11/22/20 07:26 36.5 61 18 165/67 97 High Flow N/C 3.00 11/18/20 16:18 40 Capillary Refill : I&O Intake and Output 11/22/20 00:00 Intake Total 1100 ml Output Total 1100 ml Balance 0 ml Intake Oral 1100 ml Output Urine Total 1100 ml # Voids 3 # Bowel Movements 3 General: Alert, Oriented X3, Cooperative, No Acute Distress Lungs: Clear to Auscultation, Normal Air Movement Heart: Regular Rate, Normal S1, Normal S2, No Murmurs Psych/Mental Status: Mental Status NL, Mood NL Results Lab Laboratory Tests 11/22/20 05:30: White Blood Count 12.3H, Red Blood Count 3.42L, Hemoglobin 9.8L, Hematocrit 29L, Mean Corpuscular Volume 84, Mean Corpuscular Hemoglobin 29, Mean Corpuscular Hemoglobin Concent 34, Red Cell Distribution Width 14.9H, Platelet Count 323, Mean Platelet Volume 10.0, Immature Granulocyte % (Auto) 2, Neutrophils (%) (Auto) 87H, Lymphocytes (%) (Auto) 6L, Monocytes (%) (Auto) 6, Eosinophils (%) (Auto) 0, Basophils (%) (Auto) 0, Neutrophils # (Auto) 10.7H, Lymphocytes # (Auto) 0.7L, Monocytes # (Auto) 0.7, Eosinophils # (Auto) 0.0, Basophils # (Auto) 0.0, Immature Granulocyte # (Auto) 0.2H, Sodium Level 132L, Potassium Level 4.8, Chloride Level 101, Carbon Dioxide Level 27, Anion Gap 4L, Blood Urea Nitrogen 28H, Creatinine 0.63, Estimat Glomerular Filtration Rate 124, BUN/Creatinine Ratio 44, Glucose Level 167H, Calcium Level 8.6, Corrected Calcium 9.9, Total Bilirubin 1.1H, Aspartate Amino Transf (AST/SGOT) 124H, Alanine Aminotransferase (ALT/SGPT) 180H, Alkaline Phosphatase 258H, Total Protein 5.1L, Albumin 2.4L Microbiology 11/18/20 Gram Stain - Final, Complete 11/18/20 Body Fluid Culture - Final, Complete No growth 11/17/20 Mycobacterial Culture - Preliminary, Resulted 11/17/20 Blood Culture - Preliminary, Resulted No growth Assessment/Plan Assessment/Plan Assess & Plan/Chief Complaint Inpatient rehab Titrate down off IV steroids Fluid restriction NEFTALI HARRIS DO Nov 22, 2020 11:08
--- NOTE | 2020-11-22 11:36 | Occupational Ther Daily Note ---
OT Current Status-Daily Note Subjective Pt reports feeling much better. He states mild discomfort in shoulders but no significant pain. Appearance Pt left sitting in chair, all needs within reach, daughter in room. Mental Status/Objective Patient Orientation: Person, Place, Time, Situation Attachments: IV ADL-Treatment Pt requesting to don clothes. Extra time and Min a to thread LLE into pants secondary to grippy socks getting caught on pant leg. CGA for safety balance when he stood for clothing management. He ambulated to/from bathroom with use of walker. Reduced coordination noted but improved from past sessions. He stood at sink to wash face and brush teeth. With prolong standing, pt relies heavily on sink for extra stability. Cues to sit and rest if needed, yet pt able to finish task before resting. Pt on 4L throughout, improved awareness of o2 tubing with all gait/transfers. Pt in good spirits and is hopeful to return to acute rehab unit. Therapy Code Descriptions/Definitions Functional [place]ains Measure: 0=Not Assessed/NA 4=Minimal Assistance 1=Total Assistance 5=Supervision or Setup 2=Maximal Assistance 6=Modified Rains 3=Moderate Assistance 7=Complete IndependenceSCALE: Activities may be completed with or without assistive devices. 4-[id number]-geunhfi completes the activity by him/herself with no assistance from a helper. 5-Set-up or Clean-up Assistance-helper sets up or cleans up; patient completes activity. [place] assists only prior to or following the activity. 4-Supervision or Touching Assistance-helper provides verbal cues and/or touching/steadying and/or contact guard assistance as patient completes activity. Assistance may be provided throughout the activity or intermittently. 3-Partial/Moderate Assistance-helper does LESS THAN HALF the effort. [place] lifts, holds or supports trunk or limbs, but provides less than half the effort. 2-Substantial/Maximal Assistance-helper does MORE THAN HALF the effort. [place] lifts or holds trunk or limbs and provides more than half the effort. 3-[id number]-[id number] does ALL the effort. Patient does none of the effort to complete the activity. Or, the assistance of 2 or more helpers is required for the patient to complete the activity. If activity was not attempted, code reason: 7-Patient Refused. 9-Not Applicable-not attempted and the patient did not perform the activity before the current illness, exacerbation or injury. 10-Not Attempted due to Environmental Limitations-(lack of equipment, weather restraints, etc.). 88-Not Attempted due to Medical Conditions or Safety Concerns. Oral Hygiene (QC): 4 (CGA) Upper Body Dressing (QC): 4 Lower Body Dressing (QC): 3 (Min) Education OT Patient Education: Correct positioning, Energy conservation, Modified ADL techniques, Progress toward Goal/Update tx plan, Purpose of tx/functional activities, Rehab process, Safety issues, Transfer techniques Teaching Recipient: Patient Teaching Methods: Discussion Response to Teaching: Return Demonstration OT Retirement Goals Retirement Goals Oral Hygiene (QC): 4 Toileting Hygiene (QC): 4 Shower/Bathe Self (QC): 4 Upper Body Dressing (QC): 4 Lower Body Dressing (QC): 4 On/Off Footwear (QC): 5 1=Demonstrate adherence to instructed precautions during ADL tasks. 2=Patient will verbalize/demonstrate understanding of assistive devices/modifications for ADL. 3=Patient will improve strength/tolerance for activity to enable patient to perform ADL's. OT Education/Plan Problem List/Assessment Assessment: Decreased Activ Tolerance, Decreased Safety Aware, Decreased UE Strength, Impaired Coordination, Impaired Funct Balance, Impaired I ADL's, Impaired Self-Care Skills, Restricted Funct UE ROM Discharge Recommendations Plan/Recommendations: Continue POC Treatment Plan/Plan of Care Treatment,Training & Education: Yes Patient would benefit from OT for education, treatment and training to promote independence in ADL's, mobility, safety and/or upper extremity function for ADL's. Plan of Care: ADL Retraining, Functional Mobility, Group Exercise/Act as Ind, UE Funct Exercise/Act, UE Neuromus Re-Ed/Coord, W/C Management Training Treatment Duration: Dec 01, 2020 Frequency: 5 times per week Estimated Hrs Per Day: .25 hour per day Agreement: Yes Rehab Potential: Fair Time/GCodes Start Time: 10:58 Stop Time: 11:21 Total Time Billed (hr/min): 23 Billed Treatment Time 1 visit, ADL x2 Eleni Perez OT Nov 22, 2020 11:36
--- NOTE | 2020-11-22 12:18 | Discharge Summary ---
Diagnosis/Chief Complaint Date of Admission Nov 17, 2020 at 03:30 Date of Discharge Discharge Date: Nov 22, 2020 Discharge Diagnosis Assessment Acute hypoxic respiratory failure Hyponatremia: Malignancy vs SIADH vs renal Pleural effusion status post thoracentesis removing 500 cc Mucous plug of right mainstem bronchus status post bronchoscopy Friday Debility Constipation PAD COPD exacerbation from 50 pack year smoking history HFpEF Discharge Summary Discharge Physical Examination Allergies: Coded Allergies: No Known Drug Allergies (Unverified , 11/06/20) Vitals & I&Os Vital Signs Date Time Temp Pulse Resp B/P (MAP) Pulse Ox O2 Delivery O2 Flow Rate FiO2 11/22/20 13:11 High Flow N/C 3.00 11/22/20 11:30 36.6 60 18 158/70 100 11/18/20 16:18 40 General Appearance: Alert, Oriented X3, Cooperative Respiratory: Clear to Auscultation Hospital Course Was the Problem List Reviewed?: Yes Patient had a lengthy hospital course which included an ICU transfer due to respiratory failure requiring high flow oxygen and BiPAP. Patient did have a bronchoscopy to remove mucous plugging. He did have a thoracentesis to remove pleural effusion which showed no evidence of any malignant cells on cytology. Fluid restriction along with salt tablets did improve sodium level slowly but consistently. PT and OT consulted he was still very weak and he will be transferred to inpatient rehab to complete his recovery. Oncology had been consulted and there was no evidence of any type of malignancy only severe COPD. Labs (last 24 hrs) Laboratory Tests 11/17/20 03:30: Lab Scanned Report Referred Lab Report 11/17/20 04:05: White Blood Count 11.6H, Red Blood Count 3.77L, Hemoglobin 10.7L, Hematocrit 31L , Mean Corpuscular Volume 83, Mean Corpuscular Hemoglobin 28, Mean Corpuscular Hemoglobin Concent 34, Red Cell Distribution Width 14.1, Platelet Count 307, Mean Platelet Volume 9.6, Immature Granulocyte % (Auto) 1, Neutrophils (%) (Auto) 81H, Lymphocytes (%) (Auto) 9L, Monocytes (%) (Auto) 9, Eosinophils (%) (Auto) 0, Basophils (%) (Auto) 0, Neutrophils # (Auto) 9.4H, Lymphocytes # (Auto) 1.0, Monocytes # (Auto) 1.1H, Eosinophils # (Auto) 0.0, Basophils # (Auto) 0.0, Immature Granulocyte # (Auto) 0.1, Prothrombin Time 13.5, INR Comment 1.0, D-Dimer 1.35H, Sodium Level 121*L, Potassium Level 4.1, Chloride Level 91L, Carbon Dioxide Level 21, Anion Gap 9, Blood Urea Nitrogen 21H, Creatinine 0.59L, Estimat Glomerular Filtration Rate 134, BUN/Creatinine Ratio 36, Glucose Level 98, Lactic Acid Level 0.59, Calcium Level 8.5, Corrected Calcium 9.4, Total Bilirubin 1.6H, Gamma Glutamyl Transpeptidase 181H, Aspartate Amino Transf (AST/SGOT) 113H, Alanine Aminotransferase (ALT/SGPT) 188H, Alkaline Phosphatase 208H, Troponin I < 0.028, B-Type Natriuretic Peptide 279.0H, Total Protein 5.8L, Albumin 2.9L, Amylase Level 29, Lipase 11, Procalcitonin 0.06 11/17/20 05:47: Urine Color YELLOW, Urine Clarity CLEAR, Urine pH 6.0, Urine Specific [place] 1.020, Urine Protein NEGATIVE, Urine Glucose (UA) NEGATIVE, Urine Ketones NEGATIVE, Urine Nitrite NEGATIVE, Urine Bilirubin NEGATIVE, Urine Urobilinogen 4.0, Urine Leukocyte Esterase NEGATIVE, Urine RBC (Auto) TRACE-I, Urine RBC 0-2, Urine WBC 2-5, Urine Crystals NONE, Urine Bacteria TRACE, Urine Casts NONE, Urine Mucus NEGATIVE, Urine Culture Indicated NO, Urine Osmolality 517, Urine Random Sodium 95 11/18/20 00:45: White Blood Count 21.4H, Red Blood Count 3.58L, Hemoglobin 10.2L, Hematocrit 30L , Mean Corpuscular Volume 83, Mean Corpuscular Hemoglobin 29, Mean Corpuscular Hemoglobin Concent 35, Red Cell Distribution Width 14.0, Platelet Count 281, Mean Platelet Volume 9.4, Immature Granulocyte % (Auto) 1, Neutrophils (%) (Auto) 92H, Lymphocytes (%) (Auto) 2L, Monocytes (%) (Auto) 4, Eosinophils (%) (Auto) 0, Basophils (%) (Auto) 0, Neutrophils # (Auto) 19.7H, Lymphocytes # (Auto) 0.5L, Monocytes # (Auto) 0.9, Eosinophils # (Auto) 0.0, Basophils # (Auto) 0.0, Immature Granulocyte # (Auto) 0.2H, Sodium Level 125*L, Potassium Level 4.0, Chloride Level 94L, Carbon Dioxide Level 21, Anion Gap 10, Blood Urea Nitrogen 19H, Creatinine 0.54L, Estimat Glomerular Filtration Rate 148, BUN/Creatinine Ratio 35, Glucose Level 84, Calcium Level 8.2L, Corrected Calcium 9.2, Total Bilirubin 2.0H, Aspartate Amino Transf (AST/SGOT) 99H, Alanine Aminotransferase (ALT/SGPT) 180H, Alkaline Phosphatase 165H, Total Protein 5.3L, Albumin 2.7L, Neutrophils % (Manual) 84, Lymphocytes % (Manual) 3, Monocytes % (Manual) 2, Band Neutrophils 11, Hypochromasia SLIGHT, Microcytosis MODERATE, Target Cells SLIGHT, Phosphorus Level 3.7, Magnesium Level 1.6 11/18/20 01:09: Blood Gas Puncture Site LEFT RADIAL, Blood Gas Patient Temperature 36.6, Arterial Blood pH 7.44H, Arterial Blood Partial Pressure CO2 35, Arterial Blood Partial Pressure O2 141H, Arterial Blood HCO3 24, Arterial Blood Total CO2 24.9, Arterial Blood Oxygen Saturation 99, Arterial Blood Base Excess 0.0, Brannon Test YES-POS, Blood Gas Ventilator Setting NO, Blood Gas Inspired Oxygen 60% BIPAP 11/18/20 16:04: Vancomycin Level Trough 10.3 11/19/20 04:45: White Blood Count 20.1H, Red Blood Count 3.48L, Hemoglobin 9.8L, Hematocrit 29L, Mean Corpuscular Volume 83, Mean Corpuscular Hemoglobin 28, Mean Corpuscular Hemoglobin Concent 34, Red Cell Distribution Width 14.5, Platelet Count 249, Mean Platelet Volume 10.3, Immature Granulocyte % (Auto) 1, Neutrophils (%) (Auto) 89H, Lymphocytes (%) (Auto) 5L, Monocytes (%) (Auto) 5, Eosinophils (%) (Auto) 0, Basophils (%) (Auto) 0, Neutrophils # (Auto) 17.8H, Lymphocytes # (Auto) 0.9L, Monocytes # (Auto) 1.1H, Eosinophils # (Auto) 0.0, Basophils # (Auto) 0.0, Immature Granulocyte # (Auto) 0.3H, Neutrophils % (Manual) 87, Lymp hocytes % (Manual) 6, Monocytes % (Manual) 4, Band Neutrophils 3, Toxic Granulation 1+, Hypochromasia SLIGHT, Microcytosis MODERATE, Target Cells SLIGHT, Sodium Level 123*L, Potassium Level 4.2, Chloride Level 94L, Carbon Dioxide Level 22, Anion Gap 7, Blood Urea Nitrogen 27H, Creatinine 0.61, Estimat Glomerular Filtration Rate 129, BUN/Creatinine Ratio 44, Glucose Level 87, Calcium Level 8.5, Corrected Calcium 9.7, Phosphorus Level 3.0, Magnesium Level 1.8, Total Bilirubin 1.8H, Aspartate Amino Transf (AST/SGOT) 58H, Alanine Aminotransferase (ALT/SGPT) 133H, Alkaline Phosphatase 226H, Total Protein 5.2L, Albumin 2.5L 11/20/20 06:07: White Blood Count 13.4H, Red Blood Count 3.44L, Hemoglobin 9.9L, Hematocrit 29L, Mean Corpuscular Volume 84, Mean Corpuscular Hemoglobin 29, Mean Corpuscular Hemoglobin Concent 34, Red Cell Distribution Width 14.9H, Platelet Count 276, M ariane Platelet Volume 10.4, Immature Granulocyte % (Auto) 1, Neutrophils (%) (Auto) 91H, Lymphocytes (%) (Auto) 4L, Monocytes (%) (Auto) 4, Eosinophils (%) (Auto) 0, Basophils (%) (Auto) 0, Neutrophils # (Auto) 12.2H, Lymphocytes # (Auto) 0.5L, Monocytes # (Auto) 0.5, Eosinophils # (Auto) 0.0, Basophils # (Auto) 0.0, Immature Granulocyte # (Auto) 0.2H, Sodium Level 126L, Potassium Level 4.7, Chloride Level 97L, Carbon Dioxide Level 24, Anion Gap 5, Blood Urea Nitrogen 31H, Creatinine 0.66, Estimat Glomerular Filtration Rate 117, BUN/Creatinine Ratio 47, Glucose Level 160H, Calcium Level 8.7, Corrected Calcium 9.9, Total Bilirubin 1.2H, Aspartate Amino Transf (AST/SGOT) 27, Alanine Aminotransferase (ALT/SGPT) 89H, Alkaline Phosphatase 191H, Total Protein 5.2L, Albumin 2.5L 11/21/20 05:55: White Blood Count 16.3H, Red Blood Count 3.42L, Hemoglobin 9.8L, Hematocrit 28L, Mean Corpuscular Volume 83, Mean Corpuscular Hemoglobin 29, Mean Corpuscular Hemoglobin Concent 35, Red Cell Distribution Width 14.8H, Platelet Count 325, Mean Platelet Volume 9.9, Immature Granulocyte % (Auto) 2, Neutrophils (%) (Auto) 88H, Lymphocytes (%) (Auto) 4L, Monocytes (%) (Auto) 5, Eosinophils (%) (Auto) 0, Basophils (%) (Auto) 0, Neutrophils # (Auto) 14.4H, Lymphocytes # (Auto) 0.7L, Monocytes # (Auto) 0.9, Eosinophils # (Auto) 0.0, Basophils # (Auto) 0.0, Immature Granulocyte # (Auto) 0.3H, Sodium Level 131L, Potassium L evel 4.9, Chloride Level 101, Carbon Dioxide Level 24, Anion Gap 6, Blood Urea Nitrogen 35H, Creatinine 0.71, Estimat Glomerular Filtration Rate 108, BUN/Creatinine Ratio 49, Glucose Level 155H, Calcium Level 8.9, Corrected Calcium 10.2H, Total Bilirubin 1.3H, Aspartate Amino Transf (AST/SGOT) 44H, Alanine Aminotransferase (ALT/SGPT) 87H, Alkaline Phosphatase 198H, Total Protein 5.2L, Albumin 2.4L 11/22/20 05:30: White Blood Count 12.3H, Red Blood Count 3.42L, Hemoglobin 9.8L, Hematocrit 29L, Mean Corpuscular Volume 84, Mean Corpuscular Hemoglobin 29, Mean Corpuscular Hemoglobin Concent 34, Red Cell Distribution Width 14.9H, Platelet Count 323, Mean Platelet Volume 10.0, Immature Granulocyte % (Auto) 2, Neutrophils (%) (Auto) 87H, Lymphocytes (%) (Auto) 6L, Monocytes (%) (Auto) 6, Eosinophils (%) (Auto) 0, Basophils (%) (Auto) 0, Neutrophils # (Auto) 10.7H, Lymphocytes # (Auto) 0.7L, Monocytes # (Auto) 0.7, Eosinophils # (Auto) 0.0, Basophils # (Auto) 0.0, Immature Granulocyte # (Auto) 0.2H, Sodium Level 132L, Potassium Level 4.8, Chloride Level 101, Carbon Dioxide Level 27, Anion Gap 4L, Blood Urea Nitrogen 28H, Creatinine 0.63, Estimat Glomerular Filtration Rate 124, BUN/Creatinine Ratio 44, Glucose Level 167H, Calcium Level 8.6, Corrected Calcium 9.9, Total Bilirubin 1.1H, Aspartate Amino Transf (AST/SGOT) 124H, Alanine Aminotransferase (ALT/SGPT) 180H, Alkaline Phosphatase 258H, Total Protein 5.1L, Albumin 2.4L Microbiology 11/18/20 Gram Stain - Final, Complete 11/18/20 Body Fluid Culture - Final, Complete No growth 11/17/20 Mycobacterial Culture - Preliminary, Resulted 11/17/20 Blood Culture - Final, Complete No growth Pending Labs Microbiology Date/Time Source Procedure Growth Status 11/18/20 13:35 Pleural Fluid Gram Stain - Final Complete 11/18/20 13:35 Pleural Fluid Body Fluid Culture - Final No growth Complete 11/17/20 14:32 Bronch Washings Right Upper Lobe Mycobacterial Culture - Preliminary Resulted 11/17/20 14:32 Bronch Washings Right Upper Lobe Gram Stain - Final Resulted 11/17/20 14:32 Bronchial Culture - Final YEAST Usual upper respiratory kirsty Resulted 11/17/20 14:32 Fungal Culture 1 - Preliminary Elizabeth albicans Resulted 11/17/20 04:05 Peripheral Lt Ac Blood Culture - Final No growth Complete 11/17/20 04:00 Peripheral Rt Ac Blood Culture - Final No growth Complete Laboratory Tests 11/17/20 03:30: Lab Scanned Report Referred Lab Report 11/17/20 04:05: White Blood Count 11.6, Red Blood Count 3.77, Hemoglobin 10.7, Hematocrit 31, Mean Corpuscular Volume 83, Mean Corpuscular Hemoglobin 28, Mean Corpuscular Hemoglobin Concent 34, Red Cell Distribution Width 14.1, Platelet Count 307, Mean Platelet Volume 9.6, Immature Granulocyte % (Auto) 1, Neutrophils (%) (Auto) 81, Lymphocytes (%) (Auto) 9, Monocytes (%) (Auto) 9, Eosinophils (%) (Auto) 0, Basophils (%) (Auto) 0, Neutrophils # (Auto) 9.4, Lymphocytes # (Auto) 1.0, Monocytes # (Auto) 1.1, Eosinophils # (Auto) 0.0, Basophils # (Auto) 0.0, Immature Granulocyte # (Auto) 0.1, Prothrombin Time 13.5, INR Comment 1.0, D- Dimer 1.35, Sodium Level 121, Potassium Level 4.1, Chloride Level 91, Carbon Dioxide Level 21, Anion Gap 9, Blood Urea Nitrogen 21, Creatinine 0.59, Estimat Glomerular Filtration Rate 134, BUN/Creatinine Ratio 36, Glucose Level 98, Lactic Acid Level 0.59, Calcium Level 8.5, Corrected Calcium 9.4, Total Bilirub in 1.6, Gamma Glutamyl Transpeptidase 181, Aspartate Amino Transf (AST/SGOT) 113, Alanine Aminotransferase (ALT/SGPT) 188, Alkaline Phosphatase 208, Troponin I < 0.028, B-Type Natriuretic Peptide 279.0, Total Protein 5.8, Albumin 2.9, Amylase Level 29, Lipase 11, Procalcitonin 0.06 11/17/20 05:47: Urine Color YELLOW, Urine Clarity CLEAR, Urine pH 6.0, Urine Specific [place] 1.020, Urine Protein NEGATIVE, Urine Glucose (UA) NEGATIVE, Urine Ketones NEGATIVE, Urine Nitrite NEGATIVE, Urine Bilirubin NEGATIVE, Urine Urobilinogen 4.0, Urine Leukocyte Esterase NEGATIVE, Urine RBC (Auto) TRACE-I, Urine RBC 0-2, Urine WBC 2-5, Urine Crystals NONE, Urine Bacteria TRACE, Urine Casts NONE, Urine Mucus NEGATIVE, Urine Culture Indicated NO, Urine Osmolality 517, Urine Random Sodium 95 11/18/20 00:45: White Blood Count 21.4, Red Blood Count 3.58, Hemoglobin 10.2, Hematocrit 30, Mean Corpuscular Volume 83, Mean Corpuscular Hemoglobin 29, Mean Corpuscular Hemoglobin Concent 35, Red Cell Distribution Width 14.0, Platelet Count 281, Mean Platelet Volume 9.4, Immature Granulocyte % (Auto) 1, Neutrophils (%) (Auto ) 92, Lymphocytes (%) (Auto) 2, Monocytes (%) (Auto) 4, Eosinophils (%) (Auto) 0, Basophils (%) (Auto) 0, Neutrophils # (Auto) 19.7, Lymphocytes # (Auto) 0.5, Monocytes # (Auto) 0.9, Eosinophils # (Auto) 0.0, Basophils # (Auto) 0.0, Immature Granulocyte # (Auto) 0.2, Sodium Level 125, Potassium Level 4.0, Chloride Level 94, Carbon Dioxide Level 21, Anion Gap 10, Blood Urea Nitrogen 19, Creatinine 0.54, Estimat Glomerular Filtration Rate 148, BUN/Creatinine Ratio 35, Glucose Level 84, Calcium Level 8.2, Corrected Calcium 9.2, Total Bilirubin 2.0, Aspartate Amino Transf (AST/SGOT) 99, Alanine Aminotransferase (ALT/SGPT) 180, Alkaline Phosphatase 165, Total Protein 5.3, Albumin 2.7, Neutrophils % (Manual) 84, Lymphocytes % (Manual) 3, Monocytes % (Manual) 2, Ba nd Neutrophils 11, Hypochromasia SLIGHT, Microcytosis MODERATE, Target Cells SLIGHT, Phosphorus Level 3.7, Magnesium Level 1.6 11/18/20 01:09: Blood Gas Puncture Site LEFT RADIAL, Blood Gas Patient Temperature 36.6, Arterial Blood pH 7.44, Arterial Blood Partial Pressure CO2 35, Arterial Blood Partial Pressure O2 141, Arterial Blood HCO3 24, Arterial Blood Total CO2 24.9, Arterial Blood Oxygen Saturation 99, Arterial Blood Base Excess 0.0, Brannon Test YES-POS, Blood Gas Ventilator Setting NO, Blood Gas Inspired Oxygen 60% BIPAP 11/18/20 16:04: Vancomycin Level Trough 10.3 11/19/20 04:45: White Blood Count 20.1, Red Blood Count 3.48, Hemoglobin 9.8, Hematocrit 29, Mean Corpuscular Volume 83, Mean Corpuscular Hemoglobin 28, Mean Corpuscular Hemoglobin Concent 34, Red Cell Distribution Width 14.5, Platelet Count 249, Mean Platelet Volume 10.3, Immature Granulocyte % (Auto) 1, Neutrophils (%) (Auto) 89, Lymphocytes (%) (Auto) 5, Monocytes (%) (Auto) 5, Eosinophils (%) (Auto) 0, Basophils (%) (Auto) 0, Neutrophils # (Auto) 17.8, Lymphocytes # (Auto) 0.9, Monocytes # (Auto) 1.1, Eosinophils # (Auto) 0.0, Basophils # (Auto) 0.0, Immature Granulocyte # (Auto) 0.3, Neutrophils % (Manual) 87, Lymphocytes % (Manual) 6, Monocytes % (Manual) 4, Band Neutrophils 3, Toxic Granulation 1+, Hypochromasia SLIGHT, Microcytosis MODERATE, Target Cells SLIGHT, Sodium Level 123, Potassium Level 4.2, Chloride Level 94, Carbon Dioxide Level 22, Anion Gap 7, Blood Urea Nitrogen 27, Creatinine 0.61, Estimat Glomerular Filtration Rate 129, BUN/Creatinine Ratio 44, Glucose Level 87, Calcium Level 8.5, Corrected Calcium 9.7, Phosphorus Level 3.0, Magnesium Level 1.8, Total Bilirubin 1.8, Aspartate Amino Transf (AST/SGOT) 58, Alanine Aminotransferase (ALT/SGPT) 133, Alkaline Phosphatase 226, Total Protein 5.2, Albumin 2.5 11/20/20 06:07: White Blood Count 13.4, Red Blood Count 3.44, Hemoglobin 9.9, Hematocrit 29, Mean Corpuscular Volume 84, Mean Corpuscular Hemoglobin 29, Mean Corpuscular Hemoglobin Concent 34, Red Cell Distribution Width 14.9, Platelet Count 276, Mean Platelet Volume 10.4, Immature Granulocyte % (Auto) 1, Neutrophils (%) (Auto) 91, Lymphocytes (%) (Auto) 4, Monocytes (%) (Auto) 4, Eosinophils (%) (Auto) 0, Basophils (%) (Auto) 0, Neutrophils # (Auto) 12.2, Lymphocytes # (Auto) 0.5, Monocytes # (Auto) 0.5, Eosinophils # (Auto) 0.0, Basophils # (Auto) 0.0, Immature Granulocyte # (Auto) 0.2, Sodium Level 126, Potassium Level 4.7, Chloride Level 97, Carbon Dioxide Level 24, Anion Gap 5, Blood Urea Nitrogen 31, Creatinine 0.66, Estimat Glomerular Filtration Rate 117, BUN/Creatinine Ratio 47, Glucose Level 160, Calcium Level 8.7, Corrected Calcium 9.9, Total Bilirubin 1.2, Aspartate Amino Transf (AST/SGOT) 27, Alanine Aminotransferase (ALT/SGPT) 89, Alkaline Phosphatase 191, Total Protein 5.2, Albumin 2.5 11/21/20 05:55: White Blood Count 16.3, Red Blood Count 3.42, Hemoglobin 9.8, Hematocrit 28, Mean Corpuscular Volume 83, Mean Corpuscular Hemoglobin 29, Mean Corpuscular Hemoglobin Concent 35, Red Cell Distribution Width 14.8, Platelet Count 325, Mean Platelet Volume 9.9, Immature Granulocyte % (Auto) 2, Neutrophils (%) (Auto) 88, Lymphocytes (%) (Auto) 4, Monocytes (%) (Auto) 5, Eosinophils (%) (Auto) 0, Basophils (%) (Auto) 0, Neutrophils # (Auto) 14.4, Lymphocytes # (Auto) 0.7, Monocytes # (Auto) 0.9, Eosinophils # (Auto) 0.0, Basophils # (Auto) 0.0, Immature Granulocyte # (Auto) 0.3, Sodium Level 131, Potassium Level 4.9, Chloride Level 101, Carbon Dioxide Level 24, Anion Gap 6, Blood Urea Nitrogen 35, Creatinine 0.71, Estimat Glomerular Filtration Rate 108, BUN/Creatinine Ratio 49, Glucose Level 155, Calcium Level 8.9, Corrected Calcium 10.2, Total Bilirubin 1.3, Aspartate Amino Transf (AST/SGOT) 44, Alanine Aminotransferase (ALT/SGPT) 87, Alkaline Phosphatase 198, Total Protein 5.2, Albumin 2.4 11/22/20 05:30: White Blood Count 12.3, Red Blood Count 3.42, Hemoglobin 9.8, Hematocrit 29, Mean Corpuscular Volume 84, Mean Corpuscular Hemoglobin 29, Mean Corpuscular Hemoglobin Concent 34, Red Cell Distribution Width 14.9, Platelet Count 323, Mean Platelet Volume 10.0, Immature Granulocyte % (Auto) 2, Neutrophils (%) (Auto) 87, Lymphocytes (%) (Auto) 6, Monocytes (%) (Auto) 6, Eosinophils (%) (Auto) 0, Basophils (%) (Auto) 0, Neutrophils # (Auto) 10.7, Lymphocytes # (Auto) 0.7, Monocytes # (Auto) 0.7, Eosinophils # (Auto) 0.0, Basophils # (Auto) 0.0, Immature Granulocyte # (Auto) 0.2, Sodium Level 132, Potassium Level 4.8, Chloride Level 101, Carbon Dioxide Level 27, Anion Gap 4, Blood Urea Nitrogen 28, Creatinine 0.63, Estimat Glomerular Filtration Rate 124, BUN/Creatinine Ratio 44, Glucose Level 167, Calcium Level 8.6, Corrected Calcium 9.9, Total Bilirubin 1.1, Aspartate Amino Transf (AST/SGOT) 124, Alanine Aminotransferase (ALT/SGPT) 180, Alkaline Phosphatase 258, Total Protein 5.1, Albumin 2.4 Discharge Home Medications: Active Scripts Active Reported Lisinopril 10 Mg Tablet 10 Mg PO DAILY Instructions to patient/family Please see electronic discharge instructions given to patient. NEFTALI HARRIS DO Nov 22, 2020 12:17
[2020-11-23] MEDS ORDERED: predniSONE 20 MG TAB PO SCH (07:00)
[2020-11-23] MEDS ORDERED: fluCOnazole (DIFLUCAN) 100 MG TAB PO SCH (09:00)
== END 2020-11-22 13:00 | DRG 186 ==
LOC: ICU 03:30 → CSD 23:01 → ICU 11-18 00:44 → 4TH 11-19 14:03
PROVIDERS: ADMIT Internal Medicine; ATTEND Internal Medicine
PROC: 0BC38ZZ Extirpation of Matter from Right Main Bronchus, Via Natural or Artificial Opening Endoscopic (ICD-10-PCS; 2020-11-17)
PROC: 0B968ZX Drainage of Right Lower Lobe Bronchus, Via Natural or Artificial Opening Endoscopic, Diagnostic (ICD-10-PCS; 2020-11-17)
PROC: 0BJ08ZZ Inspection of Tracheobronchial Tree, Via Natural or Artificial Opening Endoscopic (ICD-10-PCS; 2020-11-17)
PROC: 5A09357 Assistance with Respiratory Ventilation, Less than 24 Consecutive Hours, Continuous Positive Airway Pressure (ICD-10-PCS; 2020-11-17)
PROC: 0W993ZZ Drainage of Right Pleural Cavity, Percutaneous Approach (ICD-10-PCS; principal; 2020-11-18)
DX: J90 Pleural effusion, not elsewhere classified (principal); J96.01 Acute respiratory failure with hypoxia; G93.40 Encephalopathy, unspecified; E87.1 Hypo-osmolality and hyponatremia; I50.30 Unspecified diastolic (congestive) heart failure; J98.11 Atelectasis; J44.1 Chronic obstructive pulmonary disease with (acute) exacerbation; J98.09 Other diseases of bronchus, not elsewhere classified; M62.81 Muscle weakness (generalized); I11.0 Hypertensive heart disease with heart failure; K59.00 Constipation, unspecified; I73.9 Peripheral vascular disease, unspecified; N40.0 Benign prostatic hyperplasia without lower urinary tract symptoms; M47.812 Spondylosis without myelopathy or radiculopathy, cervical region; H91.93 Unspecified hearing loss, bilateral; F41.9 Anxiety disorder, unspecified; D64.9 Anemia, unspecified; Z97.4 Presence of external hearing-aid; Z87.01 Personal history of pneumonia (recurrent); Z82.49 Family history of ischemic heart disease and other diseases of the circulatory system
CPT/HCPCS: 32555; 36415; 36600; 70553; 71045; 71260; 74177; 80053; 80202; 81000; 82150; 82805; 82977; 83605; 83690; 83735; 83880; 83935; 84100; 84145; 84300; 84484; 85007; 85025; 85027; 85379; 85610; 87015; 87040; 87070; 87101; 87106; 87116; 87205; 87206; 88112; 88305; 94640; 94660

== ENCOUNTER 2020-11-22 12:23 | Inpatient (IN) | payer OTHER, MEDICARE ==
[~2020-11-22] VITALS: Ht 175.3 cm; Wt 65.9 kg
[2020-11-22] MEDS ORDERED: ALPRAZolam 0.25 MG (XANAX) TAB PO PRN (12:30)
[2020-11-22] MEDS ORDERED: LACTULOSE SYRUP 10GM/15ML (ENULOSE) 30ML UDC PO PRN ×2 (12:30→17:00)
[2020-11-22] MEDS ORDERED: guaiFENesin/CODEINE (ROBITUSSIN AC) 10ML UDC PO PRN ×2 (12:30→17:00)
[2020-11-22] MEDS ORDERED: LOPERAMIDE 2 MG (IMODIUM) TABLET PO PRN ×2 (12:30→17:00)
[2020-11-22] MEDS ORDERED: FLEET ENEMA ADULT 1 EA BTL PR PRN ×2 (12:30→17:00)
[2020-11-22] MEDS ORDERED: DOCUSATE SODIUM 100 MG (COLACE) CAP PO PRN ×2 (12:30→17:00)
[2020-11-22] MEDS ORDERED: diphenhydrAMINE 25 MG TAB (BENADRYL) PO PRN ×2 (12:30→17:00)
[2020-11-22] MEDS ORDERED: ONDANSETRON 4 MG (ZOFRAN) ORAL DISSOLVE TAB PO PRN ×2 (12:30→17:00)
[2020-11-22] MEDS ORDERED: CALCIUM CARBONATE 500 MG (TUMS) TAB.CHEW PO PRN ×2 (12:30→17:00)
[2020-11-22 13:00] VITALS: BP 174/77
--- NOTE | 2020-11-22 14:37 | Physical Therapy Evaluation ---
PT Evaluation-General Medical Diagnosis Admission Date Nov 22, 2020 at 13:09 Medical Diagnosis: hyponatremia, debility Onset Date: Nov 08, 2020 Therapy Diagnosis Therapy Diagnosis: impaired mobility, strength, endurance Referral Physician: Eusebia Diego DO Reason for Referral: Evaluation/Treatment Medical History Pertinent Medical History: HTN Additional Medical History patient reports falling at home and progressive weakness Reviewed History: Yes Social History Home: Single Level Current Living Status: Alone Entry Into Home: Stairs With Railing PT Steps Into Home: 3 Prior Prior Level of Function SCALE: Activities may be completed with or without assistive devices. 6-Exnajtzbwa-tuomlcl completes the activity by him/herself with no assistance from a helper. 5-Set-up or Clean-up Assistance-helper sets up or cleans up; patient completes activity. [place] assists only prior to or following the activity. 4-Supervision or Touching Assistance-helper provides verbal cues and/or touching/steadying and/or contact guard assistance as patient completes activity. Assistance may be provided throughout the activity or intermittently. 3-Partial/Moderate Assistance-helper does LESS THAN HALF the effort. [place] lifts, holds or supports trunk or limbs, but provides less than half the effort. 2-Substantial/Maximal Assistance-helper does MORE THAN HALF the effort. [place] lifts or holds trunk or limbs and provides more than half the effort. 4-Ktvnajwfc-iyajeu does ALL the effort. Patient does none of the effort to complete the activity. Or, the assistance of 2 or more helpers is required for the patient to complete the activity. If activity was not attempted, code reason: 7-Patient Refused. 9-Not Applicable-not attempted and the patient did not perform the activity before the current illness, exacerbation or injury. 10-Not Attempted due to Environmental Limitations-(lack of equipment, weather restraints, etc.). 88-Not Attempted due to Medical Conditions or Safety Concerns. Bed Mobility: 6 Transfers (B,C,W/C): 6 Gait: 6 Stairs: 6 Indoor Mobility (Ambulation): Independent Stairs: Independent PT Evaluation-Current Subjective Patient in recliner pre tx, agrees to PT, has no complaints of pain. Will be co-treating with OT for part of tx due to poor patient mobility, strength, endurance, coordinate UE and LE during activity, safety and reduce risk of falls, severe fatigue with activity. Pt/Family Goals to be independent at home Objective Patient Orientation: Person, Place, Situation, Normal For Age ROM/Strength ROM Lower Extremities WNL Strength Lower Extremities LLE (hip flexion 3+/5, knee flexion 4/5, knee extension 4/5, dorsilflexion 5/5), RLE (hip flexion 3+/5, knee flexion 4/5, knee extension 4/5, dorsilflexion 5/5) Sensory Vision: Wears Glasses Hearing: Hearing Aid/Aides Sensation Right Lower Extremit: Impaired Sensation Left Lower Extremity: Impaired Transfers Roll Left & Right (QC): 6 Sit to Lying (QC): 6 Lying to Sitting/Side of Bed(Q: 6 Sit to Stand (QC): 3 Chair/Ygz-hk-Hiqdr Xfer(QC): 4 Toilet Transfer (QC): 3 Car Transfer (QC): 4 Patient performs bed mobility and supine <-> sit with independence, sit <-> stand min assist, transfers CGA, car transfer CGA. Patient has some difficulty with supine <-> sit but can do it without assist, sit to stand just needs assist from lower surfaces, cues for hand placement. Gait Does the Patient Walk?: Yes Mode of Locomotion: Walk Anticipated Mode of Locomotion: Walk Walk 10 feet (QC): 4 Walk 50 ft with 2 Turns(QC): 4 Walk 150 ft (QC): 4 Walking 10ft/uneven surface-QC: 4 Distance: 150'x4 Gait Assistive Device: FWW Comments/Gait Description Patient can ambulate 150' with a rolling walker with CGA (including 50' with at least 2 turns of 90 degrees and 10' over an uneven surface). Patient ambulates slowly, doesn't have knee buckling like when he was here before, has occasional knee hyperextension but overall much more steady and better endurance. Wheelchair Training Does the Pt Use a Wheelchair?: No Wheel 50 ft with 2 turns (QC): 9 Wheel 150 ft (QC): 9 Stairs #of Steps: 1 1 Step (curb) (QC): 4 4 Steps (QC): 88 12 Steps (QC): 88 Walking Assistive Device: Walker Balance Sitting Static: Normal Sitting Dynamic: Normal Standing Static: Good Standing Dynamic: Good Picking up an Object (QC): 88 Treatment PT performed bed mobility and transfers, ambulation, stair training, standing and balance during balloon balance activity, standing and positioning during bathing and dressing, OT performed bathing, dressing, balloon balance activity, UE positioning and safety during activity. Assessment/Needs Patient in recliner post tx with nurse call, phone, tray, all needs met. Patient has impaired mobility, strength, endurance. Patient sometimes needs assist for sit to stand from lower surfaces. Rehab Potential: Fair PT Short Term Goals Short Term Goals Time Frame: Nov 29, 2020 Roll Left & Right: 6 Sit to lyin Lying to sitting on side of be: 6 Sit to stand: 4 Chair/afl-lc-edpxe transfer: 4 Walk 10 feet: 4 Walk 50 feet with two turns: 4 Walk 150 feet: 4 PT Sofa Back Upholsterer Goals Sofa Back Upholsterer Goals PT Sofa Back Upholsterer Goals Time Frame: Dec 13, 2020 Roll Left & Right (QC): 6 Sit to Lying (QC): 6 Lying-Sitting on Side/Bed(QC): 6 Sit to Stand (QC): 5 Chair/Kwq-yc-Vdqrk Xfer(QC): 5 Toilet Transfer (QC): 5 Car Transfer (QC): 5 Does the Patient Walk: Yes Walk 10 feet (QC): 5 Walk 50ft with 2 Turns (QC): 5 Walk 150 ft (QC): 5 Walking 10ft on Uneven Surface: 5 1 Step (curb) (QC): 5 4 Steps (QC): 5 12 Steps (QC): 88 Picking up an Object (QC): 5 Wheel 50 feet with 2 turns (QC: 9 Wheel 150 feet: 9 PT Plan Problem List Problem List: Activity Tolerance, Functional Strength, Safety, Balance, Gait, Transfer, Bed Mobility, ROM Treatment/Plan Treatment Plan: Continue Plan of Care Treatment Plan: Bed Mobility, Education, Functional Activity Samantha, Functional Strength, Group Therapy, Gait, Safety, Therapeutic Exercise, Transfers Treatment Duration: Dec 13, 2020 Frequency: At least 5 of 7 days/Wk (IRF) Estimated Hrs Per Day: 1.5 hours per day Patient and/or Family Agrees t: Yes Safety Risks/Education Patient Education: Gait Training, Transfer Techniques, Steps, Correct Positioning, Safety Issues Teaching Recipient: Patient Teaching Methods: Demonstration, Discussion Response to Teaching: Reinforcement Needed Discharge Recommendations Plan Patient will perform bed mobility and transfer training, balance and endurance training, functional strengthening, stair training, gait training, and education, to improve functional mobility and independence at home. Therapy Discharge Recommendati: Home & Family, Post Acute PT Time/GCodes Time In: 1300 Time Out: 1440 Total Billed Treatment Time: 90 Total Billed Treatment 1 visit EVM 10' EX 20' FA 60' PT eval from [id number], OT eval from [id number], co-treat from [id number] JIM MARTIN PT Nov 22, 2020 14:37
--- NOTE | 2020-11-22 14:41 | Occupational Therapy Eval ---
OT Evaluation-General/PLF Medical Diagnosis Admission Date Nov 22, 2020 at 13:09 Medical Diagnosis: Hyponatremia, debility Onset Date: Nov 17, 2020 Therapy Diagnosis Therapy Diagnosis: Impaired ADLs, IADLs, balance, endurance, Precautions Precautions/Isolations: Fall Prevention, Standard Precautions Referral Physician: rasheeda Church Reason: Evaluation/Treatment Medical History Pertinent Medical History: HTN Current History Pt presented to ER following progressive weakness, LE's > UE's. He was admitted to rehab where he stayed 2 days. He was quickly transferred to ICU after exhibiting increased AMS and hypoxia. Pt found to have low sodium and is now on a fluid restriction. He reports indep with ADLs and IADLs prior to admission. 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 Pt was not using any AD and was still driving. He reports laundry being located in basement in which he has to go down a flight of stairs. Reviewed History: Yes Social History Home: Multilevel Current Living Status: Alone Steps Into Home: 3 Other Obstacles: Pt reports laundry located in basement ADL-Prior Level of Function SCALE: Activities may be completed with or without assistive devices. 2-Gbfpxkzlyf-saplfhz completes the activity by him/herself with no assistance from a helper. 5-Set-up or Clean-up Assistance-helper sets up or cleans up; patient completes activity. [place] assists only prior to or following the activity. 4-Supervision or Touching Assistance-helper provides verbal cues and/or touching/steadying and/or contact guard assistance as patient completes activity. Assistance may be provided throughout the activity or intermittently. 3-Partial/Moderate Assistance-helper does LESS THAN HALF the effort. [place] lifts, holds or supports trunk or limbs, but provides less than half the effort. 2-Substantial/Maximal Assistance-helper does MORE THAN HALF the effort. [place] lifts or holds trunk or limbs and provides more than half the effort. 2-Llyetmzlg-gpfqql does ALL the effort. Patient does none of the effort to complete the activity. Or, the assistance of 2 or more helpers is required for the patient to complete the activity. If activity was not attempted, code reason: 7-Patient Refused. 9-Not Applicable-not attempted and the patient did not perform the activity before the current illness, exacerbation or injury. 10-Not Attempted due to Environmental Limitations-(lack of equipment, weather restraints, etc.). 88-Not Attempted due to Medical Conditions or Safety Concerns. Self Care: Independent Functional Cognition: Independent DME/Equipment: Tub/Shower Pt stands for 100% of shower Drive Self: Yes OT Current Status Subjective "I am so glad to be up and moving." Appearance Pt left sitting in chair with family present. All needs within reach at end of session Mental Status/Objective Patient Orientation: Person, Place, Time, Situation Attachments: IV, Oxygen Current Glasses/Contacts: Yes Hearing Aids: Yes Dentures/Partials: No Hand Dominance: Right Upper Extremity ROM WFL, reduced coordination Upper Extremity Strength 4/5 throughout ADL-Treatment ADL-Current Will be co-treating with PT due to poor patient mobility, strength, endurance, coordinate UE and LE during activity, safety, reduced risk of falls, and severe fatigue with activity. Shower performed; ~20% completed in standing. Pt stood to wash afia area and upper thighs. Buttocks not assessed due to large dressing. With prolong standing, increased reliance on grab bar needed. Reduced balance with single leg stance to wash feet, thus pt instructed to sit to complete. Once sitting, pt able to reach feet by bending at waist and with use of cross over method. Extra effort noted with maintaining figure 4 positioning with LLE. Pt reports this is baseline secondary to reduced hip flexibility. clothing donned seated on bench. Extra time to thread LLE but no assist needed. CGA for balance safety when he stood for clothing management. Min a needed to maintain figure 4 position when donning L Sock. Eating (QC): 4 Oral Hygiene (QC): 4 (CGA) Shower/Bathe Self (QC): 3 Upper Body Dressing (QC): 4 Lower Body Dressing (QC): 3 On/Off Footwear (QC): 3 Toileting Hygiene (QC): 3 Other Treatments Pt ambulated within room and to/from therapy gym with use of walker and Min A. Reduced coordination noted but improved from past sessions. He participated in standing activity with goal to promote increased standing balance, endurance, reducing UE support, coordination, UE/LE strength, and activity tolerance. Pt in itially requires single UE support but improves to zero UE support post cues for improving EASTON/COG. No knee buckling noted this date. He was able to hit balloon with BUE's with no LOB. CGA for safety. Pt demonstrates good tolerance on 3L O2. Oxygen decreased to 2L and spot checked throughout activity, able to remain >94%. Several sitting rest breaks needed throughout session secondary to reduced activity tolerance. Education OT Patient Education: Correct positioning, Disease process, Energy conservation, Modified ADL techniques, Progress toward Goal/Update tx plan, Purpose of tx/functional activities, Reviewed precautions, Rehab process, Safety issues, Transfer techniques Teaching Recipient: Patient Teaching Methods: Demonstration, Discussion Response to Teaching: Verbalize Understanding, Return Demonstration OT Short Term Goals Short Term Goals Time Frame: Nov 30, 2020 Eatin Oral hygiene: 4 (SBA) Toileting hygiene: 4 (SBA) Shower/bathe self: 4 (CGA) Upper body dressin Lower body dressin (SBA) Putting on/taking off footwear: 4 (SBA) OT Coat Checker Goals Mcfp Goals Time Frame: Dec 07, 2020 Eating (QC): 6 Oral Hygiene (QC): 6 Toileting Hygiene (QC): 6 Shower/Bathe Self (QC): 5 Upper Body Dressing (QC): 6 Lower Body Dressing (QC): 5 On/Off Footwear (QC): 5 1=Demonstrate adherence to instructed precautions during ADL tasks. 2=Patient will verbalize/demonstrate understanding of assistive devices/modifications for ADL. 3=Patient will improve strength/tolerance for activity to enable patient to perform ADL's. OT Education/Plan Problem List/Assessment Assessment: Decreased Activ Tolerance, Decreased Safety Aware, Decreased UE Strength, Impaired Coordination, Impaired Funct Balance, Impaired I ADL's, Impaired Self-Care Skills Discharge Recommendations Plan/Recommendations: Continue POC Therapy Discharge Recommendati: Homemaker Support, Home & Family Equpiment Recommendations-D/C: Rails on Tub/Shower Target Placement Home Health Treatment Plan/Plan of Care Treatment,Training & Education: Yes Patient would benefit from OT for education, treatment and training to promote independence in ADL's, mobility, safety and/or upper extremity function for ADL's. Plan of Care: ADL Retraining, Functional Mobility, Group Exercise/Act as Ind, UE Funct Exercise/Act Treatment Duration: Dec 07, 2020 Frequency: At least 5 of 7 days/Wk (IRF) Estimated Hrs Per Day: 1.5 hours per day Agreement: Yes Rehab Potential: Fair Time/GCodes Start Time: 13:10 Stop Time: 14:40 Total Time Billed (hr/min): 90 Billed Treatment Time 1 visit, EVM, ADL x3, FA 2 PT eval [id number], OT [id number], co [id number] Eleni Perez OT Nov 22, 2020 14:40
--- NOTE | 2020-11-22 16:55 | PM&R Post Admission Assessment ---
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 He did undergo bronchoscopy to remove mucous plugging by Dr. Vieyra and then a thoracentesis which cytology showed no evidence of malignant cells although cancer was the top and differential diagnosis of Dr. 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 He has been on fluid restriction with salt tablets and doing very well with that regimen and sodium level is 132. He is very weak and will need aggressive rehab in order to regain function. Past Wpwqiht-Imzxwd-Xodiwo Hx Past Med/Social Hx: Reviewed Nursing Past Med/Soc Hx, Reviewed and Corrections made Patient Social History Marrital Status: single Employed/Student: employed Alcohol Use: Denies Use Smoking Status: Heavy Tobacco Smoker Type Used: Cigarettes Past Medical History Surgeries: Orthopedic Respiratory: Pneumonia Cardiac: Hypertension Genitourinary: Prostate Problems Gastrointestinal: Liver Disease/Jaundice Musculoskeletal: Back Injury, Chronic Back Pain Loss of Vision: Denies Hearing Impairment: Hard of Hearing, Bilateral Hearing Aide History of Blood Disorders: No Family History Heart Disease, Psychiatric Problems, Stroke Prior Level of Function Bed Mobility: 6 Transfers: 6 Gait: 6 Stairs: 6 Indoor Mobility (Ambulation): Independent Stairs: Independent Self Care: Independent Functional Cognition: Independent Drive Self: Yes Current Level of Fuctioning Roll Left to Right: 6 Sit to Lyin Lying to Sitting/Side of Bed: 6 Sit to Stand: 3 Chair/Vcl-ce-Wbxif Xfer: 4 Car Transfer: 4 Does the Patient Walk: Yes Mode of Locomotion: Walk Anticipated Mode of Locomotion: Walk Walk 10 feet: 4 Walk 50 ft with 2 Turns: 4 Walk 150 ft: 4 Walking 10ft on uneven surface: 4 Gait Assistive Device: FWW Does the Pt Use a Wheelchair: No Wheel 50 ft with 2 turns: 9 Wheel 150 ft: 9 #of Steps: 1 1 Step (curb): 4 4 Steps: 88 Walking Assistive Device: Walker 12 Steps: 88 Picking up an Object: 88 Eatin Oral Hygiene: 4 (CGA) Shower/Bathe Self: 3 Upper Body Dressin Lower Body Dressin On/Off Footwear: 3 Toileting Hygiene: 3 PM&R Allergy/Meds/Data Review Allergies Coded Allergies: No Known Drug Allergies (Unverified , 11/06/20) Home Medications Scheduled Lisinopril (Lisinopril), 10 MG PO DAILY, (Reported) Discontinued Medications Bromfenac Sodium (Bromsite), 1 DROP OS DAILY, (Reported) Ibuprofen (Ibuprofen), 600 MG PO Q8H PRN for PAIN-MILD (1-4), (Reported) Ofloxacin (Ofloxacin), 1 DROPS OS QID, (Reported) [Betamax], 1 EA PO BID, (Reported) Current Medications Current Medications Reviewed Review of Systems Constitutional: see HPI, malaise, weakness EENTM: no symptoms reported Respiratory: dyspnea on exertion Cardiovascular: no symptoms reported Gastrointestinal: no symptoms reported Genitourinary: no symptoms reported Musculoskeletal: back pain, joint pain Skin: no symptoms reported All Other Systems Reviewed Negative Unless Noted: Yes Physical Exam Physical Exam Vital Signs Vital Signs - First Documented 11/22/20 13:00 Temp 36.3 Pulse 66 Resp 18 B/P (MAP) 174/77 (109) Pulse Ox 99 O2 Delivery Nasal Cannula Capillary Refill : Height, Weight, BMI Height: '" Weight: lbs. oz. kg; 27.69 BMI Method: General Appearance: No Apparent Distress, WD/WN, Chronically ill, Thin, Other (Temporal wasting) Eyes: Bilateral Eye Normal Inspection, Bilateral Eye PERRL HEENT: PERRL/EOMI, Normal ENT Inspection, Pharynx Normal Neck: Full Range of Motion, Normal Inspection, Non Tender, Supple, Carotid Bruit Respiratory: Chest Non Tender, No Accessory Muscle Use, No Respiratory Distress, Decreased Breath Sounds Cardiovascular: Regular Rate, Rhythm, No Edema, No Gallop, No JVD, No Murmur, Normal Peripheral Pulses Gastrointestinal: Normal Bowel Sounds, No Organomegaly, No Pulsatile Mass, Non Tender, Soft Back: Normal Inspection, No CVA Tenderness, No Vertebral Tenderness Extremity: Normal Capillary Refill, Normal Inspection, Normal Range of Motion, Non Tender, No Calf Tenderness, No Pedal Edema Neurologic/Psychiatric: Alert, Oriented x3, Normal Mood/Affect, Depressed Affect, Disoriented, Motor Weakness (Generalized 4/5 all extremities) Skin: Normal Color, Warm/Dry Lymphatic: No Adenopathy PM&R Medical Assessment & Plan REHAB/MEDICAL ASSESSMENT AND PLAN: REHAB IMPAIRMENT GROUP: Debility with encephalopathy and severe hyponatremia ETIOLOGIC DIAGNOSIS: Debility with encephalopathy and severe hyponatremia The comorbidities that impact the patients function and/or functional outcome by: Severe hyponatremia causing encephalopathy and severe weakness, shortness of breath with severe COPD REHAB PLAN: The patient is being admitted to our comprehensive inpatient rehabilitation facility and can tolerate the intensity of service consisting of at least: 180 minutes of therapy a day, 5 out of 7 days a week Rehab treatment will consist of: PT and OT will focus on increasing ambulation and increasing stamina while preventing falls and increasing independence in ADLs to return to independent living The patient/family has a good understanding of our discharge process and will benefit from an interdisciplinary inpatient rehabilitation program. The patient has potential to make improvement and is in need of at least two of the following multidisciplinary therapies including but not limited to physical, occupational, speech, and prosthetics and orthotics. Additionally the patient will need services from respiratory, nutritional services, wound care, psychology, etc. (Customize this to each patient). Given the patients complex condition and risk of further medical complications, rehabilitation services cannot be safely or effectively provided at a lower level of care such as a nursing home facility. BARRIERS TO DISCHARGE: Lives alone ESTIMATED LOS: 10 days DISPOSITION: Home RELEVANT CHANGES SINCE PREADMISSION SCREENING: I have compared the patients medical and functional status at the time of the preadmission screening and there are: [No changes PROGNOSIS: Fair REHABILITATION GOALS: 1. PT and OT will focus on increasing ambulation and increasing stamina while preventing falls and increasing independence in ADLs to return to independent living All the above goals were reviewed with the patient and he/she is in agreement. By signing this document, I acknowledge that I have personally performed a full physical examination on this patient within 24 hours of admission to this inpatient rehabilitation facility and have determined the patient to be able to tolerate the above course of treatment at an intensive level for a reasonable period of time. I will be completing a detailed individualized Plan of Care for this patient by day #4 of the patients stay based upon the Preadmission Screen, the Post-Admission Evaluation, and the therapy evaluations. Admission Dx/Comorbidities: (1) Debility ICD Codes: R53.81 - Other malaise (2) S/P bronchoscopy ICD Codes: Z98.890 - Other specified postprocedural states (3) S/P thoracentesis ICD Codes: Z98.890 - Other specified postprocedural states (4) Pleural effusion ICD Codes: J90 - Pleural effusion, not elsewhere classified (5) Cachexia ICD Codes: R64 - Cachexia (6) COPD, severe ICD Codes: J44.9 - Chronic obstructive pulmonary disease, unspecified (7) Requires oxygen therapy ICD Codes: Z99.81 - Dependence on supplemental oxygen (8) Encephalopathy ICD Codes: G93.40 - Encephalopathy, unspecified (9) Hyponatremia Status: Acute ICD Codes: E87.1 - Hypo-osmolality and hyponatremia (10) CHF (congestive heart failure) Status: Acute ICD Codes: I50.9 - Heart failure, unspecified (11) Proximal muscle weakness ICD Codes: M62.81 - Muscle weakness (generalized) (12) Elevated liver enzymes Status: Acute ICD Codes: R74.8 - Abnormal levels of other serum enzymes (13) Peripheral arterial disease Status: Acute ICD Codes: I73.9 - Peripheral vascular disease, unspecified (14) Hypoxia ICD Codes: R09.02 - Hypoxemia (15) Smoker ICD Codes: F17.200 - Nicotine dependence, unspecified, uncomplicated Assessment/Plan Assessment and Plan Assess & Plan/Chief Complaint Assessment: Debility Encephalopathy 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
[2020-11-22] MEDS ORDERED: SIMETHICONE 80 MG (MYLICON) CHEW PO PRN (17:00)
[2020-11-22] MEDS ORDERED: ACETAMINOPHEN 500 MG TAB (TYLENOL) PO PRN (17:00)
[2020-11-22] MEDS ORDERED: ONDANSETRON 4 MG/2 ML (SDV) Z0FRAN IV PRN (17:00)
[2020-11-22] MEDS ORDERED: BISACODYL 10 MG SUPP (DULCOLAX) PR PRN (17:00)
[2020-11-22] MEDS ORDERED: MELATONIN 3 MG TABLET PO PRN (17:00)
[2020-11-22] MEDS ORDERED: cloNIDine 0.1 MG (CATAPRES) TAB PO PRN (17:00)
[2020-11-22] MEDS ORDERED: RT-ALBUTEROL/IPRATROPIUM 3 ML (DUONEB) VIAL INH PRN (17:00)
[2020-11-22] MEDS ORDERED: CATHETER FLUSH 10 ML SYR IV PRN (17:00)
[2020-11-22 20:00] VITALS: BP 149/63
[2020-11-22] MEDS ORDERED: polyethylene glycoL POWDER 17 GM (MIRALAX) PACK PO SCH (21:00)
[2020-11-22] MEDS: polyethylene glycoL POWDER 17 GM (MIRALAX) PACK PO SCH (21:00)
[2020-11-22] MEDS ORDERED: SENNA W/DOCUSATE (SENOKOT S) TABLET PO SCH (21:00)
[2020-11-22] MEDS: doxAzosin 2 MG (CARDURA) TAB PO SCH (21:03)
[2020-11-22] MEDS: SENNA W/DOCUSATE (SENOKOT S) TABLET PO SCH (21:03)
[2020-11-22] MEDS: DOCUSATE SODIUM 100 MG (COLACE) CAP PO SCH (21:03)
[2020-11-22] MEDS: meTOprolol SUCCINATE 100 MG (TOPROL XL) TAB PO SCH (21:04)
[2020-11-22] MEDS: SODIUM CHLORIDE 1 GM TABLET PO SCH (21:04)
[2020-11-23] MEDS: IBUPROFEN 600 MG (MOTRIN) TAB PO PRN ×2 (01:35→22:18)
[2020-11-23 05:59] LABS: BASOPHILS % (AUTO) 0 % (0-10); EOSINOPHILS % (AUTO) 0 % (0-10); HEMATOCRIT 29 % (40-54); HEMOGLOBIN 9.7 g/dL (13.3-17.7); LYMPHOCYTES # (AUTO) 1.6 10^3/uL (1.0-4.0); LYMPHOCYTES % (AUTO) 14 % (12-44); MEAN CORPUSCULAR HEMOGLOBIN 28 pg (25-34); MEAN CORPUSCULAR HGB CONC 34 g/dL (32-36); MEAN CORPUSCULAR VOLUME 84 fL (80-99); MONOCYTES # (AUTO) 1.1 10^3/uL (0.0-1.0); MONOCYTES % (AUTO) 10 % (0-12); NEUTROPHILS # (AUTO) 8.5 10^3/uL (1.8-7.8); NEUTROPHILS % (AUTO) 75 % (42-75); PLATELET COUNT 301 10^3/uL (130-400); WHITE BLOOD COUNT 11.3 10^3/uL (4.3-11.0)
[2020-11-23] MEDS: predniSONE 20 MG TAB PO SCH (06:07)
[2020-11-23 06:08] LABS: ALBUMIN 2.5 GM/DL (3.2-4.5)
[2020-11-23 06:09] LABS: POTASSIUM 4.6 MMOL/L (3.6-5.0)
[2020-11-23 06:10] LABS: CALCIUM 8.7 MG/DL (8.5-10.1)
[2020-11-23 06:13] LABS: BILIRUBIN,TOTAL 0.9 MG/DL (0.1-1.0)
[2020-11-23 06:15] LABS: CREATININE SERUM 0.62 MG/DL (0.60-1.30)
[2020-11-23 07:57] VITALS: BP 151/68
[2020-11-23] MEDS: NICOTINE PATCH REMOVAL TP SCH (07:58)
[2020-11-23] MEDS: NICOTINE 14 MG (NICODERM) PATCH TD SCH (07:58)
[2020-11-23] MEDS: fluCOnazole (DIFLUCAN) 100 MG TAB PO SCH (08:00)
[2020-11-23] MEDS: amLODIPine 10 MG (NORVASC) TAB PO SCH (08:00)
[2020-11-23] MEDS: ENOXAPARIN 40 MG/0.4 ML (LOVENOX) SYR SC SCH (08:00)
[2020-11-23] MEDS: ASPIRIN 81 MG CHEW (CHILDREN'S ASA) PO SCH (08:00)
[2020-11-23] MEDS: lisINopril 40 MG (PRINIVIL) TABLET PO SCH (08:00)
[2020-11-23] MEDS: meTOprolol SUCCINATE 100 MG (TOPROL XL) TAB PO SCH ×2 (08:02→20:15)
[2020-11-23] MEDS: DOCUSATE SODIUM 100 MG (COLACE) CAP PO SCH ×2 (08:02→20:56)
[2020-11-23] MEDS: polyethylene glycoL POWDER 17 GM (MIRALAX) PACK PO SCH ×2 (08:02→20:56)
[2020-11-23] MEDS: SENNA W/DOCUSATE (SENOKOT S) TABLET PO SCH ×2 (08:02→20:56)
[2020-11-23] MEDS: SODIUM CHLORIDE 1 GM TABLET PO SCH (08:04)
--- NOTE | 2020-11-23 09:58 | Physical Therapy Daily Note ---
PT Daily Note-Current Subjective Patient in recliner pre tx, agrees to PT, has no complaints of pain. Patient's O2 line seems to be cut off because the wheel on his recliner is sitting on it. His O2 is 97% though. Will attempt PT without O2 and monitor. Appearance Patient in recliner post tx with nurse call, phone, tray, all needs met. Mental Status Patient Orientation: Normal For Age Transfers SCALE: Activities may be completed with or without assistive devices. 8-Cxhxfsfmfy-xooqgiw completes the activity by him/herself with no assistance from a helper. 5-Set-up or Clean-up Assistance-helper sets up or cleans up; patient completes activity. [place] assists only prior to or following the activity. 4-Supervision or Touching Assistance-helper provides verbal cues and/or touching/steadying and/or contact guard assistance as patient completes activity. Assistance may be provided throughout the activity or intermittently. 3-Partial/Moderate Assistance-helper does LESS THAN HALF the effort. [place] lifts, holds or supports trunk or limbs, but provides less than half the effort. 2-Substantial/Maximal Assistance-helper does MORE THAN HALF the effort. [place] lifts or holds trunk or limbs and provides more than half the effort. 9-Yzdboylpz-efwgzh does ALL the effort. Patient does none of the effort to complete the activity. Or, the assistance of 2 or more helpers is required for the patient to complete the activity. If activity was not attempted, code reason: 7-Patient Refused. 9-Not Applicable-not attempted and the patient did not perform the activity before the current illness, exacerbation or injury. 10-Not Attempted due to Environmental Limitations-(lack of equipment, weather restraints, etc.). 88-Not Attempted due to Medical Conditions or Safety Concerns. Sit to Stand (QC): 4 Chair/Ywz-dv-Butxy Xfer(QC): 4 Gait Training Distance: 120'x2 Walk 10 feet (QC): 4 Walk 50 ft with 2 Turns(QC): 4 Gait Persons Needed: 1 Gait Assistive Device: FWW CGA, slow but steady ambulation, no knee buckling Exercises LAQ alternating for 5 min, sit to stand from slightly elevated therapy table 3 sets of 10 NuStep Minutes: 15 NuStep Workload: 5 Treatments transfers, ambulation, functional strengthening Assessment Current Status: Fair Progress Patient's O2 remained about 95% throughout tx, nurse notified and will keep patient off O2 for now, nurse states she will monitor O2 levels. PT Short Term Goals Short Term Goals Time Frame: Nov 29, 2020 Roll Left & Right: 6 Sit to lyin Lying to sitting on side of be: 6 Sit to stand: 4 Chair/omf-gc-gllwz transfer: 4 Walk 10 feet: 4 Walk 50 feet with two turns: 4 Walk 150 feet: 4 PT Alf Goals Air And Water Filler Goals PT Air And Water Filler Goals Time Frame: Dec 13, 2020 Roll Left & Right (QC): 6 Sit to Lying (QC): 6 Lying-Sitting on Side/Bed(QC): 6 Sit to Stand (QC): 5 Chair/Wrl-ox-Asfih Xfer(QC): 5 Toilet Transfer (QC): 5 Car Transfer (QC): 5 Does the Patient Walk: Yes Walk 10 feet (QC): 5 Walk 50ft with 2 Turns (QC): 5 Walk 150 ft (QC): 5 Walking 10ft on Uneven Surface: 5 1 Step (curb) (QC): 5 4 Steps (QC): 5 12 Steps (QC): 88 Picking up an Object (QC): 5 Wheel 50 feet with 2 turns (QC: 9 Wheel 150 feet: 9 PT Plan Problem List Problem List: Activity Tolerance, Functional Strength, Safety, Balance, Gait, Transfer, Bed Mobility, ROM Treatment/Plan Treatment Plan: Continue Plan of Care Treatment Plan: Bed Mobility, Education, Functional Activity Samantha, Functional Strength, Group Therapy, Gait, Safety, Therapeutic Exercise, Transfers Treatment Duration: Dec 13, 2020 Frequency: At least 5 of 7 days/Wk (IRF) Estimated Hrs Per Day: 1.5 hours per day Patient and/or Family Agrees t: Yes Safety Risks/Education Patient Education: Gait Training, Transfer Techniques, Correct Positioning, Safety Issues Teaching Recipient: Patient Teaching Methods: Demonstration, Discussion Response to Teaching: Reinforcement Needed Time/GCodes Time In: 0900 Time Out: 1000 Total Billed Treatment Time: 60 Total Billed Treatment 1 visit GT 20' EX 40' JIM MARTIN PT Nov 23, 2020 09:58
--- NOTE | 2020-11-23 11:53 | PM&R Progress Note ---
Subjective HPI/CC On Admission Date Seen by Provider: Nov 23, 2020 Time Seen by Provider: 12:00 Objective Exam Vital Signs Vital Signs Date Time Temp Pulse Resp B/P (MAP) Pulse Ox O2 Delivery O2 Flow Rate FiO2 11/23/20 10:10 61 18 95 Room Air 11/23/20 07:57 36.4 151/68 (95) 3.00 Capillary Refill : General Appearance: No Apparent Distress, WD/WN, Chronically ill, Thin, Other (Temporal wasting) HEENT: PERRL/EOMI, Normal ENT Inspection, Pharynx Normal Neck: Full Range of Motion, Normal Inspection, Non Tender, Supple, Carotid Bruit Respiratory: Chest Non Tender, No Accessory Muscle Use, No Respiratory Distress, Decreased Breath Sounds Cardiovascular: Regular Rate, Rhythm, No Edema, No Gallop, No JVD, No Murmur, Normal Peripheral Pulses Gastrointestinal: Normal Bowel Sounds, No Organomegaly, No Pulsatile Mass, Non Tender, Soft Back: Normal Inspection, No CVA Tenderness, No Vertebral Tenderness Extremity: Normal Capillary Refill, Normal Inspection, Normal Range of Motion, Non Tender, No Calf Tenderness, No Pedal Edema Neurologic/Psychiatric: Alert, Oriented x3, Normal Mood/Affect, Depressed Affect, Disoriented, Motor Weakness (Generalized 4/5 all extremities) Skin: Normal Color, Warm/Dry Lymphatic: No Adenopathy Results/Procedures Lab Laboratory Tests 11/23/20 05:50 Patient resulted labs reviewed. FIM Transfers Therapy Code Descriptions/Definitions Functional [place] Measure: 0=Not Assessed/NA 4=Minimal Assistance 1=Total Assistance 5=Supervision or Setup 2=Maximal Assistance 6=Modified [place] 3=Moderate Assistance 7=Complete IndependenceSCALE: Activities may be completed with or without assistive devices. 5-Ghdayjkqde-jyvwobk completes the activity by him/herself with no assistance from a helper. 5-Set-up or Clean-up Assistance-helper sets up or cleans up; patient completes activity. [place] assists only prior to or following the activity. 4-Supervision or Touching Assistance-helper provides verbal cues and/or t ouching/steadying and/or contact guard assistance as patient completes activity. Assistance may be provided throughout the activity or intermittently. 3-Partial/Moderate Assistance-helper does LESS THAN HALF the effort. [place] lifts, holds or supports trunk or limbs, but provides less than half the effort. 2-Substantial/Maximal Assistance-helper does MORE THAN HALF the effort. [place] lifts or holds trunk or limbs and provides more than half the effort. 0-Aawcwdwri-spoxyg does ALL the effort. Patient does none of the effort to complete the activity. Or, the assistance of 2 or more helpers is required for the patient to complete the activity. If activity was not attempted, code reason: 7-Patient Refused. 9-Not Applicable-not attempted and the patient did not perform the activity before the current illness, exacerbation or injury. 10-Not Attempted due to Environmental Limitations-(lack of equipment, weather restraints, etc.). 88-Not Attempted due to Medical Conditions or Safety Concerns. Roll Left to Right (QC): 6 Sit to Lying (QC): 6 Sit to Stand (QC): 4 Chair/Pxh-ng-Zgoqa Xfer(QC): 4 Car Transfer (QC): 4 Gait Training Does the Patient Walk?: Yes Distance: 120'x2 Walk 10 feet (QC): 4 Walk 50 ft with 2 Turns(QC): 4 Walk 150 ft (QC): 4 Walking 10ft/uneven surface-QC: 4 Gait Persons Needed: 1 Gait Assistive Device: FWW Wheelchair Training Does the Pt Use a Wheelchair?: No Wheel 50 ft with 2 turns (QC): 9 Wheel 150 ft (QC): 9 Stair Training #of Steps: 1 1 Step (curb) (QC): 4 4 Steps (QC): 88 12 Steps (QC): 88 Balance Picking up an Object (QC): 88 ADL-Treatment Eating (QC): 4 Oral Hygiene (QC): 4 (CGA) Shower/Bathe Self (QC): 3 Upper Body Dressing (QC): 4 Lower Body Dressing (QC): 3 On/Off Footwear (QC): 3 Toileting Hygiene (QC): 3 Assessment/Plan Assessment and Plan Assess & Plan/Chief Complaint Assessment: Debility Encephalopathy 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 on fluid restriction and salt tablets Severe COPD Oxygen dependent new onset Smoker heavy Fall risk Cachexia Volume overload Pleural effusion status post thoracentesis no evidence of malignant cells on cytology Mucous plugging status post bronchoscopy Plan: Aggressive therapy Fall risk prevention Fluid restriction Salt tablets (1) Debility (2) S/P bronchoscopy (3) S/P thoracentesis (4) Pleural effusion (5) Cachexia (6) COPD, severe (7) Requires oxygen therapy (8) Encephalopathy (9) Hyponatremia Status: Acute (10) CHF (congestive heart failure) Status: Acute (11) Proximal muscle weakness (12) Elevated liver enzymes Status: Acute (13) Peripheral arterial disease Status: Acute (14) Hypoxia (15) Smoker NEFTALI HARRIS DO Nov 23, 2020 11:53
--- NOTE | 2020-11-23 11:54 | Individualized Plan of Care ---
Individualized Plan of Care Rehab Nursing IPOC Order Admission Date Nov 22, 2020 at 13:09 Current Orders Orders Admission Order(Inpt,Obs,Sdc) (11/22/20 12:25) Vital Signs: Per Unit Policy ( ,,00 (11/22/20 12:25) Kristopher Paris (11/22/20 12:25) Sequential Compression Device .admit (11/22/20 12:25) Machine Container Washer-Inpt Rehab Con (11/22/20 12:25) Rehab Nursing Orders-Ipoc (11/22/20 12:25) Physical Therapy Rehab Orders (11/22/20 12:25) Occupational Therapy Rehab Ord (11/22/20 12:25) Speech Therapy Rehab Orders (11/22/20 12:25) Cbc With Automated Diff (11/23/20 06:00) Comprehensive Metabolic Panel (11/23/20 06:00) Precautions (Aru) (11/22/20 12:25) Fluid Restriction (11/22/20 12:25) Rehab-Intensity Of Therapy (11/22/20 12:25) Initiate Admission Nursing Pro .admission (11/22/20 12:25) Alprazolam Tablet (Xanax Tablet) (11/22/20 12:30) Calcium Carbonate Chew Tablet (Antacid C (11/22/20 12:30) Diphenhydramine Tablet (Benadryl Tablet) (11/22/20 12:30) Docusate Sodium Capsule (Colace Capsule) (11/22/20 21:00) Docusate Sodium Capsule (Colace Capsule) (11/22/20 12:30) Bisacodyl Suppository (Dulcolax Supposit (11/22/20 12:30) Lactulose Oral Solution (Enulose Oral So (11/22/20 12:30) Na Phos/Na Biphos Enema (Fleet Enema Julio (11/22/20 12:30) Guaifenesin/Codeine Syrup (Robitussin Ac (11/22/20 12:30) Loperamide Tablet (Imodium Tablet) (11/22/20 12:30) Melatonin Tablet (Melatonin Tablet) (11/22/20 12:30) Polyethylene Glycol Powder Pkt (Miralax (11/22/20 21:00) Ondansetron Oral Dissolve Tab (Zofran (11/22/20 12:30) Senna S Tablet (Senokot S Tablet) (11/22/20 21:00) Initiate Admission Nursing Pro .admission (11/22/20 12:25) Admission Arrival Bed Request (11/22/20 13:08) Patient Visit (11/22/20 ) Gait Training, Ea 15 Min (11/22/20 ) General/Regular (11/22/20 Dinner) Patient Visit (11/22/20 ) Pt Eval Moderate Complexity (11/22/20 ) Exercise Therap, Ea 15 Min (11/22/20 ) Functional Activities, Ea 15 (11/22/20 ) Code/Resuscitation (11/22/20 16:55) Incentive Spirometry (Nursing) Q2H (11/22/20 16:55) Alprazolam Tablet (Xanax Tablet) (11/22/20 17:00) Acetaminophen Tablet (Tylenol Tablet) (11/22/20 17:00) Albuterol/Ipra Inhalation Soln (Duoneb I (11/22/20 17:00) Aspirin Chewable Tablet (Baby Aspirin Ch (11/23/20 09:00) Bisacodyl Suppository (Dulcolax Supposit (11/22/20 17:00) Calcium Carbonate Chew Tablet (Antacid C (11/22/20 17:00) Docusate Sodium Capsule (Colace Capsule) (11/22/20 17:00) Enoxaparin Injection (Lovenox Injection) (11/23/20 09:00) Fluconazole Tablet (Diflucan Tablet) (11/23/20 09:00) Ibuprofen Tablet (Motrin Tablet) (11/22/20 17:00) Lactulose Oral Solution (Enulose Oral So (11/22/20 17:00) Loperamide Tablet (Imodium Tablet) (11/22/20 17:00) Melatonin Tablet (Melatonin Tablet) (11/22/20 17:00) Na Phos/Na Biphos Enema (Fleet Enema Julio (11/22/20 17:00) Nicotine Patch (Nicoderm Patch) (11/23/20 09:00) Ondansetron Injection (Zofran Injectio (11/22/20 17:00) Ondansetron Oral Dissolve Tab (Zofran (11/22/20 17:00) Patch Removal (Patch Removal) (11/23/20 08:59) Senna S Tablet (Senokot S Tablet) (11/22/20 21:00) Simethicone Tablet (Mylicon Chewable Tab (11/22/20 17:00) Sodium Chloride Flush (Catheter Flush Sy (11/22/20 17:00) Sodium Chloride Tablet (Sodium Chloride (11/22/20 21:00) Amlodipine Tablet (Norvasc Tablet) (11/23/20 09:00) Clonidine Tablet (Catapres Tablet) (11/22/20 17:00) Diphenhydramine Tablet (Benadryl Tablet) (11/22/20 17:00) Doxazosin Tablet (Cardura Tablet) (11/22/20 21:00) Guaifenesin/Codeine Syrup (Robitussin Ac (11/22/20 17:00) Lisinopril Tablet (Zestril Tablet) (11/23/20 09:00) Metoprolol Succinate (Xl) Tab (Toprol Xl (11/22/20 21:00) Oxycodone Immediate Rel Tablet (Oxyir Ta (11/22/20 17:00) Polyethylene Glycol Powder Pkt (Miralax (11/22/20 21:00) Prednisone Tablet (Deltasone Tablet) (11/23/20 07:00) Incentive Spirometry Initial (11/22/20 16:55) Mat Initiate Protocol (11/22/20 16:55) Svn Small Volume Nebulizer (11/22/20 16:55) Incentive Spirometry (Nursing) Q2H (11/22/20 16:55) Consult Podiatry (11/23/20 11:41) Patient Visit (11/23/20 ) Gait Training, Ea 15 Min (11/23/20 ) Exercise Therap, Ea 15 Min (11/23/20 ) Functional Activities, Ea 15 (11/23/20 ) Rehab Nursing Orders: Ongoing Assess. of Cognitive Status, Ongoing Assess. of Function Status, Bladder Management, Bladder Scan, Bladder Training, Bowel Management, Bowel Training, Disease Management & Educaiton, DVT Prophylaxis, Fall Prevention, Fluid/Electrolyte/Nutrition Mgmt, Infection Prevention, Medication Management & Education, Management of Risks & Complications, Nutrition Management, Pain Management, Patient/Family Support, Safety Management Intensity of Therapy to be met Patient to be seen: Min.3h per day/5 of 7d PT IPOC Problem List: Activity Tolerance, Functional Strength, Safety, Balance, Gait, Transfer, Bed Mobility, ROM Treatment Plan: Continue Plan of Care Bed Mobility, Education, Functional Activity Samantha, Functional Strength, Group Therapy, Gait, Safety, Therapeutic Exercise, Transfers Treatment Duration: Dec 13, 2020 Frequency: At least 5 of 7 days/Wk (IRF) Estimated Hrs Per Day: 1.5 hours per day OT IPOC Problems: Decreased Activ Tolerance, Decreased Safety Aware, Decreased UE Strength, Impaired Coordination, Impaired Funct Balance, Impaired I ADL's, Impaired Self-Care Skills OT Treatment, Training and Edu: Yes Plan of Care: ADL Retraining, Functional Mobility, Group Exercise/Act as Ind, UE Funct Exercise/Act Treatment Duration: Dec 07, 2020 Frequency: At least 5 of 7 days/Wk (IRF) Estimated Hrs Per Day: 1.[address] IPOC Speech Therapy Treatment Plan: Discontinue ST Treatment Duration: Nov 23, 2020 Frequency: Modified Program (IRF) Estimated Hrs Per Day: Other Machine Container Washer/Case Mgmt Machine Container Washer/Case Managemen: Discharge Planning Dietitian/Electronic Assembler Dietitian/Electronic Assembler to monitor nutritional status and make changes and/or recommendations as needed and work with speech pathology on dietary upgrades as the occur. Physician IPOC Medical Issues being managed closely and that require the 24 hour availability of a physician: Recent respiratory failure and ICU stay x2 will require close monitoring for management to minimize chance of decompensation Medical Issues: Bowel/Bladder Function, DVT Prophylaxis, Falls Precautions, Fluid/Electrolyte/Nutrition Balance, Infection Protection, Pain Management Brief Synthesis of Preadmission Screen, Post-Admission Evaluation, and Therapy Evaluations: PT and OT will focus on regaining function with ambulatory strength and independence in ADLs in order to return back to independent living Medical Prognosis: Good Anticipated Length of Stay: 10 days NEFTALI HARRIS DO Nov 23, 2020 11:54
--- NOTE | 2020-11-23 11:56 | PM&R Progress Note ---
Subjective HPI/CC On Admission Date Seen by Provider: Nov 23, 2020 Time Seen by Provider: 11:00 Subjective/Events-last exam 11/23/2020: Patient dramatically improved We will discontinue salt tablets but maintain fluid restriction Sodium 136 Monitor the bedside Very pleased with dramatic improvement Review of Systems General: Fatigue, Malaise Pulmonary: Dyspnea Objective Exam Vital Signs Vital Signs Date Time Temp Pulse Resp B/P (MAP) Pulse Ox O2 Delivery O2 Flow Rate FiO2 11/24/20 09:00 96 Room Air 11/24/20 07:45 36.5 55 16 149/80 (103) 1.00 Capillary Refill : General Appearance: No Apparent Distress, WD/WN, Chronically ill, Thin, Other (Temporal wasting) HEENT: PERRL/EOMI, Normal ENT Inspection, Pharynx Normal Neck: Full Range of Motion, Normal Inspection, Non Tender, Supple, Carotid Bruit Respiratory: Chest Non Tender, No Accessory Muscle Use, No Respiratory Distress, Decreased Breath Sounds Cardiovascular: Regular Rate, Rhythm, No Edema, No Gallop, No JVD, No Murmur, Normal Peripheral Pulses Gastrointestinal: Normal Bowel Sounds, No Organomegaly, No Pulsatile Mass, Non Tender, Soft Back: Normal Inspection, No CVA Tenderness, No Vertebral Tenderness Extremity: Normal Capillary Refill, Normal Inspection, Normal Range of Motion, Non Tender, No Calf Tenderness, No Pedal Edema Neurologic/Psychiatric: Alert, Oriented x3, Normal Mood/Affect, Depressed Affect, Disoriented, Motor Weakness (Generalized 4/5 all extremities) Skin: Normal Color, Warm/Dry Lymphatic: No Adenopathy Results/Procedures Lab Patient resulted labs reviewed. FIM Transfers Therapy Code Descriptions/Definitions Functional [place] Measure: 0=Not Assessed/NA 4=Minimal Assistance 1=Total Assistance 5=Supervision or Setup 2=Maximal Assistance 6=Modified [place] 3=Moderate Assistance 7=Complete IndependenceSCALE: Activities may be completed with or without assistive devices. 2-Whlfmpbclz-ahczxls completes the activity by him/herself with no assistance from a helper. 5-Set-up or Clean-up Assistance-helper sets up or cleans up; patient completes activity. [place] assists only prior to or following the activity. 4-Supervision or Touching Assistance-helper provides verbal cues and/or touchi ng/steadying and/or contact guard assistance as patient completes activity. Assistance may be provided throughout the activity or intermittently. 3-Partial/Moderate Assistance-helper does LESS THAN HALF the effort. [place] lifts, holds or supports trunk or limbs, but provides less than half the effort. 2-Substantial/Maximal Assistance-helper does MORE THAN HALF the effort. [place] lifts or holds trunk or limbs and provides more than half the effort. 9-Ljfxzcofl-cyfgny does ALL the effort. Patient does none of the effort to complete the activity. Or, the assistance of 2 or more helpers is required for the patient to complete the activity. If activity was not attempted, code reason: 7-Patient Refused. 9-Not Applicable-not attempted and the patient did not perform the activity before the current illness, exacerbation or injury. 10-Not Attempted due to Environmental Limitations-(lack of equipment, weather restraints, etc.). 88-Not Attempted due to Medical Conditions or Safety Concerns. Roll Left to Right (QC): 6 Sit to Lying (QC): 6 Sit to Stand (QC): 4 Chair/Tlv-ye-Fxxyd Xfer(QC): 4 Car Transfer (QC): 4 Gait Training Does the Patient Walk?: Yes Distance: 120'x2 Walk 10 feet (QC): 4 Walk 50 ft with 2 Turns(QC): 4 Walk 150 ft (QC): 4 Walking 10ft/uneven surface-QC: 4 Gait Persons Needed: 1 Gait Assistive Device: FWW Wheelchair Training Does the Pt Use a Wheelchair?: No Wheel 50 ft with 2 turns (QC): 9 Wheel 150 ft (QC): 9 Stair Training #of Steps: 1 1 Step (curb) (QC): 4 4 Steps (QC): 88 12 Steps (QC): 88 Balance Picking up an Object (QC): 88 ADL-Treatment Eating (QC): 4 Oral Hygiene (QC): 4 (CGA) Shower/Bathe Self (QC): 3 Upper Body Dressing (QC): 4 Lower Body Dressing (QC): 3 On/Off Footwear (QC): 3 Toileting Hygiene (QC): 3 Assessment/Plan Assessment and Plan Assess & Plan/Chief Complaint Assessment: Debility Encephalopathy 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 on fluid restriction and salt tablets Severe COPD Oxygen dependent new onset Smoker heavy Fall risk Cachexia Volume overload Pleural effusion status post thoracentesis no evidence of malignant cells on cytology Mucous plugging status post bronchoscopy Plan: Aggressive therapy Fall risk prevention Fluid restriction Salt tablets 11/23/2020: DC salt tablets Continue fluid restriction Aggressive therapy (1) Debility (2) S/P bronchoscopy (3) S/P thoracentesis (4) Pleural effusion (5) Cachexia (6) COPD, severe (7) Requires oxygen therapy (8) Encephalopathy (9) Hyponatremia Status: Acute (10) CHF (congestive heart failure) Status: Acute (11) Proximal muscle weakness (12) Elevated liver enzymes Status: Acute (13) Peripheral arterial disease Status: Acute (14) Hypoxia (15) Smoker NEFTALI HARRIS DO Nov 23, 2020 11:56
--- NOTE | 2020-11-23 12:12 | Occupational Ther Daily Note ---
OT Current Status-Daily Note Subjective pt denies any pain, agreeable for treatment Appearance Pt left sitting in chair at ot departure. daughter present in room. all needs within reach Mental Status/Objective Patient Orientation: Person, Place, Time, Situation ADL-Treatment Pt already dressed for the day. Agreeable to complete grooming standing at the sink. Close sup/CGA for safety with balance. No knee buckling observed. Therapy Code Descriptions/Definitions Functional [place] Measure: 0=Not Assessed/NA 4=Minimal Assistance 1=Total Assistance 5=Supervision or Setup 2=Maximal Assistance 6=Modified [place] 3=Moderate Assistance 7=Complete IndependenceSCALE: Activities may be completed with or without assistive devices. 2-Kiamlplebv-mpjffci completes the activity by him/herself with no assistance from a helper. 5-Set-up or Clean-up Assistance-helper sets up or cleans up; patient completes activity. [place] assists only prior to or following the activity. 4-Supervision or Touching Assistance-helper provides verbal cues and/or touching/steadying and/or contact guard assistance as patient completes activity. Assistance may be provided throughout the activity or intermittently. 3-Partial/Moderate Assistance-helper does LESS THAN HALF the effort. [place] lifts, holds or supports trunk or limbs, but provides less than half the effort. 2-Substantial/Maximal Assistance-helper does MORE THAN HALF the effort. [place] lifts or holds trunk or limbs and provides more than half the effort. 5-Qygctwayh-hljotv does ALL the effort. Patient does none of the effort to complete the activity. Or, the assistance of 2 or more helpers is required for the patient to complete the activity. If activity was not attempted, code reason: 7-Patient Refused. 9-Not Applicable-not attempted and the patient did not perform the activity before the current illness, exacerbation or injury. 10-Not Attempted due to Environmental Limitations-(lack of equipment, weather restraints, etc.). 88-Not Attempted due to Medical Conditions or Safety Concerns. Oral Hygiene (QC): 4 On/Off Footwear: 4 Toileting Hygiene (QC): 4 (cga) Toilet Transfer (QC): 4 (cga) Other Treatment Pt ambulated to/from therapy gym with CGA and use of walker. Improved speed and coordination noted. While in gym, pt participated in dynamic standing activity with focus on improving reach, coordination, body mechanics, balance, endurance, and safety needed for functional tasks. Close sba-cga throughout activity. No lob, mild unsteadiness when reaching overhead or low height. Demonstration and cues for proper body mechanics when retrieving item from low height. Good follow through with commands. Single UE support needed during activity. Pt able to follow 3-4 pattern sequence from memory without cues. Min cues with 5+ pattern sequence. Good initiation to sit with increased fatigue. Education OT Patient Education: Correct positioning, Energy conservation, Modified ADL techniques, Progress toward Goal/Update tx plan, Purpose of tx/functional activities, Rehab process, Transfer techniques Teaching Recipient: Patient Teaching Methods: Demonstration, Discussion Response to Teaching: Verbalize Understanding, Return Demonstration, Reinforcement Needed OT Short Term Goals Short Term Goals Time Frame: Nov 30, 2020 Eatin Oral hygiene: 4 (SBA) Toileting hygiene: 4 (SBA) Shower/bathe self: 4 (CGA) Upper body dressin Lower body dressin (SBA) Putting on/taking off footwear: 4 (SBA) OT Professional Development Director Goals Retirement Goals Time Frame: Dec 07, 2020 Eating (QC): 6 Oral Hygiene (QC): 6 Toileting Hygiene (QC): 6 Shower/Bathe Self (QC): 5 Upper Body Dressing (QC): 6 Lower Body Dressing (QC): 5 On/Off Footwear (QC): 5 1=Demonstrate adherence to instructed precautions during ADL tasks. 2=Patient will verbalize/demonstrate understanding of assistive devices/modifications for ADL. 3=Patient will improve strength/tolerance for activity to enable patient to perform ADL's. OT Education/Plan Problem List/Assessment Assessment: Decreased Activ Tolerance, Decreased Safety Aware, Decreased UE Strength, Impaired Coordination, Impaired Funct Balance, Impaired I ADL's, Impaired Self-Care Skills Discharge Recommendations Plan/Recommendations: Continue POC Treatment Plan/Plan of Care Treatment,Training & Education: Yes Patient would benefit from OT for education, treatment and training to promote independence in ADL's, mobility, safety and/or upper extremity function for ADL's. Plan of Care: ADL Retraining, Functional Mobility, Group Exercise/Act as Ind, UE Funct Exercise/Act Treatment Duration: Dec 07, 2020 Frequency: At least 5 of 7 days/Wk (IRF) Estimated Hrs Per Day: 1.5 hours per day Agreement: Yes Rehab Potential: Fair Time/GCodes Start Time: 10:00 Stop Time: 11:05 Total Time Billed (hr/min): 65 Billed Treatment Time 1 visit, ADL, FA x3 Eleni Perez OT Nov 23, 2020 12:12
--- NOTE | 2020-11-23 13:35 | Occupational Ther Daily Note ---
OT Current Status-Daily Note Subjective Pt sleeping at ot arrival, agreeable to treatment. Appearance Pt left sitting in recliner, all needs within reach at OT departure. ADL-Treatment Therapy Code Descriptions/Definitions Functional [place] Measure: 0=Not Assessed/NA 4=Minimal Assistance 1=Total Assistance 5=Supervision or Setup 2=Maximal Assistance 6=Modified [place] 3=Moderate Assistance 7=Complete IndependenceSCALE: Activities may be completed with or without assistive devices. 9-Kmrcymydmd-qohuunr completes the activity by him/herself with no assistance from a helper. 5-Set-up or Clean-up Assistance-helper sets up or cleans up; patient completes activity. [place] assists only prior to or following the activity. 4-Supervision or Touching Assistance-helper provides verbal cues and/or touching/steadying and/or contact guard assistance as patient completes activity. Assistance may be provided throughout the activity or intermittently. 3-Partial/Moderate Assistance-helper does LESS THAN HALF the effort. [place] lifts, holds or supports trunk or limbs, but provides less than half the effort. 2-Substantial/Maximal Assistance-helper does MORE THAN HALF the effort. [place] lifts or holds trunk or limbs and provides more than half the effort. 8-Rjepdprnb-tbkprb does ALL the effort. Patient does none of the effort to complete the activity. Or, the assistance of 2 or more helpers is required for the patient to complete the activity. If activity was not attempted, code reason: 7-Patient Refused. 9-Not Applicable-not attempted and the patient did not perform the activity before the current illness, exacerbation or injury. 10-Not Attempted due to Environmental Limitations-(lack of equipment, weather restraints, etc.). 88-Not Attempted due to Medical Conditions or Safety Concerns. Other Treatment pt participated in UE exercises with 2# hand held weight. Goal to increase UE strength, coordination and ROM needed for ADLs and transfers. Good tolerance throughout. 10x2 in all planes. Min verbal/visual cues for correct technique. Min c/o pain in R shoulder during shoulder flexion. Movement modified to 90 degrees, pt reports less pain. Education OT Patient Education: Disease process, Energy conservation, Exercise program, Progress toward Goal/Update tx plan, Purpose of tx/functional activities, Reviewed precautions Teaching Recipient: Patient Teaching Methods: Demonstration, Discussion Response to Teaching: Verbalize Understanding, Return Demonstration OT Short Term Goals Short Term Goals Time Frame: Nov 30, 2020 Eatin Oral hygiene: 4 (SBA) Toileting hygiene: 4 (SBA) Shower/bathe self: 4 (CGA) Upper body dressin Lower body dressin (SBA) Putting on/taking off footwear: 4 (SBA) OT Retirement Goals Retirement Goals Time Frame: Dec 07, 2020 Eating (QC): 6 Oral Hygiene (QC): 6 Toileting Hygiene (QC): 6 Shower/Bathe Self (QC): 5 Upper Body Dressing (QC): 6 Lower Body Dressing (QC): 5 On/Off Footwear (QC): 5 1=Demonstrate adherence to instructed precautions during ADL tasks. 2=Patient will verbalize/demonstrate understanding of assistive devices/modifications for ADL. 3=Patient will improve strength/tolerance for activity to enable patient to perform ADL's. OT Education/Plan Problem List/Assessment Assessment: Decreased Activ Tolerance, Decreased UE Strength, Impaired Coordination, Impaired Funct Balance, Impaired I ADL's, Impaired Self-Care Skills Discharge Recommendations Plan/Recommendations: Continue POC Treatment Plan/Plan of Care Treatment,Training & Education: Yes Patient would benefit from OT for education, treatment and training to promote independence in ADL's, mobility, safety and/or upper extremity function for ADL's. Plan of Care: ADL Retraining, Functional Mobility, Group Exercise/Act as Ind, UE Funct Exercise/Act Treatment Duration: Dec 07, 2020 Frequency: At least 5 of 7 days/Wk (IRF) Estimated Hrs Per Day: 1.5 hours per day Agreement: Yes Rehab Potential: Fair Time/GCodes Start Time: 13:00 Stop Time: 13:25 Total Time Billed (hr/min): 25 Billed Treatment Time 1 visit, EX x2 LexyEleni murray OT Nov 23, 2020 13:34
--- NOTE | 2020-11-23 14:25 | Physical Therapy Daily Note ---
PT Daily Note-Current Subjective Patient in recliner pre tx, agrees to PT, has no complaints of pain. Appearance Patient in recliner post tx with nurse call, phone, tray, all needs met. Mental Status Patient Orientation: Person, Place, Situation Transfers SCALE: Activities may be completed with or without assistive devices. 8-Viampxgbiz-efjurty completes the activity by him/herself with no assistance from a helper. 5-Set-up or Clean-up Assistance-helper sets up or cleans up; patient completes activity. [place] assists only prior to or following the activity. 4-Supervision or Touching Assistance-helper provides verbal cues and/or uriel zenon/steadying and/or contact guard assistance as patient completes activity. Assistance may be provided throughout the activity or intermittently. 3-Partial/Moderate Assistance-helper does LESS THAN HALF the effort. [place] lifts, holds or supports trunk or limbs, but provides less than half the effort. 2-Substantial/Maximal Assistance-helper does MORE THAN HALF the effort. [place] lifts or holds trunk or limbs and provides more than half the effort. 8-Tvvympdlc-pgkbxj does ALL the effort. Patient does none of the effort to complete the activity. Or, the assistance of 2 or more helpers is required for the patient to complete the activity. If activity was not attempted, code reason: 7-Patient Refused. 9-Not Applicable-not attempted and the patient did not perform the activity before the current illness, exacerbation or injury. 10-Not Attempted due to Environmental Limitations-(lack of equipment, weather restraints, etc.). 88-Not Attempted due to Medical Conditions or Safety Concerns. Sit to Stand (QC): 4 Chair/Gml-sw-Klqmo Xfer(QC): 4 SBA, patient needs to use the restroom for a BM, patient ambulates into the restroom with SBA, is able to gets pants down/up on his own and wipe on his own. Gait Training Distance: 150'x2 Walk 10 feet (QC): 4 Walk 50 ft with 2 Turns(QC): 4 Walk 150 ft (QC): 4 Gait Assistive Device: FWW slow but steady ambulation, rest break between bouts of ambulation Treatments toileting, ambulation, transfers Assessment Current Status: Fair Progress improving strength and endurance PT Short Term Goals Short Term Goals Time Frame: Nov 29, 2020 Roll Left & Right: 6 Sit to lyin Lying to sitting on side of be: 6 Sit to stand: 4 Chair/fnj-dx-ruyyd transfer: 4 Walk 10 feet: 4 Walk 50 feet with two turns: 4 Walk 150 feet: 4 PT Snf Goals Health Coach Goals PT Health Coach Goals Time Frame: Dec 13, 2020 Roll Left & Right (QC): 6 Sit to Lying (QC): 6 Lying-Sitting on Side/Bed(QC): 6 Sit to Stand (QC): 5 Chair/Vui-ir-Bkuks Xfer(QC): 5 Toilet Transfer (QC): 5 Car Transfer (QC): 5 Does the Patient Walk: Yes Walk 10 feet (QC): 5 Walk 50ft with 2 Turns (QC): 5 Walk 150 ft (QC): 5 Walking 10ft on Uneven Surface: 5 1 Step (curb) (QC): 5 4 Steps (QC): 5 12 Steps (QC): 88 Picking up an Object (QC): 5 Wheel 50 feet with 2 turns (QC: 9 Wheel 150 feet: 9 PT Plan Problem List Problem List: Activity Tolerance, Functional Strength, Safety, Balance, Gait, Transfer, Bed Mobility, ROM Treatment/Plan Treatment Plan: Continue Plan of Care Treatment Plan: Bed Mobility, Education, Functional Activity Samantha, Functional Strength, Group Therapy, Gait, Safety, Therapeutic Exercise, Transfers Treatment Duration: Dec 13, 2020 Frequency: At least 5 of 7 days/Wk (IRF) Estimated Hrs Per Day: 1.5 hours per day Patient and/or Family Agrees t: Yes Safety Risks/Education Patient Education: Gait Training, Transfer Techniques, Correct Positioning, Safety Issues Teaching Recipient: Patient Teaching Methods: Demonstration, Discussion Response to Teaching: Reinforcement Needed Time/GCodes Time In: 1400 Time Out: 1430 Total Billed Treatment Time: 30 Total Billed Treatment 1 visit FA 10' GT 20' JIM MARTIN PT Nov 23, 2020 14:25
[2020-11-23 19:55] VITALS: BP 156/66
[2020-11-23] MEDS: doxAzosin 2 MG (CARDURA) TAB PO SCH (20:15)
[2020-11-24] MEDS: predniSONE 20 MG TAB PO SCH (06:17)
[2020-11-24 07:45] VITALS: BP 149/80
[2020-11-24] MEDS: NICOTINE PATCH REMOVAL TP SCH (09:24)
--- NOTE | 2020-11-24 09:24 | Physical Therapy Daily Note ---
PT Daily Note-Current Subjective Pt in recliner upon arrival and agrees to tx. Pt states his feet feel "spongy". Pt states pain in lower back , but didn't rate out of 10. Pain Location: Lower Location Body Site: Back Mental Status Patient Orientation: Person, Place, Time, Situation Attachments: Oxygen Pt on 2L of O2, w/ O2 reading 96%. LESSON INSTRUCTOR removed O2 and checked w/ pulsox throughout tx. Pt O2 read above 93% throughout, pt remained w/o O2 post tx. RN notified. Transfers SCALE: Activities may be completed with or without assistive devices. 8-Yetpnitvxu-gpamtfc completes the activity by him/herself with no assistance from a helper. 5-Set-up or Clean-up Assistance-helper sets up or cleans up; patient completes activity. [place] assists only prior to or following the activity. 4-Supervision or Touching Assistance-helper provides verbal cues and/or touching/steadying and/or contact guard assistance as patient completes activity. Assistance may be provided throughout the activity or intermittently. 3-Partial/Moderate Assistance-helper does LESS THAN HALF the effort. [place] lifts, holds or supports trunk or limbs, but provides less than half the effort. 2-Substantial/Maximal Assistance-helper does MORE THAN HALF the effort. [place] lifts or holds trunk or limbs and provides more than half the effort. 0-Wnwnavlqy-hdwuno does ALL the effort. Patient does none of the effort to complete the activity. Or, the assistance of 2 or more helpers is required for the patient to complete the activity. If activity was not attempted, code reason: 7-Patient Refused. 9-Not Applicable-not attempted and the patient did not perform the activity before the current illness, exacerbation or injury. 10-Not Attempted due to Environmental Limitations-(lack of equipment, weather restraints, etc.). 88-Not Attempted due to Medical Conditions or Safety Concerns. Sit to Stand (QC): 4 Gait Training Does the Patient Walk?: Yes Distance: 300', 150' x2 Walk 10 feet (QC): 4 Walk 50 ft with 2 Turns(QC): 4 Walk 150 ft (QC): 4 Gait Persons Needed: 1 Gait Assistive Device: FWW Pt has shuffling gait w/ narrow [place], tends to push FWW farther in front of him. Pt requires VC to stay closer to FWW and have upright posture. When amb out of BR, pt had slight LOB, but self corrected w/ FWW. Exercises Standing: Dynamic Reaching Ex, Hip Abduction, Hamstring curls, Heel/toe raises, Marching, Mini squats, Retro gait, Sit to Stand, Side steps, Step-ups, Unilateral stance Standing Reps: 15 During SLS, pt attempted w/o support from UE but unable to complete. Pt had support w/ one UE and able to hold SLS for 15 secs each LE. Treatments Pt sit to stand from recliner and amb to BR. Pt able to doff/don pants and clean self SBA. Pt amb to therapy gym and took seated RB. Pt performs standing ex, w/ RB between each set. During step ups, pt required an extra RB. Pt then held static standing balance unsupported from UE 1 min x3 sets. Pt then held static standing balance while on AirEx 30 secs x2 w/o UE support. Pt was slightly unsteady but self corrected. Pt then performs functional reaching activity, amb throughout IRU grabbing cones at various heights. Pt able to grab cone on floor and cone above head w/o any LOB. Pt then amb 300' and returns to recliner in room. At this time daughter and RN are in room. Pt stays in recliner w/ all needs met, call light in hand. Assessment Current Status: Good Progress Pt overall increasing endurance and strength. Pt had slight LOB, but self corrected. Pt requires frequent RB throughout tx, O2 checked each RB reading above 93% each time. PT Short Term Goals Short Term Goals Time Frame: Nov 29, 2020 Roll Left & Right: 6 Sit to lyin Lying to sitting on side of be: 6 Sit to stand: 4 Chair/wyv-kh-noyhj transfer: 4 Walk 10 feet: 4 Walk 50 feet with two turns: 4 Walk 150 feet: 4 PT Prefinish Operator Goals Intermediate Goals PT Intermediate Goals Time Frame: Dec 13, 2020 Roll Left & Right (QC): 6 Sit to Lying (QC): 6 Lying-Sitting on Side/Bed(QC): 6 Sit to Stand (QC): 5 Chair/Bpb-nm-Ggkie Xfer(QC): 5 Toilet Transfer (QC): 5 Car Transfer (QC): 5 Does the Patient Walk: Yes Walk 10 feet (QC): 5 Walk 50ft with 2 Turns (QC): 5 Walk 150 ft (QC): 5 Walking 10ft on Uneven Surface: 5 1 Step (curb) (QC): 5 4 Steps (QC): 5 12 Steps (QC): 88 Picking up an Object (QC): 5 Wheel 50 feet with 2 turns (QC: 9 Wheel 150 feet: 9 PT Plan Treatment/Plan Treatment Plan: Continue Plan of Care Treatment Plan: Bed Mobility, Education, Functional Activity Samantha, Functional Strength, Group Therapy, Gait, Safety, Therapeutic Exercise, Transfers Treatment Duration: Dec 13, 2020 Frequency: At least 5 of 7 days/Wk (IRF) Estimated Hrs Per Day: 1.5 hours per day Patient and/or Family Agrees t: Yes Time/GCodes Time In: 800 Time Out: 930 Total Billed Treatment Time: 90 Total Billed Treatment 1, EX x3, GT, FA x2 ELYSSA CARTER LESSON INSTRUCTOR Nov 24, 2020 09:24
[2020-11-24] MEDS: ASPIRIN 81 MG CHEW (CHILDREN'S ASA) PO SCH (09:25)
[2020-11-24] MEDS: polyethylene glycoL POWDER 17 GM (MIRALAX) PACK PO SCH ×2 (09:25→21:50)
[2020-11-24] MEDS: DOCUSATE SODIUM 100 MG (COLACE) CAP PO SCH ×2 (09:25→21:50)
[2020-11-24] MEDS: fluCOnazole (DIFLUCAN) 100 MG TAB PO SCH (09:25)
[2020-11-24] MEDS: amLODIPine 10 MG (NORVASC) TAB PO SCH (09:26)
[2020-11-24] MEDS: SENNA W/DOCUSATE (SENOKOT S) TABLET PO SCH ×2 (09:27→21:51)
[2020-11-24] MEDS: lisINopril 40 MG (PRINIVIL) TABLET PO SCH (09:28)
[2020-11-24] MEDS: ENOXAPARIN 40 MG/0.4 ML (LOVENOX) SYR SC SCH (09:29)
[2020-11-24] MEDS: NICOTINE 14 MG (NICODERM) PATCH TD SCH (09:29)
[2020-11-24] MEDS: meTOprolol SUCCINATE 100 MG (TOPROL XL) TAB PO SCH ×2 (10:05→21:44)
[2020-11-24] MEDS: IBUPROFEN 600 MG (MOTRIN) TAB PO PRN (10:06)
--- NOTE | 2020-11-24 10:30 | Occupational Ther Daily Note ---
OT Current Status-Daily Note Subjective Pt denies any pain but does report fatigue from physical therapy. Appearance Pt left sitting in chair, all needs within reach at end of treatment. Mental Status/Objective Patient Orientation: Person, Place, Time, Situation ADL-Treatment Therapy Code Descriptions/Definitions Functional [place] Measure: 0=Not Assessed/NA 4=Minimal Assistance 1=Total Assistance 5=Supervision or Setup 2=Maximal Assistance 6=Modified [place] 3=Moderate Assistance 7=Complete IndependenceSCALE: Activities may be completed with or without assistive devices. 5-Rbepxgtjkf-ltludze completes the activity by him/herself with no assistance from a helper. 5-Set-up or Clean-up Assistance-helper sets up or cleans up; patient completes activity. [place] assists only prior to or following the activity. 4-Supervision or Touching Assistance-helper provides verbal cues and/or touching/steadying and/or contact guard assistance as patient completes activity. Assistance may be provided throughout the activity or intermittently. 3-Partial/Moderate Assistance-helper does LESS THAN HALF the effort. [place] lifts, holds or supports trunk or limbs, but provides less than half the effort. 2-Substantial/Maximal Assistance-helper does MORE THAN HALF the effort. [place] lifts or holds trunk or limbs and provides more than half the effort. 9-Vzfprnmba-jbgdjt does ALL the effort. Patient does none of the effort to complete the activity. Or, the assistance of 2 or more helpers is required for the patient to complete the activity. If activity was not attempted, code reason: 7-Patient Refused. 9-Not Applicable-not attempted and the patient did not perform the activity before the current illness, exacerbation or injury. 10-Not Attempted due to Environmental Limitations-(lack of equipment, weather restraints, etc.). 88-Not Attempted due to Medical Conditions or Safety Concerns. Oral Hygiene (QC): 4 Upper Body Dressing (QC): 5 Lower Body Dressing (QC): 4 On/Off Footwear: 4 Pt politely declines shower, agreeable to change clothes. Dressing tasks performed sitting in chair. Improved speed and flexibility noted when threading LE's into LB clothing. sup for safety as he stood to manage over hips. Set up assist only for donning shirt. He stood at the sink for oral care with sup for safety. Other Treatment Pt continues to reports some difficulty with dexterity tasks, but has seen improvement from last week. He participated in several fine motor coordination tasks with goal to improve hand/line pilot/pinch strength, dexterity skills and overall coordination. He was able to find 20 small beads within yellow theraputty using one hand at a time. Extra time needed but no difficulty noted. He was able to thread small beads onto string with use of bilateral integration. Good line pilot/pinch strength noted throughout activities. Education on continuing RO M exercises as well as exercises with red foam block provided in past session. Education OT Patient Education: Correct positioning, Energy conservation, Modified ADL techniques, Progress toward Goal/Update tx plan, Purpose of tx/functional activities, Rehab process Teaching Recipient: Patient Teaching Methods: Demonstration, Discussion Response to Teaching: Verbalize Understanding, Return Demonstration OT Short Term Goals Short Term Goals Time Frame: Nov 30, 2020 Eatin Oral hygiene: 4 (SBA) Toileting hygiene: 4 (SBA) Shower/bathe self: 4 (CGA) Upper body dressin Lower body dressin (SBA) Putting on/taking off footwear: 4 (SBA) OT Roofing Superintendent Goals Roofing Superintendent Goals Time Frame: Dec 07, 2020 Eating (QC): 6 Oral Hygiene (QC): 6 Toileting Hygiene (QC): 6 Shower/Bathe Self (QC): 5 Upper Body Dressing (QC): 6 Lower Body Dressing (QC): 5 On/Off Footwear (QC): 5 1=Demonstrate adherence to instructed precautions during ADL tasks. 2=Patient will verbalize/demonstrate understanding of assistive devices/modifications for ADL. 3=Patient will improve strength/tolerance for activity to enable patient to perform ADL's. OT Education/Plan Problem List/Assessment Assessment: Decreased Activ Tolerance, Decreased UE Strength, Impaired Funct Balance, Impaired I ADL's, Impaired Self-Care Skills Discharge Recommendations Plan/Recommendations: Continue POC Treatment Plan/Plan of Care Treatment,Training & Education: Yes Patient would benefit from OT for education, treatment and training to promote independence in ADL's, mobility, safety and/or upper extremity function for ADL's. Plan of Care: ADL Retraining, Functional Mobility, Group Exercise/Act as Ind, UE Funct Exercise/Act Treatment Duration: Dec 07, 2020 Frequency: At least 5 of 7 days/Wk (IRF) Estimated Hrs Per Day: 1.5 hours per day Agreement: Yes Rehab Potential: Fair Time/GCodes Start Time: 09:30 Stop Time: 10:30 Total Time Billed (hr/min): 60 Billed Treatment Time 1 visit, ADL x2, FA x2 Eleni Perez OT Nov 24, 2020 10:30
--- NOTE | 2020-11-24 12:18 | PM&R Progress Note ---
Subjective HPI/CC On Admission Date Seen by Provider: Nov 24, 2020 Time Seen by Provider: 12:30 Subjective/Events-last exam 11/24/2020: Patient continues to dramatically improve We will check labs in the morning No significant changes Lungs are good Wean down prednisone tomorrow 11/23/2020: Patient dramatically improved We will discontinue salt tablets but maintain fluid restriction Sodium 136 Monitor the bedside Very pleased with dramatic improvement Review of Systems General: Fatigue, Malaise Pulmonary: Dyspnea Objective Exam Vital Signs Vital Signs Date Time Temp Pulse Resp B/P (MAP) Pulse Ox O2 Delivery O2 Flow Rate FiO2 11/24/20 21:44 97 Room Air 11/24/20 20:00 36.8 52 16 168/69 (102) 11/24/20 07:45 1.00 Capillary Refill : General Appearance: No Apparent Distress, WD/WN, Chronically ill, Thin, Other (Temporal wasting) HEENT: PERRL/EOMI, Normal ENT Inspection, Pharynx Normal Neck: Full Range of Motion, Normal Inspection, Non Tender, Supple, Carotid Bruit Respiratory: Chest Non Tender, No Accessory Muscle Use, No Respiratory Distress, Decreased Breath Sounds Cardiovascular: Regular Rate, Rhythm, No Edema, No Gallop, No JVD, No Murmur, Normal Peripheral Pulses Gastrointestinal: Normal Bowel Sounds, No Organomegaly, No Pulsatile Mass, Non Tender, Soft Back: Normal Inspection, No CVA Tenderness, No Vertebral Tenderness Extremity: Normal Capillary Refill, Normal Inspection, Normal Range of Motion, Non Tender, No Calf Tenderness, No Pedal Edema Neurologic/Psychiatric: Alert, Oriented x3, Normal Mood/Affect, Depressed Affect, Disoriented, Motor Weakness (Generalized 4/5 all extremities) Skin: Normal Color, Warm/Dry Lymphatic: No Adenopathy Results/Procedures Lab Patient resulted labs reviewed. FIM Transfers Therapy Code Descriptions/Definitions Functional [place] Measure: 0=Not Assessed/NA 4=Minimal Assistance 1=Total Assistance 5=Supervision or Setup 2=Maximal Assistance 6=Modified [place] 3=Moderate Assistance 7=Complete IndependenceSCALE: Activities may be completed with or without assistive devices. 4-Ujpsczrqph-ejckhbh completes the activity by him/herself with no assistance from a helper. 5-Set-up or Clean-up Assistance-helper sets up or cleans up; patient completes activity. [place] assists only prior to or following the activity. 4-Supervision or Touching Assistance-helper provides verbal cues and/or touching/steadying and/or contact guard assistance as patient completes activity. Assistance may be provided throughout the activity or intermittently. 3-Partial/Moderate Assistance-helper does LESS THAN HALF the effort. [place] lifts, holds or supports trunk or limbs, but provides less than half the effort. 2-Substantial/Maximal Assistance-helper does MORE THAN HALF the effort. [place] lifts or holds trunk or limbs and provides more than half the effort. 4-Akhbdmxil-ghbbay does ALL the effort. Patient does none of the effort to complete the activity. Or, the assistance of 2 or more helpers is required for the patient to complete the activity. If activity was not attempted, code reason: 7-Patient Refused. 9-Not Applicable-not attempted and the patient did not perform the activity before the current illness, exacerbation or injury. 10-Not Attempted due to Environmental Limitations-(lack of equipment, weather restraints, etc.). 88-Not Attempted due to Medical Conditions or Safety Concerns. Roll Left to Right (QC): 6 Sit to Lying (QC): 6 Sit to Stand (QC): 4 Chair/Gdf-ol-Lvdua Xfer(QC): 4 Car Transfer (QC): 4 Gait Training Does the Patient Walk?: Yes Distance: 300', 150' x2 Walk 10 feet (QC): 4 Walk 50 ft with 2 Turns(QC): 4 Walk 150 ft (QC): 4 Walking 10ft/uneven surface-QC: 4 Gait Persons Needed: 1 Gait Assistive Device: FWW Wheelchair Training Does the Pt Use a Wheelchair?: No Wheel 50 ft with 2 turns (QC): 9 Wheel 150 ft (QC): 9 Stair Training #of Steps: 1 1 Step (curb) (QC): 4 4 Steps (QC): 88 12 Steps (QC): 88 Balance Picking up an Object (QC): 88 ADL-Treatment Eating (QC): 4 Oral Hygiene (QC): 4 Shower/Bathe Self (QC): 3 Upper Body Dressing (QC): 5 Lower Body Dressing (QC): 4 On/Off Footwear (QC): 4 Toileting Hygiene (QC): 4 (cga) Toilet Transfer (QC): 4 (cga) Assessment/Plan Assessment and Plan Assess & Plan/Chief Complaint Assessment: Debility Encephalopathy 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 on fluid restriction and salt tablets Severe COPD Oxygen dependent new onset Smoker heavy Fall risk Cachexia Volume overload Pleural effusion status post thoracentesis no evidence of malignant cells on cytology Mucous plugging status post bronchoscopy Plan: Aggressive therapy Fall risk prevention Fluid restriction Salt tablets 11/23/2020: DC salt tablets Continue fluid restriction Aggressive therapy 11/24/2020: Continue fluid restriction Aggressive therapy (1) Debility (2) S/P bronchoscopy (3) S/P thoracentesis (4) Pleural effusion (5) Cachexia (6) COPD, severe (7) Requires oxygen therapy (8) Encephalopathy (9) Hyponatremia Status: Acute (10) CHF (congestive heart failure) Status: Acute (11) Proximal muscle weakness (12) Elevated liver enzymes Status: Acute (13) Peripheral arterial disease Status: Acute (14) Hypoxia (15) Smoker NEFTALI HARRIS DO Nov 24, 2020 12:18
--- NOTE | 2020-11-24 13:09 | Occupational Ther Daily Note ---
OT Current Status-Daily Note Subjective Pt denies any pain. continues to verbalize numbness/"puffiness" in feet. Appearance Pt left sitting in chair at OT departure. all needs within reach ADL-Treatment Therapy Code Descriptions/Definitions Functional [place] Measure: 0=Not Assessed/NA 4=Minimal Assistance 1=Total Assistance 5=Supervision or Setup 2=Maximal Assistance 6=Modified [place] 3=Moderate Assistance 7=Complete IndependenceSCALE: Activities may be completed with or without assistive devices. 8-Zgbmazncgp-clbcmed completes the activity by him/herself with no assistance from a helper. 5-Set-up or Clean-up Assistance-helper sets up or cleans up; patient completes activity. [place] assists only prior to or following the activity. 4-Supervision or Touching Assistance-helper provides verbal cues and/or touching/steadying and/or contact guard assistance as patient completes activity. Assistance may be provided throughout the activity or intermittently. 3-Partial/Moderate Assistance-helper does LESS THAN HALF the effort. [place] lifts, holds or supports trunk or limbs, but provides less than half the effort. 2-Substantial/Maximal Assistance-helper does MORE THAN HALF the effort. [place] lifts or holds trunk or limbs and provides more than half the effort. 5-Yzyozjcdj-hplyab does ALL the effort. Patient does none of the effort to complete the activity. Or, the assistance of 2 or more helpers is required for the patient to complete the activity. If activity was not attempted, code reason: 7-Patient Refused. 9-Not Applicable-not attempted and the patient did not perform the activity before the current illness, exacerbation or injury. 10-Not Attempted due to Environmental Limitations-(lack of equipment, weather restraints, etc.). 88-Not Attempted due to Medical Conditions or Safety Concerns. Other Treatment Pt participated in UE exercises with goal to promote increased strength and endurance needed for functional tasks. 2# hand held weight utilized for all LUE movements and R elbow-distally. All R shoulder movements performed with zero resistance due to c/o pain. He was able to perform all movements within full range and increase to 15 reps this date. Pt may benefit from increasing resistance on LUE during next exercise session. 15 x2 all planes. Education OT Patient Education: Correct positioning, Energy conservation, Exercise program, Rehab process Teaching Recipient: Patient Teaching Methods: Demonstration, Discussion Response to Teaching: Verbalize Understanding, Return Demonstration OT Short Term Goals Short Term Goals Time Frame: Nov 30, 2020 Eatin Oral hygiene: 4 (SBA) Toileting hygiene: 4 (SBA) Shower/bathe self: 4 (CGA) Upper body dressin Lower body dressin (SBA) Putting on/taking off footwear: 4 (SBA) OT Shelter Goals Trolley Wire Installer Goals Time Frame: Dec 07, 2020 Eating (QC): 6 Oral Hygiene (QC): 6 Toileting Hygiene (QC): 6 Shower/Bathe Self (QC): 5 Upper Body Dressing (QC): 6 Lower Body Dressing (QC): 5 On/Off Footwear (QC): 5 1=Demonstrate adherence to instructed precautions during ADL tasks. 2=Patient will verbalize/demonstrate understanding of assistive devices/modifications for ADL. 3=Patient will improve strength/tolerance for activity to enable patient to perform ADL's. OT Education/Plan Problem List/Assessment Assessment: Decreased Activ Tolerance, Decreased UE Strength, Impaired Funct Balance, Impaired I ADL's, Impaired Self-Care Skills Discharge Recommendations Plan/Recommendations: Continue POC Treatment Plan/Plan of Care Treatment,Training & Education: Yes Patient would benefit from OT for education, treatment and training to promote independence in ADL's, mobility, safety and/or upper extremity function for ADL's. Plan of Care: ADL Retraining, Functional Mobility, Group Exercise/Act as Ind, UE Funct Exercise/Act Treatment Duration: Dec 07, 2020 Frequency: At least 5 of 7 days/Wk (IRF) Estimated Hrs Per Day: 1.5 hours per day Agreement: Yes Rehab Potential: Fair Time/GCodes Start Time: 12:38 Stop Time: 13:08 Total Time Billed (hr/min): 30 Billed Treatment Time 1 visit, EX x2 Eleni Perez OT Nov 24, 2020 13:09
[2020-11-24 20:00] VITALS: BP 168/69
[2020-11-24] MEDS: doxAzosin 2 MG (CARDURA) TAB PO SCH (21:44)
[2020-11-24] MEDS: MELATONIN 3 MG TABLET PO PRN (21:47)
[2020-11-25] MEDS: predniSONE 20 MG TAB PO SCH (07:18)
[2020-11-25 07:37] LABS: BASOPHILS % (AUTO) 0 % (0-10); EOSINOPHILS % (AUTO) 0 % (0-10); HEMATOCRIT 32 % (40-54); HEMOGLOBIN 10.7 g/dL (13.3-17.7); LYMPHOCYTES # (AUTO) 2.4 10^3/uL (1.0-4.0); LYMPHOCYTES % (AUTO) 25 % (12-44); MEAN CORPUSCULAR HEMOGLOBIN 28 pg (25-34); MEAN CORPUSCULAR HGB CONC 33 g/dL (32-36); MEAN CORPUSCULAR VOLUME 85 fL (80-99); MEAN PLATELET VOLUME 9.5 fL (9.0-12.2); MONOCYTES # (AUTO) 0.8 10^3/uL (0.0-1.0); MONOCYTES % (AUTO) 8 % (0-12); NEUTROPHILS # (AUTO) 6.2 10^3/uL (1.8-7.8); NEUTROPHILS % (AUTO) 65 % (42-75); PLATELET COUNT 298 10^3/uL (130-400); WHITE BLOOD COUNT 9.5 10^3/uL (4.3-11.0)
[2020-11-25 07:52] LABS: ALBUMIN 2.7 GM/DL (3.2-4.5)
[2020-11-25 07:53] LABS: POTASSIUM 4.1 MMOL/L (3.6-5.0)
[2020-11-25 07:54] LABS: CALCIUM 8.6 MG/DL (8.5-10.1)
[2020-11-25] MEDS: IBUPROFEN 600 MG (MOTRIN) TAB PO PRN (07:54)
[2020-11-25 07:55] LABS: TOTAL PROTEIN 5.5 GM/DL (6.4-8.2)
[2020-11-25] MEDS: ENOXAPARIN 40 MG/0.4 ML (LOVENOX) SYR SC SCH (07:55)
[2020-11-25] MEDS: ASPIRIN 81 MG CHEW (CHILDREN'S ASA) PO SCH (07:56)
[2020-11-25] MEDS: lisINopril 40 MG (PRINIVIL) TABLET PO SCH (07:56)
[2020-11-25] MEDS: amLODIPine 10 MG (NORVASC) TAB PO SCH (07:56)
[2020-11-25] MEDS: fluCOnazole (DIFLUCAN) 100 MG TAB PO SCH (07:56)
[2020-11-25 07:57] LABS: BILIRUBIN,TOTAL 1.1 MG/DL (0.1-1.0)
[2020-11-25] MEDS: meTOprolol SUCCINATE 100 MG (TOPROL XL) TAB PO SCH ×2 (07:57→21:53)
[2020-11-25] MEDS: NICOTINE 14 MG (NICODERM) PATCH TD SCH (07:57)
[2020-11-25 07:59] LABS: CREATININE SERUM 0.58 MG/DL (0.60-1.30)
[2020-11-25 08:00] VITALS: BP 163/69
[2020-11-25 08:38] VITALS: BP 168/69
--- NOTE | 2020-11-25 09:05 | Physical Therapy Daily Note ---
PT Daily Note-Current Subjective Pt in bed w/ RN in room upon arrival and agrees to tx. Pt states soreness in back and "spongy" feeling in feet. Mental Status Patient Orientation: Person, Place, Time, Situation Transfers SCALE: Activities may be completed with or without assistive devices. 5-Thvcdqmecg-nrqdyqe completes the activity by him/herself with no assistance from a helper. 5-Set-up or Clean-up Assistance-helper sets up or cleans up; patient completes activity. [place] assists only prior to or following the activity. 4-Supervision or Touching Assistance-helper provides verbal cues and/or touching/steadying and/or contact guard assistance as patient completes activity. Assistance may be provided throughout the activity or intermittently. 3-Partial/Moderate Assistance-helper does LESS THAN HALF the effort. [place] lifts, holds or supports trunk or limbs, but provides less than half the effort. 2-Substantial/Maximal Assistance-helper does MORE THAN HALF the effort. [place] lifts or holds trunk or limbs and provides more than half the effort. 5-Ctgoduted-cktkmt does ALL the effort. Patient does none of the effort to complete the activity. Or, the assistance of 2 or more helpers is required for the patient to complete the activity. If activity was not attempted, code reason: 7-Patient Refused. 9-Not Applicable-not attempted and the patient did not perform the activity before the current illness, exacerbation or injury. 10-Not Attempted due to Environmental Limitations-(lack of equipment, weather restraints, etc.). 88-Not Attempted due to Medical Conditions or Safety Concerns. Sit to Lying (QC): 6 Lying to Sitting/Side of Bed(Q: 6 Sit to Stand (QC): 5 Gait Training Does the Patient Walk?: Yes Distance: 400' Walk 10 feet (QC): 4 Walk 50 ft with 2 Turns(QC): 4 Walk 150 ft (QC): 4 Gait Persons Needed: 1 Gait Assistive Device: FWW Pt has slow, shuffling gait. Pt amb w/ FWW and CGA. Exercises Seated Therapy Exercises: Ankle pumps, Sit to stand, Long arc quads, Hip flexion Seated Reps: 10 Treatments Pt supine to sit [place] and sit to stand SBA. Pt amb 150' on IRU and to therapy gym. Pt completes seated ex x10 each LE. Pt then performs standing balance activity, reaching cones at different heights on L and R side, and stacking them on table w/o UE support. Pt able to complete activity w/o a LOB. Pt then has seated RB, followed by 400' amb and returns to room. Pt sits EOB to supine and was left w/ all needs met, call light in hand. Assessment Current Status: Good Progress Pt increasing endurance, strength, and balance PT Short Term Goals Short Term Goals Time Frame: Nov 29, 2020 Roll Left & Right: 6 Sit to lyin Lying to sitting on side of be: 6 Sit to stand: 4 Chair/zva-py-cofcb transfer: 4 Walk 10 feet: 4 Walk 50 feet with two turns: 4 Walk 150 feet: 4 PT Sw[employer] Researcher Goals Prison Goals PT Prison Goals Time Frame: Dec 13, 2020 Roll Left & Right (QC): 6 Sit to Lying (QC): 6 Lying-Sitting on Side/Bed(QC): 6 Sit to Stand (QC): 5 Chair/Zmt-qj-Sgfol Xfer(QC): 5 Toilet Transfer (QC): 5 Car Transfer (QC): 5 Does the Patient Walk: Yes Walk 10 feet (QC): 5 Walk 50ft with 2 Turns (QC): 5 Walk 150 ft (QC): 5 Walking 10ft on Uneven Surface: 5 1 Step (curb) (QC): 5 4 Steps (QC): 5 12 Steps (QC): 88 Picking up an Object (QC): 5 Wheel 50 feet with 2 turns (QC: 9 Wheel 150 feet: 9 PT Plan Treatment/Plan Treatment Plan: Continue Plan of Care Treatment Plan: Bed Mobility, Education, Functional Activity Samantha, Functional Strength, Group Therapy, Gait, Safety, Therapeutic Exercise, Transfers Treatment Duration: Dec 13, 2020 Frequency: At least 5 of 7 days/Wk (IRF) Estimated Hrs Per Day: 1.5 hours per day Patient and/or Family Agrees t: Yes Time/GCodes Time In: 757 Time Out: 815 Total Billed Treatment Time: 18 Total Billed Treatment SUJATHA Sahu SYDNEY PTA Nov 25, 2020 09:05
[2020-11-25] MEDS: NICOTINE PATCH REMOVAL TP SCH (09:22)
[2020-11-25] MEDS ORDERED: SODIUM CHLORIDE 1 GM TABLET PO ONE (10:00)
--- NOTE | 2020-11-25 10:08 | PM&R Progress Note ---
Subjective HPI/CC On Admission Date Seen by Provider: Nov 25, 2020 Time Seen by Provider: 13:00 Subjective/Events-last exam 11/26/2019: Patient doing really well Sleeping currently Sodium level 132 so we will start sodium chloride tablets Weaning prednisone 11/24/2020: Patient continues to dramatically improve We will check labs in the morning No significant changes Lungs are good Wean down prednisone tomorrow 11/23/2020: Patient dramatically improved We will discontinue salt tablets but maintain fluid restriction Sodium 136 Monitor the bedside Very pleased with dramatic improvement Review of Systems General: Fatigue Objective Exam Vital Signs Vital Signs Date Time Temp Pulse Resp B/P (MAP) Pulse Ox O2 Delivery O2 Flow Rate FiO2 11/25/20 09:00 96 Room Air 11/25/20 08:38 36.8 52 11/25/20 08:00 18 163/69 (100) 11/24/20 07:45 1.00 Capillary Refill : General Appearance: No Apparent Distress, WD/WN, Chronically ill, Thin, Other (Temporal wasting) HEENT: PERRL/EOMI, Normal ENT Inspection, Pharynx Normal Neck: Full Range of Motion, Normal Inspection, Non Tender, Supple, Carotid Bruit Respiratory: Chest Non Tender, No Accessory Muscle Use, No Respiratory Distress, Decreased Breath Sounds Cardiovascular: Regular Rate, Rhythm, No Edema, No Gallop, No JVD, No Murmur, Normal Peripheral Pulses Gastrointestinal: Normal Bowel Sounds, No Organomegaly, No Pulsatile Mass, Non Tender, Soft Back: Normal Inspection, No CVA Tenderness, No Vertebral Tenderness Extremity: Normal Capillary Refill, Normal Inspection, Normal Range of Motion, Non Tender, No Calf Tenderness, No Pedal Edema Neurologic/Psychiatric: Alert, Oriented x3, Normal Mood/Affect, Depressed Affect, Disoriented, Motor Weakness (Generalized 4/5 all extremities) Skin: Normal Color, Warm/Dry Lymphatic: No Adenopathy Results/Procedures Lab Laboratory Tests 11/25/20 07:29 Patient resulted labs reviewed. FIM Transfers Therapy Code Descriptions/Definitions Functional [place] Measure: 0=Not Assessed/NA 4=Minimal Assistance 1=Total Assistance 5=Supervision or Setup 2=Maximal Assistance 6=Modified [place] 3=Moderate Assistance 7=Complete IndependenceSCALE: Activities may be completed with or without assistive devices. 7-Wnkkpebzol-wihhcyh completes the activity by him/herself with no assistance from a helper. 5-Set-up or Clean-up Assistance-helper sets up or cleans up; patient completes activity. [place] assists only prior to or following the activity. 4-Supervision or Touching Assistance-helper provides verbal cues and/or touching/steadying and/or contact guard assistance as patient completes activity. Assistance may be provided throughout the activity or intermittently. 3-Partial/Moderate Assistance-helper does LESS THAN HALF the effort. [place] lifts, holds or supports trunk or limbs, but provides less than half the effort. 2-Substantial/Maximal Assistance-helper does MORE THAN HALF the effort. [place] lifts or holds trunk or limbs and provides more than half the effort. 6-Gxlsqjbwe-yvamxz does ALL the effort. Patient does none of the effort to complete the activity. Or, the assistance of 2 or more helpers is required for the patient to complete the activity. If activity was not attempted, code reason: 7-Patient Refused. 9-Not Applicable-not attempted and the patient did not perform the activity before the current illness, exacerbation or injury. 10-Not Attempted due to Environmental Limitations-(lack of equipment, weather restraints, etc.). 88-Not Attempted due to Medical Conditions or Safety Concerns. Roll Left to Right (QC): 6 Sit to Lying (QC): 6 Sit to Stand (QC): 5 Chair/Hlc-go-Meoxz Xfer(QC): 4 Car Transfer (QC): 4 Gait Training Does the Patient Walk?: Yes Distance: 400' Walk 10 feet (QC): 4 Walk 50 ft with 2 Turns(QC): 4 Walk 150 ft (QC): 4 Walking 10ft/uneven surface-QC: 4 Gait Persons Needed: 1 Gait Assistive Device: FWW Wheelchair Training Does the Pt Use a Wheelchair?: No Wheel 50 ft with 2 turns (QC): 9 Wheel 150 ft (QC): 9 Stair Training #of Steps: 1 1 Step (curb) (QC): 4 4 Steps (QC): 88 12 Steps (QC): 88 Balance Picking up an Object (QC): 88 ADL-Treatment Eating (QC): 4 Oral Hygiene (QC): 4 Shower/Bathe Self (QC): 3 Upper Body Dressing (QC): 5 Lower Body Dressing (QC): 4 On/Off Footwear (QC): 4 Toileting Hygiene (QC): 4 (cga) Toilet Transfer (QC): 4 (cga) Assessment/Plan Assessment and Plan Assess & Plan/Chief Complaint Assessment: Debility Encephalopathy 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 on fluid restriction and salt tablets Severe COPD Oxygen dependent new onset Smoker heavy Fall risk Cachexia Volume overload Pleural effusion status post thoracentesis no evidence of malignant cells on cytology Mucous plugging status post bronchoscopy Plan: Aggressive therapy Fall risk prevention Fluid restriction Salt tablets 11/23/2020: DC salt tablets Continue fluid restriction Aggressive therapy 11/24/2020: Continue fluid restriction Aggressive therapy 11/25/20: Restart salt tablets Wean prednisone (1) Debility (2) S/P bronchoscopy (3) S/P thoracentesis (4) Pleural effusion (5) Cachexia (6) COPD, severe (7) Requires oxygen therapy (8) Encephalopathy (9) Hyponatremia Status: Acute (10) CHF (congestive heart failure) Status: Acute (11) Proximal muscle weakness (12) Elevated liver enzymes Status: Acute (13) Peripheral arterial disease Status: Acute (14) Hypoxia (15) Smoker NEFTALI HARRIS DO Nov 25, 2020 10:08
[2020-11-25] MEDS: DOCUSATE SODIUM 100 MG (COLACE) CAP PO SCH ×2 (13:47→17:20)
[2020-11-25] MEDS: polyethylene glycoL POWDER 17 GM (MIRALAX) PACK PO SCH ×2 (13:47→21:56)
[2020-11-25] MEDS: SENNA W/DOCUSATE (SENOKOT S) TABLET PO SCH ×2 (13:47→17:20)
[2020-11-25 20:00] VITALS: BP 171/70
[2020-11-25] MEDS: MELATONIN 3 MG TABLET PO PRN (21:53)
[2020-11-25] MEDS: doxAzosin 2 MG (CARDURA) TAB PO SCH (21:53)
[2020-11-25] MEDS: SODIUM CHLORIDE 1 GM TABLET PO SCH (21:54)
[2020-11-26] MEDS: BISACODYL 10 MG SUPP (DULCOLAX) PR PRN (05:29)
[2020-11-26] MEDS: predniSONE 20 MG TAB PO SCH (07:27)
[2020-11-26 08:00] VITALS: BP 133/48
[2020-11-26 10:01] VITALS: BP 133/48
[2020-11-26] MEDS: NICOTINE PATCH REMOVAL TP SCH (10:04)
[2020-11-26] MEDS: ENOXAPARIN 40 MG/0.4 ML (LOVENOX) SYR SC SCH (10:05)
[2020-11-26] MEDS: lisINopril 40 MG (PRINIVIL) TABLET PO SCH (10:05)
[2020-11-26] MEDS: fluCOnazole (DIFLUCAN) 100 MG TAB PO SCH (10:05)
[2020-11-26] MEDS: ASPIRIN 81 MG CHEW (CHILDREN'S ASA) PO SCH (10:05)
[2020-11-26] MEDS: amLODIPine 10 MG (NORVASC) TAB PO SCH (10:05)
[2020-11-26] MEDS: meTOprolol SUCCINATE 100 MG (TOPROL XL) TAB PO SCH ×2 (10:05→21:37)
[2020-11-26] MEDS: DOCUSATE SODIUM 100 MG (COLACE) CAP PO SCH ×2 (10:06→21:37)
[2020-11-26] MEDS: polyethylene glycoL POWDER 17 GM (MIRALAX) PACK PO SCH ×2 (10:06→21:40)
[2020-11-26] MEDS: NICOTINE 14 MG (NICODERM) PATCH TD SCH (10:06)
[2020-11-26] MEDS: SENNA W/DOCUSATE (SENOKOT S) TABLET PO SCH ×2 (10:06→21:37)
[2020-11-26] MEDS: SODIUM CHLORIDE 1 GM TABLET PO SCH ×2 (10:15→21:38)
[2020-11-26] MEDS: IBUPROFEN 600 MG (MOTRIN) TAB PO PRN (11:36)
--- NOTE | 2020-11-26 12:08 | PM&R Progress Note ---
Subjective HPI/CC On Admission Date Seen by Provider: Nov 26, 2020 Time Seen by Provider: 12:15 Subjective/Events-last exam 11/26/2020: Patient doing really well No significant concerns Thinks his feet have some bursitis flared up Progressing very well Bowels moved yesterday 11/25/2020: Patient doing really well Sleeping currently Sodium level 132 so we will start sodium chloride tablets Weaning prednisone 11/24/2020: Patient continues to dramatically improve We will check labs in the morning No significant changes Lungs are good Wean down prednisone tomorrow 11/23/2020: Patient dramatically improved We will discontinue salt tablets but maintain fluid restriction Sodium 136 Monitor the bedside Very pleased with dramatic improvement Review of Systems General: Fatigue, Malaise Objective Exam Vital Signs Vital Signs Date Time Temp Pulse Resp B/P (MAP) Pulse Ox O2 Delivery O2 Flow Rate FiO2 11/26/20 09:00 Room Air 11/26/20 08:00 36.8 3 16 133/48 (76) 97 11/24/20 07:45 1.00 Capillary Refill : General Appearance: No Apparent Distress, WD/WN, Chronically ill, Thin, Other (Temporal wasting) HEENT: PERRL/EOMI, Normal ENT Inspection, Pharynx Normal Neck: Full Range of Motion, Normal Inspection, Non Tender, Supple, Carotid Bruit Respiratory: Chest Non Tender, No Accessory Muscle Use, No Respiratory Distress, Decreased Breath Sounds Cardiovascular: Regular Rate, Rhythm, No Edema, No Gallop, No JVD, No Murmur, Normal Peripheral Pulses Gastrointestinal: Normal Bowel Sounds, No Organomegaly, No Pulsatile Mass, Non Tender, Soft Back: Normal Inspection, No CVA Tenderness, No Vertebral Tenderness Extremity: Normal Capillary Refill, Normal Inspection, Normal Range of Motion, Non Tender, No Calf Tenderness, No Pedal Edema Neurologic/Psychiatric: Alert, Oriented x3, Normal Mood/Affect, Depressed Affect, Disoriented, Motor Weakness (Generalized 4/5 all extremities) Skin: Normal Color, Warm/Dry Lymphatic: No Adenopathy Results/Procedures Lab Patient resulted labs reviewed. FIM Transfers Therapy Code Descriptions/Definitions Functional [place] Measure: 0=Not Assessed/NA 4=Minimal Assistance 1=Total Assistance 5=Supervision or Setup 2=Maximal Assistance 6=Modified [place] 3=Moderate Assistance 7=Complete IndependenceSCALE: Activities may be completed with or without assistive devices. 7-Uflbtebqej-yghembj completes the activity by him/herself with no assistance from a helper. 5-Set-up or Clean-up Assistance-helper sets up or cleans up; patient completes activity. [place] assists only prior to or following the activity. 4-Supervision or Touching Assistance-helper provides verbal cues and/or touching/steadying and/or contact guard assistance as patient completes activity. Assistance may be provided throughout the activity or intermittently. 3-Partial/Moderate Assistance-helper does LESS THAN HALF the effort. [place] lifts, holds or supports trunk or limbs, but provides less than half the effort. 2-Substantial/Maximal Assistance-helper does MORE THAN HALF the effort. [place] lifts or holds trunk or limbs and provides more than half the effort. 2-Cbbewxhrz-uxspin does ALL the effort. Patient does none of the effort to complete the activity. Or, the assistance of 2 or more helpers is required for the patient to complete the activity. If activity was not attempted, code reason: 7-Patient Refused. 9-Not Applicable-not attempted and the patient did not perform the activity before the current illness, exacerbation or injury. 10-Not Attempted due to Environmental Limitations-(lack of equipment, weather restraints, etc.). 88-Not Attempted due to Medical Conditions or Safety Concerns. Roll Left to Right (QC): 6 Sit to Lying (QC): 6 Sit to Stand (QC): 5 Chair/Dka-yk-Lykpw Xfer(QC): 4 Car Transfer (QC): 4 Gait Training Does the Patient Walk?: Yes Distance: 400' Walk 10 feet (QC): 4 Walk 50 ft with 2 Turns(QC): 4 Walk 150 ft (QC): 4 Walking 10ft/uneven surface-QC: 4 Gait Persons Needed: 1 Gait Assistive Device: FWW Wheelchair Training Does the Pt Use a Wheelchair?: No Wheel 50 ft with 2 turns (QC): 9 Wheel 150 ft (QC): 9 Stair Training #of Steps: 1 1 Step (curb) (QC): 4 4 Steps (QC): 88 12 Steps (QC): 88 Balance Picking up an Object (QC): 88 ADL-Treatment Eating (QC): 4 Oral Hygiene (QC): 4 Shower/Bathe Self (QC): 3 Upper Body Dressing (QC): 5 Lower Body Dressing (QC): 4 On/Off Footwear (QC): 4 Toileting Hygiene (QC): 4 (cga) Toilet Transfer (QC): 4 (cga) Assessment/Plan Assessment and Plan Assess & Plan/Chief Complaint Assessment: Debility Encephalopathy 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 on fluid restriction and salt tablets Severe COPD Oxygen dependent new onset Smoker heavy Fall risk Cachexia Volume overload Pleural effusion status post thoracentesis no evidence of malignant cells on cytology Mucous plugging status post bronchoscopy Plan: Aggressive therapy Fall risk prevention Fluid restriction Salt tablets 11/23/2020: DC salt tablets Continue fluid restriction Aggressive therapy 11/24/2020: Continue fluid restriction Aggressive therapy 11/25/20: Restart salt tablets Wean prednisone 11/26/2020: Supportive care Check labs in the morning (1) Debility (2) S/P bronchoscopy (3) S/P thoracentesis (4) Pleural effusion (5) Cachexia (6) COPD, severe (7) Requires oxygen therapy (8) Encephalopathy (9) Hyponatremia Status: Acute (10) CHF (congestive heart failure) Status: Acute (11) Proximal muscle weakness (12) Elevated liver enzymes Status: Acute (13) Peripheral arterial disease Status: Acute (14) Hypoxia (15) Smoker NEFTALI HARRIS DO Nov 26, 2020 12:08
[2020-11-26 20:00] VITALS: BP 142/65
[2020-11-26] MEDS: doxAzosin 2 MG (CARDURA) TAB PO SCH (21:37)
[2020-11-26] MEDS: MELATONIN 3 MG TABLET PO PRN (21:37)
--- NOTE | 2020-11-27 05:01 | PM&R Progress Note ---
Subjective HPI/CC On Admission Date Seen by Provider: Nov 27, 2020 Time Seen by Provider: 19:00 Subjective/Events-last exam 11/27/2020: Pt doing really well Sodium level of 133 Sodium tablets tolerated Checked meds and labs Overall doing really well 11/26/2020: Patient doing really well No significant concerns Thinks his feet have some bursitis flared up Progressing very well Bowels moved yesterday 11/25/2020: Patient doing really well Sleeping currently Sodium level 132 so we will start sodium chloride tablets Weaning prednisone 11/24/2020: Patient continues to dramatically improve We will check labs in the morning No significant changes Lungs are good Wean down prednisone tomorrow 11/23/2020: Patient dramatically improved We will discontinue salt tablets but maintain fluid restriction Sodium 136 Monitor the bedside Very pleased with dramatic improvement Review of Systems General: Fatigue Neurological: Weakness Objective Exam Vital Signs Vital Signs Date Time Temp Pulse Resp B/P (MAP) Pulse Ox O2 Delivery O2 Flow Rate FiO2 11/27/20 21:00 Room Air 11/27/20 20:31 98 11/27/20 20:00 37.4 67 18 136/65 (88) 11/24/20 07:45 1.00 Capillary Refill : General Appearance: No Apparent Distress, WD/WN, Chronically ill, Thin, Other (Temporal wasting) HEENT: PERRL/EOMI, Normal ENT Inspection, Pharynx Normal Neck: Full Range of Motion, Normal Inspection, Non Tender, Supple, Carotid Bru it Respiratory: Chest Non Tender, No Accessory Muscle Use, No Respiratory Dist ress, Decreased Breath Sounds Cardiovascular: Regular Rate, Rhythm, No Edema, No Gallop, No JVD, No Murmur, Normal Peripheral Pulses Gastrointestinal: Normal Bowel Sounds, No Organomegaly, No Pulsatile Mass, Non Tender, Soft Back: Normal Inspection, No CVA Tenderness, No Vertebral Tenderness Extremity: Normal Capillary Refill, Normal Inspection, Normal Range of Motion, Non Tender, No Calf Tenderness, No Pedal Edema Neurologic/Psychiatric: Alert, Oriented x3, Normal Mood/Affect, Depressed Affect, Disoriented, Motor Weakness (Generalized 4/5 all extremities) Skin: Normal Color, Warm/Dry Lymphatic: No Adenopathy Results/Procedures Lab Laboratory Tests 11/27/20 05:53 Patient resulted labs reviewed. FIM Transfers Therapy Code Descriptions/Definitions Functional [place] Measure: 0=Not Assessed/NA 4=Minimal Assistance 1=Total Assistance 5=Supervision or Setup 2=Maximal Assistance 6=Modified [place] 3=Moderate Assistance 7=Complete IndependenceSCALE: Activities may be completed with or without assistive devices. 6-Lkeorbilud-khzybiu completes the activity by him/herself with no assistance from a helper. 5-Set-up or Clean-up Assistance-helper sets up or cleans up; patient completes activity. [place] assists only prior to or following the activity. 4-Supervision or Touching Assistance-helper provides verbal cues and/or touching/steadying and/or contact guard assistance as patient completes activity. Assistance may be provided throughout the activity or intermittently. 3-Partial/Moderate Assistance-helper does LESS THAN HALF the effort. [place] lifts, holds or supports trunk or limbs, but provides less than half the effort. 2-Substantial/Maximal Assistance-helper does MORE THAN HALF the effort. [place] lifts or holds trunk or limbs and provides more than half the effort. 0-Ybuzpharq-wvzhbe does ALL the effort. Patient does none of the effort to complete the activity. Or, the assistance of 2 or more helpers is required for the patient to complete the activity. If activity was not attempted, code reason: 7-Patient Refused. 9-Not Applicable-not attempted and the patient did not perform the activity before the current illness, exacerbation or injury. 10-Not Attempted due to Environmental Limitations-(lack of equipment, weather restraints, etc.). 88-Not Attempted due to Medical Conditions or Safety Concerns. Roll Left to Right (QC): 6 Sit to Lying (QC): 6 Sit to Stand (QC): 5 Chair/Vky-ml-Otclv Xfer(QC): 4 Car Transfer (QC): 4 Gait Training Does the Patient Walk?: Yes Distance: 400' Walk 10 feet (QC): 4 Walk 50 ft with 2 Turns(QC): 4 Walk 150 ft (QC): 4 Walking 10ft/uneven surface-QC: 4 Gait Persons Needed: 1 Gait Assistive Device: FWW Wheelchair Training Does the Pt Use a Wheelchair?: No Wheel 50 ft with 2 turns (QC): 9 Wheel 150 ft (QC): 9 Stair Training #of Steps: 1 1 Step (curb) (QC): 4 4 Steps (QC): 88 12 Steps (QC): 88 Balance Picking up an Object (QC): 88 ADL-Treatment Eating (QC): 4 Oral Hygiene (QC): 4 Shower/Bathe Self (QC): 3 Upper Body Dressing (QC): 5 Lower Body Dressing (QC): 4 On/Off Footwear (QC): 4 Toileting Hygiene (QC): 4 (cga) Toilet Transfer (QC): 4 (cga) Assessment/Plan Assessment and Plan Assess & Plan/Chief Complaint Assessment: Debility Encephalopathy 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 on fluid restriction and salt tablets Severe COPD Oxygen dependent new onset Smoker heavy Fall risk Cachexia Volume overload Pleural effusion status post thoracentesis no evidence of malignant cells on cytology Mucous plugging status post bronchoscopy Plan: Aggressive therapy Fall risk prevention Fluid restriction Salt tablets 11/23/2020: DC salt tablets Continue fluid restriction Aggressive therapy 11/24/2020: Continue fluid restriction Aggressive therapy 11/25/20: Restart salt tablets Wean prednisone 11/26/2020: Supportive care Check labs in the morning 11/27/2020: Continue salt tablets Supportive care (1) Debility (2) S/P bronchoscopy (3) S/P thoracentesis (4) Pleural effusion (5) Cachexia (6) COPD, severe (7) Requires oxygen therapy (8) Encephalopathy (9) Hyponatremia Status: Acute (10) CHF (congestive heart failure) Status: Acute (11) Proximal muscle weakness (12) Elevated liver enzymes Status: Acute (13) Peripheral arterial disease Status: Acute (14) Hypoxia (15) Smoker NEFTALI HARRIS DO Nov 27, 2020 05:01
[2020-11-27 06:05] LABS: BASOPHILS % (AUTO) 0 % (0-10); EOSINOPHILS % (AUTO) 0 % (0-10); HEMATOCRIT 31 % (40-54); HEMOGLOBIN 10.3 g/dL (13.3-17.7); LYMPHOCYTES # (AUTO) 2.4 10^3/uL (1.0-4.0); LYMPHOCYTES % (AUTO) 23 % (12-44); MEAN CORPUSCULAR HEMOGLOBIN 28 pg (25-34); MEAN CORPUSCULAR HGB CONC 34 g/dL (32-36); MEAN CORPUSCULAR VOLUME 84 fL (80-99); MEAN PLATELET VOLUME 9.9 fL (9.0-12.2); MONOCYTES # (AUTO) 0.8 10^3/uL (0.0-1.0); MONOCYTES % (AUTO) 8 % (0-12); NEUTROPHILS # (AUTO) 6.9 10^3/uL (1.8-7.8); NEUTROPHILS % (AUTO) 68 % (42-75); PLATELET COUNT 276 10^3/uL (130-400); WHITE BLOOD COUNT 10.2 10^3/uL (4.3-11.0)
[2020-11-27 06:32] LABS: ALBUMIN 2.7 GM/DL (3.2-4.5); POTASSIUM 4.1 MMOL/L (3.6-5.0)
[2020-11-27 06:33] LABS: CALCIUM 8.2 MG/DL (8.5-10.1)
[2020-11-27 06:35] LABS: TOTAL PROTEIN 5.2 GM/DL (6.4-8.2)
[2020-11-27 06:36] LABS: BILIRUBIN,TOTAL 0.9 MG/DL (0.1-1.0)
[2020-11-27 06:38] LABS: CREATININE SERUM 0.66 MG/DL (0.60-1.30)
[2020-11-27] MEDS: predniSONE 20 MG TAB PO SCH (07:12)
[2020-11-27 07:36] VITALS: BP 141/60
[2020-11-27] MEDS: NICOTINE PATCH REMOVAL TP SCH (08:21)
[2020-11-27] MEDS: NICOTINE 14 MG (NICODERM) PATCH TD SCH (08:22)
[2020-11-27] MEDS: fluCOnazole (DIFLUCAN) 100 MG TAB PO SCH (08:29)
[2020-11-27] MEDS: IBUPROFEN 600 MG (MOTRIN) TAB PO PRN (08:29)
[2020-11-27] MEDS: amLODIPine 10 MG (NORVASC) TAB PO SCH (08:29)
[2020-11-27] MEDS: ASPIRIN 81 MG CHEW (CHILDREN'S ASA) PO SCH (08:29)
[2020-11-27] MEDS: SENNA W/DOCUSATE (SENOKOT S) TABLET PO SCH ×2 (08:29→20:55)
[2020-11-27] MEDS: lisINopril 40 MG (PRINIVIL) TABLET PO SCH (08:29)
[2020-11-27] MEDS: polyethylene glycoL POWDER 17 GM (MIRALAX) PACK PO SCH (08:30)
[2020-11-27] MEDS: ENOXAPARIN 40 MG/0.4 ML (LOVENOX) SYR SC SCH (08:30)
[2020-11-27] MEDS: meTOprolol SUCCINATE 100 MG (TOPROL XL) TAB PO SCH ×2 (08:30→20:55)
[2020-11-27] MEDS: DOCUSATE SODIUM 100 MG (COLACE) CAP PO SCH ×2 (08:30→20:54)
[2020-11-27] MEDS: SODIUM CHLORIDE 1 GM TABLET PO SCH (08:32)
--- NOTE | 2020-11-27 09:57 | Occupational Ther Daily Note ---
OT Current Status-Daily Note Subjective Pt reports pain in back, no numerical value given. RN notified. Appearance Pt left sitting in chair, all needs within reach. Mental Status/Objective Patient Orientation: Person, Place, Time, Situation ADL-Treatment Therapy Code Descriptions/Definitions Functional [place] Measure: 0=Not Assessed/NA 4=Minimal Assistance 1=Total Assistance 5=Supervision or Setup 2=Maximal Assistance 6=Modified [place] 3=Moderate Assistance 7=Complete IndependenceSCALE: Activities may be completed with or without assistive devices. 7-Gumbzjigpp-uclqyzz completes the activity by him/herself with no assistance from a helper. 5-Set-up or Clean-up Assistance-helper sets up or cleans up; patient completes activity. [place] assists only prior to or following the activity. 4-Supervision or Touching Assistance-helper provides verbal cues and/or touching/steadying and/or contact guard assistance as patient completes activity. Assistance may be provided throughout the activity or intermittently. 3-Partial/Moderate Assistance-helper does LESS THAN HALF the effort. [place] lifts, holds or supports trunk or limbs, but provides less than half the effort. 2-Substantial/Maximal Assistance-helper does MORE THAN HALF the effort. [place] lifts or holds trunk or limbs and provides more than half the effort. 9-Osqyjyued-mwkxbt does ALL the effort. Patient does none of the effort to complete the activity. Or, the assistance of 2 or more helpers is required for the patient to complete the activity. If activity was not attempted, code reason: 7-Patient Refused. 9-Not Applicable-not attempted and the patient did not perform the activity before the current illness, exacerbation or injury. 10-Not Attempted due to Environmental Limitations-(lack of equipment, weather restraints, etc.). 88-Not Attempted due to Medical Conditions or Safety Concerns. Oral Hygiene (QC): 4 (supervision) Bathing Location: L Arm, R Arm, L Upper Leg, R Upper Leg, L Lower Leg (including foot), R Lower Leg (including foot), Chest, Abdomen, Buttocks, Perineal Area Shower/Bathe Self (QC): 4 (SBA) Upper Body Dressing (QC): 5 Lower Body Dressing (QC): 4 (Supervision/set up) On/Off Footwear: 4 (SBA) Toileting Hygiene (QC): 4 Toilet Transfer (QC): 4 (supervision) Shower performed; majority completed in sitting. Supervision when standing to wash [place] area/buttocks, intermittent single UE support on grab bar. No u nsteadiness in standing. Pt able to reach/wash all body parts indep. Cues/reminders on pacing and energy conservation strategies throughout task. He sat to don clothing. C/O difficulty threading LLE into clothing, but able to perform without assist. Education on threading L first. Close sup/sba as he stood to manage LB clothing over his hips. He stood at the sink to brush teeth, declined shaving this date. Pt with reduced activity tolerance noted this session, requires short rest breaks throughout. Education OT Patient Education: Correct positioning, Energy conservation, Modified ADL techniques, Progress toward Goal/Update tx plan, Purpose of tx/functional activities, Rehab process Teaching Recipient: Patient Teaching Methods: Demonstration, Discussion Response to Teaching: Verbalize Understanding, Return Demonstration OT Short Term Goals Short Term Goals Time Frame: Nov 30, 2020 Eatin Oral hygiene: 4 (SBA) Toileting hygiene: 4 (SBA) Shower/bathe self: 4 (CGA) Upper body dressin Lower body dressin (SBA) Putting on/taking off footwear: 4 (SBA) OT Mcc Goals Civil Drafter Goals Time Frame: Dec 07, 2020 Eating (QC): 6 Oral Hygiene (QC): 6 Toileting Hygiene (QC): 6 Shower/Bathe Self (QC): 5 Upper Body Dressing (QC): 6 Lower Body Dressing (QC): 5 On/Off Footwear (QC): 5 1=Demonstrate adherence to instructed precautions during ADL tasks. 2=Patient will verbalize/demonstrate understanding of assistive devices/modifications for ADL. 3=Patient will improve strength/tolerance for activity to enable patient to perform ADL's. OT Education/Plan Problem List/Assessment Assessment: Decreased Activ Tolerance, Decreased Safety Aware, Decreased UE Strength, Impaired Funct Balance, Impaired I ADL's, Impaired Self-Care Skills Discharge Recommendations Plan/Recommendations: Continue POC Equpiment Recommendations-D/C: Bath Chair Treatment Plan/Plan of Care Treatment,Training & Education: Yes Patient would benefit from OT for education, treatment and training to promote independence in ADL's, mobility, safety and/or upper extremity function for ADL's. Plan of Care: ADL Retraining, Functional Mobility, Group Exercise/Act as Ind, UE Funct Exercise/Act Treatment Duration: Dec 07, 2020 Frequency: At least 5 of 7 days/Wk (IRF) Estimated Hrs Per Day: 1.5 hours per day Agreement: Yes Rehab Potential: Fair Time/GCodes Start Time: 09:00 Stop Time: 10:00 Total Time Billed (hr/min): 60 Billed Treatment Time 1 visit, ADL x4 Eleni Perez OT Nov 27, 2020 09:57
--- NOTE | 2020-11-27 11:46 | Physical Therapy Daily Note ---
PT Daily Note-Current Subjective Pt sitting in recliner upon arrival. Pt agrees to PT. Pain Numeric Pain Scale: 7 Location: Right, Lower Location Body Site: Back Pain Description: Sharp Comment: No pain w/rest but increases w/upright activity stephania. lifting R LE Mental Status Patient Orientation: Person, Place, Time, Situation Transfers SCALE: Activities may be completed with or without assistive devices. 4-Juhcadxqzc-xjfijvf completes the activity by him/herself with no assistance from a helper. 5-Set-up or Clean-up Assistance-helper sets up or cleans up; patient completes activity. [place] assists only prior to or following the activity. 4-Supervision or Touching Assistance-helper provides verbal cues and/or touching/steadying and/or contact guard assistance as patient completes activity. Assistance may be provided throughout the activity or intermittently. 3-Partial/Moderate Assistance-helper does LESS THAN HALF the effort. [place] lifts, holds or supports trunk or limbs, but provides less than half the effort. 2-Substantial/Maximal Assistance-helper does MORE THAN HALF the effort. [place] lifts or holds trunk or limbs and provides more than half the effort. 3-Kfohkdpjz-joaeau does ALL the effort. Patient does none of the effort to complete the activity. Or, the assistance of 2 or more helpers is required for the patient to complete the activity. If activity was not attempted, code reason: 7-Patient Refused. 9-Not Applicable-not attempted and the patient did not perform the activity before the current illness, exacerbation or injury. 10-Not Attempted due to Environmental Limitations-(lack of equipment, weather restraints, etc.). 88-Not Attempted due to Medical Conditions or Safety Concerns. Sit to Stand (QC): 5 Weight Bearing Full Weight Bearing Full Weight Bearing Gait Training Does the Patient Walk?: Yes Distance: 450' Walk 10 feet (QC): 5 Walk 50 ft with 2 Turns(QC): 5 Walk 150 ft (QC): 5 Gait Persons Needed: 1 Gait Assistive Device: FWW VC for NBOS and staying up tall/walking closer to FWW Wheelchair Training Does the Pt Use a Wheelchair?: No Stair Training #of Steps: 12 1 Step (curb) (QC): 4 4 Steps (QC): 4 12 Steps (QC): 4 Stairs: Pattern: Step to 1 set of 4 steps, used 2 handrails; 2nd set used 1 railing at reciprocal & 3rd set used no handrail at step to gait pattern Exercises Standing: Hip Abduction, Hamstring curls, Heel/toe raises, Marching, Mini squa ts, Sit to Stand, Weight shifts Standing Reps: 15 Treatments TF to standing, declines need for BR. Pt amb. in hallway and completed Standing Ex at //bars including standing on AirEx mat 1 min. x3 attempts each w/o use of UE for support. Pt completes 3 sets of 4 steps (see Stairs for info.) Pt amb. extended distance in hallway before returning to room. Pt completes Seated Ex. Pt resting in recliner with all needs met, call light in hand. Assessment Current Status: Good Progress Pt is gaining strength and independence with mobility. PT Short Term Goals Short Term Goals Time Frame: Nov 29, 2020 Roll Left & Right: 6 Sit to lyin Lying to sitting on side of be: 6 Sit to stand: 4 Chair/vib-sd-vwnnt transfer: 4 Walk 10 feet: 4 Walk 50 feet with two turns: 4 Walk 150 feet: 4 PT Fdc Goals Quality Assurance Qa Lab Analyst Goals PT Quality Assurance Qa Lab Analyst Goals Time Frame: Dec 13, 2020 Roll Left & Right (QC): 6 Sit to Lying (QC): 6 Lying-Sitting on Side/Bed(QC): 6 Sit to Stand (QC): 5 Chair/Tll-vq-Uolbu Xfer(QC): 5 Toilet Transfer (QC): 5 Car Transfer (QC): 5 Does the Patient Walk: Yes Walk 10 feet (QC): 5 Walk 50ft with 2 Turns (QC): 5 Walk 150 ft (QC): 5 Walking 10ft on Uneven Surface: 5 1 Step (curb) (QC): 5 4 Steps (QC): 5 12 Steps (QC): 88 Picking up an Object (QC): 5 Wheel 50 feet with 2 turns (QC: 9 Wheel 150 feet: 9 PT Plan Problem List Problem List: Activity Tolerance Treatment/Plan Treatment Plan: Continue Plan of Care Treatment Plan: Bed Mobility, Education, Functional Activity Samantha, Functional Strength, Group Therapy, Gait, Safety, Therapeutic Exercise, Transfers Treatment Duration: Dec 13, 2020 Frequency: At least 5 of 7 days/Wk (IRF) Estimated Hrs Per Day: 1.5 hours per day Patient and/or Family Agrees t: Yes Safety Risks/Education Patient Education: Gait Training, Correct Positioning Teaching Recipient: Patient Teaching Methods: Discussion Response to Teaching: Verbalize Understanding Time/GCodes Time In: 1015 Time Out: 1145 Total Billed Treatment Time: 90 Total Billed Treatment 1, GT (20m), EX x3 (45m) & FA x2 (25m) SHAMEKA VICKERS [employer]BER Nov 27, 2020 11:46
--- NOTE | 2020-11-27 12:54 | Occupational Ther Daily Note ---
OT Current Status-Daily Note Subjective Pt finishing treatment with physical therapy, reports fatigue but agreeable to OT Appearance Pt left sitting in chair, all needs within reach. Mental Status/Objective Attachments: IV ADL-Treatment Therapy Code Descriptions/Definitions Functional [place] Measure: 0=Not Assessed/NA 4=Minimal Assistance 1=Total Assistance 5=Supervision or Setup 2=Maximal Assistance 6=Modified [place] 3=Moderate Assistance 7=Complete IndependenceSCALE: Activities may be completed with or without assistive devices. 1-Avfyocrxky-fwevxny completes the activity by him/herself with no assistance from a helper. 5-Set-up or Clean-up Assistance-helper sets up or cleans up; patient completes activity. [place] assists only prior to or following the activity. 4-Supervision or Touching Assistance-helper provides verbal cues and/or touching/steadying and/or contact guard assistance as patient completes activity. Assistance may be provided throughout the activity or intermittently. 3-Partial/Moderate Assistance-helper does LESS THAN HALF the effort. [place] lifts, holds or supports trunk or limbs, but provides less than half the effort. 2-Substantial/Maximal Assistance-helper does MORE THAN HALF the effort. [place] lifts or holds trunk or limbs and provides more than half the effort. 9-Wktntvysh-crbqlc does ALL the effort. Patient does none of the effort to complete the activity. Or, the assistance of 2 or more helpers is required for the patient to complete the activity. If activity was not attempted, code reason: 7-Patient Refused. 9-Not Applicable-not attempted and the patient did not perform the activity before the current illness, exacerbation or injury. 10-Not Attempted due to Environmental Limitations-(lack of equipment, weather restraints, etc.). 88-Not Attempted due to Medical Conditions or Safety Concerns. Other Treatment Ot issued and instructed pt on red theraband exercises. 15 x2 in all planes. Min visual cues for proper form and speed of movement. Pt with improved L shoulder rom this date with no c/o pain. Good tolerance with short rest breaks. Education on proper breathing techniques during exercises. OT to provide pt with home exercise program/worksheet at next session. Education OT Patient Education: Correct positioning, Energy conservation, Exercise program Teaching Recipient: Patient Teaching Methods: Demonstration, Discussion Response to Teaching: Verbalize Understanding, Return Demonstration OT Short Term Goals Short Term Goals Time Frame: Nov 30, 2020 Eatin Oral hygiene: 4 (SBA) Toileting hygiene: 4 (SBA) Shower/bathe self: 4 (CGA) Upper body dressin Lower body dressin (SBA) Putting on/taking off footwear: 4 (SBA) OT Shelter Goals Retail Manager In Training Goals Time Frame: Dec 07, 2020 Eating (QC): 6 Oral Hygiene (QC): 6 Toileting Hygiene (QC): 6 Shower/Bathe Self (QC): 5 Upper Body Dressing (QC): 6 Lower Body Dressing (QC): 5 On/Off Footwear (QC): 5 1=Demonstrate adherence to instructed precautions during ADL tasks. 2=Patient will verbalize/demonstrate understanding of assistive devices/modifications for ADL. 3=Patient will improve strength/tolerance for activity to enable patient to perform ADL's. OT Education/Plan Problem List/Assessment Assessment: Decreased Activ Tolerance, Decreased UE Strength, Impaired I ADL's, Impaired Self-Care Skills Discharge Recommendations Plan/Recommendations: Continue POC Treatment Plan/Plan of Care Patient would benefit from OT for education, treatment and training to promote independence in ADL's, mobility, safety and/or upper extremity function for ADL's. Plan of Care: ADL Retraining, Functional Mobility, Group Exercise/Act as Ind, UE Funct Exercise/Act Treatment Duration: Dec 07, 2020 Frequency: At least 5 of 7 days/Wk (IRF) Estimated Hrs Per Day: 1.5 hours per day Agreement: Yes Rehab Potential: Fair Time/GCodes Start Time: 11:20 Stop Time: 11:50 Total Time Billed (hr/min): 30 Billed Treatment Time 1 visit, EX Eleni Zarate OT Nov 27, 2020 12:54
[2020-11-27 20:00] VITALS: BP 136/65
[2020-11-27] MEDS: doxAzosin 2 MG (CARDURA) TAB PO SCH (20:54)
[2020-11-28] MEDS: polyethylene glycoL POWDER 17 GM (MIRALAX) PACK PO SCH ×3 (07:01→21:09)
[2020-11-28] MEDS: SODIUM CHLORIDE 1 GM TABLET PO SCH ×3 (07:01→21:07)
[2020-11-28] MEDS: predniSONE 20 MG TAB PO SCH (07:01)
[2020-11-28 08:00] VITALS: BP 127/61
--- NOTE | 2020-11-28 08:43 | PM&R Progress Note ---
Subjective HPI/CC On Admission Date Seen by Provider: Nov 28, 2020 Time Seen by Provider: 08:45 Subjective/Events-last exam 11/28/2020: Pt doing really well Dr. Henson to come to do his toe nails 1200 CC fluid restriction maintained Bowels are moving 11/27/2020: Pt doing really well Sodium level of 133 Sodium tablets tolerated Checked meds and labs Overall doing really well 11/26/2020: Patient doing really well No significant concerns Thinks his feet have some bursitis flared up Progressing very well Bowels moved yesterday 11/25/2020: Patient doing really well Sleeping currently Sodium level 132 so we will start sodium chloride tablets Weaning prednisone 11/24/2020: Patient continues to dramatically improve We will check labs in the morning No significant changes Lungs are good Wean down prednisone tomorrow 11/23/2020: Patient dramatically improved We will discontinue salt tablets but maintain fluid restriction Sodium 136 Monitor the bedside Very pleased with dramatic improvement Review of Systems General: Fatigue, Malaise Neurological: Weakness Objective Exam Vital Signs Vital Signs Date Time Temp Pulse Resp B/P (MAP) Pulse Ox O2 Delivery O2 Flow Rate FiO2 11/28/20 21:10 99 Room Air 11/28/20 20:00 36.5 53 16 152/65 (94) 11/24/20 07:45 1.00 Capillary Refill : General Appearance: No Apparent Distress, WD/WN, Chronically ill, Thin, Other (Temporal wasting) HEENT: PERRL/EOMI, Normal ENT Inspection, Pharynx Normal Neck: Full Range of Motion, Normal Inspection, Non Tender, Supple, Carotid Bruit Respiratory: Chest Non Tender, No Accessory Muscle Use, No Respiratory Distress , Decreased Breath Sounds Cardiovascular: Regular Rate, Rhythm, No Edema, No Gallop, No JVD, No Murmur, Normal Peripheral Pulses Gastrointestinal: Normal Bowel Sounds, No Organomegaly, No Pulsatile Mass, Non Tender, Soft Back: Normal Inspection, No CVA Tenderness, No Vertebral Tenderness Extremity: Normal Capillary Refill, Normal Inspection, Normal Range of Motion, Non Tender, No Calf Tenderness, No Pedal Edema Neurologic/Psychiatric: Alert, Oriented x3, Normal Mood/Affect, Depressed Affect, Disoriented, Motor Weakness (Generalized 4/5 all extremities) Skin: Normal Color, Warm/Dry Lymphatic: No Adenopathy Results/Procedures Lab Patient resulted labs reviewed. FIM Transfers Therapy Code Descriptions/Definitions Functional [place] Measure: 0=Not Assessed/NA 4=Minimal Assistance 1=Total Assistance 5=Supervision or Setup 2=Maximal Assistance 6=Modified [place] 3=Moderate Assistance 7=Complete IndependenceSCALE: Activities may be completed with or without assistive devices. 5-Tlomifdykx-yuibtph completes the activity by him/herself with no assistance from a helper. 5-Set-up or Clean-up Assistance-helper sets up or cleans up; patient completes activity. [place] assists only prior to or following the activity. 4-Supervision or Touching Assistance-helper provides verbal cues and/or touching/steadying and/or contact guard assistance as patient completes activity. Assistance may be provided throughout the activity or intermittently. 3-Partial/Moderate Assistance-helper does LESS THAN HALF the effort. [place] lifts, holds or supports trunk or limbs, but provides less than half the effort. 2-Substantial/Maximal Assistance-helper does MORE THAN HALF the effort. [place] lifts or holds trunk or limbs and provides more than half the effort. 8-Tgfsmqhzg-qzggcq does ALL the effort. Patient does none of the effort to complete the activity. Or, the assistance of 2 or more helpers is required for the patient to complete the activity. If activity was not attempted, code reason: 7-Patient Refused. 9-Not Applicable-not attempted and the patient did not perform the activity before the current illness, exacerbation or injury. 10-Not Attempted due to Environmental Limitations-(lack of equipment, weather restraints, etc.). 88-Not Attempted due to Medical Conditions or Safety Concerns. Roll Left to Right (QC): 6 Sit to Lying (QC): 6 Sit to Stand (QC): 5 Chair/Jca-hw-Uekdx Xfer(QC): 4 Car Transfer (QC): 4 Gait Training Does the Patient Walk?: Yes Distance: 450' Walk 10 feet (QC): 5 Walk 50 ft with 2 Turns(QC): 5 Walk 150 ft (QC): 5 Walking 10ft/uneven surface-QC: 4 Gait Persons Needed: 1 Gait Assistive Device: FWW Wheelchair Training Does the Pt Use a Wheelchair?: No Wheel 50 ft with 2 turns (QC): 9 Wheel 150 ft (QC): 9 Stair Training #of Steps: 12 1 Step (curb) (QC): 4 4 Steps (QC): 4 12 Steps (QC): 4 Stairs: Pattern: Step to Balance Picking up an Object (QC): 88 ADL-Treatment Eating (QC): 4 Oral Hygiene (QC): 4 (supervision) Bathing Location: L Arm, R Arm, L Upper Leg, R Upper Leg, L Lower Leg (including foot), R Lower Leg (including foot), Chest, Abdomen, Buttocks, Perineal Area Shower/Bathe Self (QC): 4 (SBA) Upper Body Dressing (QC): 5 Lower Body Dressing (QC): 4 (Supervision/set up) On/Off Footwear (QC): 4 (SBA) Toileting Hygiene (QC): 4 Toilet Transfer (QC): 4 (supervision) Assessment/Plan Assessment and Plan Assess & Plan/Chief Complaint Assessment: Debility Encephalopathy 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 on fluid restriction and salt tablets Severe COPD Oxygen dependent new onset Smoker heavy Fall risk Cachexia Volume overload Pleural effusion status post thoracentesis no evidence of malignant cells on cytology Mucous plugging status post bronchoscopy Plan: Aggressive therapy Fall risk prevention Fluid restriction Salt tablets 11/23/2020: DC salt tablets Continue fluid restriction Aggressive therapy 11/24/2020: Continue fluid restriction Aggressive therapy 11/25/20: Restart salt tablets Wean prednisone 11/26/2020: Supportive care Check labs in the morning 11/27/2020: Continue salt tablets Supportive care 11/28/2020: Continue aggressive care Disposition pending (1) Debility (2) S/P bronchoscopy (3) S/P thoracentesis (4) Pleural effusion (5) Cachexia (6) COPD, severe (7) Requires oxygen therapy (8) Encephalopathy (9) Hyponatremia Status: Acute (10) CHF (congestive heart failure) Status: Acute (11) Proximal muscle weakness (12) Elevated liver enzymes Status: Acute (13) Peripheral arterial disease Status: Acute (14) Hypoxia (15) Smoker NEFTALI HARRIS DO Nov 28, 2020 08:43
--- NOTE | 2020-11-28 09:03 | Occupational Ther Daily Note ---
OT Current Status-Daily Note Subjective Pt denies pain. Agreeable to treatment. Appearance Left sitting in chair, all needs within reach at end of session. Mental Status/Objective Patient Orientation: Person, Place, Time, Situation Attachments: IV ADL-Treatment Therapy Code Descriptions/Definitions Functional [place] Measure: 0=Not Assessed/NA 4=Minimal Assistance 1=Total Assistance 5=Supervision or Setup 2=Maximal Assistance 6=Modified [place] 3=Moderate Assistance 7=Complete IndependenceSCALE: Activities may be completed with or without assistive devices. 0-Mhdphpqvye-mspfdtn completes the activity by him/herself with no assistance from a helper. 5-Set-up or Clean-up Assistance-helper sets up or cleans up; patient completes activity. [place] assists only prior to or following the activity. 4-Supervision or Touching Assistance-helper provides verbal cues and/or touching/steadying and/or contact guard assistance as patient completes activity. Assistance may be provided throughout the activity or intermittently. 3-Partial/Moderate Assistance-helper does LESS THAN HALF the effort. [place] lifts, holds or supports trunk or limbs, but provides less than half the effort. 2-Substantial/Maximal Assistance-helper does MORE THAN HALF the effort. [place] lifts or holds trunk or limbs and provides more than half the effort. 1-Qwnyommuz-jbythv does ALL the effort. Patient does none of the effort to complete the activity. Or, the assistance of 2 or more helpers is required for the patient to complete the activity. If activity was not attempted, code reason: 7-Patient Refused. 9-Not Applicable-not attempted and the patient did not perform the activity before the current illness, exacerbation or injury. 10-Not Attempted due to Environmental Limitations-(lack of equipment, weather restraints, etc.). 88-Not Attempted due to Medical Conditions or Safety Concerns. On/Off Footwear: 5 Toileting Hygiene (QC): 4 Toilet Transfer (QC): 4 Other Treatment Pt participated in multiple standing tasks with goal to promote increased balance, activity tolerance, functional reach, and proper body mechanics needed for IADL activities. He ambulated community distances with zero rest breaks during simulated "grocery shopping" task. SBA/sup for balance throughout. No LOB or unsteadiness noted. Min verbal cues for preferred body mechanics and posit ioning of walker when retrieving item from low height. Good carry over with instruction. Pt then performed standing activity with goal to reduce UE support while reaching for random colors/numbers called out by therapist. He was able to reproduce 4 word pattern without cues. When pattern increases to 5 words, mod cues needed for recall/memory. Education OT Patient Education: Correct positioning, Energy conservation, Modified ADL techniques, Progress toward Goal/Update tx plan, Purpose of tx/functional activities, Rehab process, Transfer techniques Teaching Recipient: Patient Teaching Methods: Demonstration, Discussion Response to Teaching: Verbalize Understanding, Return Demonstration OT Short Term Goals Short Term Goals Time Frame: Nov 30, 2020 Eatin Oral hygiene: 4 (SBA) Toileting hygiene: 4 (SBA) Shower/bathe self: 4 (CGA) Upper body dressin Lower body dressin (SBA) Putting on/taking off footwear: 4 (SBA) OT Long-Term Goals Contact Lens Curve Grinder Goals Time Frame: Dec 07, 2020 Eating (QC): 6 Oral Hygiene (QC): 6 Toileting Hygiene (QC): 6 Shower/Bathe Self (QC): 5 Upper Body Dressing (QC): 6 Lower Body Dressing (QC): 5 On/Off Footwear (QC): 5 1=Demonstrate adherence to instructed precautions during ADL tasks. 2=Patient will verbalize/demonstrate understanding of assistive devices/modifications for ADL. 3=Patient will improve strength/tolerance for activity to enable patient to perform ADL's. OT Education/Plan Problem List/Assessment Assessment: Decreased Activ Tolerance, Decreased Safety Aware, Decreased UE Strength, Impaired Funct Balance, Impaired I ADL's Discharge Recommendations Plan/Recommendations: Continue POC Treatment Plan/Plan of Care Treatment,Training & Education: Yes Patient would benefit from OT for education, treatment and training to promote independence in ADL's, mobility, safety and/or upper extremity function for ADL's. Plan of Care: ADL Retraining, Functional Mobility, Group Exercise/Act as Ind, UE Funct Exercise/Act Treatment Duration: Dec 07, 2020 Frequency: At least 5 of 7 days/Wk (IRF) Estimated Hrs Per Day: 1.5 hours per day Agreement: Yes Rehab Potential: Fair Time/GCodes Start Time: 07:55 Stop Time: 09:00 Total Time Billed (hr/min): 65 Billed Treatment Time 1 visit, FA x4 Eleni Perez OT Nov 28, 2020 09:03
[2020-11-28] MEDS: meTOprolol SUCCINATE 100 MG (TOPROL XL) TAB PO SCH ×2 (09:37→21:06)
[2020-11-28] MEDS: DOCUSATE SODIUM 100 MG (COLACE) CAP PO SCH ×2 (09:37→21:11)
[2020-11-28] MEDS: NICOTINE 14 MG (NICODERM) PATCH TD SCH (09:37)
[2020-11-28] MEDS: lisINopril 40 MG (PRINIVIL) TABLET PO SCH (09:37)
[2020-11-28] MEDS: ASPIRIN 81 MG CHEW (CHILDREN'S ASA) PO SCH (09:37)
[2020-11-28] MEDS: ENOXAPARIN 40 MG/0.4 ML (LOVENOX) SYR SC SCH (09:37)
[2020-11-28] MEDS: SENNA W/DOCUSATE (SENOKOT S) TABLET PO SCH ×2 (09:37→21:10)
[2020-11-28] MEDS: fluCOnazole (DIFLUCAN) 100 MG TAB PO SCH (09:37)
[2020-11-28] MEDS: amLODIPine 10 MG (NORVASC) TAB PO SCH (09:37)
--- NOTE | 2020-11-28 10:33 | Physical Therapy Daily Note ---
PT Daily Note-Current Subjective Pt in recliner upon arrival and agrees to tx. Pt states his feet still feel spongy. Pt states pain in lower back and R shoulder but doesn't rate out of 10. Pt states pain is chronic. Mental Status Patient Orientation: Person, Place, Situation Transfers SCALE: Activities may be completed with or without assistive devices. 0-Rgsotsqepu-tdjmxvd completes the activity by him/herself with no assistance from a helper. 5-Set-up or Clean-up Assistance-helper sets up or cleans up; patient completes activity. [place] assists only prior to or following the activity. 4-Supervision or Touching Assistance-helper provides verbal cues and/or touching/steadying and/or contact guard assistance as patient completes activity. Assistance may be provided throughout the activity or intermittently. 3-Partial/Moderate Assistance-helper does LESS THAN HALF the effort. [place] lifts, holds or supports trunk or limbs, but provides less than half the effort. 2-Substantial/Maximal Assistance-helper does MORE THAN HALF the effort. [place] lifts or holds trunk or limbs and provides more than half the effort. 6-Kvxuqmahh-vvubbh does ALL the effort. Patient does none of the effort to complete the activity. Or, the assistance of 2 or more helpers is required for the patient to complete the activity. If activity was not attempted, code reason: 7-Patient Refused. 9-Not Applicable-not attempted and the patient did not perform the activity before the current illness, exacerbation or injury. 10-Not Attempted due to Environmental Limitations-(lack of equipment, weather restraints, etc.). 88-Not Attempted due to Medical Conditions or Safety Concerns. Sit to Stand (QC): 5 Weight Bearing Full Weight Bearing Full Weight Bearing Gait Training Does the Patient Walk?: Yes Distance: 300' x2 Walk 10 feet (QC): 5 Walk 50 ft with 2 Turns(QC): 5 Walk 150 ft (QC): 5 Gait Persons Needed: 5 Gait Assistive Device: FWW Pt has slow, but steady gait. No gait deviations noted. Exercises Standing: Hamstring curls, Heel/toe raises, Marching, Mini squats, Retro gait, Sit to Stand, Side steps, Step-ups, Unilateral stance Standing Reps: 15 NuStep Minutes: 15 NuStep Workload: 5 Treatments Pt sit to stand from recliner SBA and amb 300' on IRU w/ FWW and SBA. Pt enters therapy gym and completes NuStep w/ RB as needed. Pt then transfers to chair placed in // bars and completes standing ex w/ RB between each set. For side steps and retro gait, pt amb in 6' // bars down and back x5. Pt then performs lloyd bag toss in standing unsupported from UE. Pt throws 13 lloyd bags x2 w/ basket approx 6' away. R UE first attempt pt makes 10/20, second attempt 12/20. L UE first attempt pt makes 07/20, second attempt 10/20. Pt has no LOB throughout activity. Pt then holds standing balance on AirEx mat 1 min x2, standing unsupported from UE w/ eyes closed. Pt slightly unsteady, but has no LOB. Pt performs SLS 20 secs on L LE and 30 secs on R LE. Pt then amb another 300' and returns to recliner in room. Pt left w/ all needs met and call light in hand. Assessment Current Status: Good Progress Pt requires frequent RB throughout tx d/t easily becoming fatigued. Pt overall progressing well PT Short Term Goals Short Term Goals Time Frame: Nov 29, 2020 Roll Left & Right: 6 Sit to lyin Lying to sitting on side of be: 6 Sit to stand: 4 Chair/gdy-vc-wqxgy transfer: 4 Walk 10 feet: 4 Walk 50 feet with two turns: 4 Walk 150 feet: 4 PT Shelter Goals Bench Patternmaker Metal Goals PT Shelter Goals Time Frame: Dec 13, 2020 Roll Left & Right (QC): 6 Sit to Lying (QC): 6 Lying-Sitting on Side/Bed(QC): 6 Sit to Stand (QC): 5 Chair/Fdo-dv-Sydes Xfer(QC): 5 Toilet Transfer (QC): 5 Car Transfer (QC): 5 Does the Patient Walk: Yes Walk 10 feet (QC): 5 Walk 50ft with 2 Turns (QC): 5 Walk 150 ft (QC): 5 Walking 10ft on Uneven Surface: 5 1 Step (curb) (QC): 5 4 Steps (QC): 5 12 Steps (QC): 88 Picking up an Object (QC): 5 Wheel 50 feet with 2 turns (QC: 9 Wheel 150 feet: 9 PT Plan Treatment/Plan Treatment Plan: Continue Plan of Care Treatment Plan: Bed Mobility, Education, Functional Activity Samantha, Functional Strength, Group Therapy, Gait, Safety, Therapeutic Exercise, Transfers Treatment Duration: Dec 13, 2020 Frequency: At least 5 of 7 days/Wk (IRF) Estimated Hrs Per Day: 1.5 hours per day Patient and/or Family Agrees t: Yes Time/GCodes Time In: 900 Time Out: 1030 Total Billed Treatment Time: 90 Total Billed Treatment 1, GT x2, EX x3, FA ELYSSA CARTER GENERAL DUTY NURSE Nov 28, 2020 10:33
[2020-11-28] MEDS: NICOTINE PATCH REMOVAL TP SCH (11:05)
--- NOTE | 2020-11-28 13:00 | Occupational Ther Daily Note ---
OT Current Status-Daily Note Subjective Pt denies pain, agreeable to treatment. Appearance Left sitting in chair, all needs within reach. ADL-Treatment Therapy Code Descriptions/Definitions Functional [place] Measure: 0=Not Assessed/NA 4=Minimal Assistance 1=Total Assistance 5=Supervision or Setup 2=Maximal Assistance 6=Modified [place] 3=Moderate Assistance 7=Complete IndependenceSCALE: Activities may be completed with or without assistive devices. 2-Suusnipksn-lbrsnlp completes the activity by him/herself with no assistance from a helper. 5-Set-up or Clean-up Assistance-helper sets up or cleans up; patient completes activity. [place] assists only prior to or following the activity. 4-Supervision or Touching Assistance-helper provides verbal cues and/or touching/steadying and/or contact guard assistance as patient completes activ ity. Assistance may be provided throughout the activity or intermittently. 3-Partial/Moderate Assistance-helper does LESS THAN HALF the effort. [place] lifts, holds or supports trunk or limbs, but provides less than half the effort. 2-Substantial/Maximal Assistance-helper does MORE THAN HALF the effort. [place] lifts or holds trunk or limbs and provides more than half the effort. 6-Tzsjpsbqr-uiqtxk does ALL the effort. Patient does none of the effort to complete the activity. Or, the assistance of 2 or more helpers is required for the patient to complete the activity. If activity was not attempted, code reason: 7-Patient Refused. 9-Not Applicable-not attempted and the patient did not perform the activity before the current illness, exacerbation or injury. 10-Not Attempted due to Environmental Limitations-(lack of equipment, weather restraints, etc.). 88-Not Attempted due to Medical Conditions or Safety Concerns. Other Treatment Ot issued and instructed pt on Home exercise program with red theraband. 15 x2 in all planes. Min visual cues for proper form and speed of movement. Good tolerance with short rest breaks. Reminders on proper breathing techniques during exercises. Education OT Patient Education: Correct positioning, Exercise program, Home exercise program, Purpose of tx/functional activities Teaching Recipient: Patient Teaching Methods: Demonstration, Discussion Response to Teaching: Verbalize Understanding, Return Demonstration OT Short Term Goals Short Term Goals Time Frame: Nov 30, 2020 Eatin Oral hygiene: 4 (SBA) Toileting hygiene: 4 (SBA) Shower/bathe self: 4 (CGA) Upper body dressin Lower body dressin (SBA) Putting on/taking off footwear: 4 (SBA) OT Winch Derrick Operator Goals [facility] Goals Time Frame: Dec 07, 2020 Eating (QC): 6 Oral Hygiene (QC): 6 Toileting Hygiene (QC): 6 Shower/Bathe Self (QC): 5 Upper Body Dressing (QC): 6 Lower Body Dressing (QC): 5 On/Off Footwear (QC): 5 1=Demonstrate adherence to instructed precautions during ADL tasks. 2=Patient will verbalize/demonstrate understanding of assistive devices/modifications for ADL. 3=Patient will improve strength/tolerance for activity to enable patient to perform ADL's. OT Education/Plan Problem List/Assessment Assessment: Decreased Activ Tolerance, Decreased UE Strength, Impaired I ADL's, Impaired Self-Care Skills Discharge Recommendations Plan/Recommendations: Continue POC Therapy Discharge Recommendati: Homemaker Support Target Placement home health Patient/Family Goals Daughter reports that she will possibly be moving in with patient post d/c. Treatment Plan/Plan of Care Patient would benefit from OT for education, treatment and training to promote independence in ADL's, mobility, safety and/or upper extremity function for ADL's. Plan of Care: ADL Retraining, Functional Mobility, Group Exercise/Act as Ind, UE Funct Exercise/Act Treatment Duration: Dec 07, 2020 Frequency: At least 5 of 7 days/Wk (IRF) Estimated Hrs Per Day: 1.5 hours per day Agreement: Yes Rehab Potential: Fair Time/GCodes Start Time: 11:40 Stop Time: 12:05 Total Time Billed (hr/min): 25 Billed Treatment Time 1 visit, EX Eleni Zarate OT Nov 28, 2020 13:00
--- NOTE | 2020-11-28 13:54 | Podiatry Progress Note ---
Standard Progress Note Progress Notes/Assess & Plan Date Seen by a Provider: Nov 28, 2020 Time Seen by a Provider: 13:53 Progress/Assessment & Plan Consultation Dictated. Foot care given. Recommend compression therapy, bilateral lower extremities. Final Diagnosis PVD, left let Onychomycosis, Onychocryptosis, left hallux FAIZAN RODRIGUEZ DPM Nov 28, 2020 13:54
--- NOTE | 2020-11-28 16:09 | CONSULTATION REPORT ---
DATE OF SERVICE: 11/28/2020 REASON FOR CONSULTATION: Foot care. HISTORY OF PRESENT ILLNESS: This 75-year-old male was admitted to the hospital secondary to hyponatremia and he has got a long history of COPD. He is currently in rehabilitation wing for strengthening. The patient is currently complaining of numbness and swelling of the feet. He has also had a complaint of an ingrown toenail to the left great toe, which he has tried to trim out in the past, unsuccessfully. PAST MEDICAL HISTORY: Orthopedic surgery, pneumonia, hypertension, prostate problems, liver disease, jaundice, back injury, chronic back pain, hard of hearing, and bilateral hearing aids. ALLERGIES: He is allergic to [place]. CURRENT MEDICATIONS: Listed on the chart. PHYSICAL EXAMINATION: LOWER EXTREMITY: The patient has pitting edema bilateral lower extremity, there are 2/4 pedal pulses on the right, 1/4 dorsalis pedis pulse, and 0/4 left posterior tibial pulse left. Cap refill time is approximately 3 seconds to the hallux bilaterally. NEUROLOGIC: The patient has diminished protective sensation with 10 gram monofilament wire examination bilaterally. Diminished vibratory sensation to the forefoot and also diminished deep tendon reflexes to the Achilles tendons bilaterally. DERMATOLOGIC: The patient has a thick yellow dystrophic toenails with subungual debris R1 to 5, L1 and 5 digits. There is an incurvated border to the left hallux medial distal nail fold. No erythema and no proximal streaking. No malodor noted at this time. MUSCULOSKELETAL: The patient has 5/5 muscle strength to the four major quadrants of the foot. ASSESSMENT: 1. Peripheral vascular disease, left leg. 2. Edema. 3. Onychomycosis. 4. Onychocryptosis L1. PLAN: Various options were discussed with the patient today. His toenails were debrided mechanically. Betadine was applied. The offending distal medial nail the left hallux was debrided as well back at its angle to reduce the chance of disruption of the integument. The patient is to follow up with his vascular surgeon in regard to the left lower extremity. If and when circulation is improved, he may want to consider a matrixectomy to the left hallux. We also discussed elevation and compression therapy to help reduce the edema bilaterally. He is welcome to follow up in the office upon discharge. Job ID: [id number] DocumentID: [id number] Dictated Date: 11/28/2020 13:53:17 Shop Blacksmith Date: 11/28/2020 16:09:04 Dictated By: MARISA DILLON
[2020-11-28 20:00] VITALS: BP 152/65
[2020-11-28] MEDS: MELATONIN 3 MG TABLET PO PRN (21:07)
[2020-11-28] MEDS: doxAzosin 2 MG (CARDURA) TAB PO SCH (21:07)
[2020-11-29] MEDS: predniSONE 20 MG TAB PO SCH (07:17)
[2020-11-29 07:37] VITALS: BP 163/72
[2020-11-29] MEDS: polyethylene glycoL POWDER 17 GM (MIRALAX) PACK PO SCH ×2 (09:00→19:49)
[2020-11-29] MEDS: DOCUSATE SODIUM 100 MG (COLACE) CAP PO SCH ×2 (09:00→19:49)
[2020-11-29] MEDS: SENNA W/DOCUSATE (SENOKOT S) TABLET PO SCH ×2 (09:00→19:49)
--- NOTE | 2020-11-29 09:28 | Physical Therapy Daily Note ---
PT Daily Note-Current Subjective Pt in bed upon arrival and agrees to tx. Pt states soreness in back and R shoulder. During ex, pt states pulling in L hip. Mental Status Patient Orientation: Person, Place, Time, Situation Transfers SCALE: Activities may be completed with or without assistive devices. 2-Ynpfpynqyj-wgnibqk completes the activity by him/herself with no assistance from a helper. 5-Set-up or Clean-up Assistance-helper sets up or cleans up; patient completes activity. [place] assists only prior to or following the activity. 4-Supervision or Touching Assistance-helper provides verbal cues and/or touching/steadying and/or contact guard assistance as patient completes activity. Assistance may be provided throughout the activity or intermittently. 3-Partial/Moderate Assistance-helper does LESS THAN HALF the effort. [place] lifts, holds or supports trunk or limbs, but provides less than half the effort. 2-Substantial/Maximal Assistance-helper does MORE THAN HALF the effort. [place] lifts or holds trunk or limbs and provides more than half the effort. 2-Pbsbvnmzp-xinjvw does ALL the effort. Patient does none of the effort to complete the activity. Or, the assistance of 2 or more helpers is required for the patient to complete the activity. If activity was not attempted, code reason: 7-Patient Refused. 9-Not Applicable-not attempted and the patient did not perform the activity before the current illness, exacerbation or injury. 10-Not Attempted due to Environmental Limitations-(lack of equipment, weather restraints, etc.). 88-Not Attempted due to Medical Conditions or Safety Concerns. Sit to Lying (QC): 5 Lying to Sitting/Side of Bed(Q: 5 Sit to Stand (QC): 5 Weight Bearing Full Weight Bearing Full Weight Bearing Gait Training Does the Patient Walk?: Yes Distance: 300', 150' Walk 10 feet (QC): 5 Walk 50 ft with 2 Turns(QC): 5 Walk 150 ft (QC): 5 Gait Persons Needed: 1 Gait Assistive Device: FWW Stair Training Stair Training: Handrails/: 2 handrails #of Steps: 12 1 Step (curb) (QC): 5 4 Steps (QC): 5 12 Steps (QC): 5 Stairs: Pattern: Step to Pt amb 4 steps x3 reps continuously w/ SBA and a step to pattern. Pt able to complete w/o need of RB or gait deviations. Exercises Seated Therapy Exercises: Long arc quads Standing: Hamstring curls, Heel/toe raises, Marching, Mini squats, Sit to Stand Standing Reps: 10 NuStep Minutes: 15 NuStep Workload: 5 Treatments Pt supine to sit and sit to stand SBA and amb 300' on IRU and enters therapy gym. Pt completes standing ex w/ RB as needed. Pt performs standing ring toss activity, w/ stand 6' away and 8 rings x3. Pt makes a total of 2 rings on stand during activity. Pt able to hold balance throughout activity w/o any LOB. Pt then performs seated LAQ for 5 mins. Post RB, pt completes stairs. Pt then completes standing functional grasps activity w/ checkers. Pt sets up board and plays game in standing. Post checkers game, pt completes NuStep. Pt then amb back to room and returns to bed. Pt sit EOB to supine SBA, left with all needs met and call light in hand. Assessment Current Status: Good Progress Pt overall improving balance, endurance, and strength. Pt displays no LOB throughout amb or balance activity PT Short Term Goals Short Term Goals Time Frame: Nov 29, 2020 Roll Left & Right: 6 Sit to lyin Lying to sitting on side of be: 6 Sit to stand: 4 Chair/gwr-rq-qttfv transfer: 4 Walk 10 feet: 4 Walk 50 feet with two turns: 4 Walk 150 feet: 4 PT Desk Officer Goals Long-Term Goals PT Long-Term Goals Time Frame: Dec 13, 2020 Roll Left & Right (QC): 6 Sit to Lying (QC): 6 Lying-Sitting on Side/Bed(QC): 6 Sit to Stand (QC): 5 Chair/Pky-ih-Gawmw Xfer(QC): 5 Toilet Transfer (QC): 5 Car Transfer (QC): 5 Does the Patient Walk: Yes Walk 10 feet (QC): 5 Walk 50ft with 2 Turns (QC): 5 Walk 150 ft (QC): 5 Walking 10ft on Uneven Surface: 5 1 Step (curb) (QC): 5 4 Steps (QC): 5 12 Steps (QC): 88 Picking up an Object (QC): 5 Wheel 50 feet with 2 turns (QC: 9 Wheel 150 feet: 9 PT Plan Treatment/Plan Treatment Plan: Continue Plan of Care Treatment Plan: Bed Mobility, Education, Functional Activity Samantha, Functional Strength, Group Therapy, Gait, Safety, Therapeutic Exercise, Transfers Treatment Duration: Dec 13, 2020 Frequency: At least 5 of 7 days/Wk (IRF) Estimated Hrs Per Day: 1.5 hours per day Patient and/or Family Agrees t: Yes Time/GCodes Time In: 800 Time Out: 930 Total Billed Treatment Time: 90 Total Billed Treatment 1, GT, EX x2, FA x3 ELYSSA CARTER COOK BOAT Nov 29, 2020 09:27
[2020-11-29] MEDS: NICOTINE 14 MG (NICODERM) PATCH TD SCH (10:00)
[2020-11-29] MEDS: NICOTINE PATCH REMOVAL TP SCH (10:00)
[2020-11-29] MEDS: ASPIRIN 81 MG CHEW (CHILDREN'S ASA) PO SCH (10:00)
[2020-11-29] MEDS: meTOprolol SUCCINATE 100 MG (TOPROL XL) TAB PO SCH ×2 (10:00→20:53)
[2020-11-29] MEDS: amLODIPine 10 MG (NORVASC) TAB PO SCH (10:00)
[2020-11-29] MEDS: lisINopril 40 MG (PRINIVIL) TABLET PO SCH (10:00)
[2020-11-29] MEDS: ENOXAPARIN 40 MG/0.4 ML (LOVENOX) SYR SC SCH (10:00)
[2020-11-29] MEDS: SODIUM CHLORIDE 1 GM TABLET PO SCH ×2 (10:03→20:54)
--- NOTE | 2020-11-29 11:04 | Occupational Ther Daily Note ---
OT Current Status-Daily Note Subjective pt agreeable to treatment. Appearance per patient requests, returned to supine with all needs within reach. Mental Status/Objective Patient Orientation: Person, Place, Time, Situation ADL-Treatment Therapy Code Descriptions/Definitions Functional [place] Measure: 0=Not Assessed/NA 4=Minimal Assistance 1=Total Assistance 5=Supervision or Setup 2=Maximal Assistance 6=Modified [place] 3=Moderate Assistance 7=Complete IndependenceSCALE: Activities may be completed with or without assistive devices. 9-Erixipiqep-ilhzaao completes the activity by him/herself with no assistance from a helper. 5-Set-up or Clean-up Assistance-helper sets up or cleans up; patient completes activity. [place] assists only prior to or following the activity. 4-Supervision or Touching Assistance-helper provides verbal cues and/or touching/steadying and/or contact guard assistance as patient completes activity. Assistance may be provided throughout the activity or intermittently. 3-Partial/Moderate Assistance-helper does LESS THAN HALF the effort. [place] lifts, holds or supports trunk or limbs, but provides less than half the effort. 2-Substantial/Maximal Assistance-helper does MORE THAN HALF the effort. [place] lifts or holds trunk or limbs and provides more than half the effort. 1-Jzjuwpxws-dmnvys does ALL the effort. Patient does none of the effort to complete the activity. Or, the assistance of 2 or more helpers is required for the patient to complete the activity. If activity was not attempted, code reason: 7-Patient Refused. 9-Not Applicable-not attempted and the patient did not perform the activity before the current illness, exacerbation or injury. 10-Not Attempted due to Environmental Limitations-(lack of equipment, weather restraints, etc.). 88-Not Attempted due to Medical Conditions or Safety Concerns. Oral Hygiene (QC): 6 Bathing Location: L Arm, R Arm, L Upper Leg, R Upper Leg, L Lower Leg (including foot), R Lower Leg (including foot), Chest, Abdomen, Buttocks, Perineal Area Shower/Bathe Self (QC): 6 Upper Body Dressing (QC): 6 Lower Body Dressing (QC): 6 On/Off Footwear: 5 Toileting Hygiene (QC): 6 Toilet Transfer (QC): 6 Pt retrieved clothes and set up shower without assist. He sat for majority of shower, only standing to wash afia area/buttocks. Does require single ue support on grab bar when standing. He was able to reach/wash all body parts without assist. no cues needed for safety. Set up only for donning ashwini hose, pt able to don all other clothes without assist. He does require extra time to perform secondary to SOB and reduced activity tolerance. Pt ambulated to/from adl tub room with sba and use of walker. He was able to step over tub without difficulty while using wall for stability. Transfer performed x3 with sup only. Discussed purchase of shower chair for energy conservation and safety post d/c. Daughter present and in agreement. Education OT Patient Education: Energy conservation, Modified ADL techniques, Progress toward Goal/Update tx plan, Purpose of tx/functional activities, Rehab process, Use of adapted equipment Teaching Recipient: Patient, Family Teaching Methods: Demonstration, Discussion Response to Teaching: Verbalize Understanding, Return Demonstration OT Short Term Goals Short Term Goals Time Frame: Nov 30, 2020 Eatin Oral hygiene: 4 (SBA) Toileting hygiene: 4 (SBA) Shower/bathe self: 4 (CGA) Upper body dressin Lower body dressin (SBA) Putting on/taking off footwear: 4 (SBA) OT Correction Goals Miner Helper Goals Time Frame: Dec 07, 2020 Eating (QC): 6 Oral Hygiene (QC): 6 Toileting Hygiene (QC): 6 Shower/Bathe Self (QC): 5 Upper Body Dressing (QC): 6 Lower Body Dressing (QC): 5 On/Off Footwear (QC): 5 1=Demonstrate adherence to instructed precautions during ADL tasks. 2=Patient will verbalize/demonstrate understanding of assistive devices/modifications for ADL. 3=Patient will improve strength/tolerance for activity to enable patient to perform ADL's. OT Education/Plan Problem List/Assessment Assessment: Decreased Activ Tolerance, Decreased UE Strength, Impaired I ADL's Discharge Recommendations Plan/Recommendations: Continue POC Therapy Discharge Recommendati: Home & Family Equpiment Recommendations-D/C: Bath Chair Treatment Plan/Plan of Care Treatment,Training & Education: Yes Patient would benefit from OT for education, treatment and training to promote independence in ADL's, mobility, safety and/or upper extremity function for ADL's. Plan of Care: ADL Retraining, Functional Mobility, Group Exercise/Act as Ind, UE Funct Exercise/Act Treatment Duration: Dec 07, 2020 Frequency: At least 5 of 7 days/Wk (IRF) Estimated Hrs Per Day: 1.5 hours per day Agreement: Yes Rehab Potential: Fair Time/GCodes Start Time: 09:30 Stop Time: 11:00 Total Time Billed (hr/min): 90 Billed Treatment Time 1 visit, ADL x6 Eleni Perez OT Nov 29, 2020 11:04
--- NOTE | 2020-11-29 13:46 | PM&R Progress Note ---
Subjective HPI/CC On Admission Date Seen by Provider: Nov 29, 2020 Time Seen by Provider: 13:30 Subjective/Events-last exam 11/29/2020: Pt having a dramatic improvement Kristopher turner are on Discharge on Friday Will move to room 226 for independent room 11/28/2020: Pt doing really well Dr. Henson to come to do his toe nails 1200 CC fluid restriction maintained Bowels are moving 11/27/2020: Pt doing really well Sodium level of 133 Sodium tablets tolerated Checked meds and labs Overall doing really well 11/26/2020: Patient doing really well No significant concerns Thinks his feet have some bursitis flared up Progressing very well Bowels moved yesterday 11/25/2020: Patient doing really well Sleeping currently Sodium level 132 so we will start sodium chloride tablets Weaning prednisone 11/24/2020: Patient continues to dramatically improve We will check labs in the morning No significant changes Lungs are good Wean down prednisone tomorrow 11/23/2020: Patient dramatically improved We will discontinue salt tablets but maintain fluid restriction Sodium 136 Monitor the bedside Very pleased with dramatic improvement Review of Systems General: Fatigue, Malaise Neurological: Weakness Objective Exam Vital Signs Vital Signs Date Time Temp Pulse Resp B/P (MAP) Pulse Ox O2 Delivery O2 Flow Rate FiO2 11/29/20 21:00 99 Room Air 11/29/20 20:00 37.1 56 18 166/73 (104) 11/24/20 07:45 1.00 Capillary Refill : General Appearance: No Apparent Distress, WD/WN, Chronically ill, Thin, Other (Temporal wasting) HEENT: PERRL/EOMI, Normal ENT Inspection, Pharynx Normal Neck: Full Range of Motion, Normal Inspection, Non Tender, Supple, Carotid Bruit Respiratory: Chest Non Tender, No Accessory Muscle Use, No Respiratory Dist ress, Decreased Breath Sounds Cardiovascular: Regular Rate, Rhythm, No Edema, No Gallop, No JVD, No Murmur, Normal Peripheral Pulses Gastrointestinal: Normal Bowel Sounds, No Organomegaly, No Pulsatile Mass, Non Tender, Soft Back: Normal Inspection, No CVA Tenderness, No Vertebral Tenderness Extremity: Normal Capillary Refill, Normal Inspection, Normal Range of Motion, Non Tender, No Calf Tenderness, No Pedal Edema Neurologic/Psychiatric: Alert, Oriented x3, Normal Mood/Affect, Depressed Affect, Disoriented, Motor Weakness (Generalized 4/5 all extremities) Skin: Normal Color, Warm/Dry Lymphatic: No Adenopathy Results/Procedures Lab Patient resulted labs reviewed. FIM Transfers Therapy Code Descriptions/Definitions Functional [place] Measure: 0=Not Assessed/NA 4=Minimal Assistance 1=Total Assistance 5=Supervision or Setup 2=Maximal Assistance 6=Modified [place] 3=Moderate Assistance 7=Complete IndependenceSCALE: Activities may be completed with or without assistive devices. 8-Lbvxhooqsz-ptqlglf completes the activity by him/herself with no assistance from a helper. 5-Set-up or Clean-up Assistance-helper sets up or cleans up; patient completes activity. [place] assists only prior to or following the activity. 4-Supervision or Touching Assistance-helper provides verbal cues and/or touching/steadying and/or contact guard assistance as patient completes activity. Assistance may be provided throughout the activity or intermittently. 3-Partial/Moderate Assistance-helper does LESS THAN HALF the effort. [place] lifts, holds or supports trunk or limbs, but provides less than half the effort. 2-Substantial/Maximal Assistance-helper does MORE THAN HALF the effort. [place] lifts or holds trunk or limbs and provides more than half the effort. 7-Xdfxxcset-pszyif does ALL the effort. Patient does none of the effort to complete the activity. Or, the assistance of 2 or more helpers is required for the patient to complete the activity. If activity was not attempted, code reason: 7-Patient Refused. 9-Not Applicable-not attempted and the patient did not perform the activity bef ore the current illness, exacerbation or injury. 10-Not Attempted due to Environmental Limitations-(lack of equipment, weather r estraints, etc.). 88-Not Attempted due to Medical Conditions or Safety Concerns. Roll Left to Right (QC): 6 Sit to Lying (QC): 5 Sit to Stand (QC): 5 Chair/Cis-xr-Duxaj Xfer(QC): 4 Car Transfer (QC): 4 Gait Training Does the Patient Walk?: Yes Distance: 300', 150' Walk 10 feet (QC): 5 Walk 50 ft with 2 Turns(QC): 5 Walk 150 ft (QC): 5 Walking 10ft/uneven surface-QC: 4 Gait Persons Needed: 1 Gait Assistive Device: FWW Wheelchair Training Does the Pt Use a Wheelchair?: No Wheel 50 ft with 2 turns (QC): 9 Wheel 150 ft (QC): 9 Stair Training Stair Training: Handrails/: 2 handrails #of Steps: 12 1 Step (curb) (QC): 5 4 Steps (QC): 5 12 Steps (QC): 5 Stairs: Pattern: Step to Balance Picking up an Object (QC): 88 ADL-Treatment Eating (QC): 4 Oral Hygiene (QC): 6 Bathing Location: L Arm, R Arm, L Upper Leg, R Upper Leg, L Lower Leg (including foot), R Lower Leg (including foot), Chest, Abdomen, Buttocks, Perineal Area Shower/Bathe Self (QC): 6 Upper Body Dressing (QC): 6 Lower Body Dressing (QC): 6 On/Off Footwear (QC): 5 Toileting Hygiene (QC): 6 Toilet Transfer (QC): 6 Assessment/Plan Assessment and Plan Assess & Plan/Chief Complaint Assessment: Debility Encephalopathy 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 on fluid restriction and salt tablets Severe COPD Oxygen dependent new onset Smoker heavy Fall risk Cachexia Volume overload Pleural effusion status post thoracentesis no evidence of malignant cells on cytology Mucous plugging status post bronchoscopy Plan: Aggressive therapy Fall risk prevention Fluid restriction Salt tablets 11/23/2020: DC salt tablets Continue fluid restriction Aggressive therapy 11/24/2020: Continue fluid restriction Aggressive therapy 11/25/20: Restart salt tablets Wean prednisone 11/26/2020: Supportive care Check labs in the morning 11/27/2020: Continue salt tablets Supportive care 11/28/2020: Continue aggressive care Disposition pending 11/29/2020: Discharge Friday Moved to room 226 independent room (1) Debility (2) S/P bronchoscopy (3) S/P thoracentesis (4) Pleural effusion (5) Cachexia (6) COPD, severe (7) Requires oxygen therapy (8) Encephalopathy (9) Hyponatremia Status: Acute (10) CHF (congestive heart failure) Status: Acute (11) Proximal muscle weakness (12) Elevated liver enzymes Status: Acute (13) Peripheral arterial disease Status: Acute (14) Hypoxia (15) Smoker NEFTALI HARRIS DO Nov 29, 2020 13:46
[2020-11-29] MEDS: DICLOFENAC 1% GEL 100 GM (VOLTAREN) TUBE TOP PRN (17:44)
[2020-11-29 20:00] VITALS: BP 166/73
[2020-11-29] MEDS: doxAzosin 2 MG (CARDURA) TAB PO SCH (20:53)
[2020-11-29] MEDS: MELATONIN 3 MG TABLET PO PRN (20:53)
[2020-11-30] MEDS: DICLOFENAC 1% GEL 100 GM (VOLTAREN) TUBE TOP PRN ×2 (05:37→11:16)
[2020-11-30] MEDS: predniSONE 20 MG TAB PO SCH (05:45)
[2020-11-30 07:36] VITALS: BP 130/63
--- NOTE | 2020-11-30 09:02 | Physical Therapy Daily Note ---
PT Daily Note-Current Subjective Pt laying Supine in bed upon arrival. Pt agrees to PT and is Ad daisy in room. Pain Numeric Pain Scale: 6 Location: Lower Location Body Site: Back Pain Description: Ache Mental Status Patient Orientation: Person, Place, Time, Situation Transfers SCALE: Activities may be completed with or without assistive devices. 9-Wtxgucvkow-lscqkca completes the activity by him/herself with no assistance from a helper. 5-Set-up or Clean-up Assistance-helper sets up or cleans up; patient completes activity. [place] assists only prior to or following the activity. 4-Supervision or Touching Assistance-helper provides verbal cues and/or touching /steadying and/or contact guard assistance as patient completes activity. Assistance may be provided throughout the activity or intermittently. 3-Partial/Moderate Assistance-helper does LESS THAN HALF the effort. [place] lifts, holds or supports trunk or limbs, but provides less than half the effort. 2-Substantial/Maximal Assistance-helper does MORE THAN HALF the effort. [place] lifts or holds trunk or limbs and provides more than half the effort. 4-Xabhzzthn-hjxeqh does ALL the effort. Patient does none of the effort to complete the activity. Or, the assistance of 2 or more helpers is required for the patient to complete the activity. If activity was not attempted, code reason: 7-Patient Refused. 9-Not Applicable-not attempted and the patient did not perform the activity before the current illness, exacerbation or injury. 10-Not Attempted due to Environmental Limitations-(lack of equipment, weather restraints, etc.). 88-Not Attempted due to Medical Conditions or Safety Concerns. Lying to Sitting/Side of Bed(Q: 6 Sit to Stand (QC): 6 Weight Bearing Full Weight Bearing Full Weight Bearing Gait Training Does the Patient Walk?: Yes Distance: 200' x2 Walk 10 feet (QC): 6 Walk 50 ft with 2 Turns(QC): 6 Walk 150 ft (QC): 6 Gait Persons Needed: 1 Gait Assistive Device: FWW Wheelchair Training Does the Pt Use a Wheelchair?: No Stair Training Stair Training: Handrails/: 1 handrail #of Steps: 4 1 Step (curb) (QC): 5 4 Steps (QC): 5 Stairs: Pattern: Step to Exercises Seated Therapy Exercises: Ankle pumps, Long arc quads, Hip flexion, Hip abd/add, Glut set Seated Reps: 15 NuStep Minutes: 15 NuStep Workload: 5 Treatments 800-900: MACHINE CELL TUBER assists pt with tying shoe laces after pt dons socks and shoes. TF to standing and amb. in hallway. Pt uses NuStep for 15m at WL 5 then takes quick RB before completing Seated Ex. Pt returns to room to rest Supine in bed with all needs met, call light in hand. [id number]: TF from Supine to EOB to standing then amb. in hallway ~450' at Mod I. Pt is able to brain picker object from floor at SBA. Pt returns to room to rest at end of tx. All needs met, call light in hand. Assessment Current Status: Good Progress Pt has gained strength, mobility & independence with tasks. PT Short Term Goals Short Term Goals Time Frame: Nov 29, 2020 Roll Left & Right: 6 Sit to lyin Lying to sitting on side of be: 6 Sit to stand: 4 Chair/mqu-rz-jmpqb transfer: 4 Walk 10 feet: 4 Walk 50 feet with two turns: 4 Walk 150 feet: 4 PT Half-Way Goals Senior [employer] Administrator Goals PT Half-Way Goals Time Frame: Dec 13, 2020 Roll Left & Right (QC): 6 Sit to Lying (QC): 6 Lying-Sitting on Side/Bed(QC): 6 Sit to Stand (QC): 5 Chair/Dxr-tx-Kzerh Xfer(QC): 5 Toilet Transfer (QC): 5 Car Transfer (QC): 5 Does the Patient Walk: Yes Walk 10 feet (QC): 5 Walk 50ft with 2 Turns (QC): 5 Walk 150 ft (QC): 5 Walking 10ft on Uneven Surface: 5 1 Step (curb) (QC): 5 4 Steps (QC): 5 12 Steps (QC): 88 Picking up an Object (QC): 5 Wheel 50 feet with 2 turns (QC: 9 Wheel 150 feet: 9 PT Plan Problem List Problem List: Activity Tolerance Treatment/Plan Treatment Plan: Continue Plan of Care Treatment Plan: Bed Mobility, Education, Functional Activity Samantha, Functional Strength, Group Therapy, Gait, Safety, Therapeutic Exercise, Transfers Treatment Duration: Dec 13, 2020 Frequency: At least 5 of 7 days/Wk (IRF) Estimated Hrs Per Day: 1.5 hours per day Patient and/or Family Agrees t: Yes Time/GCodes Time In: 800 Time Out: 900 Total Billed Treatment Time: 60 Total Billed Treatment 800-900: 1, GT (15m), FA (15m) & EX x2 (30m) [id number]: 1, GT (15m) SHAMEKA VICKERS MACHINE CELL TUBER Nov 30, 2020 09:02
[2020-11-30] MEDS: amLODIPine 10 MG (NORVASC) TAB PO SCH (09:03)
[2020-11-30] MEDS: NICOTINE PATCH REMOVAL TP SCH (09:03)
[2020-11-30] MEDS: meTOprolol SUCCINATE 100 MG (TOPROL XL) TAB PO SCH ×2 (09:03→20:48)
[2020-11-30] MEDS: lisINopril 40 MG (PRINIVIL) TABLET PO SCH (09:03)
[2020-11-30] MEDS: ASPIRIN 81 MG CHEW (CHILDREN'S ASA) PO SCH (09:03)
[2020-11-30] MEDS: NICOTINE 14 MG (NICODERM) PATCH TD SCH (09:03)
[2020-11-30] MEDS: polyethylene glycoL POWDER 17 GM (MIRALAX) PACK PO SCH ×2 (09:04→21:00)
[2020-11-30] MEDS: SENNA W/DOCUSATE (SENOKOT S) TABLET PO SCH ×2 (09:04→21:00)
[2020-11-30] MEDS: ENOXAPARIN 40 MG/0.4 ML (LOVENOX) SYR SC SCH (09:04)
[2020-11-30] MEDS: DOCUSATE SODIUM 100 MG (COLACE) CAP PO SCH ×2 (09:04→21:00)
[2020-11-30] MEDS: SODIUM CHLORIDE 1 GM TABLET PO SCH ×2 (09:07→20:49)
--- NOTE | 2020-11-30 10:43 | Occupational Ther Daily Note ---
OT Current Status-Daily Note Subjective Pt agreeable to treatment. Discussed placement of grab bars/railings within home. Appearance Pt left sitting in chair, speech therapy in room. Mental Status/Objective Patient Orientation: Person, Place, Time, Situation ADL-Treatment Therapy Code Descriptions/Definitions Functional [place] Measure: 0=Not Assessed/NA 4=Minimal Assistance 1=Total Assistance 5=Supervision or Setup 2=Maximal Assistance 6=Modified [place] 3=Moderate Assistance 7=Complete IndependenceSCALE: Activities may be completed with or without assistive devices. 6-Wbtxbbevjo-cjbgvtu completes the activity by him/herself with no assistance from a helper. 5-Set-up or Clean-up Assistance-helper sets up or cleans up; patient completes activity. [place] assists only prior to or following the activity. 4-Supervision or Touching Assistance-helper provides verbal cues and/or touching/steadying and/or contact guard assistance as patient completes activity. Assistance may be provided throughout the activity or intermittently. 3-Partial/Moderate Assistance-helper does LESS THAN HALF the effort. [place] lifts, holds or supports trunk or limbs, but provides less than half the effort. 2-Substantial/Maximal Assistance-helper does MORE THAN HALF the effort. [place] lifts or holds trunk or limbs and provides more than half the effort. 8-Boxrclwny-hyfxqw does ALL the effort. Patient does none of the effort to complete the activity. Or, the assistance of 2 or more helpers is required for the patient to complete the activity. If activity was not attempted, code reason: 7-Patient Refused. 9-Not Applicable-not attempted and the patient did not perform the activity before the current illness, exacerbation or injury. 10-Not Attempted due to Environmental Limitations-(lack of equipment, weather restraints, etc.). 88-Not Attempted due to Medical Conditions or Safety Concerns. Oral Hygiene (QC): 6 On/Off Footwear: 5 Toileting Hygiene (QC): 6 Toilet Transfer (QC): 6 Other Treatment Pt participated in dynamic standing tasks ([place]) with goal to promote increased balance, endurance, reach, UE strength and activity tolerance needed for functional tasks. Pt exhibits improved activity tolerance and only requires 2 short rest breaks throughout entire session. Pt able to stand for >8 min each standing bout. Pt stood on blue foam for increased balance challenge. Close sba- cga with increased challenge, but no significant lob. Several cues/reminders on how to use wii hand hold controls, yet this is novel for the patient. At end of session, pt reports mild discomfort in R shoulder from continuos movement during game play. RN notified and voltaren gel applied. Education OT Patient Education: Correct positioning, Energy conservation, Modified ADL techniques, Progress toward Goal/Update tx plan, Purpose of tx/functional activities, Rehab process Teaching Recipient: Patient Teaching Methods: Demonstration, Discussion Response to Teaching: Verbalize Understanding, Return Demonstration OT Short Term Goals Short Term Goals Time Frame: Nov 30, 2020 Eatin Oral hygiene: 4 (SBA) Toileting hygiene: 4 (SBA) Shower/bathe self: 4 (CGA) Upper body dressin Lower body dressin (SBA) Putting on/taking off footwear: 4 (SBA) OT Group Home Goals Jinriksha Driver Goals Time Frame: Dec 07, 2020 Eating (QC): 6 Oral Hygiene (QC): 6 Toileting Hygiene (QC): 6 Shower/Bathe Self (QC): 5 Upper Body Dressing (QC): 6 Lower Body Dressing (QC): 5 On/Off Footwear (QC): 5 1=Demonstrate adherence to instructed precautions during ADL tasks. 2=Patient will verbalize/demonstrate understanding of assistive devices/modifications for ADL. 3=Patient will improve strength/tolerance for activity to enable patient to perform ADL's. OT Education/Plan Problem List/Assessment Assessment: Decreased Activ Tolerance, Decreased UE Strength, Impaired Funct Balance, Impaired I ADL's Discharge Recommendations Plan/Recommendations: Continue POC Equpiment Recommendations-D/C: Rails on Tub/Shower, Bath Chair Target Placement Home with family support vs Home health OT Treatment Plan/Plan of Care Treatment,Training & Education: Yes Patient would benefit from OT for education, treatment and training to promote independence in ADL's, mobility, safety and/or upper extremity function for ADL's. Plan of Care: ADL Retraining, Functional Mobility, Group Exercise/Act as Ind, UE Funct Exercise/Act Treatment Duration: Dec 07, 2020 Frequency: At least 5 of 7 days/Wk (IRF) Estimated Hrs Per Day: 1.5 hours per day Agreement: Yes Rehab Potential: Fair Time/GCodes Start Time: 09:21 Stop Time: 10:45 Total Time Billed (hr/min): 84 Billed Treatment Time 1 visit, ADL (15 min) FA x 5 (69 min) Eleni Perez OT Nov 30, 2020 10:43
--- NOTE | 2020-11-30 12:04 | PM&R Progress Note ---
Subjective HPI/CC On Admission Date Seen by Provider: Nov 30, 2020 Time Seen by Provider: 10:00 Subjective/Events-last exam 11/30/2020: Patient doing really well Much improved status Discharge plan for Friday Moved to independent room Urinated quite a bit last night 11/29/2020: Pt having a dramatic improvement [facility] turner are on Discharge on Friday Will move to room 226 for independent room 11/28/2020: Pt doing really well Dr. Henson to come to do his toe nails 1200 CC fluid restriction maintained Bowels are moving 11/27/2020: Pt doing really well Sodium level of 133 Sodium tablets tolerated Checked meds and labs Overall doing really well 11/26/2020: Patient doing really well No significant concerns Thinks his feet have some bursitis flared up Progressing very well Bowels moved yesterday 11/25/2020: Patient doing really well Sleeping currently Sodium level 132 so we will start sodium chloride tablets Weaning prednisone 11/24/2020: Patient continues to dramatically improve We will check labs in the morning No significant changes Lungs are good Wean down prednisone tomorrow 11/23/2020: Patient dramatically improved We will discontinue salt tablets but maintain fluid restriction Sodium 136 Monitor the bedside Very pleased with dramatic improvement Review of Systems General: Fatigue, Malaise Objective Exam Vital Signs Vital Signs Date Time Temp Pulse Resp B/P (MAP) Pulse Ox O2 Delivery O2 Flow Rate FiO2 11/30/20 21:00 Room Air 11/30/20 20:00 37.2 50 18 139/48 (78) 98 Capillary Refill : General Appearance: No Apparent Distress, WD/WN, Chronically ill, Thin, Other (Temporal wasting) HEENT: PERRL/EOMI, Normal ENT Inspection, Pharynx Normal Neck: Full Range of Motion, Normal Inspection, Non Tender, Supple, Carotid Bruit Respiratory: Chest Non Tender, No Accessory Muscle Use, No Respiratory Distress, Decreased Breath Sounds Cardiovascular: Regular Rate, Rhythm, No Edema, No Gallop, No JVD, No Murmur, Normal Peripheral Pulses Gastrointestinal: Normal Bowel Sounds, No Organomegaly, No Pulsatile Mass, Non Tender, Soft Back: Normal Inspection, No CVA Tenderness, No Vertebral Tenderness Extremity: Normal Capillary Refill, Normal Inspection, Normal Range of Motion, Non Tender, No Calf Tenderness, No Pedal Edema Neurologic/Psychiatric: Alert, Oriented x3, Normal Mood/Affect, Depressed Affect, Disoriented, Motor Weakness (Generalized 4/5 all extremities) Skin: Normal Color, Warm/Dry Lymphatic: No Adenopathy Results/Procedures Lab Patient resulted labs reviewed. FIM Transfers Therapy Code Descriptions/Definitions Functional [place] Measure: 0=Not Assessed/NA 4=Minimal Assistance 1=Total Assistance 5=Supervision or Setup 2=Maximal Assistance 6=Modified [place] 3=Moderate Assistance 7=Complete IndependenceSCALE: Activities may be completed with or without assistive devices. 8-Ttrleeqvxx-culqhyp completes the activity by him/herself with no assistance from a helper. 5-Set-up or Clean-up Assistance-helper sets up or cleans up; patient completes activity. [place] assists only prior to or following the activity. 4-Supervision or Touching Assistance-helper provides verbal cues and/or touching/steadying and/or contact guard assistance as patient completes activity. Assistance may be provided throughout the activity or intermittently. 3-Partial/Moderate Assistance-helper does LESS THAN HALF the effort. [place] lifts, holds or supports trunk or limbs, but provides less than half the effort. 2-Substantial/Maximal Assistance-helper does MORE THAN HALF the effort. [place] lifts or holds trunk or limbs and provides more than half the effort. 3-Oauadtvkv-gapkbo does ALL the effort. Patient does none of the effort to complete the activity. Or, the assistance of 2 or more helpers is required for the patient to complete the activity. If activity was not attempted, code reason: 7-Patient Refused. 9-Not Applicable-not attempted and the patient did not perform the activity before the current illness, exacerbation or injury. 10-Not Attempted due to Environmental Limitations-(lack of equipment, weather restraints, etc.). 88-Not Attempted due to Medical Conditions or Safety Concerns. Roll Left to Right (QC): 6 Sit to Lying (QC): 5 Sit to Stand (QC): 6 Chair/Rze-rs-Cozmz Xfer(QC): 4 Car Transfer (QC): 4 Gait Training Does the Patient Walk?: Yes Distance: 200' x2 Walk 10 feet (QC): 6 Walk 50 ft with 2 Turns(QC): 6 Walk 150 ft (QC): 6 Walking 10ft/uneven surface-QC: 4 Gait Persons Needed: 1 Gait Assistive Device: FWW Wheelchair Training Does the Pt Use a Wheelchair?: No Wheel 50 ft with 2 turns (QC): 9 Wheel 150 ft (QC): 9 Stair Training Stair Training: Handrails/: 1 handrail #of Steps: 4 1 Step (curb) (QC): 5 4 Steps (QC): 5 12 Steps (QC): 5 Stairs: Pattern: Step to Balance Picking up an Object (QC): 88 ADL-Treatment Eating (QC): 4 Oral Hygiene (QC): 6 Bathing Location: L Arm, R Arm, L Upper Leg, R Upper Leg, L Lower Leg (including foot), R Lower Leg (including foot), Chest, Abdomen, Buttocks, Perineal Area Shower/Bathe Self (QC): 6 Upper Body Dressing (QC): 6 Lower Body Dressing (QC): 6 On/Off Footwear (QC): 5 Toileting Hygiene (QC): 6 Toilet Transfer (QC): 6 Assessment/Plan Assessment and Plan Assess & Plan/Chief Complaint Assessment: Debility Encephalopathy 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 on fluid restriction and salt tablets Severe COPD Oxygen dependent new onset Smoker heavy Fall risk Cachexia Volume overload Pleural effusion status post thoracentesis no evidence of malignant cells on cytology Mucous plugging status post bronchoscopy Plan: Aggressive therapy Fall risk prevention Fluid restriction Salt tablets 11/23/2020: DC salt tablets Continue fluid restriction Aggressive therapy 11/24/2020: Continue fluid restriction Aggressive therapy 11/25/20: Restart salt tablets Wean prednisone 11/26/2020: Supportive care Check labs in the morning 11/27/2020: Continue salt tablets Supportive care 11/28/2020: Continue aggressive care Disposition pending 11/29/2020: Discharge Friday Moved to room 226 independent room 11/30/2020: Much improved status [facility]charge plan for [facility] (1) Debility (2) S/P bronchoscopy (3) S/P thoracentesis (4) Pleural effusion (5) Cachexia (6) COPD, severe (7) Requires oxygen therapy (8) Encephalopathy (9) Hyponatremia Status: Acute (10) CHF (congestive heart failure) Status: Acute (11) Proximal muscle weakness (12) Elevated liver enzymes Status: Acute (13) Peripheral arterial disease Status: Acute (14) Hypoxia (15) Smoker NEFTALI HARRIS DO Nov 30, 2020 12:04
--- NOTE | 2020-11-30 13:01 | ST Cognitive Linguistic Eval ---
Speech Evaluation-General Medical Diagnosis hyponatremia, debility Onset Date: Nov 17, 2020 Medical History Pertinent Medical History: HTN Reviewed History: Yes Social History Current Living Status: Alone Speech PLF-Current Status Subjective Pt indicates he is ready to get out of the hospital as he has been here for a long time. States he plans for his daughter to stay with him once he leaves. Objective Formal/Standardized Tests [facility] Mental Status Exam (UMS) was completed Results Pt scored 29/30 indicating cognitive status being WNL. Impression Pt presents within normal limits for cognition according to the SLUMS a ssessment. Pt with no questions or concerns at this time. Speech Patient Assess Expression of Ideas/Wants: Expression (4) Understanding Verbal Content: Understands (4) (Clear comprehension without) Brief Interview-Mental Status: Yes (*Continue to Repetition of) Repetition of Three Words: Three (3) Temporal Orientation: Year: Correct (3) Temporal Orientation: Month: Accurate within 5 days(2) Temporal Orientation: Day: Correct (1) Recall : Wear to say "Sock": Yes, no cue required (2) Recall : Color: Yes, no cue required (2) Recall : Bed: Yes, no cue required (2) Memory/Recall Ability: Current season, Location of own room, That he or she is in a hsp/hsp unit Speech Short Term Goals Short Term Goals Short Term Goals no speech therapy goals warranted at this time. Speech-Plan Treatment Plan Speech Therapy Treatment Plan: Discontinue ST Treatment Duration: Nov 23, 2020 Frequency: Modified Program (IRF) Estimated Hrs Per Day: Other Rehab Potential: Fair Time Speech Therapy Time In: 10:50 Speech Therapy Time Out: 11:20 Billed Treatment Time 1, COGN TEST 30 MINS NOE PAGAN Nov 30, 2020 13:01
[2020-11-30 20:00] VITALS: BP 139/48
[2020-11-30] MEDS: MELATONIN 3 MG TABLET PO PRN (20:46)
[2020-11-30] MEDS: doxAzosin 2 MG (CARDURA) TAB PO SCH (20:46)
[2020-12-01] MEDS: ALPRAZolam 0.25 MG (XANAX) TAB PO PRN ×2 (01:33→21:01)
--- NOTE | 2020-12-01 06:54 | PM&R Progress Note ---
Subjective HPI/CC On Admission Date Seen by Provider: Dec 01, 2020 Time Seen by Provider: 09:00 Subjective/Events-last exam 12/01/2020: Patient ready for discharge tomorrow FMLA papers filled out Meds sent to [facility] 11/30/2020: Patient doing really well Much improved status Discharge plan for Friday Moved to independent room Urinated quite a bit last night 11/29/2020: Pt having a dramatic improvement Kristopher turner are on Discharge on Friday Will move to room 226 for independent room 11/28/2020: Pt doing really well Dr. Henson to come to do his toe nails 1200 CC fluid restriction maintained Bowels are moving 11/27/2020: Pt doing really well Sodium level of 133 Sodium tablets tolerated Checked meds and labs Overall doing really well 11/26/2020: Patient doing really well No significant concerns Thinks his feet have some bursitis flared up Progressing very well Bowels moved yesterday 11/25/2020: Patient doing really well Sleeping currently Sodium level 132 so we will start sodium chloride tablets Weaning prednisone 11/24/2020: Patient continues to dramatically improve We will check labs in the morning No significant changes Lungs are good Wean down prednisone tomorrow 11/23/2020: Patient dramatically improved We will discontinue salt tablets but maintain fluid restriction Sodium 136 Monitor the bedside Very pleased with dramatic improvement Review of Systems General: Fatigue, Malaise Pulmonary: Dyspnea Objective Exam Vital Signs Vital Signs Date Time Temp Pulse Resp B/P (MAP) Pulse Ox O2 Delivery O2 Flow Rate FiO2 12/01/20 21:49 99 Room Air 12/01/20 21:31 36.8 12/01/20 20:00 57 20 137/62 (87) Capillary Refill : General Appearance: No Apparent Distress, WD/WN, Chronically ill, Thin, Other (Temporal wasting) HEENT: PERRL/EOMI, Normal ENT Inspection, Pharynx Normal Neck: Full Range of Motion, Normal Inspection, Non Tender, Supple, Carotid Bruit Respiratory: Chest Non Tender, No Accessory Muscle Use, No Respiratory Distress, Decreased Breath Sounds Cardiovascular: Regular Rate, Rhythm, No Edema, No Gallop, No JVD, No Murmur, Normal Peripheral Pulses Gastrointestinal: Normal Bowel Sounds, No Organomegaly, No Pulsatile Mass, Non Tender, Soft Back: Normal Inspection, No CVA Tenderness, No Vertebral Tenderness Extremity: Normal Capillary Refill, Normal Inspection, Normal Range of Motion, Non Tender, No Calf Tenderness, No Pedal Edema Neurologic/Psychiatric: Alert, Oriented x3, Normal Mood/Affect, Depressed Affect, Disoriented, Motor Weakness (Generalized 4/5 all extremities) Skin: Normal Color, Warm/Dry Lymphatic: No Adenopathy Results/Procedures Lab Laboratory Tests 12/01/20 07:05 Patient resulted labs reviewed. FIM Transfers Therapy Code Descriptions/Definitions Functional [place] Measure: 0=Not Assessed/NA 4=Minimal Assistance 1=Total Assistance 5=Supervision or Setup 2=Maximal Assistance 6=Modified [place] 3=Moderate Assistance 7=Complete IndependenceSCALE: Activities may be completed with or without assistive devices. 2-Tuybzezwcp-qkqsclk completes the activity by him/herself with no assistance from a helper. 5-Set-up or Clean-up Assistance-helper sets up or cleans up; patient completes activity. [place] assists only prior to or following the activity. 4-Supervision or Touching Assistance-helper provides verbal cues and/or touching/steadying and/or contact guard assistance as patient completes activity. Assistance may be provided throughout the activity or intermittently. 3-Partial/Moderate Assistance-helper does LESS THAN HALF the effort. [place] lifts, holds or supports trunk or limbs, but provides less than half the effort. 2-Substantial/Maximal Assistance-helper does MORE THAN HALF the effort. [place] lifts or holds trunk or limbs and provides more than half the effort. 2-Bjbyiuwvx-zgufjo does ALL the effort. Patient does none of the effort to complete the activity. Or, the assistance of 2 or more helpers is required for the patient to complete the activity. If activity was not attempted, code reason: 7-Patient Refused. 9-Not Applicable-not attempted and the patient did not perform the activity before the current illness, exacerbation or injury. 10-Not Attempted due to Environmental Limitations-(lack of equipment, weather restraints, etc.). 88-Not Attempted due to Medical Conditions or Safety Concerns. Roll Left to Right (QC): 6 Sit to Lying (QC): 5 Sit to Stand (QC): 6 Chair/Dhs-xp-Srych Xfer(QC): 4 Car Transfer (QC): 4 Gait Training Does the Patient Walk?: Yes Distance: 200' x2 Walk 10 feet (QC): 6 Walk 50 ft with 2 Turns(QC): 6 Walk 150 ft (QC): 6 Walking 10ft/uneven surface-QC: 4 Gait Persons Needed: 1 Gait Assistive Device: FWW Wheelchair Training Does the Pt Use a Wheelchair?: No Wheel 50 ft with 2 turns (QC): 9 Wheel 150 ft (QC): 9 Stair Training Stair Training: Handrails/: 1 handrail #of Steps: 4 1 Step (curb) (QC): 5 4 Steps (QC): 5 12 Steps (QC): 5 Stairs: Pattern: Step to Balance Picking up an Object (QC): 88 ADL-Treatment Eating (QC): 4 Oral Hygiene (QC): 6 Bathing Location: L Arm, R Arm, L Upper Leg, R Upper Leg, L Lower Leg (including foot), R Lower Leg (including foot), Chest, Abdomen, Buttocks, Perineal Area Shower/Bathe Self (QC): 6 Upper Body Dressing (QC): 6 Lower Body Dressing (QC): 6 On/Off Footwear (QC): 5 Toileting Hygiene (QC): 6 Toilet Transfer (QC): 6 Assessment/Plan Assessment and Plan Assess & Plan/Chief Complaint Assessment: Debility Encephalopathy 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 on fluid restriction and salt tablets Severe COPD Oxygen dependent new onset Smoker heavy Fall risk Cachexia Volume overload Pleural effusion status post thoracentesis no evidence of malignant cells on cytology Mucous plugging status post bronchoscopy Plan: Aggressive therapy Fall risk prevention Fluid restriction Salt tablets 11/23/2020: DC salt tablets Continue fluid restriction Aggressive therapy 11/24/2020: Continue fluid restriction Aggressive therapy 11/25/20: Restart salt tablets Wean prednisone 11/26/2020: Supportive care Check labs in the morning 11/27/2020: Continue salt tablets Supportive care 11/28/2020: Continue aggressive care Disposition pending 11/29/2020: Discharge Friday Moved to room [facility] room 11/30/2020: Much improved status Discharge plan for Friday [facility] 12/01/2020: Discharge plan for tomorrow (1) Debility (2) S/P bronchoscopy (3) S/P thoracentesis (4) Pleural effusion (5) Cachexia (6) COPD, severe (7) Requires oxygen therapy (8) Encephalopathy (9) Hyponatremia Status: Acute (10) CHF (congestive heart failure) Status: Acute (11) Proximal muscle weakness (12) Elevated liver enzymes Status: Acute (13) Peripheral arterial disease Status: Acute (14) Hypoxia (15) Smoker NEFTALI HARRIS DO Dec 01, 2020 06:54
[2020-12-01] MEDS: predniSONE 20 MG TAB PO SCH (06:58)
[2020-12-01 07:37] LABS: POTASSIUM 4.2 MMOL/L (3.6-5.0)
[2020-12-01 07:38] LABS: CALCIUM 8.9 MG/DL (8.5-10.1)
[2020-12-01 07:40] VITALS: BP 131/64
[2020-12-01 07:40] LABS: TOTAL PROTEIN 5.5 GM/DL (6.4-8.2)
[2020-12-01 07:43] LABS: CREATININE SERUM 0.73 MG/DL (0.60-1.30)
--- NOTE | 2020-12-01 08:14 | Physician Query Clarification ---
PQ-Further Specificity Admission/Discharge Admission Date: Nov 22, 2020 at 13:09 Discharge Date: Dr. Diego, The medical record reflects the following clinical scenario: History/Risk Factors: SIADH, COPD, encephalopathy Clinical Findings: proximal muscle weakness Treatment: PT/OT Question: Can you further specify the proximal muscle weakness per the clinical indicators above? Please document a response in the Progress Notes or Discharge Summary. 1. Critical illness myopathy 2. Proximal muscle weakness as stated 3. Other, with explanation of the clinical findings. 4. Clinically undetermined, no explanation for the clinical findings. PHYSICIAN RESPONSE Can you specify per above: 2 Please remember a lack of response to the above will prompt a phone page by CDI/Coding staff. In responding to this query, please exercise your independent professional judgment. The purpose of this communication is to more accurately reflect the complexity of your patients condition. The fact that a question is asked does not imply that any particular answer is desired or expected. Thank you for your timely response to this clarification. Requestors name: Marcy THIS PHYSICIAN QUERY FORM IS A PERMANENT PART OF THE MEDICAL RECORD MARCY MEJIA Dec 01, 2020 08:14 NEFTALI DIEGO DO Dec 01, 2020 12:37
[2020-12-01] MEDS: SENNA W/DOCUSATE (SENOKOT S) TABLET PO SCH ×2 (08:57→21:20)
[2020-12-01] MEDS: DOCUSATE SODIUM 100 MG (COLACE) CAP PO SCH ×2 (08:57→21:20)
[2020-12-01] MEDS: meTOprolol SUCCINATE 100 MG (TOPROL XL) TAB PO SCH ×2 (08:57→21:01)
[2020-12-01] MEDS: amLODIPine 10 MG (NORVASC) TAB PO SCH (08:57)
[2020-12-01] MEDS: lisINopril 40 MG (PRINIVIL) TABLET PO SCH (08:57)
[2020-12-01] MEDS: ENOXAPARIN 40 MG/0.4 ML (LOVENOX) SYR SC SCH (08:58)
[2020-12-01] MEDS: ASPIRIN 81 MG CHEW (CHILDREN'S ASA) PO SCH (08:58)
[2020-12-01] MEDS: DICLOFENAC 1% GEL 100 GM (VOLTAREN) TUBE TOP PRN (08:58)
--- NOTE | 2020-12-01 08:58 | Physical Therapy Daily Note ---
PT Daily Note-Current Subjective Pt sitting EOB eating breakfast upon arrival and agrees to tx. Pt states no pain prior to tx. Post tx, pt states soreness in back of B hips. Mental Status Patient Orientation: Person, Place, Time, Situation Transfers SCALE: Activities may be completed with or without assistive devices. 3-Prnlsnyggo-rlslkgi completes the activity by him/herself with no assistance from a helper. 5-Set-up or Clean-up Assistance-helper sets up or cleans up; patient completes activity. [place]el assists only prior to or following the activity. 4-Supervision or Touching Assistance-helper provides verbal cues and/or touching/steadying and/or contact guard assistance as patient completes activity. Assistance may be provided throughout the activity or intermittently. 3-Partial/Moderate Assistance-helper does LESS THAN HALF the effort. Avenel lifts, holds or supports trunk or limbs, but provides less than half the effort. 2-Substantial/Maximal Assistance-helper does MORE THAN HALF the effort. Avenel lifts or holds trunk or limbs and provides more than half the effort. 9-Sdrqoisiu-wrfsly does ALL the effort. Patient does none of the effort to com plete the activity. Or, the assistance of 2 or more helpers is required for the patient to complete the activity. If activity was not attempted, code reason: 7-Patient Refused. 9-Not Applicable-not attempted and the patient did not perform the activity before the current illness, exacerbation or injury. 10-Not Attempted due to Environmental Limitations-(lack of equipment, weather restraints, etc.). 88-Not Attempted due to Medical Conditions or Safety Concerns. Roll Left & Right (QC): 6 Sit to Lying (QC): 6 Lying to Sitting/Side of Bed(Q: 6 Sit to Stand (QC): 6 Chair/And-ft-Usolo Xfer(QC): 6 Toilet Transfer (QC): 6 Car Transfer (QC): 6 Weight Bearing Full Weight Bearing Full Weight Bearing Gait Training Does the Patient Walk?: Yes Distance: 300' Walk 10 feet (QC): 5 Walk 50 ft with 2 Turns(QC): 5 Walk 150 ft (QC): 5 Walking 10ft/uneven surface-QC: 5 Gait Assistive Device: FWW Wheelchair Training Does the Pt Use a Wheelchair?: No Wheel 50 ft with 2 turns (QC): 9 Wheel 150 ft (QC): 9 Type of Wheelchair: N/A Stair Training Stair Training: Handrails/: 1 handrail #of Steps: 12 1 Step (curb) (QC): 5 4 Steps (QC): 5 12 Steps (QC): 5 Stairs: Pattern: Step to Pt amb 4 steps x3. Pt completes first 8 steps w/ step to pattern, last 4 with reciprocal pattern. Balance Picking up an Object (QC): 5 Exercises NuStep Minutes: 15 NuStep Workload: 5 Treatments Pt completes bed mobility SBA then sits EOB. Pt sit to stand Indep. and holds standing balance 5 mins, unsupported from UE and no LOB. Pt amb 300' on ARU, then enters therapy gym. Pt completes stair training, amb on uneven surface, the n picks cone up from ground. Pt able to do so w/o any LOB. Pt completes NuStep, then amb 300' back to pt room. Pt uses BR Indep., then returns to bed. RN enters room at this time and pt left sitting EOB w/ all needs met, call light in hand. Assessment Current Status: Good Progress Pt Indep./SBA for all mobility and transfers. PT Short Term Goals Short Term Goals Time Frame: Nov 29, 2020 Roll Left & Right: 6 Sit to lyin Lying to sitting on side of be: 6 Sit to stand: 4 Chair/kun-kh-qijhk transfer: 4 Walk 10 feet: 4 Walk 50 feet with two turns: 4 Walk 150 feet: 4 PT Jail Goals Jail Goals PT Jail Goals Time Frame: Dec 13, 2020 Roll Left & Right (QC): 6 Sit to Lying (QC): 6 Lying-Sitting on Side/Bed(QC): 6 Sit to Stand (QC): 5 Chair/Zqz-tv-Gzckx Xfer(QC): 5 Toilet Transfer (QC): 5 Car Transfer (QC): 5 Does the Patient Walk: Yes Walk 10 feet (QC): 5 Walk 50ft with 2 Turns (QC): 5 Walk 150 ft (QC): 5 Walking 10ft on Uneven Surface: 5 1 Step (curb) (QC): 5 4 Steps (QC): 5 12 Steps (QC): 88 Picking up an Object (QC): 5 Wheel 50 feet with 2 turns (QC: 9 Wheel 150 feet: 9 PT Plan Treatment/Plan Treatment Plan: Continue Plan of Care Treatment Plan: Bed Mobility, Education, Functional Activity Samantha, Functional Strength, Group Therapy, Gait, Safety, Therapeutic Exercise, Transfers Treatment Duration: Dec 13, 2020 Frequency: At least 5 of 7 days/Wk (IRF) Estimated Hrs Per Day: 1.5 hours per day Patient and/or Family Agrees t: Yes Time/GCodes Time In: 800 Time Out: 900 Total Billed Treatment Time: 60 Total Billed Treatment 1, FA x2, GT, EX ELYSSA CARTER TAKE OUT WAITRESS Dec 01, 2020 08:58
[2020-12-01] MEDS: SODIUM CHLORIDE 1 GM TABLET PO SCH ×2 (08:59→21:01)
[2020-12-01] MEDS: NICOTINE PATCH REMOVAL TP SCH (09:00)
[2020-12-01] MEDS: NICOTINE 14 MG (NICODERM) PATCH TD SCH (09:00)
[2020-12-01] MEDS: polyethylene glycoL POWDER 17 GM (MIRALAX) PACK PO SCH ×2 (09:00→21:20)
--- NOTE | 2020-12-01 10:56 | Occupational Ther Daily Note ---
OT Current Status-Daily Note Subjective Pt denies any pain. Excited about getting to go home. Appearance Pt sitting in chair at OT departure. Is not mod I in room. Mental Status/Objective Patient Orientation: Person, Place, Time, Situation ADL-Treatment Therapy Code Descriptions/Definitions Functional Hawkins Measure: 0=Not Assessed/NA 4=Minimal Assistance 1=Total Assistance 5=Supervision or Setup 2=Maximal Assistance 6=Modified Hawkins 3=Moderate Assistance 7=Complete IndependenceSCALE: Activities may be completed with or without assistive devices. 8-Ernzljlwfi-adkuewe completes the activity by him/herself with no assistance from a helper. 5-Set-up or Clean-up Assistance-helper sets up or cleans up; patient completes activity. [place]k assists only prior to or following the activity. 4-Supervision or Touching Assistance-helper provides verbal cues and/or touching/steadying and/or contact guard assistance as patient completes activity. Assistance may be provided throughout the activity or intermittently. 3-Partial/Moderate Assistance-helper does LESS THAN HALF the effort. [place]k lifts, holds or supports trunk or limbs, but provides less than half the effort. 2-Substantial/Maximal Assistance-helper does MORE THAN HALF the effort. [place] lifts or holds trunk or limbs and provides more than half the effort. 9-Uisnlrcjd-fcavcl does ALL the effort. Patient does none of the effort to complete the activity. Or, the assistance of 2 or more helpers is required for the patient to complete the activity. If activity was not attempted, code reason: 7-Patient Refused. 9-Not Applicable-not attempted and the patient did not perform the activity before the current illness, exacerbation or injury. 10-Not Attempted due to Environmental Limitations-(lack of equipment, weather restraints, etc.). 88-Not Attempted due to Medical Conditions or Safety Concerns. Eating (QC): 6 (met) Oral Hygiene (QC): 6 (met) Bathing Location: L Arm, R Arm, L Upper Leg, R Upper Leg, L Lower Leg (including foot), R Lower Leg (including foot), Chest, Abdomen, Buttocks, Perineal Area Shower/Bathe Self (QC): 6 (met) Upper Body Dressing (QC): 6 (met) Lower Body Dressing (QC): 6 (met) On/Off Footwear: 6 (met) Toileting Hygiene (QC): 6 (met) Toilet Transfer (QC): 6 (met) Pt retrieved clothes and set up shower without assist. He was able to step over tub with zero concerns for safety. He sat for majority of shower, only standing to wash afia area/buttocks. Does require single ue support on grab bar when standing, but no unsteadiness. He was able to reach/wash all body parts without assist. no cues needed for safety. Clothing donned seated on shower bench, Mod I. He does require extra time to perform but does continue to exhibit increased speed each day. Other Treatment Pt ambulated community distances with sba and use of walker. As pt fatigues, he does require min cues for improved foot clearance. He was able to demonstrate home exercise program from memory, only needing min cues for improved technique. OT added 2 more exercises and recommended pt increase reps from 15 x20. Pt could benefit from increased resistance band, yet no band available at this time. He ambulated around room to organize belongings in prep for upcoming discharge, Mod I with task. Education OT Patient Education: Energy conservation, Home exercise program, Progress toward Goal/Update tx plan, Purpose of tx/functional activities Teaching Recipient: Patient Teaching Methods: Discussion Response to Teaching: Verbalize Understanding, Return Demonstration OT Short Term Goals Short Term Goals Time Frame: Nov 30, 2020 Eatin Oral hygiene: 4 (SBA) Toileting hygiene: 4 (SBA) Shower/bathe self: 4 (CGA) Upper body dressin Lower body dressin (SBA) Putting on/taking off footwear: 4 (SBA) OT Skilled Nursing Goals District Captain Goals Time Frame: Dec 07, 2020 Eating (QC): 6 (met) Oral Hygiene (QC): 6 (met) Toileting Hygiene (QC): 6 (met) Shower/Bathe Self (QC): 5 (met) Upper Body Dressing (QC): 6 (met) Lower Body Dressing (QC): 5 (met) On/Off Footwear (QC): 5 (met) 1=Demonstrate adherence to instructed precautions during ADL tasks. 2=Patient will verbalize/demonstrate understanding of assistive devices/modifications for ADL. 3=Patient will improve strength/tolerance for activity to enable patient to perform ADL's. OT Education/Plan Problem List/Assessment Assessment: Decreased Activ Tolerance, Impaired I ADL's Discharge Recommendations Plan/Recommendations: Discharge/Goals Met Equpiment Recommendations-D/C: Rails on Tub/Shower, Bath Chair Target Placement Home with family support. Treatment Plan/Plan of Care Treatment,Training & Education: Yes Patient would benefit from OT for education, treatment and training to promote independence in ADL's, mobility, safety and/or upper extremity function for ADL's. Plan of Care: ADL Retraining, Functional Mobility, Group Exercise/Act as Ind, UE Funct Exercise/Act Treatment Duration: Dec 07, 2020 Frequency: At least 5 of 7 days/Wk (IRF) Estimated Hrs Per Day: 1.5 hours per day Agreement: Yes Rehab Potential: Fair Time/GCodes Start Time: 09:23 Stop Time: 10:53 Total Time Billed (hr/min): 90 Billed Treatment Time 1 visit, ADLS x3 (50m) EX x2 (30m) FA (10m) Eleni Perez OT Dec 01, 2020 10:56
--- NOTE | 2020-12-01 14:30 | Physical Therapy Daily Note ---
PT Daily Note-Current Subjective Pt in bed upon arrival and agrees to tx. Post-tx, pt states he is worn out and ready to go home. Pt states he is getting hand rails placed throughout his house this afternoon. Mental Status Patient Orientation: Person, Place, Time, Situation Transfers SCALE: Activities may be completed with or without assistive devices. 9-Dnphuuviio-qqhukrp completes the activity by him/herself with no assistance from a helper. 5-Set-up or Clean-up Assistance-helper sets up or cleans up; patient completes activity. Clarence assists only prior to or following the activity. 4-Supervision or Touching Assistance-helper provides verbal cues and/or touching/steadying and/or contact guard assistance as patient completes activity. Assistance may be provided throughout the activity or intermittently. 3-Partial/Moderate Assistance-helper does LESS THAN HALF the effort. Clarence lifts, holds or supports trunk or limbs, but provides less than half the effort. 2-Substantial/Maximal Assistance-helper does MORE THAN HALF the effort. Clarence lifts or holds trunk or limbs and provides more than half the effort. 4-Imqvwnsig-bosyri does ALL the effort. Patient does none of the effort to complete the activity. Or, the assistance of 2 or more helpers is required for the patient to complete the activity. If activity was not attempted, code reason: 7-Patient Refused. 9-Not Applicable-not attempted and the patient did not perform the activity before the current illness, exacerbation or injury. 10-Not Attempted due to Environmental Limitations-(lack of equipment, weather restraints, etc.). 88-Not Attempted due to Medical Conditions or Safety Concerns. Sit to Stand (QC): 6 Weight Bearing Full Weight Bearing Full Weight Bearing Gait Training Does the Patient Walk?: Yes Distance: 500' Walk 10 feet (QC): 5 Walk 50 ft with 2 Turns(QC): 5 Walk 150 ft (QC): 5 Walking 10ft/uneven surface-QC: 5 Gait Assistive Device: FWW Treatments Pt supine to sit and sit to stand. Pt amb on ARU and to the elevators to go to first floor. Pt amb on first floor and goes to garden. Pt ascends/descends ramp and 3 steps. Pt amb back inside and to elevators to return to ARU. Pt amb another 500' and then returns to room. Pt is left with all needs met, call light in hand. Assessment Current Status: Good Progress Pt progressing well and increasing endurance, strength, and balance PT Short Term Goals Short Term Goals Time Frame: Nov 29, 2020 Roll Left & Right: 6 Sit to lyin Lying to sitting on side of be: 6 Sit to stand: 4 Chair/lsp-be-bdmck transfer: 4 Walk 10 feet: 4 Walk 50 feet with two turns: 4 Walk 150 feet: 4 PT Telephoto Installer Goals Telephoto Installer Goals PT Telephoto Installer Goals Time Frame: Dec 13, 2020 Roll Left & Right (QC): 6 Sit to Lying (QC): 6 Lying-Sitting on Side/Bed(QC): 6 Sit to Stand (QC): 5 Chair/Gtw-om-Rmwfu Xfer(QC): 5 Toilet Transfer (QC): 5 Car Transfer (QC): 5 Does the Patient Walk: Yes Walk 10 feet (QC): 5 Walk 50ft with 2 Turns (QC): 5 Walk 150 ft (QC): 5 Walking 10ft on Uneven Surface: 5 1 Step (curb) (QC): 5 4 Steps (QC): 5 12 Steps (QC): 88 Picking up an Object (QC): 5 Wheel 50 feet with 2 turns (QC: 9 Wheel 150 feet: 9 PT Plan Treatment/Plan Treatment Plan: Continue Plan of Care Treatment Plan: Bed Mobility, Education, Functional Activity Samantha, Functional Strength, Group Therapy, Gait, Safety, Therapeutic Exercise, Transfers Treatment Duration: Dec 13, 2020 Frequency: At least 5 of 7 days/Wk (IRF) Estimated Hrs Per Day: 1.5 hours per day Patient and/or Family Agrees t: Yes Time/GCodes Time In: 1400 Time Out: 1430 Total Billed Treatment Time: 30 Total Billed Treatment 1, GT x2 ELYSSA CARTER MANNEQUIN MAKER Dec 01, 2020 14:30
[2020-12-01 20:00] VITALS: BP 137/62
[2020-12-01] MEDS: MELATONIN 3 MG TABLET PO PRN (21:01)
[2020-12-01] MEDS: doxAzosin 2 MG (CARDURA) TAB PO SCH (21:01)
[2020-12-01] MEDS ORDERED: AMLO-251 PO (21:08)
[2020-12-01] MEDS ORDERED: NF-NACL1GT PO (21:08)
[2020-12-01] MEDS ORDERED: NICO1PAT38 TD (21:08)
[2020-12-01] MEDS ORDERED: PRD20T PO (21:08)
[2020-12-01] MEDS ORDERED: MTP100TCR PO (21:08)
[2020-12-01] MEDS ORDERED: DICL100G13 TOP (21:08)
[2020-12-01] MEDS ORDERED: ASPI81TA64 PO (21:08)
[2020-12-01] MEDS ORDERED: LISI40TA9 PO (21:08)
[2020-12-01] MEDS ORDERED: DOXA2TAB2 PO (21:08)
[2020-12-02] MEDS: BISACODYL 10 MG SUPP (DULCOLAX) PR PRN (05:13)
[2020-12-02] MEDS: predniSONE 20 MG TAB PO SCH (06:57)
--- NOTE | 2020-12-02 07:54 | Discharge Summary ---
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 on fluid restriction and salt tablets Severe COPD Oxygen dependent new onset Smoker heavy Fall risk Cachexia Volume overload Pleural effusion status post thoracentesis no evidence of malignant cells on cytology Mucous plugging status post bronchoscopy Plan: Aggressive therapy Fall risk prevention Fluid restriction Salt tablets 11/23/2020: DC salt tablets Continue fluid restriction Aggressive therapy 11/24/2020: Continue fluid restriction Aggressive therapy 11/25/20: Restart salt tablets Wean prednisone 11/26/2020: Supportive care Check labs in the morning 11/27/2020: Continue salt tablets Supportive care 11/28/2020: Continue aggressive care Disposition pending 11/29/2020: Discharge Friday Moved to room 226 independent room 11/30/2020: Much improved status Discharge plan for [facility] 12/01/2020: Discharge plan for tomorrow Discharge Summary Discharge Physical Examination Allergies: Coded Allergies: pineapple (Verified Allergy, Intermediate, Hives, 11/24/20) Vitals & I&Os Vital Signs Date Time Temp Pulse Resp B/P (MAP) Pulse Ox O2 Delivery O2 Flow Rate FiO2 12/02/20 10:45 36.9 59 20 128/68 98 Room Air General Appearance: Alert, Oriented X3, Cooperative Respiratory: Clear to Auscultation Cardiovascular: Regular Rate Neuro: Normal Gait, Normal Speech, Strength at 5/5 X4 Ext Psych/Mental Status: Mental Status NL Hospital Course Was the Problem List Reviewed?: Yes Patient had a complicated lengthy hospital course most of it related to severe hyponatremia and severe COPD. Patient was able to regain function after failing inpatient rehab and requiring another week upstairs in the ICU and fourth floor. He underwent aggressive physical therapy and occupational therapy and was able to regain ambulatory function with walker. Salt tablets and fluid restriction improved sodium level. Overall there was no other significant events during rehab and he was discharged in improved condition. Labs (last 24 hrs) Laboratory Tests 11/23/20 05:50: White Blood Count 11.3H, Red Blood Count 3.41L, Hemoglobin 9.7L, Hematocrit 29L, Mean Corpuscular Volume 84, Mean Corpuscular Hemoglobin 28, Mean Corpuscular Hemoglobin Concent 34, Red Cell Distribution Width 14.8H, Platelet Count 301, Mean Platelet Volume 10.0, Immature Granulocyte % (Auto) 1, Neutrophils (%) (Aut o) 75, Lymphocytes (%) (Auto) 14, Monocytes (%) (Auto) 10, Eosinophils (%) (Auto) 0, Basophils (%) (Auto) 0, Neutrophils # (Auto) 8.5H, Lymphocytes # (Auto) 1.6, Monocytes # (Auto) 1.1H, Eosinophils # (Auto) 0.0, Basophils # (Auto) 0.0, Immature Granulocyte # (Auto) 0.1, Sodium Level 136, Potassium Level 4.6, Chloride Level 100, Carbon Dioxide Level 31, Anion Gap 5, Blood Urea Nitrogen 31H, Creatinine 0.62, Estimat Glomerular Filtration Rate 126, BUN/Creatinine Ratio 50, Glucose Level 97, Calcium Level 8.7, Corrected Calcium 9.9, Total Bilirubin 0.9, Aspartate Amino Transf (AST/SGOT) 57H, Alanine Aminotransferase (ALT/SGPT) 152H, Alkaline Phosphatase 247H, Total Protein 5.0L, Albumin 2.5L 11/25/20 07:29: White Blood Count 9.5, Red Blood Count 3.77L, Hemoglobin 10.7L, Hematocrit 32L, Mean Corpuscular Volume 85, Mean Corpuscular Hemoglobin 28, Mean Corpuscular Hemoglobin Concent 33, Red Cell Distribution Width 14.5, Platelet Count 298, Mean Platelet Volume 9.5, Immature Granulocyte % (Auto) 2, Neutrophils (%) (Auto) 65, Lymphocytes (%) (Auto) 25, Monocytes (%) (Auto) 8, Eosinophils (%) (Auto) 0, Basophils (%) (Auto) 0, Neutrophils # (Auto) 6.2, Lymphocytes # (Auto) 2.4, Monocytes # (Auto) 0.8, Eosinophils # (Auto) 0.0, Basophils # (Auto) 0.0, Immature Granulocyte # (Auto) 0.1, Sodium Level 132L, Potassium Level 4.1, Chloride Level 94L, Carbon Dioxide Level 31, Anion Gap 7, Blood Urea Nitrogen 21H, Creatinine 0.58L, Estimat Glomerular Filtration Rate 136, BUN/Creatinine Ratio 36, Glucose Level 91, Calcium Level 8.6, Corrected Calcium 9.6, Total Bilirubin 1.1H, Aspartate Amino Transf (AST/SGOT) 27, Alanine Aminotransferase (ALT/SGPT) 93H, Alkaline Phosphatase 199H, Total Protein 5.5L, Albumin 2.7L 11/27/20 05:53: White Blood Count 10.2, Red Blood Count 3.64L, Hemoglobin 10.3L, Hematocrit 31L, Mean Corpuscular Volume 84, Mean Corpuscular Hemoglobin 28, Mean Corpuscular Hemoglobin Concent 34, Red Cell Distribution Width 14.4, Platelet Count 276, Mean Platelet Volume 9.9, Immature Granulocyte % (Auto) 1, Neutrophils (%) (Auto) 68, Lymphocytes (%) (Auto) 23, Monocytes (%) (Auto) 8, Eosinophils (%) (Auto) 0, Basophils (%) (Auto) 0, Neutrophils # (Auto) 6.9, Lymphocytes # (Auto) 2.4, Monocytes # (Auto) 0.8, Eosinophils # (Auto) 0.0, Basophils # (Auto) 0.0, Immature Granulocyte # (Auto) 0.1, Sodium Level 133L, Potassium Level 4.1, Chloride Level 98, Carbon Dioxide Level 28, Anion Gap 7, Blood Urea Nitrogen 18, Creatinine 0.66, Estimat Glomerular Filtration Rate 117, BUN/Creatinine Ratio 27, Glucose Level 109H, Calcium Level 8.2L, Corrected Calcium 9.2, Total Bilirubin 0.9, Aspartate Amino Transf (AST/SGOT) 21, Alanine Aminotransferase (ALT/SGPT) 62H, Alkaline Phosphatase 160H, Total Protein 5.2L, Albumin 2.7L 12/01/20 07:05: Sodium Level 133L, Potassium Level 4.2, Chloride Level 99, Carbon Dioxide Level 27, Anion Gap 7, Blood Urea Nitrogen 21H, Creatinine 0.73, Estimat Glomerular Filtration Rate 104, BUN/Creatinine Ratio 29, Glucose Level 88, Calcium Level 8.9, Corrected Calcium 9.7, Total Bilirubin 1.0, Aspartate Amino Transf (AST/SGOT) 17, Alanine Aminotransferase (ALT/SGPT) 38, Alkaline Phosphatase 129, Total Protein 5.5L, Albumin 3.0L Pending Labs Laboratory Tests 11/23/20 05:50: White Blood Count 11.3, Red Blood Count 3.41, Hemoglobin 9.7, Hematocrit 29, Mean Corpuscular Volume 84, Mean Corpuscular Hemoglobin 28, Mean Corpuscular Hemoglobin Concent 34, Red Cell Distribution Width 14.8, Platelet Count 301, Mean Platelet Volume 10.0, Immature Granulocyte % (Auto) 1, Neutrophils (%) (Auto) 75, Lymphocytes (%) (Auto) 14, Monocytes (%) (Auto) 10, Eosinophils (%) (Auto) 0, Basophils (%) (Auto) 0, Neutrophils # (Auto) 8.5, Lymphocytes # (Auto) 1.6, Monocytes # (Auto) 1.1, Eosinophils # (Auto) 0.0, Basophils # (Auto) 0.0, Immature Granulocyte # (Auto) 0.1, Sodium Level 136, Potassium Level 4.6, Chloride Level 100, Carbon Dioxide Level 31, Anion Gap 5, Blood Urea Nitrogen 31, Creatinine 0.62, Estimat Glomerular Filtration Rate 126, BUN/Creatinine Ratio 50, Glucose Level 97, Calcium Level 8.7, Corrected Calcium 9.9, Total Bilirubin 0.9, Aspartate Amino Transf (AST/SGOT) 57, Alanine Aminotransferase (ALT/SGPT) 152, Alkaline Phosphatase 247, Total Protein 5.0, Albumin 2.5 11/25/20 07:29: White Blood Count 9.5, Red Blood Count 3.77, Hemoglobin 10.7, Hematocrit 32, Mean Corpuscular Volume 85, Mean Corpuscular Hemoglobin 28, Mean Corpuscular Hemoglobin Concent 33, Red Cell Distribution Width 14.5, Platelet Count 298, Mean Platelet Volume 9.5, Immature Granulocyte % (Auto) 2, Neutrophils (%) (Auto) 65, Lymphocytes (%) (Auto) 25, Monocytes (%) (Auto) 8, Eosinophils (%) (Auto) 0, Basophils (%) (Auto) 0, Neutrophils # (Auto) 6.2, Lymphocytes # (Auto) 2.4, Monocytes # (Auto) 0.8, Eosinophils # (Auto) 0.0, Basophils # (Auto) 0.0, Immature Granulocyte # (Auto) 0.1, Sodium Level 132, Potassium Level 4.1, Chloride Level 94, Carbon Dioxide Level 31, Anion Gap 7, Blood Urea Nitrogen 21, Creatinine 0.58, Estimat Glomerular Filtration Rate 136, BUN/Creatinine Ratio 36, Glucose Level 91, Calcium Level 8.6, Corrected Calcium 9.6, Total Bilirubin 1.1, Aspartate Amino Transf (AST/SGOT) 27, Alanine Aminotransferase (ALT/SGPT) 93, Alkaline Phosphatase 199, Total Protein 5.5, Albumin 2.7 11/27/20 05:53: White Blood Count 10.2, Red Blood Count 3.64, Hemoglobin 10.3, Hematocrit 31, Mean Corpuscular Volume 84, Mean Corpuscular Hemoglobin 28, Mean Corpuscular Hemoglobin Concent 34, Red Cell Distribution Width 14.4, Platelet Count 276, Mean Platelet Volume 9.9, Immature Granulocyte % (Auto) 1, Neutrophils (%) (Auto) 68, Lymphocytes (%) (Auto) 23, Monocytes (%) (Auto) 8, Eosinophils (%) (Auto) 0, Basophils (%) (Auto) 0, Neutrophils # (Auto) 6.9, Lymphocytes # (Auto) 2.4, Monocytes # (Auto) 0.8, Eosinophils # (Auto) 0.0, Basophils # (Auto) 0.0, Immature Granulocyte # (Auto) 0.1, Sodium Level 133, Potassium Level 4.1, Chloride Level 98, Carbon Dioxide Level 28, Anion Gap 7, Blood Urea Nitrogen 18, Creatinine 0.66, Estimat Glomerular Filtration Rate 117, BUN/Creatinine Ratio 27, Glucose Level 109, Calcium Level 8.2, Corrected Calcium 9.2, Total Bilirubin 0.9, Aspartate Amino Transf (AST/SGOT) 21, Alanine Aminotransferase (ALT/SGPT) 62, Alkaline Phosphatase 160, Total Protein 5.2, Albumin 2.7 12/01/20 07:05: Sodium Level 133, Potassium Level 4.2, Chloride Level 99, Carbon Dioxide Level 27, Anion Gap 7, Blood Urea Nitrogen 21, Creatinine 0.73, Estimat Glomerular Filtration Rate 104, BUN/Creatinine Ratio 29, Glucose Level 88, Calcium Level 8.9, Corrected Calcium 9.7, Total Bilirubin 1.0, Aspartate Amino Transf (AST/SGOT) 17, Alanine Aminotransferase (ALT/SGPT) 38, Alkaline Phosphatase 129, Total Protein 5.5, Albumin 3.0 Discharge Home Medications: Active Scripts Active Prednisone 20 Mg Tab 20 Mg PO DAILY@0700 1 daily for 3 days then 1/2 daily 4 days Sodium Chloride 1 Gm Tab 1 Gm PO BID Diclofenac Sodium 100 Gm Gel..gram. 0 Gm TOP TID PRN Children's Aspirin (Aspirin) 81 Mg Tab.chew 81 Mg PO DAILY Lisinopril 40 Mg Tablet 40 Mg PO DAILY Amlodipine Besylate 10 Mg Tablet 10 Mg PO DAILY Metoprolol Succinate 100 Mg Tab.er.24h 100 Mg PO BID Doxazosin Mesylate 2 Mg Tablet 2 Mg PO HS Nicoderm Cq (Nicotine) 1 Each Patch.td24 14 Mg TD DAILY@0900 Instructions to patient/family Please see electronic discharge instructions given to patient. Diagnosis/Problems Diagnosis/Problems (1) Debility (2) S/P bronchoscopy (3) S/P thoracentesis (4) Pleural effusion (5) Cachexia (6) COPD, severe (7) Requires oxygen therapy (8) Encephalopathy (9) Hyponatremia Status: Acute (10) CHF (congestive heart failure) Status: Acute (11) Proximal muscle weakness (12) Elevated liver enzymes Status: Acute (13) Peripheral arterial disease Status: Acute (14) Hypoxia (15) Smoker NEFTALI HARRIS DO Dec 02, 2020 07:54
[2020-12-02 08:58] VITALS: BP 128/68
[2020-12-02] MEDS: meTOprolol SUCCINATE 100 MG (TOPROL XL) TAB PO SCH (10:06)
[2020-12-02] MEDS: lisINopril 40 MG (PRINIVIL) TABLET PO SCH (10:06)
[2020-12-02] MEDS: ASPIRIN 81 MG CHEW (CHILDREN'S ASA) PO SCH (10:06)
[2020-12-02] MEDS: amLODIPine 10 MG (NORVASC) TAB PO SCH (10:06)
[2020-12-02] MEDS: ENOXAPARIN 40 MG/0.4 ML (LOVENOX) SYR SC SCH (10:06)
[2020-12-02] MEDS: NICOTINE 14 MG (NICODERM) PATCH TD SCH (10:07)
[2020-12-02] MEDS: SODIUM CHLORIDE 1 GM TABLET PO SCH (10:10)
[2020-12-02] MEDS: IBUPROFEN 600 MG (MOTRIN) TAB PO PRN (10:21)
[2020-12-02 10:45] VITALS: BP 128/68
[2020-12-02] MEDS: SENNA W/DOCUSATE (SENOKOT S) TABLET PO SCH (16:39)
[2020-12-02] MEDS: polyethylene glycoL POWDER 17 GM (MIRALAX) PACK PO SCH (16:39)
[2020-12-02] MEDS: NICOTINE PATCH REMOVAL TP SCH (16:39)
[2020-12-02] MEDS: DOCUSATE SODIUM 100 MG (COLACE) CAP PO SCH (16:39)
--- NOTE | 2020-12-04 14:20 | Therapy Team Discharge Summary ---
Therapy Discharge Summary Discharge Recommendations Date of Discharge Dec 02, 2020 at 10:45 Physical Therapy Patient came to rehab with hyponatremia, debility. Upon evaluation patient performed bed mobility and supine <-> sit with independence, sit <-> stand min assist, transfers CGA, car transfer CGA, ambulated 150' with a rolling walker with CGA (including 50' with at least 2 turns of 90 degrees and 10' over an uneven surface), and went up and down 1 step using a rolling walker with CGA. Patient has been performing bed mobility and transfer training, balance and e ndurance training, functional strengthening, stair training, gait training, and education. Patient has made good progress and has met all of his senior living goals. Now, patient performs bed mobility and transfers with independence, car transfer independent, ambulates 300' with a rolling walker with setup (including 50' with at least 2 turns of 90 degrees and 10' over an uneven surface), can go up and down 12 steps using 1 handrail with setup, and can pickle solution maker an object from the floor with setup. Patient has been discharged from this facility and will be discharged from PT at this time. Occupational Therapy Decreased Activ Tolerance, Impaired I ADL's PT Prison Goals Needle Loom Weaver Goals PT Needle Loom Weaver Goals Time Frame: Dec 13, 2020 Roll Left to Right (QC): 6 Sit to Lying (QC): 6 Lying-Sitting on Side/Bed(QC): 6 Sit to Stand (QC): 5 Chair/Zrw-kf-Enxjo Xfer(QC): 5 Car Transfer (QC): 5 Does the Patient Walk: Yes Walk 10 feet (QC): 5 Walk 10ft-Uneven Surface(QC): 5 Walk 50ft with 2 Turns (QC): 5 Walk 150 ft (QC): 5 Wheel 50 feet with 2 turns (QC: 9 1 Step (curb) (QC): 5 4 Steps (QC): 5 12 Steps (QC): 88 Picking up an Object (QC): 5 OT Prison Goals Needle Loom Weaver Goals Time Frame: Dec 07, 2020 Eating (QC): 6 (met) Oral Hygiene (QC): 6 (met) Shower/Bathe Self (QC): 5 (met) Upper Body Dressing (QC): 6 (met) Lower Body Dressing (QC): 5 (met) On/Off Footwear (QC): 5 (met) Toileting Hygiene (QC): 6 (met) Toilet/Commode Transfer (QC): 5 1=Demonstrate adherence to instructed precautions during ADL tasks. 2=Patient will verbalize/demonstrate understanding of assistive devices/modifications for ADL. 3=Patient will improve strength/tolerance for activity to enable patient to perform ADL's. JIM MARTIN PT Dec 04, 2020 14:20
== END 2020-12-02 10:45 | disposition home or self-care (01) | DRG 556 ==
PROVIDERS: ADMIT Internal Medicine; ATTEND Internal Medicine
DX: M62.81 Muscle weakness (generalized) (principal); E22.2 Syndrome of inappropriate secretion of antidiuretic hormone; G93.40 Encephalopathy, unspecified; R64 Cachexia; J44.9 Chronic obstructive pulmonary disease, unspecified; I11.0 Hypertensive heart disease with heart failure; I50.9 Heart failure, unspecified; F17.210 Nicotine dependence, cigarettes, uncomplicated; I73.9 Peripheral vascular disease, unspecified; B35.1 Tinea unguium; L60.0 Ingrowing nail; Z87.01 Personal history of pneumonia (recurrent); Z68.21 Body mass index [BMI] 21.0-21.9, adult; Z99.81 Dependence on supplemental oxygen
CPT/HCPCS: 36415; 80053; 85025; 94760

== ENCOUNTER 2021-01-11 13:46 | Outpatient (RCR) | payer OTHER, MEDICARE ==
--- NOTE | 2020-12-04 14:12 | Therapy Team Discharge Summary ---
Therapy Discharge Summary Discharge Recommendations Date of Discharge 12/02/20 Therapy D/C Recommendations: Home w/ Family Support, Occupational Therapy Home Care Occupational Therapy Pt presented to ER following progressive weakness, LE's > UE's. He was admitted to rehab where he stayed 2 days. He was quickly transferred to ICU after exhibiting increased AMS and hypoxia. Pt found to have low sodium. He returned to Rehab with a fluid restriction. Prior to admission he was indep with ADLs and IADLs. At time of eval, pt was min-mod a for toileting, footwear, lb dressing, bathing and sba-cga for eating, oral hygiene, and upper body dressing. While on rehab, Ot focused on increasing balance, endurance, UE strength, activity tolerance, flexibility, energy conservation, and compensatory strategies. Pt met all of his buttermaker goals and d/c at mod I for all ADLs. He had full BUE ROM and strength of 5/5. Pt has discharged from facility and from OT. OT Die Assembler Goals Die Assembler Goals Eating (QC): 6 (met) Oral Hygiene (QC): 6 (met) Shower/Bathe Self (QC): 5 Upper Body Dressing (QC): 6 (met) Lower Body Dressing (QC): 5 (met) On/Off Footwear (QC): 5 (met) Toileting Hygiene (QC): 6 (met) Toilet/Commode Transfer (QC): 6 (met) 1=Demonstrate adherence to instructed precautions during ADL tasks. 2=Patient will verbalize/demonstrate understanding of assistive devices/modif ications for ADL. 3=Patient will improve strength/tolerance for activity to enable patient to perform ADL's. Eleni Perez OT Dec 04, 2020 14:12
[~2021-01-11 13:46] MED LIST changes: +AMLO-251 PO; +ASPI81TA64 PO; +DICL100G13 TOP; +DOXA2TAB2 PO; +LISI40TA9 PO; +MTP100TCR PO; +NF-NACL1GT PO; +NICO1PAT38 TD; +PRD20T PO
== END 2021-01-11 14:11 | disposition home or self-care (01) ==
PROVIDERS: ATTEND Internal Medicine
DX: M47.812 Spondylosis without myelopathy or radiculopathy, cervical region (principal); M62.81 Muscle weakness (generalized)

== ENCOUNTER 2021-01-23 06:12 | Outpatient (CLI) | payer OTHER, MEDICARE ==
[~2021-01-23] VITALS: Ht 172.7 cm; Wt 65.9 kg
[2021-01-23] MEDS ORDERED: NF-NACL1GT PO (14:22)
[2021-01-23] MEDS ORDERED: AMLO-251 PO (14:22)
[2021-01-23] MEDS ORDERED: ASPI-999 PO (14:22)
[2021-01-23] MEDS ORDERED: LISI40TA9 PO (14:22)
[2021-01-23] MEDS ORDERED: DOXA2TAB2 PO (14:22)
[2021-01-23] MEDS ORDERED: MTP100TCR PO (14:22)
== END 2021-01-23 14:25 | disposition home or self-care (01) ==
LOC: PREOP 06:12
PROVIDERS: ATTEND Specialist
DX: Z01.818 Encounter for other preprocedural examination (principal)

== ENCOUNTER 2021-01-26 09:56 | Day surgery (SDC) | payer OTHER, MEDICARE ==
[~2021-01-26] VITALS: Ht 172.7 cm; Wt 65.9 kg
[~2021-01-26 09:56] MED LIST changes: +ASPI-999 PO
[2021-01-26] MEDS ORDERED: LIDOCAINE PF 1% 2 ML VIAL IR PRN (10:15)
[2021-01-26] MEDS ORDERED: POVIDONE (BETADINE) OPHTH SOLN 5% 30 ML OP ONE (10:15)
[2021-01-26] MEDS ORDERED: TIMOLOL MALEATE 0.5% 5 ML (TIMOPTIC) BTL OU PRN (10:15)
[2021-01-26] MEDS ORDERED: MOXIFLOXACIN OPHTH SOLN 5 MG/ML 0.3 ML SYRINGE OP ONE (10:15)
[2021-01-26] MEDS: TETRACAINE 0.5% OPHTH SOLN 4 ML BTL (SINGLE DOSE ONLY) OU PRN ×4 (10:19→10:37)
[2021-01-26] MEDS: PHENYLEPHRINE 10% OPHTH (NEO-SYN) 5 ML BTL OU SCH ×3 (10:26→10:37)
[2021-01-26] MEDS: TROPICAMIDE 1% OPH SOLN (MYDRIACYL) 15 ML BTL OP SCH ×3 (10:26→10:37)
[2021-01-26 10:27] VITALS: BP 157/73
[2021-01-26] MEDS ORDERED: MIDAZOLAM 2 MG/2 ML (VERSED) VIAL ONE (11:00)
--- NOTE | 2021-01-26 11:38 | Ophthalmologist Pre-Op Note ---
Pre-Operative Progress Note H&P Reviewed The H&P was reviewed, patient examined and no changes noted. Date H&P Reviewed: Jan 26, 2021 Time H&P Reviewed: 11:15 Pre-Op Dx Cataract, Left Eye PRISCILA NIXON MD Jan 26, 2021 11:38
--- NOTE | 2021-01-26 11:40 | Ophthalmology Operative Report ---
Cataract removal/placement IOL PREOPERATIVE DIAGNOSIS: Cataract Left Eye POSTOPERATIVE DIAGNOSIS: Cataract Left Eye PROCEDURE: Cataract removal and placement of posterior chamber implant, left eye SURGEON: Charles Nixon ANESTHESIA: Topical with sedation COMPLICATIONS: None ESTIMATED BLOOD LOSS: Minimal DESCRIPTION OF PROCEDURE: After proper informed consent was obtained, the patient, a 75 male, was taken to the Operating Room and the left eye was anesthetized with tetracaine. The left eye was then prepped and draped in the usual manner. A wire lid speculum was placed. A paracentesis was made at the left hand position. Preservative free lidocaine was injected into the anterior chamber followed by viscoelastic. A clear corneal incision was made in the temporal position. A capsulorrhexis was preformed and the central nuclear and cortical material were removed. The posterior capsule was polished and an Adan 19.5 [id number] was placed into the capsular bag. The residual viscoelastic was aspirated and balanced saline solution was injected into the anterior chamber. Moxifloxacin was injected into the anterior chamber. The wound was checked and found to be water tight. The patient tolerated the procedure well without complications. CHARLES NIXON MD Jan 26, 2021 11:40
[2021-01-26 11:43] VITALS: BP 146/62
[2021-01-26] MEDS ORDERED: acetaZOLAMIDE ER 500 MG CAP (DIAMOX SEQUELS) PO ONE (12:00)
--- NOTE | 2021-01-26 14:05 | Anesthesia-General Post-Op ---
MAC Patient Condition Mental Status/LOC: Same as Preop Cardiovascular: Satisfactory Nausea/Vomiting: Absent Respiratory: Satisfactory Pain: Controlled Complications: Absent Post Op Complications Complications None Follow Up Care/Instructions Patient Instructions None needed. Anesthesiology Discharge Order Discharge Order Patient was seen after the procedure and he was doing well, no complaints, stable vital signs, no apparent adverse anesthesia problems. JENNA BURGOS DO Jan 26, 2021 14:05
== END 2021-01-26 11:45 ==
LOC: SDC 09:56
PROVIDERS: ATTEND Specialist
DX: H25.12 Age-related nuclear cataract, left eye (principal); I10 Essential (primary) hypertension; F17.200 Nicotine dependence, unspecified, uncomplicated; Z79.899 Other long term (current) drug therapy; Z79.82 Long term (current) use of aspirin
CPT/HCPCS: 66984; V2632

== ENCOUNTER 2021-02-09 09:27 | Day surgery (SDC) | payer OTHER, MEDICARE ==
[~2021-02-09] VITALS: Ht 172.7 cm; Wt 65.9 kg
[2021-02-09] MEDS ORDERED: POVIDONE (BETADINE) OPHTH SOLN 5% 30 ML OP ONE (09:30)
[2021-02-09] MEDS ORDERED: LIDOCAINE PF 1% 2 ML VIAL IR PRN (09:30)
[2021-02-09] MEDS ORDERED: MOXIFLOXACIN OPHTH SOLN 5 MG/ML 0.3 ML SYRINGE OP ONE (09:30)
[2021-02-09] MEDS ORDERED: TIMOLOL MALEATE 0.5% 5 ML (TIMOPTIC) BTL OU PRN (09:30)
[2021-02-09] MEDS: TETRACAINE 0.5% OPHTH SOLN 4 ML BTL (SINGLE DOSE ONLY) OU PRN ×4 (09:36→09:52)
[2021-02-09] MEDS: PHENYLEPHRINE 10% OPHTH (NEO-SYN) 5 ML BTL OU SCH ×3 (09:42→09:52)
[2021-02-09] MEDS: TROPICAMIDE 1% OPH SOLN (MYDRIACYL) 15 ML BTL OP SCH ×3 (09:43→09:52)
[2021-02-09 09:50] VITALS: BP 138/54
--- NOTE | 2021-02-09 09:55 | Ophthalmologist Pre-Op Note ---
Pre-Operative Progress Note H&P Reviewed The H&P was reviewed, patient examined and no changes noted. Date H&P Reviewed: Feb 09, 2021 Time H&P Reviewed: 09:54 Pre-Op Dx Cataract, Right Eye PRISCILA NIXON MD Feb 09, 2021 09:54
[2021-02-09] MEDS ORDERED: MIDAZOLAM 2 MG/2 ML (VERSED) VIAL ONE (09:59)
--- NOTE | 2021-02-09 10:19 | Ophthalmology Operative Report ---
Cataract removal/placement IOL PREOPERATIVE DIAGNOSIS: Cataract Right Eye POSTOPERATIVE DIAGNOSIS: Cataract Right Eye PROCEDURE: Cataract removal and placement of posterior chamber implant, right eye SURGEON: Charles Nixon ANESTHESIA: Topical with sedation COMPLICATIONS: None ESTIMATED BLOOD LOSS: Minimal DESCRIPTION OF PROCEDURE: After proper informed consent was obtained, the patient, a 75 male, was taken to the Operating Room and the right eye was anesthetized with tetracaine. The right eye was then prepped and draped in the usual manner. A wire lid speculum was placed. A paracentesis was made at the left hand position. Preservative free lidocaine was injected into the anterior chamber followed by viscoelastic. A clear corneal incision was made in the temporal position. A capsulorrhexis was preformed and the central nuclear and cortical material were removed. The posterior capsule was polished and Adan AU00T0 19.5 IOL was placed into the capsular bag. The residual viscoelastic was aspirated and balanced saline solution was injected into the anterior chamber. Moxifloxacin was injected into the anterior chamber. The wound was checked and found to be water tight. The patient tolerated the procedure well without complications. CHARLES NIXON MD Feb 09, 2021 10:19
[2021-02-09 10:35] VITALS: BP 143/65
[2021-02-09] MEDS ORDERED: acetaZOLAMIDE ER 500 MG CAP (DIAMOX SEQUELS) PO ONE (11:30)
--- NOTE | 2021-02-09 12:39 | Anesthesia-General Post-Op ---
MAC Patient Condition Mental Status/LOC: Same as Preop Cardiovascular: Satisfactory Nausea/Vomiting: Absent Respiratory: Satisfactory Pain: Controlled Complications: Absent Post Op Complications Complications None Follow Up Care/Instructions Patient Instructions None needed. Anesthesiology Discharge Order Discharge Order Patient is doing well, no complaints, stable vital signs, no apparent adverse anesthesia problems. No complications reported per nursing. TADEO ANGULO CRNA Feb 09, 2021 12:39
== END 2021-02-09 10:35 | disposition home or self-care (01) ==
LOC: SDC 09:27
PROVIDERS: ATTEND Specialist
DX: H25.11 Age-related nuclear cataract, right eye (principal); I10 Essential (primary) hypertension; Z79.82 Long term (current) use of aspirin; Z79.899 Other long term (current) drug therapy; Z82.49 Family history of ischemic heart disease and other diseases of the circulatory system
CPT/HCPCS: 66984; V2632

== ENCOUNTER 2022-01-11 09:47 | Emergency (ER) | payer MEDICARE, OTHER ==
[~2022-01-11] VITALS: Ht 170 cm; Wt 71.5 kg
--- NOTE | 2022-01-11 10:24 | ED Respiratory ---
General Chief Complaint: Cough/Cold/Flu Symptoms Stated Complaint: SPITTING UP BLOOD/SOB/CHEST PAINS Nursing Triage Note: ARRIVED VIA AMB FROM DR PLUNKETT OFFICE. PT COMPLAINS OF SOA, PAIN ON LEFT SIDE WHEN TAKING A DEEP BREATH, AND STARTED COUGHING UP BLOOD THIS AM. Source: patient Exam Limitations: no limitations History of Present Illness Date Seen by Provider: Jan 11, 2022 Time Seen by Provider: 10:10 Initial Comments Patient is a 76-year-old male with a history of hypertension who presents to the emergency department today with a chief complaint of productive cough, chills, shortness of breath left lower rib pain, diarrhea onset 3 or 4 days ago. He states this morning he coughed and coughed up some blood. He went to his primary care physician's office, Dr. Winn and he sent him to the emergency department for evaluation. Patient smokes cigarettes, 1 pack/day. He does not routinely use inhalers or breathing treatments. He does not require oxygen supplementation. He states his appetite has been good. No unintended weight loss. He states his diarrhea is very watery, nonbloody. No urinary complaints. No recent travel/prolonged immobility. He states he is having left lower rib pain, it hurts to take a deep breath. He has taken some ibuprofen for the pain. He is vaccinated for COVID. He has never had the COVID infection. All other review of systems reviewed and negative except as stated Timing/Duration: other (3-4 days) Severity: moderate Associated Symptoms: chest pain/soreness, cough, fever/chills (chills without fever), shortness of breath Allergies and Home Medications Allergies Coded Allergies: pineapple (Verified Allergy, Intermediate, Hives, 11/24/20) Patient Home Medication List Home Medication List Reviewed: Yes Albuterol Sulfate (Ventolin Hfa) 90 Mcg Hfa.aer.ad, 2 PUFF INH Q6H PRN for shortness of breath Prescribed by: JUNI DAVIS on 01/11/22 1416 Amlodipine Besylate (Amlodipine Besylate) 10 Mg Tablet, 10 MG PO DAILY, (Reported) Entered as Reported by: LYLA FIGUEROA on 01/23/21 1422 Aspirin (Aspirin) 81 Mg Tab.chew, 81 MG PO DAILY, (Reported) Entered as Reported by: LYLA FIGUEROA on 01/23/21 142 Azithromycin (Azithromycin) 250 Mg Tablet, 250 MG PO DAILY Prescribed by: JUNI DAVIS on 01/11/22 141 Cefdinir (Cefdinir) 300 Mg Capsule, 300 MG PO BID Prescribed by: JUNI DAVIS on 01/11/22 141 Doxazosin Mesylate (Doxazosin Mesylate) 2 Mg Tablet, 2 MG PO HS, (Reported) Entered as Reported by: LYLA FIGUEROA on 01/23/21 142 Lisinopril (Lisinopril) 40 Mg Tablet, 40 MG PO DAILY, (Reported) Entered as Reported by: LYLA FIGUEROA on 01/23/21 142 Metoprolol Succinate (Metoprolol Succinate) 100 Mg Tab.er.24h, 100 MG PO BID, (Reported) Entered as Reported by: LYLA FIGUEROA on 01/23/21 142 Sodium Chloride (Sodium Chloride) 1 Gm Tab, 1 GM PO BID, (Reported) Entered as Reported by: LYLA FIGUEROA on 01/23/211421 Review of Systems Review of Systems Constitutional: see HPI EENTM: no symptoms reported, other (dry mouth) Respiratory: cough, hemoptysis, phlegm, short of breath Cardiovascular: chest pain (left lower rib pain) Gastrointestinal: diarrhea Genitourinary: no symptoms reported Musculoskeletal: no symptoms reported Skin: no symptoms reported Psychiatric/Neurological: No Symptoms Reported All Other Systems Reviewed Negative Unless Noted: Yes Past Enjcqbb-Mqclre-Wkejyc Hx Patient Social History Tobacco Use?: Yes Tobacco type used: Cigarettes Smoking Status: Current Everyday Smoker Substance use?: No Alcohol Use?: No Immunizations Up To Date First/Initial COVID19 Vaccinat: 05/28 Second COVID19 Vaccination Peter: UNKNOWN Third COVID19 Vaccination Date: 06/28 COVID19 Vaccine Graphic Art Sales Representative: EUGENIO Past Medical History Surgery/Hospitalization HX: TESTICULAR SURGERY FOR "CYSTS" RIGHT THUMB REPAIR Surgeries: Yes Orthopedic Respiratory: Yes Pneumonia Cardiac: Yes Hypertension Neurological: No Genitourinary: Yes Prostate Problems Gastrointestinal: Yes Liver Disease/Jaundice Musculoskeletal: Yes Back Injury, Chronic Back Pain Endocrine: No HEENT: No Loss of Vision: Denies Hearing Impairment: Hard of Hearing, Bilateral Hearing Aide Cancer: No Psychosocial: No Integumentary: No Blood Disorders: No Family Medical History Heart Disease, Psychiatric Problems, Stroke Physical Exam Vital Signs - First Documented 01/11/22 09:50 Temp 37.4 Pulse 80 Resp 16 B/P (MAP) 121/86 (98) Pulse Ox 95 O2 Delivery Room Air Capillary Refill : Less Than 3 Seconds Height: '" Weight: lbs. oz. kg; 24.00 BMI Method: General Appearance: WD/WN, no apparent distress Eyes: Bilateral Eye Conjunctivae Pale, Bilateral Eye Scleral Icterus (mild) HEENT: pale conjunctivae (R), pale conjunctivae (L), other (dry mucosa) Neck: normal inspection Respiratory: no respiratory distress, no accessory muscle use, crackles (occasional scattered crackles - semi-clear with cough) Cardiovascular: regular rate, rhythm Gastrointestinal: normal bowel sounds, non tender, soft Extremities: normal range of motion, non-tender, normal inspection, no pedal edema, no calf tenderness Neurologic/Psychiatric: alert, normal mood/affect, oriented x 3 Skin: warm/dry, pallor Focused Exam Lactate Level 01/11/22 11:53: Lactic Acid Level 2.46*H 01/11/22 14:15: Lactic Acid Level 2.09*H Lactic Acid Level Laboratory Tests Test 01/11/22 11:53 01/11/22 14:15 Lactic Acid Level 2.46 MMOL/L (0.50-2.00) *H 2.09 MMOL/L (0.50-2.00) *H Progress/Results/Core Measures Suspected Sepsis SIRS Temperature: Pulse: 80 Respiratory Rate: 16 Laboratory Tests 01/11/22 10:00: White Blood Count 18.6H Blood Pressure 121 /86 Mean: 98 01/11/22 11:53: Lactic Acid Level 2.46*H 01/11/22 14:15: Lactic Acid Level 2.09*H Laboratory Tests 01/11/22 10:00: Creatinine 1.24, Platelet Count 169, Total Bilirubin 3.7H Results/Orders Lab Results Laboratory Tests Test 01/11/22 10:00 01/11/22 10:59 01/11/22 11:53 01/11/22 14:15 Range/Units White Blood Count 18.6 H 4.3-11.0 10^3/uL Red Blood Count 4.12 L 4.30-5.52 10^6/uL Hemoglobin 12.0 L 13.3-17.7 g/dL Hematocrit 35 L 40-54 % Mean Corpuscular Volume 85 80-99 fL Mean Corpuscular Hemoglobin 29 25-34 pg Mean Corpuscular Hemoglobin Concent 34 32-36 g/dL Red Cell Distribution Width 14.0 10.0-14.5 % Platelet Count 169 130-400 10^3/uL Mean Platelet Volume 11.3 9.0-12.2 fL Immature Granulocyte % (Auto) 8 % Neutrophils (%) (Auto) 84 H 42-75 % Lymphocytes (%) (Auto) 3 L 12-44 % Monocytes (%) (Auto) 5 0-12 % Eosinophils (%) (Auto) 0 0-10 % Basophils (%) (Auto) 1 0-10 % Neutrophils # (Auto) 15.6 H 1.8-7.8 10^3/uL Lymphocytes # (Auto) 0.6 L 1.0-4.0 10^3/uL Monocytes # (Auto) 0.8 0.0-1.0 10^3/uL Eosinophils # (Auto) 0.0 0.0-0.3 10^3/uL Basophils # (Auto) 0.1 0.0-0.1 10^3/uL Immature Granulocyte # (Auto) 1.4 H 0.0-0.1 10^3/uL Neutrophils % (Manual) 80 % Lymphocytes % (Manual) 4 % Monocytes % (Manual) 4 % Metamyelocytes % 2 % Band Neutrophils 10 % Toxic Granulation 1+ [place] Cells SLIGHT Elliptocytes SLIGHT Sodium Level 135 135-145 MMOL/L Potassium Level 4.0 3.6-5.0 MMOL/L Chloride Level 103 98-107 MMOL/L Carbon Dioxide Level 17 L 21-32 MMOL/L Anion Gap 15 H 5-14 MMOL/L Blood Urea Nitrogen 30 H 7-18 MG/DL Creatinine 1.24 0.60-1.30 MG/DL Estimat Glomerular Filtration Rate 60 BUN/Creatinine Ratio 24 Glucose Level 80 70-105 MG/DL Calcium Level 8.7 8.5-10.1 MG/DL Corrected Calcium 9.2 8.5-10.1 MG/DL Total Bilirubin 3.7 H 0.1-1.0 MG/DL Aspartate Amino Transf (AST/SGOT) 17 5-34 U/L Alanine Aminotransferase (ALT/SGPT) 20 0-55 U/L Alkaline Phosphatase 113 40-136 U/L C-Reactive Protein High Sensitivity 28.49 H 0.00-0.50 MG/DL Total Protein 5.8 L 6.4-8.2 GM/DL Albumin 3.4 3.2-4.5 GM/DL Procalcitonin 5.63 H <0.10 NG/ML Influenza Type A (RT-PCR) Not Detected Not Detecte Influenza Type B (RT-PCR) Not Detected Not Detecte SARS-CoV-2 RNA (RT-PCR) Not Detected Not Detecte Lactic Acid Level 2.46 *H 2.09 *H 0.50-2.00 MMOL/L My Orders Orders - JUNI DAVIS MD Ed Iv/Invasive Line Start (01/11/22 10:18) Cbc With Automated Diff (01/11/22 10:18) Comprehensive Metabolic Panel (01/11/22 10:18) Procalcitonin (Pct) (01/11/22 10:18) Hs C Reactive Protein (01/11/22 10:18) Covid 19 Inhouse Test (01/11/22 10:18) Chest 1 View, Ap/Pa Only (01/11/22 10:18) Influenza A And B By Pcr (01/11/22 10:18) Isolation Central Supply Req (01/11/22 10:18) Manual Differential (01/11/22 10:00) Ns Iv 1000 Ml (Sodium Chloride 0.9%) (01/11/22 12:00) Ct Chest W (01/11/22 11:46) Ceftriaxone 1 Gm Pre-Mix (Rocephin 1 Gm (01/11/22 12:00) Azithromycin Injection (Zithromax Inject (01/11/22 12:00) Blood Culture (01/11/22 11:47) Lactic Acid Analyzer (01/11/22 11:47) Iohexol Injection (Omnipaque 350 Mg/Ml 1 (01/11/22 12:15) Received Contrast (Hold Metformin- Contr (01/11/22 12:15) Ns (Ivpb) (Sodium Chloride 0.9% Ivpb Bag (01/11/22 12:15) Blood Culture (01/11/22 12:35) Acetaminophen Tablet (Tylenol Tablet) (01/11/22 12:45) Medications Given in ED Vital Signs/I&O 01/11/22 01/11/22 09:50 14:56 Temp 37.4 Pulse 80 77 Resp 16 16 B/P (MAP) 121/86 (98) 142/78 Pulse Ox 95 96 O2 Delivery Room Air Room Air Capillary Refill : Less Than 3 Seconds Blood Pressure Mean: 98 Progress Note : Time: 14:10 Progress Note Patient seen and evaluated, today's evaluation includes physical exam, basic laboratory studies, chest x-ray. Chest x-ray shows consolidative process in the left middle and lower lobe. Lactic acid is initially elevated a little greater than 2. Patient clinically does not appear septic. He is not tachycardic, hypotensive or hypoxic. He is satting 96 to 97% on room air without any evidence of labored breathing or respiratory distress. Labs show a leukocytosis with normal chemistry. He is treated in the emergency department with Rocephin and azithromycin. He is not super excited about being admitted to the hospital as he takes care of his grandson over the weekends. Clinically he looks much better than his chest x-ray and labs. There is concern mentioned by the radiologist on the interpretation for mucinous adenocarcinoma consideration. We will have the patient follow-up very closely with his primary care physician Dr. Winn. Patient will be sent home with oral antibiotics, double coverage. He will be sent home with an inhaler. Advised to take ccce-ouj-shkbmdw medications for cough and congestion. No clinical or objective findings at this point in time to warrant admission to the hospital. He is at high likelihood for decompensation. His procalcitonin is 5, his CRP is elevated in the 20s but again he has no objective findings of sepsis on physical examination. He is strongly encouraged to quit smoking. He is strongly encouraged to finish out his antibiotic prescription. Given strict return precautions. All questions were sought and answered. Diagnostic Imaging Diagonstic Imaging: CT Comments [facility] [place], [place] NAME: ROGELIO BURRELL [facility] REC#: [id number] PT STATUS: REG ER : 1945 PHYSICIAN: JUNI DAVIS MD ADMIT DATE: 01/11/22/ER Draft Date of Exam:01/11/22 CT CHEST W EXAMINATION: CT chest with intravenous contrast. TECHNIQUE: Multiple contiguous axial images were obtained through the chest after the uneventful administration of intravenous contrast. All CT scans use one or more of the following dose optimizing techniques: automated exposure control, MA and/or KvP adjustment based on patient size and exam type or iterative reconstruction. HISTORY: Pneumonia and hemoptysis COMPARISON: 11/17/2021 FINDINGS: There is dense consolidation in the left upper lobe with air bronchograms likely representing pneumonia. There is mild bibasilar atelectasis. A few nodular opacities in left lower lobe also likely infectious. There is a small left pleural effusion. No pneumothorax. No suspicious nodules. There is no axillary or supraclavicular lymphadenopathy. There is no mediastinal lymphadenopathy. Heart size is normal. There are moderate coronary artery calcifications. No pericardial effusion. Aorta is normal in caliber. Limited views of the upper abdomen show stable 1.8 cm cyst in the body of the pancreas. Simple cyst is present in the right kidney. There are no suspicious osseus lesions. IMPRESSION: 1. Dense consolidation left upper lobe likely representing pneumonia. Followup to resolution recommended as the differential includes an invasive mucinous adenocarcinoma.. Dictated on workstation # [id number] Dict: 01/11/22 1230 Trans: 01/11/22 1233 [facility] [id number] Interpreted by: PURVI HSU MD Electronically signed by: Shasha Imaging: Xray Plain Films/CT/US/NM/MRI: chest Comments [facility] [place] [place] NAME: ROGELIO BURRELL [facility] REC#: [id number] PT STATUS: REG ER : 1945 PHYSICIAN: JUNI DAVIS MD ADMIT DATE: 01/11/22/ER Draft Date of Exam:01/11/22 CHEST 1 VIEW, AP/PA ONLY INDICATION: Cough, hemoptysis. TECHNIQUE: Frontal chest obtained at 10:49 a.m. and compared to 11/18/2020. FINDINGS: There is dense consolidation in the left midlung, suspect underlying pneumonia or pulmonary hemorrhage. There is no pneumothorax or gross pleural fluid. IMPRESSION: Dense consolidation in left midlung and lower lung, suspect pneumonia. Follow-up is recommended, CT would provide further detail if clinically warranted. Dictated on workstation # [id number] Dict: 01/11/22 1106 Trans: 01/11/22 1110 AS6 [id number] Interpreted by: LELAND DEVINE MD Electronically signed by: Melanie Impression Primary Impression: Pneumonia Qualified Codes: J18.9 - Pneumonia, unspecified organism Disposition: HOME, SELF-CARE Condition: Stable Departure-Patient Inst. Decision time for Depature: 14:13 Referrals: MJ WINN DO (PCP) Primary Care Physician Patient Instructions: Community-Acquired Pneumonia in Adults Add. Discharge Instructions: You need to smoke as little as possible over the course of the next 10 days to 2 weeks. Use the albuterol inhaler, 2 puffs every 4-6 hours as needed for shortness of breath. Take the antibiotics as directed, you will be on 2 different ones. Azithromycin 1 pill a day for the next 4 days starting tomorrow. Cefdinir, 300 mg twice daily for the next 7 days starting tomorrow. You can use ynbo-ean-vhswfdl cough and congestion medication such as DayQuil and NyQuil for congestion. Honey is good for cough. Run a coolmist humidifier in your room at night. Vicks vapor rub as needed for congestion as well. Please call Dr. WINN's office on Friday morning for a recheck appointment Friday or Friday to ensure that you are not getting any worse. If you develop high fever, worsening shortness of breath, feel lightheaded or dizzy when you move around please come back to the emergency room for reevaluation and admission to the hospital. Scripts Albuterol Sulfate (Ventolin Hfa) 90 Mcg Hfa.aer.ad 2 PUFF INH Q6H PRN for shortness of breath, #1 EA 1 PUFF = 90 MCG Prov: JUNI DAVIS MD 01/11/22 Azithromycin (Azithromycin) 250 Mg Tablet 250 MG PO DAILY, #4 TAB 0 Refills Prov: JUNI DAVIS MD 01/11/22 Cefdinir (Cefdinir) 300 Mg Capsule 300 MG PO BID, #14 CAP 0 Refills Prov: JUNI DAVIS MD 01/11/22 Copy Copies To 1: MJ WINN KATHRYN M MD Jan 11, 2022 10:24
[2022-01-11 10:26] LABS: ALBUMIN 3.4 GM/DL (3.2-4.5)
[2022-01-11 10:27] LABS: BASOPHILS # (AUTO) 0.1 10^3/uL (0.0-0.1); BASOPHILS % (AUTO) 1 % (0-10); EOSINOPHILS % (AUTO) 0 % (0-10); HEMATOCRIT 35 % (40-54); LYMPHOCYTES # (AUTO) 0.6 10^3/uL (1.0-4.0); LYMPHOCYTES % (AUTO) 3 % (12-44); MEAN CORPUSCULAR HEMOGLOBIN 29 pg (25-34); MEAN CORPUSCULAR HGB CONC 34 g/dL (32-36); MEAN CORPUSCULAR VOLUME 85 fL (80-99); MEAN PLATELET VOLUME 11.3 fL (9.0-12.2); MONOCYTES # (AUTO) 0.8 10^3/uL (0.0-1.0); MONOCYTES % (AUTO) 5 % (0-12); NEUTROPHILS # (AUTO) 15.6 10^3/uL (1.8-7.8); NEUTROPHILS % (AUTO) 84 % (42-75); PLATELET COUNT 169 10^3/uL (130-400); WHITE BLOOD COUNT 18.6 10^3/uL (4.3-11.0)
[2022-01-11 10:28] LABS: CALCIUM 8.7 MG/DL (8.5-10.1)
[2022-01-11 10:29] LABS: TOTAL PROTEIN 5.8 GM/DL (6.4-8.2)
[2022-01-11 10:31] LABS: BILIRUBIN,TOTAL 3.7 MG/DL (0.1-1.0)
[2022-01-11 10:33] LABS: CREATININE SERUM 1.24 MG/DL (0.60-1.30)
[2022-01-11 10:43] LABS: BAND NEUTROPHILS 10 %; LYMPHOCYTES % (MANUAL) 4 %; METAMYELOCYTES % 2 %; MONOCYTES % (MANUAL) 4 %; NEUTROPHILS % (MANUAL) 80 %
[2022-01-11 10:44] LABS: BURR CELLS SLIGHT; ELLIPT/OVALOCYTES SLIGHT; TOXIC GRANULATION/VACUOLAZATIO 1+
--- NOTE | 2022-01-11 11:11 | Diagnostic Imaging Report ---
INDICATION: Cough, hemoptysis. TECHNIQUE: Frontal chest obtained at 10:49 a.m. and compared to 11/18/2020. FINDINGS: There is dense consolidation in the left midlung, suspect underlying pneumonia or pulmonary hemorrhage. There is no pneumothorax or gross pleural fluid. IMPRESSION: Dense consolidation in left midlung and lower lung, suspect pneumonia. Follow-up is recommended, CT would provide further detail if clinically warranted. Dictated by: Dictated on workstation # [id number]
[2022-01-11] MEDS ORDERED: AZITHROMYCIN INJECTION 500 MG in NS (IVPB) 250 ML IV ONE (12:00)
[2022-01-11] MEDS ORDERED: cefTRIAXone 1 GM PRE-MIX 50 ML IV ONE (12:00)
[2022-01-11] MEDS ORDERED: NS IV 1000 ML 1,000 ML IV SCH (12:00)
[2022-01-11] MEDS ORDERED: NS 100 ML (IVPB) BAG IV ONE (12:15)
[2022-01-11] MEDS ORDERED: IOHEXOL 350 MG/ML 100 ML (OMNIPAQUE 350) VIAL IV ONE (12:15)
[2022-01-11] MEDS ORDERED: HOLD METFORMIN - RECEIVED CONTRAST 20 ML VIAL IV SCH (12:15)
--- NOTE | 2022-01-11 12:34 | Diagnostic Imaging Report ---
EXAMINATION: CT chest with intravenous contrast. TECHNIQUE: Multiple contiguous axial images were obtained through the chest after the uneventful administration of intravenous contrast. All CT scans use one or more of the following dose optimizing techniques: automated exposure control, MA and/or KvP adjustment based on patient size and exam type or iterative reconstruction. HISTORY: Pneumonia and hemoptysis COMPARISON: 11/17/2021 FINDINGS: There is dense consolidation in the left upper lobe with air bronchograms likely representing pneumonia. There is mild bibasilar atelectasis. A few nodular opacities in left lower lobe also likely infectious. There is a small left pleural effusion. No pneumothorax. No suspicious nodules. There is no axillary or supraclavicular lymphadenopathy. There is no mediastinal lymphadenopathy. Heart size is normal. There are moderate coronary artery calcifications. No pericardial effusion. Aorta is normal in caliber. Limited views of the upper abdomen show stable 1.8 cm cyst in the body of the pancreas. Simple cyst is present in the right kidney. There are no suspicious osseus lesions. IMPRESSION: 1. Dense consolidation left upper lobe likely representing pneumonia. Followup to resolution recommended as the differential includes an invasive mucinous adenocarcinoma.. Dictated by: Dictated on workstation # [id number]
[2022-01-11] MEDS ORDERED: ACETAMINOPHEN 500 MG TAB (TYLENOL) PO ONE (12:45)
[2022-01-11] MEDS ORDERED: ALBU8.5H6 INH (14:16)
[2022-01-11] MEDS ORDERED: CEFD300C3 PO (14:16)
[2022-01-11] MEDS ORDERED: AZIT250T12 PO (14:16)
[2022-01-11 14:56] VITALS: BP 142/78
== END 2022-01-11 14:56 | disposition home or self-care (01) ==
LOC: EDUNIT# 09:47 → ER 09:49
DX: J18.9 Pneumonia, unspecified organism (principal); R74.02 Elevation of levels of lactic acid dehydrogenase [LDH]; F17.210 Nicotine dependence, cigarettes, uncomplicated; Z20.822 Contact with and (suspected) exposure to COVID-19
CPT/HCPCS: 36415; 71045; 71260; 80053; 83605; 84145; 85007; 85027; 86141; 87040; 87636

== ENCOUNTER → 2022-01-16 | Outpatient (CLI) | payer MEDICARE, OTHER ==
[~2022-01-16] MED LIST changes: +ALBU8.5H6 INH; +AZIT250T12 PO
--- NOTE | 2022-01-16 14:26 | Diagnostic Imaging Report ---
Indication: Cough. Pneumonia. Comparison with CT scan of 01/11/2022. FINDINGS: The dense consolidated dated infiltrate noted in the left upper lobe on CT scan has cleared considerably. Only mild residual infiltrate remains. There is mild pleural scarring along the right major fissure. Right lung is clear. The heart is not enlarged. No pulmonary edema. No pneumothorax or pleural effusion. IMPRESSION: There has been marked improvement with considerable clearing of the left upper lobe consolidated infiltrate since previous exam. Dictated by: Dictated on workstation # [id number]
== END ==
LOC: RAD 07:54
PROVIDERS: ATTEND Family Medicine
DX: J18.1 Lobar pneumonia, unspecified organism (principal)
CPT/HCPCS: 71046